=== PATIENT | male | born 1945 | race Caucasian/White ===

== ENCOUNTER → 2020-09-04 12:38 | Outpatient (BNVA) | payer MEDICARE, SELFPAY | PROVIDERS: PCP Internal Medicine; Visit Provider Internal Medicine Cardiovascular Disease | DX: R07.89 Other chest pain (principal); I42.8 Other cardiomyopathies; Z95.2 Presence of prosthetic heart valve | CPT/HCPCS: 99212 ==

== ENCOUNTER → 2020-10-11 10:31 | Outpatient (REF) | payer MEDICARE, SELFPAY ==
--- NOTE | 2020-10-11 10:35 | CA_ITS ---
Transthoracic Echocardiogram Patient (Last, First, Middle): Kenny Pepe A Gender: Male Date of : 1945 Age: 75 Procedure Date: 10/11/2020 Procedure Type: Transthoracic Echocardiogram Location: OP Height: 175.26 cm Weight: 92.99 kg BSA: 2.09 m2 Heart Rate: bpm BP: 120 / 80 mmHg Milk Truck Driver: NATASHA Stevens MD: Vinny Gatica MD Journeyman Powerhouse Operator: Keegan Dai MD Symptoms: Z95.2 - Presence of prosthetic heart valve Study Quality: Fair ECG Rhythm: Sinus Conclusions: - 1. Mildly reduced LV systolic function with LVEF of 45-50% with grade 1 diastolic dysfunction 2. Normally functioning bioprosthetic aortic valve with mean gradient of 10 mm of mercury 3. Normal RV systolic pressure 4. Mildly dilated ascending aorta at 4.3 cm 5. No pericardial effusion Findings Left Ventricle Normal left ventricular cavity size. There is normal left ventricular wall thickness. The left ventricular systolic function is mildly decreased. The visually estimated ejection fraction is between 45-50%. There is paradoxical septal motion consistent with post-operative status and paradoxical septal motion consistent with a left bundle branch block. Spectral Doppler is indicative of an impaired relaxation filling pattern. E/E prime ratio is <8, consistent with normal filling pressures. Evidence suggests grade I (mild) diastolic dysfunction. Right Ventricle Normal right ventricular cavity size and systolic function. Atria The left atrium is likely dilated. Interatrial shunt cannot be excluded. The right atrium is normal in size. Aortic Valve A bioprosthetic aortic valve is present. The prosthetic aortic valve appears to be functioning normally. The mean gradient is 10 mmHg. There is no aortic valve regurgitation. Mitral Valve There is mild anterior and posterior mitral leaflet thickening. There is mild mitral valve regurgitation. There is no mitral valve stenosis. Pulmonic Valve The pulmonic valve was not well visualized. Tricuspid Valve Likely normal tricuspid valve structure and function. There is mild tricuspid valve regurgitation. The right ventricular systolic pressure is normal. The right ventricular systolic pressure is 27 mmHg. Normal right atrial pressure. There is no evidence of pulmonary hypertension. Great Vessels The pulmonary artery was not well visualized. There is mild dilatation of the ascending aorta measuring 4.30 cm. Venous The inferior vena cava is normal in size and collapses greater than 50% with inspiration. Pericardium/Pleural Prominent epicardial adipose tissue noted. Prior Study Comparison No significant change compared to prior study dated: 08/11/2018. Measurements 2D Linear Measurements IVSd: 1.05 0.6-0.9/0.6-1.0 cm LVIDd: 5.13 3.9-5.3/4.2-5.9 cm LVIDd Index: 2.45 2.4-3.2/2.2-3.1 cm/m2 LVIDs: 4.09 2.0-3.6 cm LVPWd: 1.06 0.7-1.1 cm LA Diam: 4.10 2.7-3.8/3.0-4.0 cm LAIDs Index: 1.96 1.5-2.3 cm/m2 LV Mass: 254.28 67-162/88-224 g LV Mass Index: 121.66 43-95/49-115 g/m2 LVOT Diam: 2.40 3.0+(-)1.3 cm 2D Systolic Function EF 4C: 45.00 >55% EF 2C: 45.90 >55% EF BiP: 46.30 >55% Mitral Valve MV Pk E: 0.44 MV PK A: 0.94 MV Decel Time: 168.00 E/A: 0.50 E'Lateral: 5.44 E'Medial: 4.03 E/E' Med: 10.80 E/E' Lat: 8.00 PHT: 49.00 MVA PHT: 4.49 Decel Cassia: 2.59 Aortic Valve AoV Pk Gio: 2.11 AoV Mn Gio: 1.53 AoV VTI: 0.43 AoV Pk Grad: 18.00 Aov Mn Grad: 10.00 TAMMIE Cont.VTI: 2.06 LVOT LVOT Pk Gio: 0.96 LVOT Mn Gio: 0.71 LVOT VTI: 0.20 LVOT Pk Grad: 4.00 LVOT Mn Grad: 2.00 LVOT Diam: 2.40 LVOT Area: 4.52 Diastolic Function MV Pk E: 0.44 MV Pk A: 0.94 E/A: 0.50 E'Medial: 4.03 E/E' Med: 10.80 E' Laterial: 5.44 E/E' Lat: 8.00 Tricuspid Valve TR Pk Gio: 2.47 TR Pk Grad: 24.00 RA Press: 3.00 RVSP: 27.00 Great Vessels Aorta Ao Asc: 4.30 2.1-3.4 cm Ao Arch: 3.00 Updated in Other Vendor System with Status of Final Keegan Dai MD electronically signed on 10/11/2020 2:31:11 PM with status of Final
== END ==
LOC: HO.CARD 10:31
PROVIDERS: Visit Provider Internal Medicine Cardiovascular Disease
DX: Z95.2 Presence of prosthetic heart valve (principal)
CPT/HCPCS: 93306

== ENCOUNTER 2020-12-06 11:41 | Outpatient (REF) | payer MEDICARE, SELFPAY ==
[2020-12-07 11:47] LABS: Free Prostate Spec Ag 1.2 ng/mL; Percent Free Prostate Spec Ag 38 % (calc) (>25); Prostate Specific Ag Total 3.2 ng/mL (< OR = 4.0)
== END 2020-12-06 11:42 | disposition home or self-care (01) ==
LOC: HO.LAB 11:41
PROVIDERS: PCP Internal Medicine; Visit Provider Urology
DX: R97.20 Elevated prostate specific antigen [PSA] (principal); Z12.5 Encounter for screening for malignant neoplasm of prostate
CPT/HCPCS: 36415; 84153; 84154

== ENCOUNTER → 2021-01-10 14:23 | Outpatient (BNVA) | payer MEDICARE, SELFPAY | PROVIDERS: Visit Provider Urology | DX: R97.20 Elevated prostate specific antigen [PSA] (principal); R33.9 Retention of urine, unspecified; N31.9 Neuromuscular dysfunction of bladder, unspecified | CPT/HCPCS: 99212 ==

== ENCOUNTER 2021-01-16 10:35 | Outpatient (REF) | payer MEDICARE, SELFPAY ==
[2021-01-16 11:55] LABS: Alanine Aminotransferase 19 U/L (0-40); Albumin Level 4.2 g/dL (3.5-5.0); Alkaline Phosphatase 91 U/L (39-117); Aspartate Amino Transferase 24 U/L (5-37); Bilirubin Direct 0.3 mg/dL (0.0-0.5); Bilirubin Total 0.8 mg/dL (0.0-1.0); Cholesterol 141 mg/dL; HDL Cholesterol 49 mg/dL; LDL Cholesterol Calculated 79 mg/dl; Total Protein 6.6 g/dL (6.5-8.0); Triglycerides 68 mg/dL
[2021-01-16 12:08] LABS: Reflex LDLD? No
== END 2021-01-16 10:36 | disposition home or self-care (01) ==
LOC: HO.LNP 10:35
PROVIDERS: Visit Provider Internal Medicine
DX: I25.10 Atherosclerotic heart disease of native coronary artery without angina pectoris (principal)
CPT/HCPCS: 80061; 80076

== ENCOUNTER 2023-11-21 12:29 | Inpatient (IN) | payer OTHER, MEDICARE, SELFPAY ==
[2023-11-21] VITALS (20 sets, daily range): BP systolic 139–170; BP diastolic 74–104; PULSE 64–81; RESP 15–21; TEMP 36.4–36.7; O2SAT 93–100; BMI 30.2; BMI 29.1
--- NOTE | ~2023-11-21 | CT_ITS ---
CT ANGIOGRAM NECK WITH CONTRAST CT ANGIOGRAM BRAIN WITH CONTRAST CLINICAL INFORMATION: Dysarthria. COMPARISON: Head CT 11/21/2023. TECHNIQUE: Test bolus sequences followed by intravenous administration 70 mL of Omnipaque 350. Helical imaging was performed in the axial plane from the thoracic inlet to the skull vertex. Delayed postcontrast imaging of the head was also performed. The data was processed at the nuclear cardiology technologist workstation for generation of MIP sequences. Angled MIPs and volume rendered reformatted images were also generated at an offline 3D workstation under concurrent supervision. Stenoses are assessed in accordance with NASCET criteria unless otherwise indicated. This CT examination was performed using dose optimization techniques as appropriate, variously including the following: *Automated exposure control *Adjustment of mA and/or kV according to patient size (this includes techniques or standardized protocols for targeted exams where dose is matched to indication/reason for exam; i.e. extremities or head) *Use of iterative reconstruction technique FINDINGS: BRAIN: [There is no intracranial hemorrhage, hydrocephalus, extra-axial surface collection, midline shift, or other herniation pattern. Possible acute infarct involving the left superior temporal gyrus and the posterior left insula that would be better assessed with MRI. No mass effect and no hemorrhagic transformation. The basilar cisterns are preserved. No significant soft tissue abnormality. No acute osseous abnormality. There is a retention cyst within the left maxillary sinus which is atelectatic. 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 CERVICAL SOFT TISSUES AND LUNG APICES: There are median sternotomy wires. Imaged upper lungs are clear. Multiple surgical clips within the left neck, following left carotid endarterectomy. NECK CTA: [There is a classic 3 vessel configuration of the aortic arch. Proximal arch vessels are non-stenotic. The vertebral arteries are codominant. No significant ostial stenosis is visualized on either side. Both vertebral arteries are widely patent throughout their extracranial cervical course. Fibrofatty atherosclerotic plaque results in a 60% stenosis of the proximal right internal carotid artery. No significant stenosis involving the left carotid bifurcation. BRAIN CTA: Acute arterial occlusion of one of the posterior left sylvian M2 middle cerebral artery branches. 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 Atherosclerotic calcification throughout the carotid siphons bilaterally without significant stenosis. No aneurysm. Timing of the contrast bolus allows assessment of the major dural venous sinuses, which all opacify normally] CT/CT angio head neck stroke IMPRESSION: - Acute arterial occlusion of one of the posterior left sylvian M2 middle cerebral artery branches. Possible acute infarct involving the left superior temporal gyrus and the posterior left insula that would be better assessed with MRI. No mass effect and no hemorrhagic transformation. - Fibrofatty atherosclerotic plaque results in a 60% stenosis of the proximal right internal carotid artery. Findings discussed with Fer Barrera at 1:12 PM on 11/21/2023
--- NOTE | ~2023-11-21 | CT_ITS ---
EXAMINATION: CT HEAD WITHOUT CONTRAST (STROKE PROTOCOL) CLINICAL INFORMATION: Stroke protocol. Weakness COMPARISON: None available. TECHNIQUE: Contiguous axial imaging was performed from the skull base to vertex without intravenous administration of contrast. This CT examination was performed using dose optimization techniques as appropriate, variously including the following: *Automated exposure control *Adjustment of mA and/or kV according to patient size (this includes techniques or standardized protocols for targeted exams where dose is matched to indication/reason for exam; i.e. extremities or head) *Use of iterative reconstruction technique DLP: 725 mGy-cm FINDINGS: There is no acute intra-axial, extra-axial bleed, masses, collection or midline shift. There is no acute infarction evolution. There is no edema. The lateral ventricles are symmetrical in size and configuration with mild prominence. There is mild periventricular hypodensity in both cerebral hemispheres slightly more prominent in the left frontal region which could represent a small old lacunar infarct. Bone windows reveal a small polyp or subluxation cyst left maxillary sinus. This is calcified sinolith in right frontal sinus. Rest of the paranasal sinuses are clear. No gross bony or calvarial abnormality seen. No scalp soft tissue abnormality. CT/CT head for stroke IMPRESSION: No acute intracranial process seen. This critical result was discussed with Fer Barrera at12:47pm on 11/21/2023. It was ascertained that the content and urgency of the report was understood at the time of direct communication.
--- NOTE | ~2023-11-21 | MR_ITS ---
EXAMINATION: MR BRAIN WITHOUT CONTRAST CLINICAL INFORMATION: Cerebrovascular accident. COMPARISON: CT angiogram head and neck 11/21/2023. TECHNIQUE: MRI of the brain was obtained using routine sequences without contrast. FINDINGS: There is a small acute cortical infarct within the left parietal lobe. There are scattered nonspecific foci of T2 FLAIR signal hyperintensity primarily involving the periventricular white matter. A few small chronic within infarcts within the basal ganglia and thalami are noted. No pathological magnetic susceptibility artifact. Intracranial vascular flow voids are grossly maintained. There is no intracranial mass effect or midline shift. No abnormal extra-axial collection. Lateral and third ventricles are normal. No hydrocephalus. Midline structures including the cervicomedullary junction are normal. No acute bone marrow signal changes. There is no mastoid or middle ear effusion. There is a retention cyst within the alveolar recess of the left maxillary sinus which is asymmetrically hypoplastic or atelectatic. Globes and orbits are grossly symmetric. MR/MR head/brain wo con IMPRESSION: There is a small acute cortical infarct within the left parietal lobe and numerous chronic small vessel ischemic changes primarily involving the periventricular white matter. A few small chronic lacunar infarcts are also visualized within the basal ganglia and thalami.
--- NOTE | 2023-11-21 12:31 | ECG_ITS ---
Test Reason : STROKE Blood Pressure : / mmHG Vent. Rate : 074 BPM Atrial Rate : 074 BPM P-R Int : 232 ms QRS Dur : 150 ms QT Int : 434 ms P-R-T Axes : 020 -26 148 degrees QTc Int : 481 ms Sinus rhythm with 1st degree A-V block Left bundle branch block Abnormal ECG No previous ECGs available Referred By: Fer Barrera Electronically Signed By:Vinny Gatica
--- NOTE | 2023-11-21 12:35 | ED.GENADULT ---
HPI - General Adult General Chief complaint: Stroke Stated complaint: SPEECH CHANGES Time Seen by Provider: 11/21/23 12:31 Source: patient and EMS Mode of arrival: EMS Limitations: no limitations History of Present Illness HPI narrative: This is an 78-year-old male history of aortic valve replacement and aortoplasty as well as presence of prosthetic heart valve, elevated PSA, urinary retention with incomplete bladder emptying, and hypotonic neurogenic bladder presenting to the emergency department with difficulty with word-finding, slurred speech all of which started at 09:00 and gradually worsened. Patient reports initially he was not too worried as this has happened to him in the past and typically has gone away however this time it did not seem to be going away. Patient denies associated headache, visual disturbances, dizziness, weakness, nausea, vomiting, abdominal pain, chest pain, shortness of breath. Related Data Home Medications Medication Instructions Recorded Confirmed aspirin 81 mg tablet,delayed 81 mg PO DAILY 09/04/20 09/04/20 release (Adult Low Dose Aspirin) hydroxyurea 500 mg capsule PO 09/04/20 09/04/20 simvastatin 20 mg tablet 20 mg PO DAILY 09/04/20 09/04/20 rosuvastatin 10 mg tablet 10 mg PO DAILY 01/10/21 Previous Rx's Medication Instructions Recorded tamsulosin 0.4 mg capsule 0.8 mg (2 x 0.4 mg) PO DAILY 90 02/13/21 days #180 caps terazosin 5 mg capsule 5 mg PO BEDTIME 30 days #30 caps 02/26/21 nitrofurantoin macrocrystal 100 mg 100 mg PO DAILY 90 days #90 caps 05/02/21 capsule Allergies Allergy/AdvReac Type Severity Reaction Status Date / Time No Known Allergies Allergy Verified 01/10/21 14:30 Review of Systems Review of Systems: Yes all other systems are reviewed and are negative [facility] Past Medical History Attestation statement: The following information was validated with the patient. Source: old records reviewed and nursing notes reviewed Surgical History History of heart surgery History of tonsillectomy History of removal of cyst Family History Family History Father No problems noted. Mother No problems noted. Social History Social History Smoked in Last 30 Days: No Use of substances other than those prescribed or required for medical reasons: No Advance Directives: No Advance Directives Information Provided: Yes Physical Exam ED Vital Signs: Vital Signs - 24 hr 11/21/23 13:16 11/21/23 13:34 11/21/23 13:53 Temperature 97.5 F Pulse Rate 67 76 78 Respiratory Rate 16 17 18 Blood Pressure 154/97 H 157/90 H 156/87 H Pulse Oximetry 100 97 94 Oxygen Delivery Method Room Air Room Air Room Air 11/21/23 14:08 11/21/23 14:21 11/21/23 14:23 Temperature 97.9 F Pulse Rate 75 74 75 Respiratory Rate 18 15 18 Blood Pressure 160/80 H 160/80 H 149/83 H Pulse Oximetry 93 96 94 Oxygen Delivery Method Room Air Room Air Room Air 11/21/23 14:38 11/21/23 15:00 Temperature 97.8 F Pulse Rate 81 78 Respiratory Rate 18 21 H Blood Pressure 155/104 H 142/103 H Pulse Oximetry 94 96 Oxygen Delivery Method Room Air Room Air BMI result Body Mass Index 30.2 vss Appearance: Alert.? Oriented X3.? No acute distress.? Head: Normocephalic, atraumatic, no step-offs or deformities. Smile symmetric. + Patient does however have slurred speech and difficulty with word finding during my exam Eyes: Pupils equal, round and reactive to light.? Neck: Normal inspection.? Neck supple.? CVS: Normal heart rate and rhythm.? Pulses normal.? Respiratory: No respiratory distress.? Breath sounds normal.? Abdomen: Soft and nontender.? Skin: Skin warm and dry.? Normal skin color.? Normal skin turgor.? Extremities: No lower extremity edema.? No calf ttp. 5/5 strength to bilateral upper and lower extremities Back: No midline tenderness, no C-spine tenderness, full range of motion, no CVA tenderness bilaterally Neuro: Oriented X 3.? No motor deficit.? No sensory deficit. CN 2-12 intact . Normal [id number]. Normal straight leg raise. Negative Romberg and pronator drift. Normal sensation bilaterally. Course Reevaluation(s) Reevaluation #1: Normal dry head scan. Recieved call from [facility]. Call out to neurology. review scheduling coordinator at the bedside. Time: 12:51 Reevaluation #2: Hold TNK for nowper Dr. Resendiz At this time patient now with clear speach not not having difficulty w/ word finding. Time: 12:57 Reevaluation #3: I did receive a critical call from [facility] stating likely M2 occlusion unlikely early infarct of the left temporal Wernicke's area, unable to get a hold of Dr. Gonzales community health education coordinator reach out to Dr. Salguero neurology who recommends giving TNK at this time 1316. At the same time nurse at bedside again reporting difficulty w/ word finding and slightly slurred speech Time: 13:16 Additional Reevaluation(s): [address] Doss neuro morena,would like patient transfered to [facility] post TNK care and monitoring as an ED to ED transfer due to the distal M2. States if sx persist or patient worsens thrombectomy may be an option. patient and family agree with this plan. 1427 Spoke to in the ED who accepts transfer 1500 [facility] Selam recommends 1L NS and to lie flat. 1513 I now received a call from [facility] Dr. Doss neuro morena who also discuss this case with neurologist/stroke physician on-call Dr. Bacon who states that they further discuss this case in looked at images which were uploaded onto [employer] due to an NIH stroke scale of 2 in the distal location of occlusion they feel as though TNK is sufficient for this patient. They would not like patient transferred to [facility] due to limited number of available ICU beds therefore they would prefer this patient is kept here closely observed in the ICU for post TNK care. Medications Administered Generic Name Dose Route Start Last Admin Trade Name Freq PRN Reason Stop Dose Admin Sodium Chloride 500 mls @ 500 mls/hr 11/21/23 15:00 11/21/23 15:18 Ns IV 11/21/23 15:59 500 mls/hr .Q1H ISABELLA Administration Discontinued Medications Generic Name Dose Route Start Last Admin Trade Name Freq PRN Reason Stop Dose Admin Acetaminophen 650 mg 11/21/23 14:14 11/21/23 14:38 Acetaminophen 325 Mg Tablet PO 11/21/23 14:15 Not Given ONCE ONE Tenecteplase 23 mg 11/21/23 13:16 11/21/23 13:20 Tenecteplase 50 Mg/10 Ml Kit IVPUSH 11/21/23 13:17 23 mg ONCE ONE Administration Medical Decision Making Medical Decision Making [facility] Narrative: 1234 Stroke alert paged overhead 78 yo m presents w/ difficulty speaking and issues w/ word finding Exam- neuro nonfocal however patient is having difficulty with word finding and is having evident slurred speech. NIH stroke scale of 2 GCS 15 and no associated trauma History and physical exam concerning for possible stroke versus TIA. Lower suspicion for intracranial hemorrhage or traumatic intracranial bleed. Will rule out metabolic derangements in urinary infection which could be mimicking this. Plan labs, imaging, CT head and CTA. Differential Diagnosis Differential Diagnoses: The differential diagnosis associated with the presentation includes History and physical exam concerning for possible stroke versus TIA. Lower suspicion for intracranial hemorrhage or traumatic intracranial bleed. Will rule out metabolic derangements in urinary infection which could be mimicking this. Admission/Observation Consideration of admission/observation: Escalation of care including admission/observation considered Consult Healthcare Provider Management of the patient was discussed with: Search Marketing Coordinator Lab Data [facility] Lab Attestation statement: I reviewed the patient's lab results. 11/21/23 14:03 11/21/23 14:03 Labs: Lab Results 11/21/23 11/21/23 11/21/23 Range/Units 12:49 12:50 14:03 WBC 4.6 L (4.8-10.8) X10*3/uL RBC 3.67 L (4.60-5.80) X10*6/uL Hgb 13.3 L (14.0-18.0) g/dl Hct 38.9 L (42.0-52.0) % MCV 106.0 H (80.0-98.0) fL MCH 36.2 H (27.0-33.0) pg MCHC 34.2 (31.0-36.0) g/dl RDW 12.7 (11.0-16.0) % Plt Count 261 (160-400) X10*3/uL MPV 9.7 (9.4-12.4) fL Immature Gran % (Auto) 0.2 (0.0-0.4) % Neut % (Auto) 62.1 (45-73) % Lymph % (Auto) 23.1 (20-40) % Cuming % (Auto) 11.0 (2-11) % Eos % (Auto) 3.0 (0-4) % Baso % (Auto) 0.6 (0-2) % Lymph # (Auto) 1.1 L (1.2-4.9) X10*3/uL Cuming # (Auto) 0.5 (0.1-1.2) X10*3/uL Eos # (Auto) 0.1 (0.0-0.4) X10*3/uL Baso # (Auto) 0.0 (0.0-0.2) X10*3/uL Abs Immat Gran (auto) 0.01 (0.00-0.03) X10*3/uL Absolute Neuts (auto) 2.9 (2.0-8.3) x10*3/uL Absolute Nucleated RBC 0.000 (0.0-0.012) X10*3/uL Nucleated RBC % (auto) 0.0 (0.0-0.2) /100WBC PT 11.3 (11.1-13.3) SEC Whole Blood PT 12.2 (11.1-13.5) sec INR 0.9 (0.9-1.1) Whole Blood INR 1.0 (0.9-1.1) APTT 31.8 (26.0-36.8) SEC Sodium 138 (135-145) mmol/L Potassium 4.1 (3.3-5.1) mmol/L Chloride 106 (96-108) mmol/L Carbon Dioxide 27 (22-29) mmol/L Anion Gap 9 L (12-20) BUN 20 H (9-16) mg/dL Creatinine 1.11 (0.5-1.4) mg/dL Estim Creat Clear Calc 59.7 Estimated GFR > 60 POC Glucose 91 (60-115) mg/dL Random Glucose 103 (60-115) mg/dL Calcium 9.2 (8.4-10.2) mg/dL Total Creatine Kinase 120 (38-174) U/L Troponin I High Sens 5.6 (<3.5-35.0) ng/L Triglycerides 135 (<150) mg/dL Cholesterol 133 (<200) mg/dL LDL Cholesterol, Calc 62 (<100) mg/dL HDL Cholesterol 44 (>40) mg/dL Independent Interpretation I performed an independent interpretation of an: EKG and CT Scan Radiology Impression Discussion of test interpretation with radiology: I have reviewed the radiologist's reading. External Record Review External record reviewed: Inpatient record, Office record, Outpatient record, Prior outpatient labs, Prior outpatient radiology, Primary care record and Outside ED record Chronic Conditions Patient?s care impacted by: Other (aortic valve replacement and aortoplasty ) Critical Care Time Critical Care Time Critical Care Time: Yes Total Critical Care Time: 120 Attestation: I attest to this time spent taking care of the patient, obtaining history, physical, reviewing labs, imaging, speaking to my attending, speaking to specialist. Discharge Plan Discharge Clinical Impression: Stroke, Aphasia Patient Disposition: Admitted As Inpatient
[2023-11-21 12:53] LABS: Glucose, Whole Blood 91 mg/dL (60-115)
[2023-11-21 12:53] LABS: Prothrombin Time Whole Bld POC 12.2 sec (11.1-13.5)
[2023-11-21] MEDS: Tenecteplase 50 MG/10 ML KIT 23 MG IVPUSH (13:20)
--- NOTE | 2023-11-21 13:38 | PC.NURSE ---
PT IS A/O X 4 NO SOB/JOSEPH NOTED NEUROS WNL. DAUGHTER AND AT BEDSIDE. DR. STEWART AT BEDSIDE AT LENGTH WITH PLAN OF CARE TO FAMILY/PT. PT HAS #18 L AC. NO EDEMA NOTED. PT HAS BEEN HAVING SPORADIC EPISODES AND RESOLUTION OF WORD FINDING. (TANA/YOHAN COTTER) AWARE. PT/FAMILY IS AWARE OF PLAN OF CARE FOR ADMISSION TO ICU. WILL CONTINUE TO MONITOR.
--- NOTE | 2023-11-21 13:57 | MHC.STROKE ---
Notified of Stroke Alert on patient. When TW arrived to ED, patient was in CT scan. Pt had already been evaluated by provider and a dry CT was done. Pt was in CT scan for a CTA H/N. Provider Moira had spoken with Dr. Harrell. Pt had initial NIH score of 2. When CTA completed, patient moved into bed 21. Pt was awake, alert and oriented x 3. skin warm and dry. Resp unlabored. Denies n/v. Denies headache. PERRLA, Tongue midline, smile symmetrical. Hand grasp equal. No palmar drift. Heel to nava testing normal. Equal arm/leg strength. Pt had difficulty with some word finding but speech was clear. Received call from radiology. Pt with left M2 occlusion. Attempted to reach Dr. Harrell without success. Dr. Salguero notified and plan was to administer TNK as the window of administration time was closing. TNK ordered and administered via #18 in left arm. Swallow screen - Pt is NPO due to TNK administration Stroke Education completed with the patient and family ( Lisa and daughter). Pt and family aware of plan. Will contact [facility] to see if he is a candidate for clot retrieval. Awaiting callback.
[2023-11-21 14:09] LABS: MANUAL DIFF FLAG NO
[2023-11-21 14:11] LABS: Basophils Percent Auto 0.6 % (0-2); Eosinophils Absolute Auto 0.1 X10*3/uL (0.0-0.4); Hematocrit 38.9 % (42.0-52.0); Hemoglobin 13.3 g/dl (14.0-18.0); Imm Gran Abs Auto 0.01 X10*3/uL (0.00-0.03); Imm Gran Pct Auto 0.2 % (0.0-0.4); Lymphocytes Absolute Auto 1.1 X10*3/uL (1.2-4.9); Lymphocytes Percent Auto 23.1 % (20-40); Mean Corpuscular HGB Conc 34.2 g/dl (31.0-36.0); Mean Corpuscular Hemoglobin 36.2 pg (27.0-33.0); Mean Platelet Volume 9.7 fL (9.4-12.4); Monocytes Absolute Auto 0.5 X10*3/uL (0.1-1.2); Neutrophils Absolute Auto 2.9 x10*3/uL (2.0-8.3); Neutrophils Percent Auto 62.1 % (45-73); Platelet Count 261 X10*3/uL (160-400); Red Blood Count 3.67 X10*6/uL (4.60-5.80); Red Cell Distribution Width 12.7 % (11.0-16.0); White Blood Count 4.6 X10*3/uL (4.8-10.8)
[2023-11-21 14:16] LABS: INTERNATIONAL NORM RATIO 0.9 (0.9-1.1); Prothrombin Time 11.3 SEC (11.1-13.3)
[2023-11-21 14:18] LABS: Partial Thromboplastin Time 31.8 SEC (26.0-36.8)
[2023-11-21 14:20] LABS: Stroke Lab Use COMPLETE
[2023-11-21 14:26] LABS: Anion Gap 9 (12-20); Blood Urea Nitrogen 20 mg/dL (9-16); Calcium 9.2 mg/dL (8.4-10.2); Carbon Dioxide 27 mmol/L (22-29); Chloride 106 mmol/L (96-108); Creatinine Clr Calc Pharmacy 59.7; Estimated Glomerular Filt Rate > 60; Glucose Random 103 mg/dL (60-115); Potassium 4.1 mmol/L (3.3-5.1); Sodium 138 mmol/L (135-145)
--- NOTE | 2023-11-21 14:28 | MHC.STROKE ---
Provider spoke with [facility]. Patient is going to be transferred for possible thrombectomy. Explained to patient in detail that the procedure may or may not be done based on the assessment of the specialist there. Pt states that he agrees to plan. No neuro changes at this time. Pt denies headache.
--- NOTE | 2023-11-21 14:29 | MHC.SLORD ---
Speech Language Pathology Order Status: Received order for MAID CLEANING COOKING consult. Per safety coordinator, to be cx'ed as pt is going to be transferred to [facility] for a possible thrombectomy.
[2023-11-21 14:34] LABS: Troponin-I High Sensitivity 5.6 ng/L (<3.5-35.0)
[2023-11-21 14:47] LABS: Cholesterol 133 mg/dL (<200); HDL Cholesterol 44 mg/dL (>40); LDL Cholesterol Calculated 62 mg/dL (<100); Triglycerides 135 mg/dL (<150)
--- NOTE | 2023-11-21 14:56 | PC.NURSE ---
RN TO RN REPORT GIVEN TO JESSIE AT [facility]. PT/FAMILY AWARE OF PLAN OF CARE FOR TRANSFER VIA AMBULANCE TO [facility].
--- NOTE | 2023-11-21 14:59 | MHC.STROKE ---
Late Entry 1345: Pt reports that he woke this am at 0530. Reports that he was feeling well at that time and was reading. States that he ate breakfast with his around 0800 and had no symptoms. Around 0900 he received a spam call on his phone. He reports I couldn't speak and I felt weak all over . He reports that this has happened in the past with his speech but it resolved. Due to continuing symptoms, his called the ambulance around lunch time.
--- NOTE | 2023-11-21 15:00 | MHC.EDTECH ---
T 97.5 P 78 R 21 BP 142/103 UL O 96 2 LITERS
--- NOTE | 2023-11-21 15:10 | PC.NURSE ---
PT PLACED ON O2 AT 1L/M VIA N/C. O2 SAT - 98%. PT HAS 2 HEPLOCKS #18 (L LOWER FOREARM AND R AC). PT IS A/O X 4. NO SOB/JOSEPH NOTED. WILL CONTINUE TO MONITOR.
[2023-11-21] MEDS: 0.9 % Sodium Chloride 500 ML IV (15:18)
--- NOTE | 2023-11-21 15:20 | PC.NURSE ---
PT SEEN BY DRS. VEGA AND MOIZ. PT AWARE OF PLAN OF CARE.
--- NOTE | 2023-11-21 15:36 | CA_ITS ---
Transthoracic Echocardiogram Patient (Last, First, Middle): Kenny Pepe A Gender: Male Date of : 1945 Age: 78 Procedure Date: 11/21/2023 Procedure Type: Transthoracic Echocardiogram Location: ICU Height: 175.26 cm Weight: 92.53 kg BSA: 2.08 m2 Heart Rate: bpm BP: 159 / 93 mmHg It Support Specialist: Referring MD: George Sheikh MD Symptoms: CVA s/p TNK Study Quality: Adequate ECG Rhythm: Ventriculary paced rhythm Conclusions: - Normal left ventricular cavity size. There is severely increased left ventricular wall thickness. The left ventricular systolic function is severely decreased. The visually estimated ejection fraction is between 20-25%. - There is paradoxical septal motion consistent with a left bundle branch block. - Normal right ventricular cavity size. There is low normal right ventricular systolic function. - There is moderate dilatation of the ascending aorta measuring 4.50 cm. Findings Left Ventricle Normal left ventricular cavity size. There is severely increased left ventricular wall thickness. The left ventricular systolic function is severely decreased. The visually estimated ejection fraction is between 20 25%. There is paradoxical septal motion consistent with a left bundle branch block. Diastolic function is indeterminate on the basis of available data. Right Ventricle Normal right ventricular cavity size. There is low normal right ventricular systolic function. Atria The left atrium is likely dilated. Aortic Valve A bioprosthetic aortic valve is present. The prosthetic aortic valve appears to be functioning normally. There is no aortic valve regurgitation. Mitral Valve The mitral valve appears normal. There is trace mitral valve regurgitation. There is no mitral valve stenosis. Pulmonic Valve Normal pulmonic valve structure and function. There is trace pulmonic valve regurgitation. Tricuspid Valve Normal tricuspid valve structure. There is trace tricuspid valve regurgitation. Normal right atrial pressure. There is no evidence of pulmonary hypertension. Great Vessels There is moderate dilatation of the ascending aorta measuring 4.50 cm. The visualized portions of the pulmonary artery and branches are normal. Venous The inferior vena cava is normal in size and collapses greater than 50% with inspiration. Pericardium/Pleural There is no evidence of pericardial effusion. Prior Study Comparison Changes noted compared to prior study dated: 10/11/2020. Severe LV dysfunction. Measurements 2D Linear Measurements IVSd: 1.62 0.6-0.9/0.6-1.0 cm LVIDd: 5.48 3.9-5.3/4.2-5.9 cm LVIDd Index: 2.63 2.4-3.2/2.2-3.1 cm/m2 LVIDs: 4.64 2.0-3.6 cm LVPWd: 1.65 0.7-1.1 cm Ao Root: 3.80 2.1-3.5 cm LA Diam: 3.60 2.7-3.8/3.0-4.0 cm LAIDs Index: 1.73 1.5-2.3 cm/m2 LV Mass: 525.57 67-162/88-224 g LV Mass Index: 252.68 43-95/49-115 g/m2 LVOT Diam: 2.30 3.0+(-)1.3 cm 2D Systolic Function EF 4C: 22.70 >55% EF 2C: 29.40 >55% EF BiP: 24.90 >55% Mitral Valve MV Pk E: 1.03 MV Decel Time: 122.00 E'Lateral: 8.27 E'Medial: 3.70 E/E' Med: 27.80 E/E' Lat: 12.50 PHT: 36.00 MVA PHT: 6.11 Decel [place]: 8.47 Aortic Valve AoV Pk Gio: 1.86 AoV Mn Gio: 1.12 AoV VTI: 0.33 AoV Pk Grad: 14.00 Aov Mn Grad: 6.00 TAMMIE Cont.VTI: 1.92 LVOT LVOT Pk Gio: 0.76 LVOT Mn Gio: 0.51 LVOT VTI: 0.15 LVOT Pk Grad: 2.00 LVOT Mn Grad: 1.00 LVOT Diam: 2.30 LVOT Area: 4.15 Diastolic Function MV Pk E: 1.03 E'Medial: 3.70 E/E' Med: 27.80 E' Laterial: 8.27 E/E' Lat: 12.50 Right Ventricle TAPSE (mm): 15.00 Tricuspid Valve TR Pk Gio: 2.53 TR Pk Grad: 26.00 RA Press: 3.00 RVSP: 29.00 Great Vessels Aorta Ao Root-2D: 3.80 2.0-3.7 cm Ao Asc: 4.50 2.1-3.4 cm Pulmonary Valve PV Pk Gio: 0.98 Peak PV Grad: 4.00 Updated in Other Vendor System with Status of Final Vinny Gatica MD electronically signed on 11/21/2023 10:03:01 PM with status of Final
--- NOTE | 2023-11-21 15:39 | PM.CCHP ---
History of Present Illness Date of Service: 11/21/23 Chief Complaint: CVA s/p TNK 78-year-old gentleman with underlying bioprosthetic AVR and aortoplasty, urinary retention with incomplete bladder emptying secondary to neurogenic bladder being admitted for acute CVA with aphasia status post TNK in the emergency room. Patient evaluated by neurology service no evidence of large vessel occlusion. Review of Systems Constitutional: Constitutional: Denies daytime sleepiness, Denies excessive sweating, Denies fatigue, Denies fever(s), Denies lethargy, Denies malaise, Denies night sweats, Denies snoring and Denies weight loss Eyes: Eyes: Denies blurry vision and Denies itchy eyes ENT: Denies nasal congestion, Denies post nasal drip, Denies sinus pain, Denies sinus pressure and Denies other ( Thrush) Cardiovascular: Cardiovascular: Denies chest pain, Denies pedal edema, Denies dyspnea, Denies orthopnea and Denies paroxysmal nocturnal dyspnea Respiratory: Respiratory: Denies cough, Denies hemoptysis, Denies excessive phlegm production, Denies dyspnea, Denies snoring and Denies wheezing Gastrointestinal: Gastrointestinal: Denies abdominal pain and Denies heartburn Musculoskeletal: Musculoskeletal: Denies myalgias, Denies arthralgias and Denies joint swelling Integumentary/Breasts: Skin/Breast: Denies rash Neurologic: Denies memory loss, Denies seizure-like activity and Reports other (Expressive aphasia) Psychiatric: Psychiatric: Denies abnormal sleep pattern, Denies anxiety and Denies memory loss Endocrine: Endocrine: Denies excessive sweating, Denies fatigue and Denies heat intolerance Hematologic/Lymphatic: Hematologic/Lymphatic: Denies easy bruising Allergic/Immunologic: Allergic/Immunologic: Denies itchy eyes, Denies seasonal rhinorrhea and Denies wheezing PMFSH Family History Family History Father No problems noted. Mother No problems noted. Surgical History Surgical History History of heart surgery History of tonsillectomy History of removal of cyst Social History Social History Smoked in Last 30 Days: No Use of substances other than those prescribed or required for medical reasons: No Advance Directives: No Advance Directives Information Provided: Yes Meds Allergies Allergy/AdvReac Type Severity Reaction Status Date / Time No Known Allergies Allergy Verified 01/10/21 14:30 Active Medications: Current Medications Sodium Chloride (Ns) 500 mls @ 500 mls/hr IV .Q1H [facility] Stop: 11/21/23 15:59 Last Admin: 11/21/23 15:18 Dose: 500 mls/hr Sodium Chloride (0.9 % Sodium Chloride Flush 3 Ml Syringe) 3 ml IVFLUSH QSHIFT [facility] Home Medications Medication Instructions Recorded Confirmed Last Taken Type aspirin 81 mg tablet,delayed 81 mg PO DAILY 09/04/20 09/04/20 Unknown History release (Adult Low Dose Aspirin) hydroxyurea 500 mg capsule PO 09/04/20 09/04/20 Unknown History simvastatin 20 mg tablet 20 mg PO DAILY 09/04/20 09/04/20 Unknown History rosuvastatin 10 mg tablet 10 mg PO DAILY 01/10/21 Unknown History Physical Exam Vital Signs: Vital Signs: Last Vital Signs Temp 97.8 F 11/21/23 15:00 Pulse 78 11/21/23 15:00 Resp 21 H 11/21/23 15:00 BP 142/103 H 11/21/23 15:00 Pulse Ox 96 11/21/23 15:00 O2 Del Method Room Air 11/21/23 15:00 BMI result Body Mass Index 30.2 Const: General: no acute distress and alert Nutritional Appearance: not obese Orientation/consciousness: Other orientation findings ( oriented) HEENT: Head: Yes atraumatic Eyes: General: appearance normal, both eyes and all related structures Sclerae: sclerae normal EOM: EOMs intact bilaterally Neck: Neck: Yes supple Lymphatic: no lymphadenopathy noted Resp: Effort & Inspection: normal respiratory effort and no use of accessory muscles Auscultation: clear to auscultation bilaterally Cardio: Rate: regular rate Rhythm: regular rhythm Heart sounds: no gallops, no murmurs and no rubs Skin: General skin exam: other ( warm) Neuro: Other: Sings 5/5 bilateral, very mild aphasia, otherwise intact cranial nerves exam Extrem: General: No clubbing, No cyanosis and No edema Results Labs 11/21/23 14:03 11/21/23 14:03 Labs: Laboratory Results - last 24 hr 11/21/23 11/21/23 11/21/23 12:49 12:50 14:03 MCV 106.0 H MCH 36.2 H MCHC 34.2 RDW 12.7 Plt Count 261 MPV 9.7 Immature Gran % (Auto) 0.2 Neut % (Auto) 62.1 Lymph % (Auto) 23.1 [place] % (Auto) 11.0 Eos % (Auto) 3.0 Baso % (Auto) 0.6 Lymph # (Auto) 1.1 L [place] # (Auto) 0.5 Eos # (Auto) 0.1 Baso # (Auto) 0.0 Abs Immat Gran (auto) 0.01 Absolute Neuts (auto) 2.9 Absolute Nucleated RBC 0.000 Nucleated RBC % (auto) 0.0 PT 11.3 Whole Blood PT 12.2 INR 0.9 Whole Blood INR 1.0 APTT 31.8 Anion Gap 9 L Estim Creat Clear Calc 59.7 Estimated GFR > 60 POC Glucose 91 Random Glucose 103 Calcium 9.2 Total Creatine Kinase 120 Troponin I High Sens 5.6 Triglycerides 135 Cholesterol 133 LDL Cholesterol, Calc 62 HDL Cholesterol 44 Imaging Radiologist's Impressions: Impressions Head CT 11/21/23 12:40 IMPRESSION: No acute intracranial process seen. This critical result was discussed with Fer Barrera at12:47pm on 11/21/2023. It was ascertained that the content and urgency of the report was understood at the time of direct communication. Head/Neck CTA 11/21/23 12:54 IMPRESSION: - Acute arterial occlusion of one of the posterior left sylvian M2 middle cerebral artery branches. Possible acute infarct involving the left superior temporal gyrus and the posterior left insula that would be better assessed with MRI. No mass effect and no hemorrhagic transformation. - Fibrofatty atherosclerotic plaque results in a 60% stenosis of the proximal right internal carotid artery. Findings discussed with Fer Barrera at 1:12 PM on 11/21/2023 Assessment and Plan (1) Aphasia: Status: Acute (2) Stroke: Status: Acute (3) S/P aortic valve replacement and aortoplasty: Status: Acute Plan Assessment: 78-year-old gentleman admitted with acute CVA now status post TNK with improvement in his aphasia Plan: Neuro: Acute CVA status post TNK. Continue with protocol care. Neurology service care appreciated. MRI pending. Cardiac: No acute issues. Pulmonary: No acute issues. Renal: No acute issues. Endo: No acute issues. GI: No acute issues. ID: No acute issues Heme/Onc: No acute issues. Psych: No acute issues. Miscellaneous: No acute issues. Prophylaxis: Pneumatic compression Diet: Pending swallow evaluation
--- NOTE | 2023-11-21 15:42 | PM.NEUROCN ---
History of Present Illness Data of Consult Service Date: 11/21/23 Primary Care Provider: Moncho Garcia NP [facility] Reason for consult: Expressive dysphasia, stroke This is an 78-year-old male history of aortic valve replacement and aortoplasty with bovine valve and a. genna awaiting delivery of Eliquis to start, presented to the emergency department with difficulty with word-finding, slurred speech all of which started at 09:00 and gradually worsened and fluctuating. Patient reports initially he was not too worried as this has happened to him in the past and typically has gone away however this time it did not seem to be going away. Something similar happened for an hour in 2011 when he had his aortic valve ssurgery.. Patient denies associated headache, visual disturbances, dizziness, weakness, nausea, vomiting, abdominal pain, chest pain, shortness of breath.His CTA showed them to occlusion in the left MCA. [facility] vascular service initially accepted them and then declined. TNK was administered and the patient is improving. Review of Systems Review of Systems: Yes all other systems are reviewed and are negative [facility] Family History Family History Father No problems noted. Mother No problems noted. Surgical History Surgical History History of heart surgery History of tonsillectomy History of removal of cyst Social History Social History Smoked in Last 30 Days: No Use of substances other than those prescribed or required for medical reasons: No Advance Directives: No Advance Directives Information Provided: Yes Meds Allergies Allergy/AdvReac Type Severity Reaction Status Date / Time No Known Allergies Allergy Verified 01/10/21 14:30 Active Medications: Current Medications Sodium Chloride (Ns) 500 mls @ 500 mls/hr IV .Q1H [facility] Stop: 11/21/23 15:59 Last Admin: 11/21/23 15:18 Dose: 500 mls/hr Sodium Chloride (0.9 % Sodium Chloride Flush 3 Ml Syringe) 3 ml IVFLUSH QSHIFT [facility] Home Medications Medication Instructions Recorded Confirmed Last Taken Type aspirin 81 mg tablet,delayed 81 mg PO DAILY 09/04/20 09/04/20 Unknown History release (Adult Low Dose Aspirin) hydroxyurea 500 mg capsule PO 09/04/20 09/04/20 Unknown History simvastatin 20 mg tablet 20 mg PO DAILY 09/04/20 09/04/20 Unknown History rosuvastatin 10 mg tablet 10 mg PO DAILY 01/10/21 Unknown History Physical Exam Vital Signs: Vital Signs: Last Vital Signs Temp 97.8 F 11/21/23 15:00 Pulse 78 11/21/23 15:00 Resp 21 H 11/21/23 15:00 BP 142/103 H 11/21/23 15:00 Pulse Ox 96 11/21/23 15:00 O2 Del Method Room Air 11/21/23 15:00 BMI result Body Mass Index 30.2 Neuro: Other: Is alert and oriented x3 with normal intellectual functions. 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 There is no dysarthria. Cranial nerves II through XII are normal. Muscle tone and strength are normal in all 4 extremities. Deep tendon reflexes symmetrical. Plantar spots are flexor. Results Labs 11/21/23 14:03 11/21/23 14:03 Labs: Short CBC 11/21/23 Range/Units 14:03 WBC 4.6 L (4.8-10.8) X10*3/uL Hgb 13.3 L (14.0-18.0) g/dl Hct 38.9 L (42.0-52.0) % Plt Count 261 (160-400) X10*3/uL BMP 11/21/23 14:03 Sodium 138 Potassium 4.1 Chloride 106 Carbon Dioxide 27 BUN 20 H Creatinine 1.11 Calcium 9.2 Cardiac Enzymes 11/21/23 Range/Units 14:03 Total Creatine Kinase 120 (38-174) U/L Assessment and Plan (1) Stroke: Status: Acute He appears to have an embolic stroke in the left MCA territory and 2 occlusion. [facility] claims specialist declined acceptance. Patient has been given [place] KM will be observed in the ICU for 24 hours. Following this he should be started on Eliquis in view of the history of intermittent atrial fibrillation. Speech therapy. Echocardiogram (2) Aphasia: Status: Acute Procedures Date of Service Date of Service: 11/21/23
--- NOTE | 2023-11-21 15:45 | MHC.STROKE ---
Change in plan of care. Provider Bruce received a phone call from [facility]. They reported that their stroke team reviewed the images sent over and that the patient would unlikely be a surgical candidate. They reported that due to the position of the clot, surgical intervention would not likely be done and that they also had no ICU beds for the patient. Patient and family updated on plan of care by providers and hospice bereavement coordinator. Dr. Harrell and Dr. Sheikh evaluated patient. Plan is now for an ICU admission at [facility]. Pt aware and agreeable to plan. No neuro changes at this time. Primary RN Marce aware of plan.
--- NOTE | 2023-11-21 16:39 | PC.NURSE ---
RN to rN with Dami in ICU.
[2023-11-21 17:06] LABS: Glucose, Whole Blood 83 mg/dL (60-115)
--- NOTE | 2023-11-21 18:10 | ECG_ITS ---
Test Reason : chest pain Blood Pressure : / mmHG Vent. Rate : 066 BPM Atrial Rate : 066 BPM P-R Int : 226 ms QRS Dur : 148 ms QT Int : 456 ms P-R-T Axes : 012 -33 139 degrees QTc Int : 478 ms Sinus rhythm with 1st degree A-V block with occasional Premature ventricular complexes Left axis deviation Left bundle branch block Abnormal ECG No previous ECGs available Referred By: George Sheikh Electronically Signed By:Vinny Gatica
--- NOTE | 2023-11-21 18:24 | PHA.MEDREC ---
Pharmacy Consult ? Medication Reconciliation Pharmacy has completed the medication reconciliation. Patient reported medications. Patient takes hydroxyurea 1 cap for 2 days, then 2 cap for 1 day in a cycle. [facility]. On list is Entresto 24/26 mg 1 tab BID, but patient did not mention it. Per patient's patient was recently started on it however patient has not taken any doses because it has not come in the mail therefore I did not put on home list. Avelina Linn, PharmD
[2023-11-21 21:39] LABS: Glucose, Whole Blood 109 mg/dL (60-115)
[2023-11-21] MEDS: Lidocaine HCl 2 % Urojet 10 ML JEL.PF.APP TOPICAL ×2 (22:00)
[2023-11-21 23:53] LABS: Glucose, Whole Blood 103 mg/dL (60-115)
[2023-11-22] VITALS (13 sets, daily range): BP systolic 130–158; BP diastolic 72–93; PULSE 60–87; RESP 16–24; TEMP 36.4–36.8; O2SAT 95–97; BMI 27.8
[2023-11-22 06:05] LABS: Basophils Percent Auto 0.5 % (0-2); Eosinophils Absolute Auto 0.1 X10*3/uL (0.0-0.4); Eosinophils Percent Auto 1.9 % (0-4); Hematocrit 39.4 % (42.0-52.0); Hemoglobin 13.5 g/dl (14.0-18.0); Imm Gran Abs Auto 0.02 X10*3/uL (0.00-0.03); Imm Gran Pct Auto 0.3 % (0.0-0.4); Lymphocytes Absolute Auto 1.2 X10*3/uL (1.2-4.9); Lymphocytes Percent Auto 19.1 % (20-40); MANUAL DIFF FLAG NO; Mean Corpuscular HGB Conc 34.3 g/dl (31.0-36.0); Mean Corpuscular Hemoglobin 36.1 pg (27.0-33.0); Mean Corpuscular Volume 105.3 fL (80.0-98.0); Mean Platelet Volume 9.8 fL (9.4-12.4); Monocytes Absolute Auto 0.6 X10*3/uL (0.1-1.2); Monocytes Percent Auto 9.5 % (2-11); Neutrophils Absolute Auto 4.3 x10*3/uL (2.0-8.3); Neutrophils Percent Auto 68.7 % (45-73); Platelet Count 268 X10*3/uL (160-400); Red Blood Count 3.74 X10*6/uL (4.60-5.80); Red Cell Distribution Width 12.8 % (11.0-16.0); White Blood Count 6.3 X10*3/uL (4.8-10.8)
[2023-11-22 06:19] LABS: Albumin Level 3.8 g/dL (3.5-5.0); Anion Gap 11 (12-20); Blood Urea Nitrogen 21 mg/dL (9-16); Carbon Dioxide 26 mmol/L (22-29); Chloride 106 mmol/L (96-108); Cholesterol 141 mg/dL (<200); Estimated Glomerular Filt Rate > 60; Glucose Random 107 mg/dL (60-115); HDL Cholesterol 47 mg/dL (>40); LDL Cholesterol Calculated 77 mg/dL (<100); Magnesium 1.9 mg/dL (1.6-2.6); Phosphorus 2.8 mg/dL (2.7-4.5); Potassium 4.1 mmol/L (3.3-5.1); Sodium 139 mmol/L (135-145); Triglycerides 85 mg/dL (<150)
[2023-11-22 08:02] LABS: Glucose, Whole Blood 108 mg/dL (60-115)
--- NOTE | 2023-11-22 10:06 | P.PNIM_ITS ---
Subjective Subjective Date of Service: 11/22/23 Interval History: Patient transferred from ICU overnight No significant nursing events. Patient states he has noted improvement in his speech Review of Systems All other review of systems are negative except as noted above Constitutional Constitutional: Reports no additional constitutional complaints Cardiovascular Cardiovascular: Reports no additional cardiovascular complaints Respiratory Respiratory: Reports no additional respiratory complaints Gastrointestinal Gastrointestinal: Reports no additional gastrointestinal complaints Genitourinary Genitourinary: Reports no additional male genitourinary complaints Neurologic Neurologic: Reports Abnormal speech present Physical Exam 2 Vital Signs: Vital Signs: Last Vital Signs Temp 97.8 F 11/22/23 06:00 Pulse 76 11/22/23 06:00 Resp 17 11/22/23 06:00 BP 155/87 H 11/22/23 06:00 Pulse Ox 97 11/22/23 06:00 O2 Del Method Nasal Cannula 11/22/23 06:00 O2 Flow Rate 2 11/22/23 06:00 BMI result Body Mass Index 27.8 Elderly male lying in bed in no distress Neck supple, no JVD Regular rate and rhythm, S1-S2 heard Regular breath sounds bilaterally, no wheezing or crackles appreciated Abdomen soft nontender, no guarding, no rigidity Patient is awake, alert and oriented to self, place, time and person ; mild aphasia, strength 5/5 in bilateral upper and lower extremities Psych: Normal mood No pedal edema Neuro: Speech: Abnormal speech present Objective Data Active Medications Sodium Chloride (0.9 % Sodium Chloride Flush 3 Ml Syringe) 3 ml IVFLUSH QSHIFT [facility] Last Admin: 11/22/23 00:00 Dose: Not Given Documented By: MAGDA Non-Admin Reason: Previously Administered Labs 11/22/23 05:28 11/22/23 05:28 Labs: Laboratory Results - last 24 hr 11/21/23 11/21/23 11/21/23 12:49 12:50 14:03 MCV 106.0 H MCH 36.2 H MCHC 34.2 RDW 12.7 Plt Count 261 MPV 9.7 Immature Gran % (Auto) 0.2 Neut % (Auto) 62.1 Lymph % (Auto) 23.1 [place] % (Auto) 11.0 Eos % (Auto) 3.0 Baso % (Auto) 0.6 Lymph # (Auto) 1.1 L [place] # (Auto) 0.5 Eos # (Auto) 0.1 Baso # (Auto) 0.0 Abs Immat Gran (auto) 0.01 Absolute Neuts (auto) 2.9 Absolute Nucleated RBC 0.000 Nucleated RBC % (auto) 0.0 PT 11.3 Whole Blood PT 12.2 INR 0.9 Whole Blood INR 1.0 APTT 31.8 Anion Gap 9 L Estim Creat Clear Calc 59.7 Estimated GFR > 60 POC Glucose 91 Random Glucose 103 Calcium 9.2 Phosphorus Magnesium Total Creatine Kinase 120 Troponin I High Sens 5.6 Albumin Triglycerides 135 Cholesterol 133 LDL Cholesterol, Calc 62 HDL Cholesterol 44 11/21/23 11/21/23 11/21/23 17:02 21:35 23:48 MCV MCH MCHC RDW Plt Count MPV Immature Gran % (Auto) Neut % (Auto) Lymph % (Auto) [place] % (Auto) Eos % (Auto) Baso % (Auto) Lymph # (Auto) [place] # (Auto) Eos # (Auto) Baso # (Auto) Abs Immat Gran (auto) Absolute Neuts (auto) Absolute Nucleated RBC Nucleated RBC % (auto) PT Whole Blood PT INR Whole Blood INR APTT Anion Gap Estim Creat Clear Calc Estimated GFR POC Glucose 83 109 103 Random Glucose Calcium Phosphorus Magnesium Total Creatine Kinase Troponin I High Sens Albumin Triglycerides Cholesterol LDL Cholesterol, Calc HDL Cholesterol 11/22/23 11/22/23 05:28 07:24 MCV 105.3 H MCH 36.1 H MCHC 34.3 RDW 12.8 Plt Count 268 MPV 9.8 Immature Gran % (Auto) 0.3 Neut % (Auto) 68.7 Lymph % (Auto) 19.1 L [place] % (Auto) 9.5 Eos % (Auto) 1.9 Baso % (Auto) 0.5 Lymph # (Auto) 1.2 [place] # (Auto) 0.6 Eos # (Auto) 0.1 Baso # (Auto) 0.0 Abs Immat Gran (auto) 0.02 Absolute Neuts (auto) 4.3 Absolute Nucleated RBC 0.000 Nucleated RBC % (auto) 0.0 PT Whole Blood PT INR Whole Blood INR APTT Anion Gap 11 L Estim Creat Clear Calc 62.0 Estimated GFR > 60 POC Glucose 108 Random Glucose 107 Calcium 9.0 Phosphorus 2.8 Magnesium 1.9 Total Creatine Kinase Troponin I High Sens Albumin 3.8 Triglycerides 85 Cholesterol 141 LDL Cholesterol, Calc 77 HDL Cholesterol 47 Assessment and Plan (1) Aphasia: Status: Acute (2) Stroke: Status: Acute Plan This is a 78-year-old male with 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 Patient is status post TNK and transferred to [facility] on 11/21 #. Acute CVA status post TNK: Will initiate anticoagulation as per Neurology recommendations. Patient is pending evaluation by speech, Physical therapy and Occupational therapy. Increase statin to high-intensity dosage when able to take po. A1c pending #. s/p AVR and aortoplasty: On aspirin. Echo 11/21/23 with low EF. No clinical evidence of HF currently. Outpatient cardiology follow up #. Urinary retention: Urology consulted from ICU, appreciate assistance DVT prophylaxis: Therapeutic Lovenox Full code Reason for continued hospitalization: Management of acute CVA with anticoagulation and close monitoring with neuro checks. Therapy evaluation pending for safe disposition. Quality Stroke Does the patient have a stroke diagnosis?: Yes Reason for No Anti-thrombotic by Day Two: N/A - Med Ordered VTE Prior VTE?: No VTE Risk Level:: Medical - moderate - high VTE Device Contraindication: Treatment Not Indicated VTE Drug Contraindication: N/A - Med Ordered
[2023-11-22] MEDS: 0.9 % Sodium Chloride Flush 3 ML SYRINGE IVFLUSH ×2 (10:41→17:47)
[2023-11-22 11:49] LABS: Estimated Average Glucose 103 mg/dL; Hemoglobin A1c % 5.2 % (<6.0)
--- NOTE | 2023-11-22 12:20 | MHC.SL.SWA ---
Speech Pathologist Impression: Risk of aspiration d/t recent stroke Risk of Aspiration Due to: Neurological Condition Dysphasia Diet Status: Start on REGULAR/THIN Liquid Consistency and Strategies for Safe Swallow: Liquid Intake Recommendation: Thin Liquid Intake Strategies: Small Sips Solid Food Consistency: Dietary Recommendations: Regular Additional Modifications to Solid Foods: All aspects of swallow deemed to be WFL. Recommend UPGRADE from NPO to REGULAR texture diet with THIN liquids, pills WHOLE with LIQUID. Patient presents with mild non-fluent expressive aphasia and would benefit from continued speech therapy services after discharge. Oral Medication Intake: Whole with Liquid Please contact the pharmacy regarding appropriate crushable or liquid drug formulations that are available whenever modified delivery is recommended. Compensatory Strategies and Precautions to be Taken for Safe Swallow: Sitting Upright (90 deg) Small Bites and Sips Rate of Ingestion Change Supervision While Eating and Drinking for Safe Swallow: Total Supervision (1:1) Swallowing Recommended Treatments: Compens. Strategy Educat. Recommendation for Speech: Outpatient Speech Therapy Inpatient Speech Therapy [employer] Clinican/Clinical Fellow: No Supervisory Statement: I have reviewed and agree with the student/clinical fellow's documentation: N/A Speech Language Pathologist: Varsha Guillory M.A., CCC-[facility]
--- NOTE | 2023-11-22 14:47 | MHC.CM.PN ---
PATIENT LIVES WITH SPOUSE. HE DOES NOT USE A CANE OR WALKER. CURRENTLY HAS A ALTAMIRANO IN PLACE BUT NO VNA SERVICES PRIOR TO, PATIENT STRAIGHT-CATHS FOR THE PAST 3 YEARS. HE [facility]. HE IS CONCERNED ABOUT HIS STRESS-TEST THAT WAS SCHEDULED ON CAMPUS FOR THIS COMING FRIDAY, HE IS CURRENTLY ADMITTED. FAMILY IS IN ROOM AND ASKING TO SEE . NOTIFIED. CM FOLLOWING FOR DC NEEDS. IMM 11/21 IN CHART
[2023-11-22 19:01] LABS: Glucose, Whole Blood 132 mg/dL (60-115)
[2023-11-22] MEDS: Apixaban 5 MG TABLET PO (21:01)
[2023-11-22] MEDS: Atorvastatin Calcium 40 MG TABLET PO (21:01)
[2023-11-23 03:30] VITALS: BP 128/81; PULSE 54; RESP 16; TEMP 36.8; O2SAT 95
[2023-11-23 07:32] VITALS: BP 127/92; PULSE 76; RESP 20; TEMP 36.7; O2SAT 99
--- NOTE | 2023-11-23 10:00 | P.PNIM_ITS ---
Subjective Subjective Date of Service: 11/23/23 Interval History: Patient states he had about 6 episodes of blood in stools. This has been ongoing for a while. No abdominal discomfort. Review of Systems All other review of systems are negative except as noted above Constitutional Constitutional: Reports no additional constitutional complaints Cardiovascular Cardiovascular: Reports no additional cardiovascular complaints Respiratory Respiratory: Reports no additional respiratory complaints Gastrointestinal Gastrointestinal: Reports hematochezia Genitourinary Genitourinary: Reports no additional male genitourinary complaints Neurologic Neurologic: Reports Abnormal speech present Physical Exam 2 Vital Signs: Vital Signs: Last Vital Signs Temp 98.0 F 11/23/23 07:32 Pulse 76 11/23/23 07:32 Resp 20 11/23/23 07:32 BP 127/92 H 11/23/23 07:32 Pulse Ox 99 11/23/23 07:32 O2 Del Method Room Air 11/23/23 07:32 O2 Flow Rate 2 11/22/23 06:00 BMI result Body Mass Index 27.8 Elderly male lying in bed in no distress Neck supple, no JVD Regular rate and rhythm, S1-S2 heard Regular breath sounds bilaterally, no wheezing or crackles appreciated Abdomen soft nontender, no guarding, no rigidity Patient is awake, alert and oriented to self, place, time and person ; mild aphasia, strength 5/5 in bilateral upper and lower extremities Psych: Normal mood No pedal edema Neuro: Speech: Abnormal speech present Objective Data Active Medications Apixaban (Apixaban 5 Mg Tablet) 5 mg PO BID [facility] Last Admin: 11/22/23 21:01 Dose: 5 mg Documented By: LASHANDA Aspirin (Aspirin Enteric Coated 81 Mg Tablet.) 81 mg PO DAILY [facility] Atorvastatin Calcium (Atorvastatin Calcium 40 Mg Tablet) 40 mg PO BEDTIME [facility] Last Admin: 11/22/23 21:01 Dose: 40 mg Documented By: LASHANDA Pantoprazole Sodium (Pantoprazole Sodium 40 Mg/10 Ml Vial) 40 mg IVPUSH BID@0630,1630 [facility] Sodium Chloride (0.9 % Sodium Chloride Flush 3 Ml Syringe) 3 ml IVFLUSH QSHIFT [facility] Last Admin: 11/23/23 05:05 Dose: Not Given Documented By: LASHANDA Non-Admin Reason: Patient Asleep Labs 11/22/23 05:28 03/09/24 05:28 Labs: Laboratory Results - last 24 hr 11/22/23 11/22/23 10:53 18:57 POC Glucose 132 H Estimat Average Glucose 103 Hemoglobin A1c % 5.2 Assessment and Plan (1) Stroke: Status: Acute Plan This is a 78-year-old male with 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 Patient is status post TNK and transferred to [facility] on 11/21. Was initiated on Eliquis 11/21 but hospital course complicated by possible GI bleed #. Acute GI bleed: Patient states he has had blood in stool for a while. He was initiated on Eliquis 11/21 as per Neurology recommendations and had multiple bloody bowel movements overnight. Will discontinue Eliquis and aspirin. Consulting GI, appreciate assistance. Initiating IV Protonix. Close monitoring H&H #. Acute CVA status post TNK: Hold anticoagulation as above. Patient evaluated by speech> okay for regular solids and thin liquids. Evaluated by Physical therapy> okay to be discharged home with VNA services. Increase statin to high-intensity dosage when able to take po. #. s/p AVR and aortoplasty: On aspirin. Echo 11/21/23 with low EF. No clinical evidence of HF currently. Outpatient cardiology follow up #. Urinary retention: Urology consult pending DVT prophylaxis: SCDs Full code Reason for continued hospitalization: Evaluation of GI bleed in a patient who will require anticoagulation and antiplatelet therapy. Specialist consult pending Quality Stroke Does the patient have a stroke diagnosis?: Yes Reason for No Anti-thrombotic by Day Two: N/A - Med Ordered VTE Prior VTE?: No VTE Risk Level:: Medical - moderate - high VTE Device Contraindication: Treatment Not Indicated VTE Drug Contraindication: N/A - Med Ordered
[2023-11-23] MEDS: 0.9 % Sodium Chloride Flush 3 ML SYRINGE IVFLUSH ×2 (10:07→18:33)
[2023-11-23 10:33] LABS: MANUAL DIFF FLAG NO
[2023-11-23 10:46] LABS: Basophils Percent Auto 0.3 % (0-2); Eosinophils Absolute Auto 0.1 X10*3/uL (0.0-0.4); Eosinophils Percent Auto 1.9 % (0-4); Hematocrit 38.6 % (42.0-52.0); Hemoglobin 13.2 g/dl (14.0-18.0); Imm Gran Abs Auto 0.02 X10*3/uL (0.00-0.03); Imm Gran Pct Auto 0.3 % (0.0-0.4); Lymphocytes Absolute Auto 1.8 X10*3/uL (1.2-4.9); Lymphocytes Percent Auto 26.3 % (20-40); Mean Corpuscular HGB Conc 34.2 g/dl (31.0-36.0); Mean Corpuscular Hemoglobin 36.4 pg (27.0-33.0); Mean Corpuscular Volume 106.3 fL (80.0-98.0); Mean Platelet Volume 9.8 fL (9.4-12.4); Monocytes Absolute Auto 0.8 X10*3/uL (0.1-1.2); Monocytes Percent Auto 12.4 % (2-11); Neutrophils Absolute Auto 3.9 x10*3/uL (2.0-8.3); Neutrophils Percent Auto 58.8 % (45-73); Platelet Count 272 X10*3/uL (160-400); Red Blood Count 3.63 X10*6/uL (4.60-5.80); Red Cell Distribution Width 13.1 % (11.0-16.0); White Blood Count 6.7 X10*3/uL (4.8-10.8)
[2023-11-23 10:51] LABS: INTERNATIONAL NORM RATIO 1.1 (0.9-1.1); Prothrombin Time 13.4 SEC (11.1-13.3)
[2023-11-23 10:54] LABS: PTT Heparin Drip 32.2 SEC (53-77.9)
[2023-11-23 11:00] VITALS: BP 129/72; PULSE 74; RESP 20; TEMP 36.7; O2SAT 97
[2023-11-23 11:44] LABS: OBS Int Ctl Valid YES; OBS1 POSITIVE (NEGATIVE)
[2023-11-23] MEDS: Heparin Sodium,Porcine/1/2NS 25,000 UNIT/250 ML IV.SOLN 12.39 UNIT IVCONT (11:48)
--- NOTE | 2023-11-23 12:36 | P.CNGI_ITS ---
History of Present Illness Data of Consult Service Date: 11/23/23 Requesting physician: Pawan Abreu Primary Care Provider: Moncho Garcia NP HPI Reason for consult: LGIB This is an 78-year-old gentleman with past medical history of aortic valve replacement, paroxysmal atrial fibrillation, previously not on anticoagulation, who presented to the emergency room on 11/20 with concern for acute stroke. 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 CNK was administered on 13:16. Subsequently Eliquis was started on 11/21. This morning, patient developed bloody stools for which Gastroenterology has been consulted. Pt reports having intermittent bloody stools in the past as well however usually with constipation. This time, each BM since starting eliquis has had blood around it. Pt unable to comment on the color of stool itself. Does not report any abd pain, nausea, vomiting, lightheadedness or shortness of breath. He has never had a screening colo and will never get one due to multiple bad experiences surrounding the procedure amongst his friends. Review of Systems 2 Review of Systems: Yes all other systems are reviewed and are negative [facility] Family History Family History Father No problems noted. Mother No problems noted. Surgical History Surgical History History of heart surgery History of tonsillectomy History of removal of cyst Social History Social History Household Members: Spouse Housing: House Do you presently have visiting nurse or other home services: No Comment: Pt. refusing bed exit alarm. Patient Tobacco Use Status: Former Tobacco user Tobacco use type: Cigarette Smoked in Last 30 Days: No e-Cigarette/Vaping Use: Former Use Patient Interested in Nicotine Replacement: No Patient Given Instructions on How to Stop Smoking: No Second Hand Smoke Exposure: No Use of substances other than those prescribed or required for medical reasons: No Currently Displaying Signs/Symptoms of Drug Intoxication Withdrawal: No Any prior treatment program specific to substance use: No Have you been hit, kicked, punched, or otherwise hurt by someone within the past year? If so, by whom?: No Do you feel safe in your current relationship?: Yes Is there a partner from a previous relationship who is making you feel unsafe now?: No Are you made to feel afraid or neglected: No Advance Directives: No Advance Directives Information Provided: Yes Advance Directives on File: No Do you have thoughts of harming others: None Do you have a plan to hurt others: No Plan Recently lost weight without trying: No How much weight loss: Not applicable Eating poorly because of decreased appetite: No Nutrition screen score: 0 Nutrition Risks: No Nutritional Risk Poor oral hygiene: No service: Yes Meds Allergies Allergy/AdvReac Type Severity Reaction Status Date / Time No Known Allergies Allergy Verified 01/10/21 14:30 Active Medications: Current Medications Atorvastatin Calcium (Atorvastatin Calcium 40 Mg Tablet) 40 mg PO BEDTIME [facility] Last Admin: 11/22/23 21:01 Dose: 40 mg Heparin Sodium (Porcine) (Heparin Sodium,Porcine 5,000 Unit/Ml Vial) 3,500 unit 40 unit/kg (3500 unit) IVPUSH PROTOCOL BOLUS PRN; Protocol PRN Reason: 40 unit/kg - Heparin Protocol Heparin Sodium (Porcine) (Heparin Sodium,Porcine 5,000 Unit/Ml Vial) 7,100 unit 80 unit/kg (7100 unit) IVPUSH PROTOCOL BOLUS PRN; Protocol PRN Reason: 80 unit/kg - Heparin Protocol Heparin Sodium/Sodium Chloride (Heparin Sodium,Porcine/1/2ns) 25,000 unit in 250 mls @ 0 mls/hr IVCONT .Q0M [facility]; Protocol Last Admin: 11/23/23 11:48 Dose: 14 units/kg/hr, 12.39 mls/hr Pantoprazole Sodium (Pantoprazole Sodium 40 Mg/10 Ml Vial) 40 mg IVPUSH BID@0630,1630 [facility] Sodium Chloride (0.9 % Sodium Chloride Flush 3 Ml Syringe) 3 ml IVFLUSH QSHIFT [facility] Last Admin: 11/23/23 10:07 Dose: 3 ml Home Medications Medication Instructions Recorded Confirmed Last Taken Type aspirin 81 mg tablet,delayed 81 mg PO DAILY 09/04/20 11/21/23 11/21/23 History release (Adult Low Dose Aspirin) hydroxyurea 500 mg capsule 1,000 mg PO Q72H 09/04/20 11/21/23 11/20/23 History rosuvastatin 10 mg tablet 10 mg PO DAILY 01/10/21 11/21/23 11/21/23 08:00 History hydroxyurea 500 mg capsule 500 mg PO Q72H 11/21/23 11/21/23 11/19/23 History hydroxyurea 500 mg capsule 500 mg PO Q72H 11/21/23 11/21/23 11/21/23 History Physical Exam 2 Vital Signs: Vital Signs: Last Vital Signs Temp 98.1 F 11/23/23 11:00 Pulse 74 11/23/23 11:00 Resp 20 11/23/23 11:00 BP 129/72 11/23/23 11:00 Pulse Ox 97 11/23/23 11:00 O2 Del Method Room Air 11/23/23 11:00 O2 Flow Rate 2 11/22/23 06:00 BMI result Body Mass Index 27.8 Elderly male, appears younger than stated age Mild word finding difficulty abd soft, mildly distended, nontender Results Labs 11/24/23 07:05 11/24/23 07:05 Labs: Short CBC 11/23/23 Range/Units 10:25 WBC 6.7 (4.8-10.8) X10*3/uL Hgb 13.2 L (14.0-18.0) g/dl Hct 38.6 L (42.0-52.0) % Plt Count 272 (160-400) X10*3/uL Assessment and Plan (1) Bright red rectal bleeding: Status: Acute (2) Stroke: Status: Acute Plan 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 Recommendations: - Can switch to heparin - no need for IV bolus, can start drip 12h after last dose of heparin - Monitor CBC BID - If no significant drop in H/H, can switch to lovenox (pls check with neuro if okay instead of lovenox) - Can be switched to eliquis if outpatient CBC (to be checked in 3 days) remains stable as well - Endoscopic intervention remains a high risk procedure within 30 days of CVA event - pt not willing to undergo this anyway (see above) Thank you for allowing me to participate in his care. Please do not hesitate to reach out for questions or concerns. Procedures Date of Service Date of Service: 11/23/23
--- NOTE | 2023-11-23 14:18 | P.CNUR_ITS ---
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 Patient is status post TNK and transferred to [facility] on 11/21 Nursing staff have tried to place White multiple times White catheter placed by urologic staff member. Good efflux of urine. See nursing note for description of total output. Would allow White catheter remain in place until able to mobilize. He performed CIC at home. Difficult white placemend CPT 85968 Review of Systems 2 Constitutional: Constitutional: Denies chills and Denies fever(s) Cardiovascular: Cardiovascular: Reports no additional cardiovascular complaints and Denies syncope Respiratory: Respiratory: Denies cough Gastrointestinal: Gastrointestinal: Denies abdominal pain and Denies heartburn Genitourinary: Genitourinary: Reports as per HPI and Denies change in libido Neurologic: Denies syncope Psychiatric: Psychiatric: Denies change in libido Endocrine: Endocrine: Denies change in libido [facility] Family History Family History Father No problems noted. Mother No problems noted. Surgical History Surgical History History of heart surgery History of tonsillectomy History of removal of cyst Social History Social History Household Members: Spouse Housing: House Do you presently have visiting nurse or other home services: No Comment: Pt. refusing bed exit alarm. Patient Tobacco Use Status: Former Tobacco user Tobacco use type: Cigarette Smoked in Last 30 Days: No e-Cigarette/Vaping Use: Former Use Patient Interested in Nicotine Replacement: No Patient Given Instructions on How to Stop Smoking: No Second Hand Smoke Exposure: No Use of substances other than those prescribed or required for medical reasons: No Currently Displaying Signs/Symptoms of Drug Intoxication Withdrawal: No Any prior treatment program specific to substance use: No Have you been hit, kicked, punched, or otherwise hurt by someone within the past year? If so, by whom?: No Do you feel safe in your current relationship?: Yes Is there a partner from a previous relationship who is making you feel unsafe now?: No Are you made to feel afraid or neglected: No Advance Directives: No Advance Directives Information Provided: Yes Advance Directives on File: No Do you have thoughts of harming others: None Do you have a plan to hurt others: No Plan Recently lost weight without trying: No How much weight loss: Not applicable Eating poorly because of decreased appetite: No Nutrition screen score: 0 Nutrition Risks: No Nutritional Risk Poor oral hygiene: No service: Yes Meds Allergies Allergy/AdvReac Type Severity Reaction Status Date / Time No Known Allergies Allergy Verified 01/10/21 14:30 Active Medications: Current Medications Atorvastatin Calcium (Atorvastatin Calcium 40 Mg Tablet) 40 mg PO BEDTIME [facility] Last Admin: 11/22/23 21:01 Dose: 40 mg Heparin Sodium (Porcine) (Heparin Sodium,Porcine 5,000 Unit/Ml Vial) 3,500 unit 40 unit/kg (3500 unit) IVPUSH PROTOCOL BOLUS PRN; Protocol PRN Reason: 40 unit/kg - Heparin Protocol Heparin Sodium (Porcine) (Heparin Sodium,Porcine 5,000 Unit/Ml Vial) 7,100 unit 80 unit/kg (7100 unit) IVPUSH PROTOCOL BOLUS PRN; Protocol PRN Reason: 80 unit/kg - Heparin Protocol Heparin Sodium/Sodium Chloride (Heparin Sodium,Porcine/1/2ns) 25,000 unit in 250 mls @ 0 mls/hr IVCONT .Q0M [facility]; Protocol Last Admin: 11/23/23 11:48 Dose: 14 units/kg/hr, 12.39 mls/hr Pantoprazole Sodium (Pantoprazole Sodium 40 Mg/10 Ml Vial) 40 mg IVPUSH BID@0630,1630 [facility] Sodium Chloride (0.9 % Sodium Chloride Flush 3 Ml Syringe) 3 ml IVFLUSH QSHIFT [facility] Last Admin: 11/23/23 10:07 Dose: 3 ml Home Medications Medication Instructions Recorded Confirmed Last Taken Type aspirin 81 mg tablet,delayed 81 mg PO DAILY 09/04/20 11/21/23 11/21/23 History release (Adult Low Dose Aspirin) hydroxyurea 500 mg capsule 1,000 mg PO Q72H 09/04/20 11/21/23 11/20/23 History rosuvastatin 10 mg tablet 10 mg PO DAILY 01/10/21 11/21/23 11/21/23 08:00 History hydroxyurea 500 mg capsule 500 mg PO Q72H 11/21/23 11/21/23 11/19/23 History hydroxyurea 500 mg capsule 500 mg PO Q72H 11/21/23 11/21/23 11/21/23 History Physical Exam 2 Vital Signs: Vital Signs: Last Vital Signs Temp 98.1 F 11/23/23 11:00 Pulse 74 11/23/23 11:00 Resp 20 11/23/23 11:00 BP 129/72 11/23/23 11:00 Pulse Ox 97 11/23/23 11:00 O2 Del Method Room Air 11/23/23 11:00 O2 Flow Rate 2 11/22/23 06:00 BMI result Body Mass Index 27.8 Const: General: cooperative, healthy appearing, comfortable and no acute distress Orientation/consciousness: patient oriented x3 HEENT: Face and sinus: Yes normal facial exam Mouth: moist mucous membranes Neck: Neck: Yes normal visual inspection, Yes full ROM and Yes trachea midline Chest: Chest palpation & inspection: normal inspection of the chest Resp: Effort & Inspection: normal respiratory effort, able to speak in complete sentences and no respiratory distress GI: Inspection: Yes normal to inspection Back/Spine/Pelvis: Cervical Spine: normal cervical lordosis Thoracic/Lumbar Spine: thoracic and lumbar spine normal to inspection Skin: General skin exam: no rashes or lesions noted Neuro: General: patient oriented x3, gait normal, tone normal and moves all extremities Extrem: General: Yes normal to inspection and Yes capillary refill normal Results Labs 11/23/23 10:25 11/22/23 05:28 Labs: Abnormal lab results 11/22/23 11/23/23 Range/Units 18:57 10:25 RBC 3.63 L (4.60-5.80) X10*6/uL Hgb 13.2 L (14.0-18.0) g/dl Hct 38.6 L (42.0-52.0) % MCV 106.3 H (80.0-98.0) fL MCH 36.4 H (27.0-33.0) pg [place] % (Auto) 12.4 H (2-11) % PT 13.4 H (11.1-13.3) SEC aPTT Heparin Protocol 32.2 L (53-77.9) SEC POC Glucose 132 H (60-115) mg/dL Short CBC 11/23/23 Range/Units 10:25 WBC 6.7 (4.8-10.8) X10*3/uL Hgb 13.2 L (14.0-18.0) g/dl Hct 38.6 L (42.0-52.0) % Plt Count 272 (160-400) X10*3/uL All other labs normal. Assessment and Plan (1) Stroke: Status: Acute (2) Hypotonic neurogenic bladder: Status: Acute Plan White catheter to remain till mobile Procedures Date of Service Date of Service: 11/23/23 Catheter Insertion (Urinary) Date of insertion: 11/21/23 Time of insertion: 10:00 Replacement of catheter present on admission: No Reason for placing: Acute urinary retention Catheter type/location: 3-way Urethral Size (N[place]ien): 22 Catheter balloon size (mL): 15 Results: consulted Procedure performed: with complications Complications: Urology placed difficult catheter
[2023-11-23 15:23] VITALS: BP 119/70; PULSE 64; RESP 20; TEMP 36.4; O2SAT 96
[2023-11-23] MEDS: Pantoprazole Sodium 40 MG/10 ML VIAL IVPUSH (18:35)
[2023-11-23 20:00] VITALS: BP 133/80; PULSE 73; RESP 16; TEMP 36.5; O2SAT 96
[2023-11-23 20:01] LABS: MANUAL DIFF FLAG NO
[2023-11-23 20:02] LABS: Basophils Percent Auto 0.3 % (0-2); Eosinophils Absolute Auto 0.2 X10*3/uL (0.0-0.4); Eosinophils Percent Auto 3.3 % (0-4); Hematocrit 36.5 % (42.0-52.0); Hemoglobin 12.5 g/dl (14.0-18.0); Imm Gran Abs Auto 0.02 X10*3/uL (0.00-0.03); Imm Gran Pct Auto 0.3 % (0.0-0.4); Lymphocytes Absolute Auto 1.9 X10*3/uL (1.2-4.9); Lymphocytes Percent Auto 29.8 % (20-40); Mean Corpuscular HGB Conc 34.2 g/dl (31.0-36.0); Mean Corpuscular Hemoglobin 36.7 pg (27.0-33.0); Mean Platelet Volume 9.6 fL (9.4-12.4); Monocytes Percent Auto 14.8 % (2-11); Neutrophils Absolute Auto 3.3 x10*3/uL (2.0-8.3); Neutrophils Percent Auto 51.5 % (45-73); Platelet Count 248 X10*3/uL (160-400); Red Blood Count 3.41 X10*6/uL (4.60-5.80); Red Cell Distribution Width 13.1 % (11.0-16.0); White Blood Count 6.4 X10*3/uL (4.8-10.8)
[2023-11-23 23:41] VITALS: BP 127/76; PULSE 56; RESP 18; TEMP 36.8; O2SAT 98
[2023-11-24 00:07] LABS: PTT Heparin Drip 69.3 SEC (53-77.9)
[2023-11-24 03:40] VITALS: BP 128/77; PULSE 73; RESP 18; TEMP 36.3; O2SAT 96
[2023-11-24] MEDS: Heparin Sodium,Porcine/1/2NS 25,000 UNIT/250 ML IV.SOLN 12.39 UNIT IVCONT (05:57)
[2023-11-24] MEDS: Pantoprazole Sodium 40 MG/10 ML VIAL IVPUSH (06:03)
[2023-11-24 07:09] LABS: MANUAL DIFF FLAG NO
[2023-11-24 07:14] LABS: Hemoglobin 12.5 g/dl (14.0-18.0); White Blood Count 6.3 X10*3/uL (4.8-10.8)
[2023-11-24 07:15] LABS: Basophils Percent Auto 0.5 % (0-2); Eosinophils Absolute Auto 0.2 X10*3/uL (0.0-0.4); Eosinophils Percent Auto 3.3 % (0-4); Hematocrit 36.4 % (42.0-52.0); Imm Gran Abs Auto 0.02 X10*3/uL (0.00-0.03); Imm Gran Pct Auto 0.3 % (0.0-0.4); Lymphocytes Absolute Auto 1.6 X10*3/uL (1.2-4.9); Lymphocytes Percent Auto 25.9 % (20-40); Mean Corpuscular HGB Conc 34.3 g/dl (31.0-36.0); Mean Corpuscular Hemoglobin 36.8 pg (27.0-33.0); Mean Corpuscular Volume 107.1 fL (80.0-98.0); Mean Platelet Volume 9.5 fL (9.4-12.4); Monocytes Absolute Auto 0.8 X10*3/uL (0.1-1.2); Monocytes Percent Auto 12.7 % (2-11); Neutrophils Absolute Auto 3.6 x10*3/uL (2.0-8.3); Neutrophils Percent Auto 57.3 % (45-73); Platelet Count 225 X10*3/uL (160-400)
[2023-11-24 07:19] VITALS: BP 137/75; PULSE 64; RESP 20; TEMP 36.6; O2SAT 97
[2023-11-24 07:25] LABS: Prothrombin Time 12.6 SEC (11.1-13.3)
[2023-11-24 07:27] LABS: PTT Heparin Drip 73.2 SEC (53-77.9)
[2023-11-24 07:39] LABS: Anion Gap 12 (12-20); Blood Urea Nitrogen 30 mg/dL (9-16); Calcium 8.6 mg/dL (8.4-10.2); Carbon Dioxide 28 mmol/L (22-29); Chloride 107 mmol/L (96-108); Creatinine Clr Calc Pharmacy 51.4; Estimated Glomerular Filt Rate 55; Glucose Random 104 mg/dL (60-115); Potassium 4.3 mmol/L (3.3-5.1); Sodium 143 mmol/L (135-145)
[2023-11-24 10:58] VITALS: BP 133/78; PULSE 68; RESP 20; TEMP 37.3; O2SAT 96
--- NOTE | 2023-11-24 11:01 | P.PNIM_ITS ---
Subjective Subjective Date of Service: 11/24/23 Interval History: Follow up CVA, bloody stool No further episodes of blood in stool stable HH No abdominal discomfort. Review of Systems All other review of systems are negative except as noted above Constitutional Constitutional: Reports no additional constitutional complaints Cardiovascular Cardiovascular: Reports no additional cardiovascular complaints Respiratory Respiratory: Reports no additional respiratory complaints Gastrointestinal Gastrointestinal: Reports hematochezia Genitourinary Genitourinary: Reports no additional male genitourinary complaints Neurologic Neurologic: Reports Abnormal speech present Physical Exam 2 Vital Signs: Vital Signs: Last Vital Signs Temp 99.1 F 11/24/23 10:58 Pulse 68 11/24/23 10:58 Resp 20 11/24/23 10:58 BP 133/78 11/24/23 10:58 Pulse Ox 96 11/24/23 10:58 O2 Del Method Room Air 11/24/23 10:58 O2 Flow Rate 2 11/22/23 06:00 BMI result Body Mass Index 27.8 Neuro: Speech: Abnormal speech present Objective Data Active Medications Atorvastatin Calcium (Atorvastatin Calcium 40 Mg Tablet) 40 mg PO BEDTIME [facility] Last Admin: 11/23/23 23:20 Dose: Not Given Documented By: NARENDRA Non-Admin Reason: NPO Heparin Sodium (Porcine) (Heparin Sodium,Porcine 5,000 Unit/Ml Vial) 3,500 unit 40 unit/kg (3500 unit) IVPUSH PROTOCOL BOLUS PRN; Protocol PRN Reason: 40 unit/kg - Heparin Protocol Heparin Sodium (Porcine) (Heparin Sodium,Porcine 5,000 Unit/Ml Vial) 7,100 unit 80 unit/kg (7100 unit) IVPUSH PROTOCOL BOLUS PRN; Protocol PRN Reason: 80 unit/kg - Heparin Protocol Heparin Sodium/Sodium Chloride (Heparin Sodium,Porcine/1/2ns) 25,000 unit in 250 mls @ 0 mls/hr IVCONT .Q0M [facility]; Protocol Last Admin: 11/24/23 05:57 Dose: 14 units/kg/hr, 12.39 mls/hr Documented By: NARENDRA Co-signed By: ANGELES Pantoprazole Sodium (Pantoprazole Sodium 40 Mg/10 Ml Vial) 40 mg IVPUSH BID@0630,1630 [facility] Last Admin: 11/24/23 06:03 Dose: 40 mg Documented By: NARENDRA Sodium Chloride (0.9 % Sodium Chloride Flush 3 Ml Syringe) 3 ml IVFLUSH QSHIFT [facility] Last Admin: 11/24/23 09:43 Dose: Not Given Documented By: IWONA Non-Admin Reason: IV Running Labs 11/24/23 07:05 11/24/23 07:05 Labs: Laboratory Results - last 24 hr 11/23/23 11/23/23 11/23/23 11:30 17:43 19:50 MCV 107.0 H MCH 36.7 H MCHC 34.2 RDW 13.1 Plt Count 248 MPV 9.6 Immature Gran % (Auto) 0.3 Neut % (Auto) 51.5 Lymph % (Auto) 29.8 [place] % (Auto) 14.8 H Eos % (Auto) 3.3 Baso % (Auto) 0.3 Lymph # (Auto) 1.9 [place] # (Auto) 1.0 Eos # (Auto) 0.2 Baso # (Auto) 0.0 Abs Immat Gran (auto) 0.02 Absolute Neuts (auto) 3.3 Absolute Nucleated RBC 0.000 Nucleated RBC % (auto) 0.0 PT INR aPTT Heparin Protocol 58.0 D Anion Gap Estim Creat Clear Calc Estimated GFR Random Glucose Calcium Stool Occult Blood POSITIVE 11/23/23 11/24/23 11/24/23 23:50 07:05 07:05 MCV 107.1 H MCH 36.8 H MCHC 34.3 RDW 13.0 Plt Count 225 MPV 9.5 Immature Gran % (Auto) 0.3 Neut % (Auto) 57.3 Lymph % (Auto) 25.9 [place] % (Auto) 12.7 H Eos % (Auto) 3.3 Baso % (Auto) 0.5 Lymph # (Auto) 1.6 [place] # (Auto) 0.8 Eos # (Auto) 0.2 Baso # (Auto) 0.0 Abs Immat Gran (auto) 0.02 Absolute Neuts (auto) 3.6 Absolute Nucleated RBC 0.000 Nucleated RBC % (auto) 0.0 PT Cancelled 12.6 INR Cancelled aPTT Heparin Protocol 69.3 Anion Gap Estim Creat Clear Calc Estimated GFR Random Glucose Calcium Stool Occult Blood 11/24/23 07:05 MCV MCH MCHC RDW Plt Count MPV Immature Gran % (Auto) Neut % (Auto) Lymph % (Auto) [place] % (Auto) Eos % (Auto) Baso % (Auto) Lymph # (Auto) [place] # (Auto) Eos # (Auto) Baso # (Auto) Abs Immat Gran (auto) Absolute Neuts (auto) Absolute Nucleated RBC Nucleated RBC % (auto) PT INR 1.0 aPTT Heparin Protocol 73.2 Anion Gap 12 Estim Creat Clear Calc 51.4 Estimated GFR 55 Random Glucose 104 Calcium 8.6 Stool Occult Blood Assessment and Plan (1) Stroke: Status: Acute Plan This is a 78-year-old male with 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 Patient is status post TNK and transferred to [facility] on 11/21. Was initiated on Eliquis 11/21 but hospital course complicated by possible GI bleed Acute GI bleed Patient states he has had blood in stool for a while. He was initiated on Eliquis 11/21 as per Neurology recommendations and had multiple bloody bowel movements overnight. Eliquis and aspirin stopped and started on Heparin drip. s/p IV Protonix, change to oral stable HH, plan to put back on eliquis on dc Acute CVA status post TNK Hold anticoagulation as above. Patient evaluated by speech> okay for regular solids and thin liquids. Evaluated by Physical therapy> okay to be discharged home with VNA services. istatin to high-intensity dosage s/p AVR and aortoplasty, CMP On aspirin at home, has been on hold due to GI bleed Echo 11/21/23 with low EF. new from previous echo in 2020 No clinical evidence of HF currently. cardiology consult pending Urinary retention Schrader catheter in place DVT prophylaxis: SCDs Attending Dr. Lindo Full code Reason for continued hospitalization: Evaluation of GI bleed in a patient who will require anticoagulation and antiplatelet therapy. Specialist consult pending Quality Stroke Does the patient have a stroke diagnosis?: Yes Reason for No Anti-thrombotic by Day Two: N/A - Med Ordered VTE Prior VTE?: No VTE Risk Level:: Medical - moderate - high VTE Device Contraindication: Treatment Not Indicated VTE Drug Contraindication: N/A - Med Ordered
--- NOTE | 2023-11-24 12:17 | MHC.SL.SOA ---
Referring Provider: Pawan Abreu Reason for Referral: Stroke Protocol Date of Plan of Treatment:11/22/23 Onset of Symptoms/Illness:11/22/23 Date Treatment Started:11/22/23 Medical Diagnosis:Acute CVA Primary Speech Language Diagnosis:R13.10 Dysphagia Reason for Visit:[id number] Individual Treatment Subjective:Patient is hospitalized for acute CVA, hospital course further complicated by possible GI bleed. He is currently NPO for GI evaluation, thus no PO trials given this date. [employer] was called in to evaluate patient over the weekend. Patient passed nursing swallow screen and was cleared by [employer] as well to start on regular texture diet. Main concern pertains to patient's expressive language. Patient reported his difficulties had started about three years ago and that his difficulties have worsened. Patient stated, I had trouble getting my words before, but after the stroke it's happening a lot more now. Patient was reading a book when [employer] arrived, states he has no trouble reading. Objective: Patient completed selected portions of the [place] Diagnostic Aphasia Examination- Third Edition (BDAE-3): -Patient followed single-step commands in 5/5 trials and multi-step commands in 5/5 trials. -Patient correctly answered yes/no questions about a verbally presented paragraph (4 sentences) in 8/8 trials. -Patient correctly repeated single words in 5/5 trials. He repeated sentences correctly in 0/2 trials. -Patient correctly answered responsive naming questions (i.e. What do you do with a razor? ) in 5/5 trials. Assessment:Patient followed verbal commands without difficulty. He correctly answered yes/no questions related to a paragraph and appropriately answered open-ended questions in conversation as well. Patient was able to repeat single words, but exhibited difficulty repeating sentences. Patient was able to count from 1-10, but struggled to list the days of the week. Patient stated, It's in my head, but I just can't. When prompted to start with Friday, he listed 4 of the 6 other days. Noted frequent word retrieval difficulty in conversation as well. Notes: Patient presents with mild non-fluent expressive aphasia, characterized by difficulties with repetition, certain automatic speech tasks, and word retrieval. Patient would benefit from participation in speech therapy services during his hospitalization given the acute nature of his difficulties due to his recent CVA, with continued services after discharge. Plan: Goal # : Patient will name abstract words and phrases from description at 80% accuracy given moderate verbal cues. Status of Goal: New Goal Goal # : Patient will complete sentences with an appropriate word at 80% accuracy given moderate assistance (phonemic and/or gestural cues). Status of Goal: New Goal Goal # : Patient will verbally list days of the week and months of the year when prompted to start with a phonemic cue (minimal assistance). Status of Goal: New Goal Goal # : Patient will produce a minimum of 4 different features, when presented with a word using semantic feature analysis (SFA) with 80% accuracy and minimal assistance. Status of Goal: New Goal Seen by: Graduate/Clinical Fellow: No Supervisory Statement: f_Reg Query Last Value , MHC.AU.[facility]ZO [facility] Speech Language Pathologist: Varsha Guillory M.A., [facility]-[employer]
--- NOTE | 2023-11-24 13:41 | MHC.CM.PN ---
Addendum entered by Mikki Amador RN 11/24/23 13:55: PT REMAINS HEPARIN DRIP. Original Note: EMR REVIEWED, PT W/EMBOLIC STROKE, P.T. REC'S HOME PT, PT WILL ALSO NEED SN/SPEECH, REFERRAL PLACED TO [facility] HOWEVER UNSURE IF THEY ARE ABLE TO PROVIDE SPEECH AT THIS TIME, [facility] REF MAY NEED TO BE EXPANDED, CM WILL CONT TO FOLLOW.
[2023-11-24 14:39] LABS: PTT Heparin Drip 84.1 SEC (53-77.9)
[2023-11-24 15:43] VITALS: BP 130/80; PULSE 63; RESP 16; TEMP 36.6; O2SAT 93
[2023-11-24] MEDS: 0.9 % Sodium Chloride Flush 3 ML SYRINGE IVFLUSH (16:27)
[2023-11-24] MEDS: Omeprazole 20 MG CAPSULE.DR PO (16:49)
[2023-11-24 19:40] VITALS: BP 124/69; PULSE 70; RESP 20; TEMP 37.1; O2SAT 94
[2023-11-24] MEDS: Atorvastatin Calcium 40 MG TABLET PO (20:02)
[2023-11-24 21:26] LABS: PTT Heparin Drip 60.5 SEC (53-77.9)
[2023-11-24 23:29] VITALS: BP 136/72; PULSE 68; RESP 18; TEMP 36.7; O2SAT 97
[2023-11-25] MEDS: 0.9 % Sodium Chloride Flush 3 ML SYRINGE IVFLUSH ×2 (00:20→10:20)
[2023-11-25 03:13] VITALS: BP 138/72; PULSE 55; RESP 18; TEMP 36.6; O2SAT 96
[2023-11-25 03:38] LABS: PTT Heparin Drip 58.6 SEC (53-77.9)
[2023-11-25] MEDS: Heparin Sodium,Porcine/1/2NS 25,000 UNIT/250 ML IV.SOLN 10.62 UNIT IVCONT (04:13)
[2023-11-25] MEDS: Omeprazole 20 MG CAPSULE.DR PO (06:14)
[2023-11-25 07:16] VITALS: BP 125/79; PULSE 63; RESP 20; TEMP 36.3; O2SAT 95
[2023-11-25 08:50] LABS: Hematocrit 38.1 % (42.0-52.0); Hemoglobin 12.9 g/dl (14.0-18.0); Mean Corpuscular HGB Conc 33.9 g/dl (31.0-36.0); Mean Corpuscular Hemoglobin 36.1 pg (27.0-33.0); Mean Corpuscular Volume 106.7 fL (80.0-98.0); Mean Platelet Volume 9.5 fL (9.4-12.4); Platelet Count 245 X10*3/uL (160-400); Red Blood Count 3.57 X10*6/uL (4.60-5.80); Red Cell Distribution Width 13.1 % (11.0-16.0); White Blood Count 5.5 X10*3/uL (4.8-10.8)
[2023-11-25 09:07] LABS: Anion Gap 10 (12-20); Blood Urea Nitrogen 29 mg/dL (9-16); Calcium 8.9 mg/dL (8.4-10.2); Carbon Dioxide 24 mmol/L (22-29); Chloride 108 mmol/L (96-108); Creatinine Clr Calc Pharmacy 61.7; Estimated Glomerular Filt Rate > 60; Glucose Random 100 mg/dL (60-115); Potassium 4.1 mmol/L (3.3-5.1); Sodium 138 mmol/L (135-145)
--- NOTE | 2023-11-25 11:00 | P.CONCA_ITS ---
History of Present Illness History of Present Illness Date of Service: 11/25/23 Requesting physician: Lorie Whittington Consult reason: other (Cardiomyopathy) Chief complaint: SPEECH CHANGES Narrative: I was consulted to see Kenny in cardiology consultation today for noted severe LV systolic dysfunction by recent echocardiogram. Patient was admitted with altered speech and noted to have new stroke. Patient was given TNK. Since then patient has speech disturbance still persists but has improved. No focal other motor weaknesses. Patient was started on oral anticoagulation with Eliquis by Neurology suspected to have embolic phenomenon. Also continued on aspirin therapy but developed bright red blood per rectum. He was then switched to IV heparin and aspirin was discontinued. Echocardiogram was done for a stroke workup and showed severely reduced LV ejection fraction 20-25%. His EKG shows left bundle-branch block. After talking with the patient said he has left bundle-branch block for many years used to see a vial gauger in [place] and then subsequently now has recently switched to vial gauger Dr. Armstrong in [place]. He said recently echocardiogram done few weeks ago he was told that his LV systolic function was significantly reduced to 30% and he was started on Entresto therapy. However he gets his treatment from [place] and he has not started taking it as he had not received his medications as yet. He denies any shortness of breath, orthopnea, PND. Denies any chest pain. He is also scheduled to undergo stress test in near future to evaluate for myocardial ischemia. He denies any palpitations, lightheadedness, syncope. Review of Systems 2 Constitutional: Constitutional: Reports no additional constitutional complaints Eyes: Eyes: Reports no additional eye complaints Cardiovascular: Cardiovascular: Reports no additional cardiovascular complaints Respiratory: Respiratory: Reports no additional respiratory complaints Gastrointestinal: Gastrointestinal: Reports no additional gastrointestinal complaints Genitourinary: Genitourinary: Reports no additional male genitourinary complaints Musculoskeletal: Musculoskeletal: Reports no additional musculoskeletal complaints Integumentary/Breasts: Skin/Breast: Reports system reviewed and no additional complaints, except as docu Neurologic: Reports Abnormal speech present Psychiatric: Psychiatric: Reports no additional psychiatric complaints Endocrine: Endocrine: Reports no additional endocrine complaints Hematologic/Lymphatic: Hematologic/Lymphatic: Reports no additional hematologic/lymphatic complaints Allergic/Immunologic: Allergic/Immunologic: Reports no additional allergic/immunologic complaints [facility] Past Medical History Medical History (Updated 11/25/23 @ 11:04 by Keegan Dai MD) Cardiomyopathy Family History Family History Father No problems noted. Mother No problems noted. Surgical History Surgical History History of heart surgery History of tonsillectomy History of removal of cyst Social History Social History Household Members: Spouse Housing: House Do you presently have visiting nurse or other home services: No Comment: Pt. refusing bed exit alarm. Patient Tobacco Use Status: Former Tobacco user Tobacco use type: Cigarette Smoked in Last 30 Days: No e-Cigarette/Vaping Use: Former Use Patient Interested in Nicotine Replacement: No Patient Given Instructions on How to Stop Smoking: No Second Hand Smoke Exposure: No Use of substances other than those prescribed or required for medical reasons: No Currently Displaying Signs/Symptoms of Drug Intoxication Withdrawal: No Any prior treatment program specific to substance use: No Have you been hit, kicked, punched, or otherwise hurt by someone within the past year? If so, by whom?: No Do you feel safe in your current relationship?: Yes Is there a partner from a previous relationship who is making you feel unsafe now?: No Are you made to feel afraid or neglected: No Advance Directives: No Advance Directives Information Provided: Yes Advance Directives on File: No Do you have thoughts of harming others: None Do you have a plan to hurt others: No Plan Recently lost weight without trying: No How much weight loss: Not applicable Eating poorly because of decreased appetite: No Nutrition screen score: 0 Nutrition Risks: No Nutritional Risk Poor oral hygiene: No service: Yes Meds Allergies Allergy/AdvReac Type Severity Reaction Status Date / Time No Known Allergies Allergy Verified 01/10/21 14:30 Active Medications: Current Medications Atorvastatin Calcium (Atorvastatin Calcium 40 Mg Tablet) 40 mg PO BEDTIME [facility] Last Admin: 11/24/23 20:02 Dose: 40 mg Heparin Sodium (Porcine) (Heparin Sodium,Porcine 5,000 Unit/Ml Vial) 3,500 unit 40 unit/kg (3500 unit) IVPUSH PROTOCOL BOLUS PRN; Protocol PRN Reason: 40 unit/kg - Heparin Protocol Heparin Sodium (Porcine) (Heparin Sodium,Porcine 5,000 Unit/Ml Vial) 7,100 unit 80 unit/kg (7100 unit) IVPUSH PROTOCOL BOLUS PRN; Protocol PRN Reason: 80 unit/kg - Heparin Protocol Heparin Sodium/Sodium Chloride (Heparin Sodium,Porcine/1/2ns) 25,000 unit in 250 mls @ 0 mls/hr IVCONT .Q0M [facility]; Protocol Last Admin: 11/25/23 04:13 Dose: 12 units/kg/hr, 10.62 mls/hr Omeprazole (Omeprazole 20 Mg Capsule.) 20 mg PO BID@0630,1630 [facility] Last Admin: 11/25/23 06:14 Dose: 20 mg Sodium Chloride (0.9 % Sodium Chloride Flush 3 Ml Syringe) 3 ml IVFLUSH QSHIFT [facility] Last Admin: 11/25/23 10:20 Dose: 3 ml Home Medications Medication Instructions Recorded Confirmed Last Taken Type aspirin 81 mg tablet,delayed 81 mg PO DAILY 09/04/20 11/21/23 11/21/23 History release (Adult Low Dose Aspirin) hydroxyurea 500 mg capsule 1,000 mg PO Q72H 09/04/20 11/21/23 11/20/23 History rosuvastatin 10 mg tablet 10 mg PO DAILY 01/10/21 11/21/23 11/21/23 08:00 History hydroxyurea 500 mg capsule 500 mg PO Q72H 11/21/23 11/21/23 11/19/23 History hydroxyurea 500 mg capsule 500 mg PO Q72H 11/21/23 11/21/23 11/21/23 History Physical Exam 2 Vital Signs: Vital Signs: Last Vital Signs Temp 97.4 F 11/25/23 07:16 Pulse 63 11/25/23 07:16 Resp 20 11/25/23 07:16 BP 125/79 11/25/23 07:16 Pulse Ox 95 11/25/23 07:16 O2 Del Method Nasal Cannula 11/25/23 07:16 O2 Flow Rate 1.5 11/25/23 07:16 BMI result Body Mass Index 27.8 Const: General: cooperative, comfortable, no acute distress, alert, awake and Physically active Nutritional Appearance: average body habitus O rientation/consciousness: patient oriented x3 Limitations: no limitations HEENT: Head: Yes normocephalic and Yes atraumatic Neck: Neck: Yes trachea midline, Yes supple and Yes no JVD Resp: Effort & Inspection: normal respiratory effort Auscultation: clear to auscultation bilaterally Cardio: Jugular venous distension: no JVD Palpation: abnormal PMI displaced PMI Rate: regular rate Rhythm: regular rhythm Heart sounds: S1 normal heart sound present, S2 normal heart sound present, no click, no gallops, no murmurs and no rubs GI: Auscultation: normal bowel sounds Skin: General skin exam: no rashes or lesions noted Neuro: General: patient oriented x3 and no focal motor deficits Speech: A bnormal speech present Extrem: General: Yes no clubbing, cyanosis or edema Objective Labs and Meds 11/25/23 08:30 11/25/23 08:30 Lab results: Laboratory Results - last 24 hr 11/24/23 11/24/23 11/25/23 14:21 21:08 03:12 WBC RBC Hgb Hct MCV MCH MCHC RDW Plt Count MPV Absolute Nucleated RBC Nucleated RBC % (auto) Hold Purple Top SEE NOTE aPTT Heparin Protocol 84.1 H 60.5 D 58.6 Sodium Potassium Chloride Carbon Dioxide Anion Gap BUN Creatinine Estim Creat Clear Calc Estimated GFR Random Glucose Calcium 11/25/23 08:30 WBC 5.5 RBC 3.57 L Hgb 12.9 L Hct 38.1 L MCV 106.7 H MCH 36.1 H MCHC 33.9 RDW 13.1 Plt Count 245 MPV 9.5 Absolute Nucleated RBC 0.000 Nucleated RBC % (auto) 0.0 Hold Purple Top aPTT Heparin Protocol Sodium 138 Potassium 4.1 Chloride 108 Carbon Dioxide 24 Anion Gap 10 L BUN 29 H Creatinine 1.05 Estim Creat Clear Calc 61.7 Estimated GFR > 60 Random Glucose 100 Calcium 8.9 Assessment and Plan (1) Cardiomyopathy: Status: Acute Severe LV systolic dysfunction consistent with cardiomyopathy in this elderly gentleman of unclear etiology. Probably related to left bundle-branch block. He was undergoing workup prior to this hospitalization with stroke. He should have any ischemic workup as an outpatient, which is being scheduled. Will have a vasodilating myocardial perfusion imaging. Was started on Entresto by his primary vial gauger, which is appropriate, I would advise him to continue with the same. Also add Coreg 3.125 mg b.i.d. for neurohormonal modulation. Need for neurohormonal modulation was discussed with him. If he remains with persistent severe LV systolic dysfunction after 3 months despite neurohormonal modulation, consider cardiac resynchronization therapy if there are no other etiology is identified for his cardiomyopathy process. This was discussed with him. He understands agrees. He will follow-up with his primary vial gauger in [place]. (2) Stroke: Status: Acute Stroke suspected to be embolic. There is no clear evidence of LV thrombus although he is at risk for the same given his severe LV systolic dysfunction. Also possibility of atrial fibrillation exists. He has been recommended to be started on oral anticoagulation with Eliquis. At this point time I would advised to stop aspirin therapy at already developed bleeding from his GI tract. Consider placement of implantable loop recorder for workup for atrial fibrillation which can be done as outpatient through his vial gauger's office. Patient can be discharged home if medically cleared from cardiac perspective. Procedures Date of Service Date of Service: 11/25/23
[2023-11-25 11:45] VITALS: BP 102/59; PULSE 77; RESP 20; TEMP 36.6; O2SAT 100
--- NOTE | 2023-11-25 12:29 | P.DS_ITS ---
DS: Providers Provider Date of Service: 11/25/23 Date of admission: 11/21/23 15:36 Primary care physician: Moncho Garcia NP Consults: 11/21/23 15:25 Consult to Neurology Routine Consulting Provider: [facility] Reason for consultation: STROKE 11/21/23 15:36 Consult to Neurology Routine Consulting Provider: Meng Harrell Reason for consultation: CVA s/p TNK Has provider been notified: Yes 11/21/23 20:45 Consult to Urology Routine Consulting Provider: Devin Roldan Reason for consultation: Urinary rentention/ Neurogenic bladder 11/23/23 09:59 Consult to Gastroenterology Routine Consulting Provider: Mariann Merida Reason for consultation: GI bleed 11/24/23 10:56 Consult to Cardiology Routine Consulting Provider: [facility] Reason for consultation: CMP, new from previous echo DS: Diagnosis Discharge Diagnosis (1) Cardiomyopathy: Status: Acute (2) Stroke: Status: Acute DS: Summary Hospital Course Hospital Course: History and physical as per admitting provider. 78-year-old gentleman with underlying bioprosthetic AVR and aortoplasty, urinary retention with incomplete bladder emptying secondary to neurogenic bladder being admitted for acute CVA with aphasia status post TNK in the emergency room. Patient evaluated by neurology service no evidence of large vessel occlusion. 78-year-old man treated for acute CVA with aphasia status post TNK in the emergency room, transferred initially to the ICU for close monitoring. Seen and evaluated by Neurology. MRI showed left MCA occlusion, No evidence of large vessel occlusion. Patient's symptoms of aphasia improved and now resolved. Ambulating. No recommendation for home physical therapy as per physical therapist. Echocardiogram showing worse EF of 20-25%, recently started on Entresto by his outpatient elevator erector. He was seen by Cardiology who recommended starting Coreg 3.125 mg twice daily and loop recorder for atrial fibrillation. He was started on Eliquis for embolic stroke but had some GI bleeding. Seen evaluated by Gastroenterology who recommended continuing the Eliquis as bleeding not appearing clinically significant with stable H&H. Patient was treated with IV heparin and will be discharged with Eliquis 5 mg twice daily, asa stopped. He will recheck CBC in 3 days. As per GI endoscopic intervention remains high risk therefore no need to undergo during this hospitalization and furthermore patient was not willing to undergo the procedure anyway. He also had urinary retention which he has a history of neurogenic bladder, he straight caths at home. Discussed with patient's spouse, she stated understanding, plan is to discharge home. Time Attestation Discharge Coordination Time (in mins): 45 Quality: Safe Use of Opioids Does Pt have an Active Cancer Diagnosis on the Problem List?: No Quality: Stroke Does the patient have a stroke diagnosis?: No Physical Exam Vital Signs: Vital Signs: Last Vital Signs Temp 97.9 F 11/25/23 11:45 Pulse 77 11/25/23 11:45 Resp 20 11/25/23 11:45 BP 102/59 L 11/25/23 11:45 Pulse Ox 100 11/25/23 11:45 O2 Del Method Room Air 11/25/23 11:45 O2 Flow Rate 1.5 11/25/23 07:16 BMI result Body Mass Index 27.8 Appearing in no acute distress head is normocephalic atraumatic eyes pupils are PERRLA sclera is anicteric mouth throat mucous membranes are intact and moist neck is supple no lymphadenopathy, no JVD noted lung sounds are clear to auscultation heart regular rate rhythm, clear S1, S2 positive bowel sounds, abdomen is soft, nontender neuro patient is alert x3, no focal deficits DS: Data Data Completed and Pending Labs on day of discharge: Laboratory Results - last 24 hr 11/24/23 11/24/23 11/25/23 14:21 21:08 03:12 WBC RBC Hgb Hct MCV MCH MCHC RDW Plt Count MPV Absolute Nucleated RBC Nucleated RBC % (auto) Hold Purple Top SEE NOTE aPTT Heparin Protocol 84.1 H 60.5 D 58.6 Sodium Potassium Chloride Carbon Dioxide Anion Gap BUN Creatinine Estim Creat Clear Calc Estimated GFR Random Glucose Calcium 11/25/23 08:30 WBC 5.5 RBC 3.57 L Hgb 12.9 L Hct 38.1 L MCV 106.7 H MCH 36.1 H MCHC 33.9 RDW 13.1 Plt Count 245 MPV 9.5 Absolute Nucleated RBC 0.000 Nucleated RBC % (auto) 0.0 Hold Purple Top aPTT Heparin Protocol Sodium 138 Potassium 4.1 Chloride 108 Carbon Dioxide 24 Anion Gap 10 L BUN 29 H Creatinine 1.05 Estim Creat Clear Calc 61.7 Estimated GFR > 60 Random Glucose 100 Calcium 8.9 Discharge Plan Discharge Anticipated Discharge Date/Time: 11/25/23 12:20 Patient Disposition: Home, Self-Care Discharge Diagnosis: Acute GI bleed Acute CVA Urinary retention Referrals: Moncho Garcia STATEMENT REQUEST CLERK [Primary Care Provider] - 1 Week Discharge Medications: New omeprazole 20 mg Capsule,Delayed Release(Dr/Ec) 20 mg PO DAILY Qty: 90 0RF carvedilol [Coreg] 3.125 mg tablet 3.125 mg PO BID Qty: 60 0RF Rx Instructions: must administer with a meal/food Eliquis 5 mg tablet 5 mg PO BID Qty: 60 0RF Continued hydroxyurea 500 mg capsule 500 mg PO Q72H Rx Instructions: 1 CAPS FOR 2 DAYS, THEN 2 CAPS FOR 1 DAY AND REPEAT CYCLE hydroxyurea 500 mg capsule 500 mg PO Q72H Rx Instructions: 1 CAPS FOR 2 DAYS, THEN 2 CAPS FOR 1 DAY AND REPEAT CYCLE hydroxyurea 500 mg capsule 1,000 mg PO Q72H Rx Instructions: 1 CAPS FOR 2 DAYS, THEN 2 CAPS FOR 1 DAY AND REPEAT CYCLE aspirin [Adult Low Dose Aspirin] 81 mg tablet,delayed release (DR/EC) 81 mg PO DAILY rosuvastatin 10 mg tablet 10 mg PO DAILY Discharge Orders: Discharge Order (Routine); Ordered 11/25/23 Ordered By: Lorie Whittington Diet: Advance to usual diet Activity on Discharge: As tolerated Stand Alone Forms: Patient Portal Discharge page Other Ambulatory Orders: Complete Blood Count no Diff (Routine) Timeframe: 3 Days Facility: [facility] - Location: Laboratory Ordered By: Lorie Whittington Care Plan Goals: Follow up with elevator erector, Dr. Armstrong for consideration of placement of implantable loop recorder for workup for atrial fibrillation which can be done as outpatient through his elevator erector's office. Health Concerns: Acute GI bleed Acute CVA Urinary retention Plan of Treatment: Started on new medication: Coreg 3.125 mg twice daily for cardiomyopathy Eliquis 5mg BID for atrial fibrillation Check Complete blood count in 3 days and report to primary care provider Assessment: See discharge summary
--- NOTE | 2023-11-25 12:49 | MHC.CM.PN ---
Pt medically cleared for dc home self-care and resumption of self straight caths, family for transport
== END 2023-11-25 14:05 | disposition home or self-care (01) | DRG 62 ==
LOC: HO.ED 15:23 → HO.EDOVER 16:13 → HO.ICU 16:25 → HO.IMC 11-22 07:12
PROVIDERS: Physician Assistant; Student in an Organized Health Care Education/Training Program; Admitting Provider Internal Medicine Pulmonary Disease; Emergency Provider Emergency Medicine Emergency Medical Services; PCP Nurse Practitioner Family; Visit Provider Nurse Practitioner Acute Care
DX: I63.412 Cerebral infarction due to embolism of left middle cerebral artery (principal); I42.9 Cardiomyopathy, unspecified; K92.1 Melena; I44.7 Left bundle-branch block, unspecified; R47.01 Aphasia; R29.702 NIHSS score 2; N31.8 Other neuromuscular dysfunction of bladder; I48.0 Paroxysmal atrial fibrillation; R33.9 Retention of urine, unspecified; Z87.891 Personal history of nicotine dependence; Z95.3 Presence of xenogenic heart valve; Z79.82 Long term (current) use of aspirin; Z79.899 Other long term (current) drug therapy
CPT/HCPCS: 36415; 70450; 70496; 70498; 70551; 80048; 80061; 82040; 82272; 82550; 82947; 83036; 83735; 84100; 84484; 85025; 85027; 85610; 85730; 92507; 92610; 93005; 93306; 97116; 97162; 97166; 97530; 99285; C1758; C9113; J1644; J3101; Q9957

== ENCOUNTER → 2023-11-21 13:52 | Outpatient (BNV) | payer OTHER, MEDICARE, SELFPAY | PROVIDERS: Emergency Provider Emergency Medicine Emergency Medical Services; PCP Nurse Practitioner Family; Visit Provider Internal Medicine Pulmonary Disease | DX: R47.01 Aphasia (principal); I63.9 Cerebral infarction, unspecified; Z95.2 Presence of prosthetic heart valve | CPT/HCPCS: 99222 ==

== ENCOUNTER → 2023-11-21 13:52 | Outpatient (BNV) | payer OTHER, SELFPAY | PROVIDERS: Emergency Provider Emergency Medicine Emergency Medical Services; PCP Nurse Practitioner Family; Visit Provider Psychiatry & Neurology Neurology | DX: I63.412 Cerebral infarction due to embolism of left middle cerebral artery (principal); I69.320 Aphasia following cerebral infarction | CPT/HCPCS: 99222 ==

== ENCOUNTER → 2023-11-21 15:36 | Outpatient (BNV) | payer OTHER, SELFPAY | PROVIDERS: Admitting Provider Internal Medicine Pulmonary Disease; Emergency Provider Emergency Medicine Emergency Medical Services; PCP Nurse Practitioner Family; Visit Provider Urology | DX: I63.9 Cerebral infarction, unspecified (principal); N31.9 Neuromuscular dysfunction of bladder, unspecified | CPT/HCPCS: 51703; 99223 ==

== ENCOUNTER → 2023-11-21 15:36 | Outpatient (BNV) | payer OTHER, SELFPAY | PROVIDERS: Admitting Provider Internal Medicine Pulmonary Disease; Emergency Provider Emergency Medicine Emergency Medical Services; PCP Nurse Practitioner Family; Visit Provider Internal Medicine Cardiovascular Disease | DX: I42.9 Cardiomyopathy, unspecified (principal); I63.9 Cerebral infarction, unspecified | CPT/HCPCS: 99222 ==

== ENCOUNTER → 2023-11-21 15:36 | Outpatient (BNV) | payer OTHER, SELFPAY | PROVIDERS: Admitting Provider Internal Medicine Pulmonary Disease; Emergency Provider Emergency Medicine Emergency Medical Services; PCP Nurse Practitioner Family; Visit Provider Student in an Organized Health Care Education/Training Program | DX: I42.9 Cardiomyopathy, unspecified (principal); I63.9 Cerebral infarction, unspecified | CPT/HCPCS: 99232; 99233; 99239 ==

== ENCOUNTER → 2023-11-21 15:36 | Outpatient (BNV) | payer OTHER, SELFPAY | PROVIDERS: Admitting Provider Internal Medicine Pulmonary Disease; Emergency Provider Emergency Medicine Emergency Medical Services; PCP Nurse Practitioner Family; Visit Provider Internal Medicine | DX: K62.5 Hemorrhage of anus and rectum (principal); I63.9 Cerebral infarction, unspecified | CPT/HCPCS: 99222 ==

== ENCOUNTER → 2023-11-21 15:36 | Outpatient (BNV) | payer OTHER, SELFPAY | PROVIDERS: Admitting Provider Internal Medicine Pulmonary Disease; Emergency Provider Emergency Medicine Emergency Medical Services; PCP Nurse Practitioner Family; Visit Provider Internal Medicine Cardiovascular Disease | DX: I42.9 Cardiomyopathy, unspecified (principal) | CPT/HCPCS: 93010; 93306 ==

== ENCOUNTER 2024-01-28 08:00 | Outpatient (REF) | payer OTHER, SELFPAY ==
[2024-01-29 12:14] LABS: Adenovirus F 40/41 Not Detected (Not Detect.); Astrovirus Not Detected (Not Detect.); Campylobacter Not Detected (Not Detect.); Cryptosporidium Not Detected (Not Detect.); Cyclospora cayetanensis Not Detected (Not Detect.); E. coli EAEC Not Detected (Not Detect.); E. coli EPEC Not Detected (Not Detect.); E. coli ETEC Not Detected (Not Detect.); E. coli STEC Not Detected (Not Detect.); Entamoeba histolytica Not Detected (Not Detect.); Giardia lamblia Not Detected (Not Detect.); Norovirus GI/GII Not Detected (Not Detect.); Plesiomonas shigelloides Not Detected (Not Detect.); Rotavirus A Not Detected (Not Detect.); Salmonella Not Detected (Not Detect.); Sapovirus Not Detected (Not Detect.); Shigella sp./EIEC Not Detected (Not Detect.); Vibrio Not Detected (Not Detect.); Vibrio Cholerae Not Detected (Not Detect.); Yersinia enterocolitica Not Detected (Not Detect.)
[2024-01-29 12:44] LABS: Leukocytes Stool Qualitative NEGATIVE (NEGATIVE)
== END 2024-01-28 08:01 | disposition home or self-care (01) ==
LOC: HO.LNP 08:00
PROVIDERS: Visit Provider Internal Medicine Gastroenterology
DX: R19.7 Diarrhea, unspecified (principal)
CPT/HCPCS: 87177; 87209; 87507; 89055

== ENCOUNTER 2025-01-10 09:00 | Outpatient (AMB) | payer OTHER, SELFPAY ==
--- NOTE | 2025-01-10 09:01 | A.OFFVIS_ITS ---
Intake Visit Reasons: BPH [facility] urinary tract symptoms Intake Note: New Patient presents for initial visit for urinary retention Urology Medications: none Blood Thinner: Apixaban PVR: 147ml's Airport Screener Required: No Accompanied by: Unknown Allergies No Known Allergies Allergy (Verified 01/10/25 09:47) Medication List - Last Reconciled 01/10/25 by GAB Valentino apixaban (Eliquis) 5 mg PO BID baclofen 10 mg PO TID cholecalciferol (vitamin D3) 25 mcg PO DAILY clonazepam 0.5 mg PO TID cyanocobalamin (vitamin B-12) 1,000 mcg PO DAILY hydroxyurea 500 mg PO Q72H omeprazole 20 mg PO DAILY rosuvastatin 10 mg PO DAILY HPI Comments Details: Kenny Ji is a very pleasant 79-year-old male patient of Dr. Garcia who was accompanied by his daughter at today's office visit. He has a past medical history of tardive dyskinesia, stroke, cardiomyopathy, and a neurogenic bladder. He presents to the office today as a new patient for neurogenic bladder/incomplete bladder emptying. In discussion with the patient today he reports previously following up with Dr. Siu and Dr. Roldan in the past however had a change in his insurance and started establishing urological care through [facility]. He reports he has a longstanding history of a neurogenic/incomplete bladder emptying and has been performing clean intermittent catheterization for many years. He reports typically he CIC these 4 times per day. He reports utilizing 14 [place] straight is enquiring refill on supplies. He denies any history of recurrent urinary tract infections. He discusses following up with [facility] oncology for chemotherapy related to potential rectal cancer however is vague when discussing medical history regarding this issue. He currently denies any bothersome urinary issues. He denies denies urinary urgency, urinary frequency, incontinence, nocturia, hematuria, dysuria, foul smelling urine, changes to urinary stream, flank pain, fever, and or chills. PVR 147. We discussed at length potential causes of incomplete bladder emptying/urinary retention as well as further treatment options and risks and benefits of these treatment options. He does discuss having previously had a cystoscopy many years ago and being on Flomax however continued with increased postvoid residual therefore recommendations were made for clean intermittent catheterization. He discusses that although he suffers from tardive dyskinesia he has no issues with self catheterization. He otherwise offers no other issues or concerns at this time. In review of patient's chart it appears PSAs are as follows: 07/02 4.6, 08/02 3.3, 01/31 3.4, 05/03 3.1, 11/04 2.8, 05/04 2.3 Plan The patient's neurogenic bladder will continue to be managed with regular catheterization, opting for self-lubricating catheters provided by [address] [place] [address]. Adjustments to the care plan, including potential increase in catheterization f requency, will be evaluated for optimal management considering his urinary retention and lack of voluntary urination. Coordination with oncology for rectal cancer management via immunotherapy will proceed, with interdisciplinary collaboration in assessing the neurological implications post-stroke and suspected mini-strokes as planned. Follow-up in three months is planned to ensure effective management and satisfaction with catheter supplies. Patient was informed and verbally consented to the use of an ambient scribe for clinic note documentation during this visit. Discussion Notes During the visit, we reviewed management options for neurogenic bladder related to urinary retention. I emphasized the advantages of consistent catheterization and the benefits of self-lubricating catheters, guiding the patient towards reliable supply sources. Discussions included potential risks associated with retention and the need for timely evacuation of the bladder to alleviate pressure on the kidneys. We also talked about maintaining close collaboration with oncology for ongoing rectal cancer treatment and monitoring post-stroke neurological concerns, including the involvement of neurology to address possible recurrent mini-strokes. I informed the patient about upcoming follow-up timelines tailored to his urological and overall health needs, ensuring comprehensive care continuity. [facility] Medical History Cardiomyopathy Stroke Hypotonic neurogenic bladder Surgical History S/P aortic valve replacement and aortoplasty History of heart surgery History of tonsillectomy History of removal of cyst Family History Father No problems noted. Mother No problems noted. Social History Household Members: Spouse Housing: House Do you presently have visiting nurse or other home services: No Comment: Pt. refusing bed exit alarm. Patient Tobacco Use Status: Former Tobacco user Tobacco use type: Cigarette e-Cigarette/Vaping Use: Former Use Second Hand Smoke Exposure: No service: Yes Review of Systems Const All systems reviewed & are unremarkable except as noted in HPI and below Physical Exam Const General: cooperative, comfortable, no acute distress, well developed, alert and awake Orientation/consciousness: patient oriented x3 Limitations: no limitations HEENT Head: Yes normal to inspection Ears: hearing grossly normal bilaterally General nose exam: Normal external nose present Eyes Other: Patient with involuntary eye movements throughout today's appointment Neck Neck: Yes normal visual inspection Chest Chest palpation & inspection: normal inspection of the chest Resp Effort & Inspection: normal respiratory effort Cardio Rate: regular rate GI Inspection: Yes normal to inspection General: Yes no CVA tenderness Back/Spine/Pelvis Back: no CVA tenderness Skin General skin exam: no rashes or lesions noted Neuro General: patient oriented x3 Psych Appearance: well kempt Speech and movement: Slowed speech present (Psych) and Pressured speech present Affect: normal affect Attitude: cooperative Thought process: Normal thought process present Thought content: Normal thought content present Insight: Fair insight present (Psych) Judgement: Fair judgement present (Psych) Office Procedures Post Void Residual Post Residual Void Post Void Residual (PVR): 147 [id number] Void Residual by ultrasound Assessment & Plan Assessment & Plan (1) Urinary retention with incomplete bladder emptying: Code(s): R33.9 - Retention of urine, unspecified Category: Medical (2) Elevated PSA: Code(s): R97.20 - Elevated prostate specific antigen [PSA] Category: Medical Plan Unable to obtain urine for urinalysis PVR 147ml's Patient currently denies any bothersome urinary issues or concerns. He denies any UTI like symptoms. Will continue with CIC as planned. Provided 14 [place] straight catheters at today's visit We discussed potential causes of urinary retention/incomplete bladder emptying; as well as further treatment options and risks and benefits of these treatment options. Will obtain PSA for further assessment evaluation Follow-up in 3 months with PSA and PVR; or sooner with any issues, concerns, and or questions. Orders: Orders AMB Post Void Residual by ultrasound Today R33.9 - Retention of urine, unspecified Prostate Specific Antigen Today R33.9 - Retention of urine, unspecified, R97.20 - Elevated prostate specific antigen [PSA] Patient Instructions: The patient had an opportunity to ask questions regarding the treatment plan. All questions were answered. Physical exam, labs, and imaging were discussed and reviewed in detail. As well as risks, benefits, and discussion of treatment choices. No major barriers to understanding were identified. The patient expressed understanding and agreement with the above treatment plan. The patient was made aware they should contact our office by phone for worsening of their current condition, the appearance of new symptoms, or with any questions or concerns. Compliance is encouraged with any medications and follow up testing that is ordered. It is a privilege to be allowed the opportunity to participate in? your urological care.? Again, if you have any questions or concerns If you have any questions or concerns please do not hesitate to contact me. The office is [phone]. This note is constructed using voice recognition software. While every effort has been made to ensure accuracy card hand errors may have been included. Yours sincerely, GAB Valentino Coding Level of Care Code New Pt Level 4 (78590) Diagnoses Urinary retention with incomplete bladder emptying R33.9 Elevated PSA R97.20 CPT Codes Post Residual Void - PVR CPT Code: 73917-Hnyw Void Residual by ultrasound ([id number]) Time Spent (min) 35
--- OUTSIDE RECORDS SUMMARY | 2025-01-10 09:46 | XMS_ITS | Encounter Summary ---
Author Name [facility] [place] [facility] Address [address] [place] [address] Care Team Providers Care Mash Grinder Name Role Phone MARGY CALL Primary Care Provider [facility] Insurance Providers: All historical and current Section Date Range: From patient's date of to the date document was created. This section includes the names of all active insurance providers for the patient. Insurance Provider Type of Coverage Plan Name Start of Policy Coverage End of Policy Coverage Group Number Member ID Insurance Provider's Telephone Number Policy Magallon's Name Patient's Relationship to Policy Magallon [facility] (WNR) MEDICARE ADVANTAGE MCR ([facility]) Sep 15, 2023 [id number] CARLOS ALBERTO CAMARA PATIENT [facility] (WNR) MEDICARE ADVANTAGE MCR (WNR) Sep 15, 2023 [id number] DUKE AndrewsEDEMILY PATIENT [facility] (WNR) MEDICARE ADVANTAGE MCR (WNR) Sep 15, 2020 [id number] DUKE Andrews,EDEMILY PATIENT [facility] (WNR) MEDICARE ADVANTAGE MCR ([facility]) Sep 15, 2020 [id number] DUKE Andrews,CARLOS ALBERTO PATIENT Selected Encounter This section includes the information on record at [place] for the Encounter. Date/Time Encounter Type Encounter Description Reason Pro vider Source IHE Encounter Template Text not used by [facility] Advance Directives: All historical and current Section Date Range: From patient's date of to the date document was created. This section includes ALL of a patient's completed or amended [place] Advance and Rescinded Directives. The entries below indicate that a directive exists for the patient, but an actual copy is not included with this document. The data comes from all [place] facilities. Date Advance Directives Provider Source Mar 29, 2024 ADVANCE DIRECTIVE TEJAL TODD [place] NANNETTE LAWFran [facility]
--- OUTSIDE RECORDS SUMMARY | 2025-01-10 09:46 | XMS_ITS ---
Author Name [facility] [place] [facility] [place] Address [address] [place] [id number] Care Team Providers Care Clinical Informatics Director Name Role Phone MARGY GARCIA Primary [facility] Provider [facility] Insurance Providers: All historical and current Section Date Range: From patient's date of to the date document was created. This section includes the names of all active insurance providers for the patient. Insurance Provider Type of Coverage Plan Name Start of Policy Coverage End of Policy Coverage Group Number Member ID Insurance Provider's Telephone Number Policy Magallon's Name Patient's Relationship to Policy Magallon [facility] (WNR) MEDICARE ADVANTAGE MCR ([facility]) Sep 15, 2023 [id number] DIXIEGABE AndrewsRUBAEMILY PATIENT [facility] (WNR) MEDICARE ADVANTAGE MCR (R) Sep 15, 2023 [id number] DIXIEHA M,EDWARD PATIENT [facility] (WNR) MEDICARE ADVANTAGE MCR (WNR) Sep 15, 2020 [id number] DIXIEHA M,EDWARD PATIENT [facility] (WNR) MEDICARE ADVANTAGE MCR ([facility]) Sep 15, 2020 [id number] DIXIEHA M,CARLOS ALBERTO PATIENT Selected Encounter This section includes the information on record at [place] for the Encounter. Date/Time Encounter Type Encounter Description Reason Provider Source May 10, 2024 11:00 AM OFFICE O/P EST LOW 20 MIN PRIMARY CARE/MEDICINE ICD-10-CM I63.9 Cerebral infarction, unspecified GARCIA,WILLI AM J IHE Encounter Template Text not used by [place] Assessments - Encounter Diagnoses This section includes the primary and secondary diagnoses documented for the Encounter. Date/Time Primary/Secondary Diagnosis Diagnosis Name Provider Source May 10, 2024 12:45 PM PRIMARY Cerebral infarction, unspecified GARCIA[facility] [place] [facility] May 10, 2024 12:45 PM SECONDARY Anemia, unspecified GARCIA,WILL [facility] [place] [facility] May 10, 2024 12:45 PM SECONDARY Benign prostatic hyperplasia without lower urinry tract symp GARCIA,WILL [facility] [place] [facility] May 10, 2024 12:45 PM SECONDARY Hyperlipidemia, unspecified GARCIA,WILL [facility] [place] [facility] May 10, 2024 12:45 PM SECONDARY Nonrheumatic aortic valve disorder, unspecified [facility] [place] [facility] May 10, 2024 12:45 PM SECONDARY Qualitative platelet defects [facility]ILL [facility] Plan of Treatment: Future Appointments (+ 6 months) and Future Tests (+/- 45 days) The Plan of Treatment section includes future care activities for the patient from all [place] treatmentmulticare healthities. This section includes future appointments and future orders which are active, pending or scheduled. Future Appointments This section includes appointments that were scheduled to occur 6 months from the date of the Encounter, up to a maximum of 20 appointments. The data comes from all [place] treatment facilities. Appointment Date/Time Appointment Type Appointme nt Facility Name Jun 08, 2024 12:40 PM [facility] Jun 23, 2024 10:00 AM [facility] [place] [place] [facility] Jun 23, 2024 10:30 AM AMBULATORY - NEUROLOGY [facility] Jul 01, 2024 08:00 AM [facility] Jul 07, 2024 11:00 AM [facility] [place] [place] [facility] Jul 13, 2024 11:00 AM [facility]ULATORY [facility]INE [facility] [place] [facility] Aug 05, 2024 10:00 AM AM[facility]ULATORY [facility] MEDICINE [facility] [place] [facility] Sep 06, 2024 03:30 PM AMBULATORY [facility] MEDICINE [facility] [place] [facility] Sep 16, 2024 08:00 AM AMBULATORY - MEDICINE [place] [facility] [place] [facility] Oct 20, 2024 10:00 AM AMBULATORY - MEDICINE [place] [facility] [place] [facility] Oct 20, 2024 10:45 AM AMBULATORY - MEDICINE [place] [facility] [place] [place] [facility] Vital Signs: All taken on the encounter date This section contains inpatient and outpatient Vital Signs collected on the date of the Encounter. Date/Time Temperature Pulse Blood Pressure Respiratory Rate SP02 Pain Height Weight Body Mass Index Source May 10, 2024 11:09 AM 97.8 73 105/62 20 97 5 68 178 27 [place] [facility] [place] [facility] Social History: Smoking Status (Most current) and Tobacco Use (All prior to encounter date) This section includes the most current, and the historical, smoking and tobacco- related health factors from the [place] facility where the Encounter took place. Current Smoking Status This section includes the most current smoking, or tobacco-related health factor, from the [place] facility where the Encounter took place. Date/Time Current Smoking Status Comment Aron ity Nov 10, 2023 01:00 PM VA-TOBACCO [facility] Tobacco Use History This section includes a history of the smoking, or tobacco-related health factors, that were collected on or before the date of the Encounter. The data comes from the [place] facility where the Encounter took place. Date/Time Smoking Status/Tobacco Use Comment F acility Nov 10, 2023 01:00 PM VA-TOBACCO QUIT 15 YRS OR MORE [place] [facility] [facility] February 07, 2022 09:30 AM VA-TOBACCO FORMER USER [facility] [place] [place] [facility] February 07, 2022 09:30 AM VA-TOBACCO QUIT 15 YRS OR MORE [place] [facility] [place] [facility] Oct 27, 2020 09:39 AM [facility]AC[facility] [place] [facility] Oct 27, 2020 09:39 AM [place]-TO[place]AC[place] QUIT 15 YRS OR MORE [facility] Oct 01, 2018 01:57 PM [facility]TOBACCO [facility] Advance Directives: All historical and current Section Date Range: From patient's date of to the date document was created. This section includes ALL of a patient's completed or amended [place] Advance and Rescinded Directives. The entries below indicate that a directive exists for the patient, but an actual copy is not included with this document. The data comes from all [place] facilities. Date Advance Directives Provider Source Mar 29, 2024 ADVANCE DIRECTIVE TEJAL TODD [facility] Encounter Notes: All associated encounter notes This section contains the clinical notes associated to the Encounter. Date/Time Encounter Note(s) Provider Source Jul 22, 2024 02:26 PM ACCOUNTING OF DISCLOSURES NOTE: LOCAL TITLE: STATE PRESCRIPTION DRUG MONITORING PROGRAM STANDARD TITLE: ACCOUNTING OF DISCLOSURES NOTE DATE OF NOTE: JUL 22, 2024@14:26:21 ENTRY DATE: JUL 22, 2024@14:26:21 AUTHOR: MARGY GARCIA EXP COSIGNER: URGENCY: STATUS: COMPLETED This PDMP query was submitted by Margy Garcia PATIENT CARE REPRESENTATIVE. The clinical justification for this PDMP query is to review controlled substances prescribed outside of the [facility], and any additional information that may become available, as an important component of standard clinical care, and in accordance with [facility] policy. Patient information was shared with the PDMP [employer] [place]. Prescription(s) filled outside the VA in the last 90 days are noted. However, they do not raise significant safety concerns and do not influence the treatment plan at this time. taking rx over /es/ Margy Garcia DNP, PATCHER HELPER-BC, CNL Primary Care Nurse Practitioner Signed: 07/22/2024 14:26 M[facility]Y GARCIA [facility] May 10, 2024 12:37 PM PRIMARY CARE NURSE PRACTITIONER OUTPATIENT NOTE: LOCAL TITLE: NURSE PRACTITIONER OUTPATIENT NOTE STANDARD TITLE: PRIMARY CARE NURSE PRACTITIONER OUTPATIENT NOTE DATE OF NOTE: MAY 10, 2024@12:37 ENTRY DATE: MAY 10, 2024@12:37:45 AUTHOR: MARGY GARCIA COSIGNER: URGENCY: STATUS: COMPLETED Chief complaint: Patient is a 79 year old . HPI: Pleasant male here with his daughter. 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 He ran out, new rx was sent, i will order a bridge as his sx worsen without this. I also completed FMLA paperwork for one his daughters. He has neurology follow up in June. Anemia - per [place] and his daughter, this is being followed up non va, has colonoscopy scheduled. Allergies: Patient has answered NKA The following VA and Non-VA meds were reconciled with patient. The patient was educated on the use of the medications including indication and side effects. Active and Recently Outpatient Medications (excluding Supplies): Active Outpatient Medications Status 1) APIXABAN 5MG TAB TAKE ONE TABLET BY MOUTH EVERY 12 ACTIVE HOURS 2) BACLOFEN 10MG TAB TAKE ONE TABLET BY MOUTH THREE ACTIVE TIMES A DAY FOR MUSCLE SPASMS FOR MUSCLE RIGIDITY 3) CARVEDILOL 3.125MG TAB TAKE ONE TABLET BY MOUTH TWICE ACTIVE DAILY FOR HIGH BLOOD PRESSURE 4) CLONAZEPAM 0.5MG TAB TAKE ONE TABLET BY MOUTH TWICE ACTIVE DAILY 5) LUBRICATING TOP JELLY PKT 3GM APPLY 1 PACKET ACTIVE TOPICALLY THREE TIMES A DAY FOR USE WITH CATHETER 6) OMEPRAZOLE 20MG EC CAP TAKE ONE CAPSULE BY MOUTH ONCE ACTIVE DAILY FOR GASTROESOPHAGEAL REFLUX DISEASE 7) ROSUVASTATIN CA 20MG TAB TAKE ONE-HALF TABLET BY ACTIVE MOUTH ONCE DAILY FOR CHOLESTEROL 8) SACUBITRIL 24MG/VALSARTAN 26MG TAB TAKE 1 TABLET BY ACTIVE MOUTH TWICE DAILY Active Non-VA Medications Status 1) Non-VA ASPIRIN 81MG EC TAB 81MG BY MOUTH ONCE DAILY ACTIVE 2) Non-VA HYDROXYUREA PA-F CAP,ORAL DIRECTED BY ACTIVE MOUTH ONCE DAILY 3) Non-VA NITROFURANTOIN MACROCRYSTALLINE 50MG CAP 50MG ACTIVE BY MOUTH AT BEDTIME 4) Non-VA POLYETHYLENE GLYCOL 3350 ORAL PWDR 17 ACTIVE GRAMS(FILL CAP TO 17GM LINE) BY MOUTH ONCE DAILY 5) Non-VA SENNOSIDES 8.6MG TAB 8.6MG BY MOUTH ONCE DAILY ACTIVE 13 Total Medications Review of Systems: Constitutional: (-)for Fevers, chills, weakness, nights sweats On examination: 97.8 F [36.6 C] (05/10/2024 11:09)105/62 (05/10/2024 11:09)73 (05/10/2024 11:09) 20 (05/10/2024 11:09)5 (05/10/2024 11:09)BMI: 27.1178 lb [80.74 kg] (05/10/2024 11:09) is alert and oriented X3 Neck: supple without masses, trachea midline, ln not palpable, no thyromegaly Cardiovasc: 2plus carotids without bruits, no JVD Heart Reguler rate and rhythm NL S1S2 no S3 or murmur Respiration: Normal respiratory effort, lungs clear ABD: Benign normal active bowel sounds no HSM no rebound or referred pain EXT: no clubbing, edema, or cyanosis All diagnostics from past month were reviewed with patient. Assessment/plan: Active problems - Computerized Problem List is the source for the followin. Long-term current use of anticoagulant - continues 2. Cerebrovascular accident - see above 3. Aortic valve disorder - follows non [place] cardiology, [facility] Review of medial record = 5mins Time spent with Patient including shared decision making = 25 mins Post visit documentation = 5mins Total time = 35 mins Follow up visit in 4 mos. Medication Reconciliation: Outpatient: Has the patient been taking medications as documented in the EMLR? YES: The patient has been taking medications as documented in the EMLR. Essential Medication List for Review used to complete this medication reconciliation. INCLUDED IN THIS LIST: Alphabetical list of active outpatient prescriptions dispensed from this VA (local) and dispensed from another VA or DoD facility (remote) as well as inpatient orders (local, pending and active), local clinic medications, locally documented non-VA medications, and local prescriptions that have or been discontinued in the past 90 days. - All changes in medications, including all non-VA/Herbal/OTC medications were entered into CPRS. - If there were any medications the patient should no longer take, they were discontinued. - The patient/caregiver was instructed to update this list, discard old lists, and take this list to the next appointment, whether with a VA or non-VA provider. /nevin/ GAB Blake DNP, KRISTEN Primary Care Nurse Practitioner Signed: 05/10/2024 12:44 MARGY GARCIA [facility] May 10, 2024 11:39 AM ACCOUNTING OF DISCLOSURES NOTE: LOCAL TITLE: STATE PRESCRIPTION DRUG MONITORING PROGRAM STANDARD TITLE: ACCOUNTING OF DISCLOSURES NOTE DATE OF NOTE: MAY 10, 2024@11:39:02 ENTRY DATE: MAY 10, 2024@11:39:02 AUTHOR: MARGY GARCIA EXP COSIGNER: URGENCY: STATUS: COMPLETED This PDMP query was submitted by Margy Garcia PATIENT CARE REPRESENTATIVE. The clinical justification for this PDMP query is to review controlled substances prescribed outside of the [facility], and any additional information that may become available, as an important component of standard clinical care, and in accordance with [facility] policy. Patient information was shared with the PDMP [employer] [place]. No prescription(s) for controlled substances outside the [facility] were found in the last 90 days. bridge script /nevin/ GAB Blake DNP, KRISTEN Primary Care Nurse Practitioner Signed: 05/10/2024 11:39 MARGY GARCIA [facility] May 10, 2024 11:14 AM PREVENTIVE MEDICINE NURSING NOTE: LOCAL TITLE: CLINICAL REMINDERS/NURSING STANDARD TITLE: PREVENTIVE MEDICINE NURSING NOTE DATE OF NOTE: MAY 10, 2024@11:14 ENTRY DATE: MAY 10, 2024@11:14:14 AUTHOR: KUMAR JOYCE EXP COSIGNER: URGENCY: STATUS: COMPLETED Suicide Screen: C-SSRS Screening Burt-Suicide Severity Rating Scale (C-SSRS Screener) 1. Over the past month, have you wished you were or wished you could go to sleep and not wake up? No 2. Over the past month, have you had any actual thoughts of killing yourself? No 3. Over the past month, have you been thinking about how you might do this? Response not required due to responses to other questions. 4. Over the past month, have you had these thoughts and had some intention of acting on them? Response not required due to responses to other questions. 5. Over the past month, have you started to work out or worked out the details of how to kill yourself? Response not required due to responses to other questions. 6. If yes, at any time in the past month did you intend to carry out this plan? Response not required due to responses to other questions. 7. In your lifetime, have you ever done anything, started to do anything, or prepared to do anything to end your life (for example, collected pills, obtained a gun, gave away valuables, went to the roof but didn't jump)? No 8. If YES, was this within the past 3 months? Response not required due to responses to other questions. Depression Screening: Perform PHQ-2 A PHQ-2 screen was performed. The score was 0 which is a negative screen for depression. Over the past two weeks, how often have you been bothered by the following problems? 1. Little interest or pleasure in doing things Not at all 2. Feeling down, depressed, or hopeless Not at all Alcohol Use Screen (AUDIT-C): Alcohol Screen: SCREEN FOR ALCOHOL (AUDIT-C) An alcohol screening test (AUDIT-C) was negative (score=0). 1. How often did you have a drink containing alcohol in the past year? Consider a drink to be a 12 ounce can or bottle of regular beer, 8 ounces of malt liquor, a 5 ounce glass of table wine, or a 1.5 ounce shot of liquor (like scotch, gin, or vodka). Never 2. How many drinks containing alcohol did you have on a typical day when you were drinking in the past year? Response not required due to responses to other questions. 3. How often did you have six or more drinks on one occasion in the past year? Response not required due to responses to other questions. RHS Screen: RHS Screen Session Format: Face to Face Environmental Check Screening was not completed at this time due to: Another adult present /es/ Kumar Joyce, Health Household Appliance Repairer FITTINGS FINISHER,PRIMARY CARE Signed: 05/10/2024 11:15 KUMAR JOYCE [facility]
--- OUTSIDE RECORDS SUMMARY | 2025-01-10 09:46 | XMS_ITS | Clinical Summary ---
Author Organization [facility] [employer] [facility] Address [address] [facility] [place] [address] Phone Care Team Providers Care Closing Specialist Name Role Phone Radha Montiel MD Primary Care Provide r Allergies No known active allergies Medications apixaban (ELIQUIS) 5 mg tablet Take 1 Tablet by mouth 2 times daily. Active cholecalciferol (VITAMIN D-3) 25 mcg (1,000 unit) tablet Take 1 Tablet by mouth daily. Active hydroxyurea (HYDREA) 500 mg capsule Take 1 capsule (500 mg total) by mouth every other day Active rosuvastatin (CRESTOR) 20 mg tablet Take 0.5 tablets (10 mg total) by mouth 1 (one) time each day. Active baclofen (LIORESAL) 10 mg tablet Take 1 tablet (10 mg total) by mouth 3 (three) times a day. Active omeprazole OTC (PriLOSEC OTC) 20 mg EC tablet Take 1 tablet (20 mg total) by mouth 1 (one) time each day. Do not crush, chew, or split. Active cyanocobalamin (VITAMIN B-12) 1,000 mcg tablet Take 1 tablet (1,000 mcg total) by mouth 1 (one) time each day. Active clonazePAM (KlonoPIN) 0.5 mg tablet Take 1 tablet (0.5 mg total) by mouth 3 (three) times a day. Active cholecalciferol , vitamin D3, 100 mcg (4,000 unit) tablet 04/10/20 25 Discontinue d(Discontin ued by another clinician) Active Problems Problem Noted Date Diagnosed Date Aortic aneurysm ([facility] V24) 06/08/2024 Overview (06/29/2024): Last Assessment & Plan: Patient's recent echocardiogram in 10/2023 revealed measurements of the ascending aorta had increased from 4.2 to 4.5 cm. He should continue to monitor this. Patient should get updated echocardiogram next year. CAD (coronary artery disease) 06/08/2024 Overview (06/29/2024): Last Assessment & Plan: Presumed coronary artery disease based on abnormal nuclear stress test in the past. Patient will have further evaluation with a coronary angiogram. He currently is on rosuvastatin. Assessment & Plan (12/23/2024 12:20 PM EDT): Patient with a stress test that shows evidence of a mild perfusion defect at the apex consistent with infarct mixed with ischemia with reduced EF. He is asymptomatic when holding off on catheterization due to continue treatment for his rectal cancer. CVA (cerebral vascular accident) ([facility] V24, [facility] V28) 06/03/2024 Overview (06/29/2024): Last Assessment & Plan: Patient has history of embolic CVA most recently 6 months prior to this appointment. He was placed on Eliquis 5 mg p.o. twice daily by neurology. Patient has stopped the baby aspirin due to rectal bleeding. Since then patient was found to have reduced H&H, and had colonoscopy that revealed rectal cancer. Patient denies any signs of bleeding at this time. PVD (peripheral vascular disease) ([facility] V24) 11/17/2023 Overview (06/29/2024): Last Assessment & Plan: Patient with a history of peripheral vascular disease status post endarterectomy following a stroke on the left. With severe residual disease in the right followed by vascular surgery at [facility] Systolic heart failure ([facility] V24, [facility] V28 ) 11/17/2023 Overview (06/29/2024): Last Assessment & Plan: Patient's previous echocardiogram on 12/25/2023 revealed an LVEF at 35%. Patient has recently had carvedilol and Entresto removed from his medication regiment due to episodes of hypotension. Patient is unsure of which provider removed him from these medications. Would like patient to have cardiac cath and then can revisit restarting these medications. Assessment & Plan (12/23/2024 12:20 PM EDT): I discussed with the patient and his the finding of reduced left ventricular ejection fraction. We have had difficulty trying to put him on guideline directed therapy due to low blood pressure. His blood pressure still remains low normal he had to have carvedilol and Entresto removed from his medical therapy due to hypotension in the past. So I feel comfortable being able to restart those medicines at this time. With the reduced left ventricular ejection fraction I also discussed with him the risk of sudden cardiac and the recommendation that he be evaluated for an ICD. The patient does not want to be evaluated for an ICD. We will address this again during his next office visit. No changes in medical management at this time. Patient remains on Eliquis for CVA Aortic valve disorder 09/11/2023 Overview (06/29/2024): Last Assessment & Plan: Patient is status post bioprosthetic aortic valve placement in 2010. The valve is intact without insufficiency or stenosis Assessment & Plan (12/23/2024 12:20 PM EDT): Patient status post bioprosthetic aortic valve replacement in 2010 the valve is stable on echocardiography. I again reiterated the need for him to have endocarditis prophylaxis. The patient is looking at the possible need of having posts put in to his jaw to have the dentures fixed. As long as it is done under conscious sedation with no epinephrine the patient is Tibella tolerate the procedure Aortic stenosis 09/10/2023 Overview (06/29/2024): Last Assessment & Plan: Stable valve function. Patient will need to continue endocarditis prophylaxis Resolved Problems Problem Noted Date Diagnosed Date Resolved Date Chest pain 09/17/2023 09/22/2024 Overview (06/29/2024): Last Assessment & Plan: Patient reports atypical chest pain over the past 6 months. He states that he can remember 3 episodes that lasted for about 15 to 20 minutes. This was reproducible on physical exam, however since the patient did have an abnormal nuclear stress test we will need to further investigate for ischemia. Patient is also in need of restratification for rectal surgery. Would recommend cardiac cath for full ischemic evaluation. Encounters Date Type Department Care Team Description 12/23/2024 7:50 AM EDT Office Visit [facility] [address] [place] [address] Antonio Armstrong MD Chronic systolic heart failure (CMS/HCC V24, CMS/HCC V28) (Primary Dx); Aortic valve disorder; Coronary artery disease involving [place] coronary artery of [place] heart without angina pectoris from Last 3 Months Surgical History Surgery Date Site/Laterality Comments CARDIAC CATHETERIZATION DONE ON 06/21/2024 AT [facility] INDICATIONS:Other (Chest discomfort abnormal stress test/needs surgery for removal of colon cancer.) Medical History Medical History Date Comments Hypertrophy of prostate with out urinary obstruction DX:Hypertrophy of prostate w ithout urinary obstruction Essential thrombocytosis ([facility] S/HCC V24, CMS/HCC V28) DX:Essential thrombocytosis (HCC) Chest pain 09/17/2023 Last Assessment & Plan: Patient reports atypical chest pain over the past 6 months. He states that he can remember 3 episodes that lasted for about 15 to 20 minutes. This was reproducible on physical exam, however since the patient did have an abnormal nuclear stress test we will need to further investigate for ischemia. ?? Patient is also in need of restratification for rectal surgery. Social History Tobacco Use Types Packs/Day Years Used Date Smoking Tobacco: Former Cigarettes Q uit: 09/15/1961 Smokeless Tobacco: Never Alcohol Use Standard Drinks/Week Comments Not Currently 0 (1 standard drink = 0.6 oz pur e alcohol) Sex and Gender Information Value Date Recorded Sex Assigned at Not on file Legal Sex Male 8:19 PM EST Gender Identity Not on file Sexual Orientation Not on file Obstetrics History Last Filed Vital Signs Vital Sign Reading Time Taken Comments Blood Pressure 118/70 12/23/2024 8:09 AM EDT Pulse 62 12/23/2024 8:09 AM EDT Temperature - - Respiratory Rate - - Oxygen Saturation 95% 12/23/2024 8:09 AM EDT Inhaled Oxygen Concentration - - Weight 75.3 kg (166 lb) 12/23/2024 8:09 AM EDT Height 175.3 cm (5' 9 ) 12/23/2024 8:09 AM EDT Body Mass Index 24.51 12/23/2024 8:09 AM EDT Plan of Treatment Upcoming Encounters Date Type Department Care Team (Late st Contact Info) Description 06/21/2025 8:40 AM EDT Office [facility] [address] [place] [address] [address] [place] [phone] Alyssa Rendon, SOMMER [address] [place] [address] [address] [place] [address] Health Maintenance Due Date Last Done Comments Pneumococcal Vaccine: 50+ Years (1 of 2 - PCV) 1964 Zoster Vaccines (1 of 2) 1964 RSV Immunization Adult Patients (1 - 1-dose 75+ series) 2018 DTaP,Tdap,and Td Vaccines (2 - Td or Tdap) 10/24/2019 10/24/2009 Cholesterol Screening (Lipid Panel) 10/09/2023 Depression Screening 10/09/2023 Falls Risk Assessment 10/09/2023 Social Influencers of Health Screening 10/09/2023 COVID-19 Vaccine (3 - 2023-2 5 season) 2024 08/17/2021, 11/28/2020 Influenza Vaccine (Season Ended) 2025 08/11/2023 Hypertension/CHF/CAD Annual BMP Blood Test 06/14/2025 06/14/2024 HIB Vaccines Aged Out No longer eligi ble based on patient's age to complete this topic HPV Vaccines Aged Out No longer eligi ble based on patient's age to complete this topic Hepatitis A Vaccines Aged Out No long er eligible based on patient's age to complete this topic Hepatitis B Vaccines Aged Out No long er eligible based on patient's age to complete this topic IPV Vaccines Aged Out No longer eligi ble based on patient's age to complete this topic MMR Vaccines Aged Out No longer eligi ble based on patient's age to complete this topic Meningococcal ACWY Vaccine Aged Out N o longer eligible based on patient's age to complete this topic Meningococcal B Vaccine Aged Out No l onger eligible based on patient's age to complete this topic RSV Immunization Patients Under 20 months Aged Out No longer eligible b ased on patient's age to complete this topic Varicella Vaccines Aged Out No longer eligible based on patient's age to complete this topic Procedures Procedure Name Priority Date/Time Associated Diagnosis Comments ANNUAL BMP BLOOD TEST Routine 06/14/2024 from Last 3 Months or Most Recently Relevant to Health Maintenance Results * Annual BMP Blood Test (06/14/2024) Annual BMP Blood Test abstracted Historical Provider MD HEALTH MAINTENANCE Final Result from Last 3 Months or Most Recently Relevant to Health Maintenance Insurance [facility] Care Teams Closing Specialist Relationship Specialty Start Date End Date Radha Montiel MD [address] [place] [phone] PCP - General Internal Medicine 12/27/24
--- OUTSIDE RECORDS SUMMARY | 2025-01-10 09:46 | XMS_ITS | Encounter Summary ---
Author Name [facility] Organization [facility] [place] Address [address] [place] [id number] Care Team Providers Care Photo Offset Printer Name Role Phone MONCHO GARCIA Primary Care Provider [facility] Insurance Providers: All historical and current [...] Magallon's Name Patient's Relationship to Policy Magallon [facility] (WNR) MEDICARE ADVANTAGE MCR (WNR) Sep 15, 2023 [id number] [address] Andrews,RUBAEMILY PATIENT [facility] (WNR) MEDICARE ADVANTAGE MCR (WNR) Sep 15, 2023 [id number] DIXIEHA M,EDWARD PATIENT [facility] (WNR) MEDICARE ADVANTAGE MCR (WNR) Sep 15, 2020 [id number] DIXIEHA M,EDWARD PATIENT [facility] (WNR) MEDICARE ADVANTAGE MCR (WNR) Sep 15, 2020 [id number] DIXIEHA M,EDWARD PATIENT Selected Encounter This section includes the information on record at [place] for the Encounter. Date/Time Encounter Type Encounter Description Reason Pro vider Source Sep 07, 2024 08:00 AM Outpatient Encounter PRIMARY CARE/MEDICINE IHE Encounter Template Text not used by [place] Plan of Treatment: Future Appointments (+ 6 months) and Future Tests (+/- 45 days) The Plan of Treatment section includes future care activities for the [facility] [place] [facility] This section includes future appointments and future orders which are active, pending or scheduled. Future Appointments This section includes appointments that were scheduled to occur 6 months from the date of the Encounter, up to a maximum of 20 appointments. The data comes from all [place] treatment facilities. Appointment Date/Time Appointment Type Appointme nt Facility Name Sep 16, 2024 08:00 AM [place] [facility] [place] [facility] Oct 20, 2024 10:00 AM [place] [facility] [place] [facility] Oct 20, 2024 10:45 AM [place] [facility] [place] [facility] Nov 29, 2024 10:00 AM [place] [facility] [place] [facility] Dec 23, 2024 07:50 AM [place] [facility] [place] [facility] Jan 10, 2025 09:00 AM [place] [facility] [place] [facility] Jan 12, 2025 10:00 AM [place] [facility] [place] [facility] February 03, 2025 09:00 AM [place] [facility] [place] [facility] Social History: Smoking Status (Most current) and Tobacco Use (All prior to encounter date) This section includes the most current, and the historical, smoking and tobacco- related health factors from the [place] facility where the Encounter took place. Current Smoking Status This section includes the most current smoking, or tobacco-related health factor, from the [place] facility where the Encounter took place. Date/Time Current Smoking Status Comment Facil ity Nov 10, 2023 01:00 PM [place]-TOBACCO FORMER USER [place] [facility] [place] [facility] Tobacco Use History This section includes a history of the smoking, or tobacco-related health factors, that were collected on or before the date of the Encounter. The data comes from the [place] facility where the Encounter took place. Date/Time Smoking Status/Tobacco Use Comment F acility Nov 10, 2023 01:00 PM [place]-TOBACCO QUIT 15 YRS OR MORE [place] [facility] [place] [facility] February 07, 2022 09:30 AM VA-TOBACCO FORMER USER [place] [facility] [place] [facility] February 07, 2022 09:30 AM VA-TOBACCO QUIT 15 YRS OR MORE [place] [facility] [place] [facility] Oct 27, 2020 09:39 AM VA-TOBACCO FORMER USER [place] [facility] [place] [facility] Oct 27, 2020 09:39 AM VA-TOBACCO QUIT 15 YRS OR MORE [place] [facility] [place] [facility] Oct 01, 2018 01:57 PM VA-TOBACCO NEVER USED [place] [facility] [place] [facility] Advance Directives: All historical and current Section Date Range: From patient's date of to the date document was created. This section includes ALL of a patient's completed or amended [place] Advance and Rescinded Directives. The entries below indicate that a directive exists for the patient, but an actual copy is not included with this document. The data comes from all [place] facilities. Date Advance Directives Provider Source Mar 29, 2024 ADVANCE DIRECTIVE [facility] [place] [facility] Encounter Notes: All associated encounter notes This section contains the clinical notes associated to the Encounter. Date/Time Encounter Note(s) Provider Source Jul 21, 2024 03:31 PM ACCOUNTING OF DISCLOSURES NOTE: LOCAL TITLE: STATE PRESCRIPTION DRUG MONITORING PROGRAM STANDARD TITLE: ACCOUNTING OF DISCLOSURES NOTE DATE OF NOTE: JUL 21, 2024@15:31:40 ENTRY DATE: JUL 21, 2024@15:31:40 AUTHOR: MONCHO GARCIA EXP COSIGNER: URGENCY: STATUS: COMPLETED This PDMP query was submitted by Moncho Garcia STAVE GRADER. The clinical justification for this PDMP query is to review controlled substances prescribed outside of the [facility], and any additional information that may become available, as an important component of standard clinical care, and in accordance with [facility] policy. Patient information was shared with the PDMP Appriss Draper. No prescription(s) for controlled substances outside the [facility] were found in the last 90 days. /nevin/ Moncho Garcia DNP, LITHOGRAPHIC RETOUCHER APPRENTICE-BC, CNL Primary Care Nurse Practitioner Signed: 07/21/2024 15:33 MONCHO GARCIA [facility]
--- OUTSIDE RECORDS SUMMARY | 2025-01-10 09:46 | XMS_ITS | Clinical Summary ---
Author Organization [facility] Address [address] [place] [address] Care Team Providers Care Bagging Salvager Name Role Phone Moncho Garcia MD Primary Care Provider [phone] Allergies No known active allergies Medications cyanocobalamin (VITAMIN B-12) 1000 MCG tablet Take 1 tablet (1,000 mcg total) by mouth daily. Active apixaban (ELIQUIS) 5 MG tablet Take 1 tablet (5 mg total) by mouth 2 times a day. 4 Active baclofen (LIORESAL) 10 MG tablet Take 1 tablet (10 mg total) by mouth 3 (three) times a day. 4 Active cholecalciferol (Vitamin D-[address]) 25 MCG (1000 UT) tablet Take 1 tablet (1,000 Units total) by mouth daily. 4 Active clonazePAM (KlonoPIN) 0.5 MG tablet Take 1 tablet (0.5 mg total) by mouth 3 times a day. 4 Active Hydrea 500 MG capsule Take 1 capsule (500 mg total) by mouth every other day. 5 01/07/20 26 Active OMEprazole 20 MG Tablet Delayed Response Take 20 mg by mouth daily. 4 Active rosuvastatin (CRESTOR) 10 MG tablet Take 1 tablet (10 mg total) by mouth daily. 5 Active amantadine (SYMMETREL) 100 MG capsuleIndication s:Dyskinesia,Vasc ular parkinsonism (HCC) Take 1 capsule (100 mg total) by mouth 2 (two) times a day. To take 100mg in AM for 1 week then increase to twice daily 60 capsule 3 5 Active Active Problems Problem Noted Date Diagnosed Date Abnormal findings on diagnos tic imaging of heart and coronary circulation 11/29/2024 Anemia 11/29/2024 Benign prostatic hyperplasia without urinary obs truction 11/29/2024 Carotid artery stenosis 11/29/2024 Cerebral infarction 11/29/2024 Chronic diarrhea 11/29/2024 Combined forms of age-related cataract, bilatera l 11/29/2024 Cerebrovascular accident 11/29/2024 Diplopia 11/29/2024 Dyskinesia 11/29/2024 Essential thrombocythemia 11/29/2024 Family history of sudden cardiac Overview (11/29/2024): Oct 15, 2018 Entered By: MONCHO GARCIA Comment: Biological son, age 44November, unwitnessed Movement disorder 11/29/2024 Hyperlipidemia 11/29/2024 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 He should continue to monitor this. Patient should get updated echocardiogram next year. CAD (coronary artery disease) 06/08/2024 Overview (11/29/2024): Last Assessment & Plan: Presumed coronary artery disease based on abnormal nuclear stress test in the past. Patient will have further evaluation with a coronary angiogram. He currently is on rosuvastatin. PVD (peripheral vascular disease) 11/17/2023 Overview (11/29/2024): Last Assessment & Plan: Patient with a history of peripheral vascular disease status post endarterectomy following a stroke on the left. With severe residual disease in the right followed by vascular surgery at [facility] Aortic valve disorder 09/11/2023 Overview (11/29/2024): Oct 15, 2018 Entered By: MONCHO GARCIA Comment: Bioprosthetic valve replacement jun 18, 2011 Aortic stenosis 09/10/2023 Overview (11/29/2024): Last Assessment & Plan: Stable valve function. Patient will need to continue endocarditis prophylaxis Echocardiogram abnormal 10/11/2020 Overview (11/29/2024): February 02, 2021 Entered By: MONCHO GARCIA Comment: EF 45-50%--GRADE 1 DIASTOLIC DYSFUNCTION Encounters Date Type Department Care Team Description 12/01/2024 Scanned Document [facility] [address] [phone] Neurology, Scan 11/29/2024 10:00 AM EDT Office Visit [facility] [address] [phone] Ernesto Mejia MD Cerebral infarction, unspecified mechanism (HCC) (Primary Dx); Dyskinesia; Vascular parkinsonism (HCC); Ataxia 11/29/2024 Travel from Last 3 Months Family History Medical History Relation Name Comments Cancer Daughter 1 jhonathan breast Heart disease Father Heart disease Mother Cancer Sister right breast Heart disease Son Relation Name Status Comments Daughter 1 jhonathan Alive Daughter 2 elianaevjj Alive Father Mother Sister Alive Son Social History Tobacco Use Types Packs/Day Years Used Date Smoking Tobacco: Never Tobacco Cessation:Counseling Given: Not Answered Alcohol Use Standard Drinks/Week Comments Yes 0 (1 standard drink = 0.6 oz pur e alcohol) 1 a month Sex and Gender Information Value Date Recorded Sex Assigned at Not on file Legal Sex Male 10:22 AM EDT Gender Identity Not on file Sexual Orientation Not on file Last Filed Vital Signs Vital Sign Reading Time Taken Comments Blood Pressure 121/67 11/29/2024 9:44 AM EDT Pulse 55 11/29/2024 9:44 AM EDT Temperature - - Respiratory Rate - - Oxygen Saturation - - Inhaled Oxygen Concentration - - Weight 72.1 kg (159 lb) 11/29/2024 9:44 AM EDT Height 175.3 cm (5' 9 ) 11/29/2024 9:44 AM EDT Body Mass Index 23.48 11/29/2024 9:44 AM EDT Plan of Treatment Upcoming Encounters Date Type Department Care Team (Late st Contact Info) Description 02/15/2025 8:00 AM EDT Appointment [facility] [address] [place] [address] Ernesto Mejia MD [address] [facility] [address] [place] [address] 09/22/2025 10:10 AM EST Office Visit [facility] [place] [address] [facility] [address] [place] [phone] David Larkin APRN [address] [facility] [address] [place] [address] Health Maintenance Due Date Last Done Comments DTaP/Tdap/Td Vaccines (1 - Tdap) 1964 Pneumococcal Vaccines 50+ (1 of 2 - PCV) 1962 Zoster (Shingles) Vaccine (1 of 2) 1962 RSV Vaccine 60 years and older and Patients (1 - 1-dose 75+ series) 2018 Influenza Vaccine 04/15/2024 08/11/2023 COVID-19 Vaccine (3 - 2023-2 5 season) 2024 08/17/2021, 11/28/2020 Hepatitis B Vaccines Aged Out No long er eligible based on patient's age to complete this topic Insurance [place] Care Teams Bagging Salvager Relationship Specialty Start Date End Date Moncho Garcia MD [address] [place] [address] PCP - General 11/29/24
--- OUTSIDE RECORDS SUMMARY | 2025-01-10 09:46 | XMS_ITS ---
Author Name [place] Address [address] [place] [id number] Care Team Providers Care Radiotelegraphist Name Role Phone MARGY GARCIA Primary Care Provider [facility] Insurance Providers: All historical and current [...] Magallon's Name Patient's Relationship to Policy Magallon [facility] (WNR) MEDICARE ADVANTAGE MCR (R) Sep 15, 2023 [id number] LOUISERHIANNAGABE Andrews,RUBAEMILY PATIENT [facility] (WNR) MEDICARE ADVANTAGE MCR (WNR) Sep 15, 2023 [id number] DIXIEHA M,EDWARD PATIENT [facility] (WNR) MEDICARE ADVANTAGE MCR (WNR) Sep 15, 2020 [id number] CUNRHIANNAHA M,EDWARD PATIENT [facility] (WNR) MEDICARE ADVANTAGE MCR (WNR) Sep 15, 2020 [id number] LOUISERHIANNAHA M,CARLOS ALBERTO PATIENT Selected Encounter This section includes the information on record at [place] for the Encounter. Date/Time Encounter Type Encounter Description Reason Pro vider Source Aug 20, 2024 05:45 PM Outpatient Encounter ADMIN PAT ACTIVTIES (MASNONCT) IHE Encounter Template Text not used by [place] Plan of Treatment: Future Appointments (+ 6 months) and Future Tests (+/- 45 days) The Plan of Treatment section includes future care activities for the patient from [facility] [place] [facility] This section includes future appointments and future orders which are active, pending or scheduled. Future Appointments This section includes appointments that were scheduled to occur 6 months from the date of the Encounter, up to a maximum of 20 appointments. The data comes from all [place] treatment facilities. Appointment Date/Time Appointment Type Appointme nt Facility Name Sep 06, 2024 03:30 PM AM[place]ULATORY [place]ICINE [place] [facility] [place] [facility] Sep 16, 2024 08:00 AM [place]UL[place]ORY [place]IC[place] [facility] [place] [facility] Oct 20, 2024 10:00 AM AM[place]ULATORY [place]ICINE [place] [facility] [place] [facility] Oct 20, 2024 10:45 AM [place]ORY [place]ICINE [place] [facility] [place] [facility] Nov 29, 2024 10:00 AM AM[place]ULATORY [place]ICINE [place] [facility] [place] [facility] Dec 23, 2024 07:50 AM AM[place]ULATORY [place]ICINE [place] [facility] [place] [facility] Jan 10, 2025 09:00 AM AM[place]ULATORY [place]INE [place] [facility] [place] [facility] Jan 12, 2025 10:00 AM AM[place]UL[place]ORY [place]INE [place] [facility] [place] [facility] February 03, 2025 09:00 AM AM[place]ULATORY [place]ICINE [place] [facility] [place] [facility] Social History: Smoking Status (Most current) and Tobacco Use (All prior to encounter date) This section includes the most current, and the historical, smoking and tobacco- related health factors from the [place] facility where the Encounter took place. Current Smoking Status This section includes the most current smoking, or tobacco-related health factor, from the [place] facility where the Encounter took place. Date/Time Current Smoking Status Comment Aron hylton Nov 10, 2023 01:00 PM VA-TOBACCO FORMER USER [place] [facility] [place] [facility] Tobacco Use History This section includes a history of the smoking, or tobacco-related health factors, that were collected on or before the date of the Encounter. The data comes from the [place] facility where the Encounter took place. Date/Time Smoking Status/Tobacco Use Comment F acility Nov 10, 2023 01:00 PM VA-TOBACCO QUIT 15 YRS OR MORE [place] [facility] [place] [facility] February 07, 2022 09:30 AM VA-TOBACCO FORMER USER [place] [facility] [place] [facility] February 07, 2022 09:30 AM VA-TOBACCO QUIT 15 YRS OR MORE [place] [facility] [place] [facility] Oct 27, 2020 09:39 AM VA-TOBACCO FORMER USER [place] [facility] [place] [facility] Oct 27, 2020 09:39 AM VA-TOBACCO QUIT 15 YRS OR MORE [place] [facility] [place] [facility] Oct 01, 2018 01:57 PM [facility] Advance Directives: All historical and current Section Date Range: From patient's date of to the date document was created. This section includes ALL of a patient's completed or amended [place] Advance and Rescinded Directives. The entries below indicate that a directive exists for the patient, but an actual copy is not included with this document. The data comes from all [place] facilities. Date Advance Directives Provider Source Mar 29, 2024 ADVANCE [facility]IVE [facility] Encounter Notes: All associated encounter notes This section contains the clinical notes associated to the Encounter. Date/Time Encounter Note(s) Provider Source Aug 20, 2024 05:45 PM PHARMACY NOTE: LOCAL TITLE: PHARMACY CUSTOMER CARE MEDICATION RENEWAL STANDARD TITLE: PHARMACY NOTE DATE OF NOTE: AUG 20, 2024@17:45 ENTRY DATE: AUG 20, 2024@17:45:23 AUTHOR: BIENVENIDO LIANG COSIGNER: URGENCY: STATUS: COMPLETED Date: Aug Division: [place] Pt referred by Pharmacy Call Center for medication renewal: Non-controlled/maintenan ce medication Medications requested: [id number]$ CHOLECALCIF 25MCG (D3-1,000UNIT) TAB [id number] ROSUVASTATIN CA 20MG TAB Defer to primary care provider To be mailed . Please review and renew if appropriate. *This note was generated by [facility] Pharmacy Customer Care. If you have any questions or need assistance, do not contact this author. Please refer all questions to your local, on-site pharmacy departments. /nevin/ BIENVENIDO LIANG CPhT Cabinet Installer, MS/Pharmacy Customer Care Signed: 08/20/2024 17:45 Receipt Acknowledged By: 08/23/2024 07:24 /es/ Margy Garcia DNP, FILING AND POLISHING SUPERVISOR-THOMAS, CNL Primary Care Nurse Practitioner 08/23/2024 07:59 /es/ Purvi HUDDLESTON RN CNL Primary Care RN BIENVENIDO LIANG [facility]
--- OUTSIDE RECORDS SUMMARY | 2025-01-10 09:46 | XMS_ITS | Encounter Summary ---
Author Name Department of [place] Organization [place] Address [address] [place] [address] Care Team Providers Care Emergency Crew Supervisor Name Role Phone MARGY GARCIA [facility] Insurance Providers: All historical and current [...] Magallon's Name Patient's Relationship to Policy Magallon [facility] (WNR) MEDICARE ADVANTAGE MCR (WNR) Sep 15, 2023 [id number] LOUISERHIANNAGABE Andrews,RUBAEMILY PATIENT [facility] (WNR) MEDICARE ADVANTAGE MCR (WNR) Sep 15, 2023 [id number] DIXIEHA M,EDWARD PATIENT [facility] (WNR) MEDICARE ADVANTAGE MCR (WNR) Sep 15, 2020 [id number] DIXIEHA M,EDWARD PATIENT [facility] (WNR) MEDICARE ADVANTAGE MCR (WNR) Sep 15, 2020 [id number] DIXIEHA M,EDWARD PATIENT Selected Encounter This section includes the information on record at [place] for the Encounter. Date/Time Encounter Type Encounter Description Reason Pro vider Source Dec 28, 2024 09:30 AM Outpatient Encounter PRIMARY CARE/MEDICINE IHE Encounter Template Text not used by [place] Plan of Treatment: Future Appointments (+ 6 months) and Future Tests (+/- 45 days) The Plan of Treatment section includes future care activities for the patient from all [place] [facility]. This section includes future appointments and future orders which are active, pending or scheduled. Future Appointments This section includes appointments that were scheduled to occur 6 months from the date of the Encounter, up to a maximum of 20 appointments. The data comes from all [place] treatment facilities. Appointment Date/Time Appointment Type Appointme nt Facility Name Jan 10, 2025 09:00 AM [facility]UL[facility] Jan 12, 2025 10:00 AM AMBULATORY MEDICINE [facility] February 03, 2025 09:00 AM [facility] Active, Pending, and Scheduled Orders This section includes a listing of several types of active, pending, and scheduled orders, including clinic medications orders, diagnostic test orders, procedure orders and consult orders; where the start date of the order is 45 days before the date of the Encounter or 45 days after the date of theEncounter. The data comes from all [facility] facilities. Test Date/Time Test Type Test Details Facility Name Dec 10, 2024 08:24 AM Consult Order COMMUNITY CARE-CARDIOLOGY Cons Shirt Presser's Choice [facility] Dec 14, 2024 01:30 PM Consult Order COMMUNITY CARE-ONCOLOGY Cons Shirt Presser's Choice [facility] Lab Results: +/- 30 days of the encounter This section includes the Chemistry and Hematology Lab Results on record with [place] for the patient. Radiology Reports and Pathology Reports are provided separately, in subsequent sections. Lab Results This section contains the Chemistry/Hematology Results that were resulted 30 days before or 30 daysafter the date of the Encounter. Date/Time Source Result Type Result - Unit Interpretation Reference Range Specimen Type Comment Dec 21, 2024 09:10 AM [facility] FERRITIN SERUM Specimen Type: SERUM No comment entered. Ordering Provider: MARGY GARCIA Report Released Date/Time: Nov 22, 2024 11:13 AM Reporting [facility] [address] [address] Performing Lab: [facility] [address] [address] FERRITIN 22.1 ng/mL 20-300 Dec 21, 2024 09:10 AM [facility] IRON & TIBC PANEL SERUM Specimen Type: SERUM No comment entered. Ordering Provider: MARGY GARCIA Report Released Date/Time: Nov 22, 2024 11:13 AM Reporting Lab: [facility] [address] [facility] [address] Performing Lab: [address] [address] TIBC 379 ug/dL 204-475 IRON 94 ug/dL 65-175 Transferrin Saturation 24.8 20.0-50.0 Transferrin (TRF) 287 mg/dL 200-360 Dec 21, 2024 09:10 AM [facility] CBC BLOOD Specimen Type: BLOOD No comment entered. Ordering Provider: MARGY GARCIA Report Released Date/Time: Nov 22, 2024 11:13 AM Reporting Lab: [address] [address] Performing Lab: [address] [address] WBC 6.01 10*3/uL 4.50-11.00 RBC 3.88 10*6/uL L 4.23-5.66 HGB 12.5 g/dL L 12.8-17 HCT 38.1 L 39.2-50.4 MCV 98.2 fL 82-99 MCHC 32.8 g/dL 30.8-35.1 PLT 289 10*3/uL 140-360 MPV 10.4 fL 9.2-12.4 RDW-CV 13.6 12.0-16.0 MCH 32.2 pg 26.2-32.6 Dec 21, 2024 09:10 AM [facility] BASIC METABOLIC PANEL (non-fasting) SERUM Spe cimen Type: SERUM No comment entered. Ordering Provider: MARGY GARCIA Report Released Date/Time: Nov 22, 2024 11:13 AM Reporting Lab: [facility] [address] [address] Performing Lab: [facility] [address] [facility] [address] UREA NITROGEN 22 mg/dL 7-25 GLUCOSE 91 mg/dL 65-100 SODIUM 142 mmol/L 135-145 POTASSIUM 5.0 mmol/L 3.5-5.1 CHLORIDE 106 mmol/L 98-107 CO2 29 meq/L 23-31 CALCIUM 9.1 mg/dL 8.8-10 CREATININE, Serum 1.40 mg/dL H 0.72-1.25 eGFR(CKD-EPI 2020) 50 mL/min L >60 Dec 21, 2024 09:10 AM [facility] LIPID PANEL, NON FASTING SERUM Specimen Type: SERUM No comment entered. Ordering Provider: MARGY GARCIA Report Released Date/Time: Nov 22, 2024 11:13 AM Reporting Lab: [facility] [address] [facility] [address] Performing Lab: [facility] [address] [facility] [address] CHOLESTEROL 145 mg/dL TRIGLYCERIDE 76 mg/dL 0-150 LDL calculated 73 mg/dL 0-129 CHOL/HDL 2.5 HDL CHOLESTEROL 57 mg/dL 40-60 Dec 21, 2024 09:10 AM [facility] LIVER FUNCTION SERUM Specimen Type: SERUM No comment entered. Ordering Provider: MARGY GARCIA Report Released Date/Time: Nov 22, 2024 11:13 AM Reporting Lab: [facility] [address] [address] Performing Lab: [address] [address] PROTEIN,TOTAL 6.8 g/dL 6.0-8.3 ALBUMIN 4.1 g/dL 3.2-4.6 ALKALINE PHOSPHATASE 84 U/L 40-150 AST 25 U/L 5-34 ALT 16 U/L BILIRUBIN, TOTAL 0.8 mg/dL 0.2-1.2 Dec 21, 2024 09:10 AM [facility] PT & INR (PROTIME) PLASMA Specimen Type: PLASM A No comment entered. Ordering Provider: MARGY GARCIA Report Released Date/Time: Nov 22, 2024 11:13 AM Reporting Lab: [facility] [address] [address] Performing Lab: [facility] [address] [facility] [address] INR 1.4 PROTIME 15.6 s H 10.0-13.1 Social History: Smoking Status (Most current) and Tobacco Use (All prior to encounter date) This section includes the most current, and the historical, smoking and tobacco- related health factors from the [place] facility where the Encounter took place. Current Smoking Status This section includes the most current smoking, or tobacco-related health factor, from the [place] facility where the Encounter took place. Date/Time Current Smoking Status Comment Aron hylton Nov 10, 2023 01:00 PM [place]-TOBACCO QUIT 15 YRS OR MORE [facility] Tobacco Use History This section includes a history of the smoking, or tobacco-related health factors, that were collected on or before the date of the Encounter. The data comes from the [place] facility where the Encounter took place. Date/Time Smoking Status/Tobacco Use Comment F acwilfred Nov 10, 2023 01:00 PM VA-TOBACCO QUIT 15 YRS OR MORE [place] [facility] [facility] February 07, 2022 09:30 AM VA-TOBACCO FORMER USER [place] [facility] [place] [facility] February 07, 2022 09:30 AM VA-TOBACCO QUIT 15 YRS OR MORE [place] [facility] [place] [facility] Oct 27, 2020 09:39 AM VA-TOBACCO FORMER USER [place] [facility] [place] [facility] Oct 27, 2020 09:39 AM VA-TOBACCO QUIT 15 YRS OR MORE [place] [facility] [place] [facility] Oct 01, 2018 01:57 PM VA-TOBACCO NEVER USED [facility] Advance Directives: All historical and current Section Date Range: From patient's date of to the date document was created. This section includes ALL of a patient's completed or amended [place] Advance and Rescinded Directives. The entries below indicate that a directive exists for the patient, but an actual copy is not included with this document. The data comes from all [place] facilities. Date Advance Directives Provider Source Mar 29, 2024 ADVANCE DIRECTIVE TEJAL TODD [facility] Encounter Notes: All associated encounter notes This section contains the clinical notes associated to the Encounter. Date/Time Encounter Note(s) Provider Source Dec 16, 2024 11:47 AM PRIMARY CARE TELEP CHUCK ENCOUNTER NOTE: LOCAL TITLE: TELEPHONE NOTE/PRIMARY CARE STANDARD TITLE: PRIMARY CARE TELEPHONE ENCOUNTER NOTE DATE OF NOTE: DEC 16, 2024@11:47 ENTRY DATE: DEC 16, 2024@11:47:59 AUTHOR: NADEEN ANTUNEZ EXP COSIGNER: URGENCY: STATUS: COMPLETED F: Medication Request D/A: Contacted by Clive's daughter Odayls regarding Rosuvastatin. Lashaet currently taking 10mg daily. She requests to have the medication in its final form of 10mg without the need to split. 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 R: Will alert PCP to request /nevin/ NADEEN ANTUNEZ MSN, RN, CNL Primary Care RN Signed: 12/16/2024 11:50 Receipt Acknowledged By: 12/16/2024 14:18 /nevin/ Margy Garcia DNP, LBD TEACHER-BC, CNL Primary Care Nurse Practitioner NADEEN ANTUNEZ [facility]
--- OUTSIDE RECORDS SUMMARY | 2025-01-10 09:46 | XMS_ITS | Continuity of Care Document ---
Author Name [facility] Organization [facility] Care Team Providers Care Italian Teacher Name Role Phone [facility] Unavailable Unavailable Problems Combined list of problems from Department of Defense and Veterans Affairs facilities. It does not include entries that were removed or entered in error. Problem Status Onset Date Problem Type Date of Resolution Comments Source Echocardiogram abnormal Active 10/11/19 21 Condition February 02, 2021 Entered By: ANNIE CALL Comment: EF 45-50%--GRADE 1 DIASTOLIC DYSFUNCTION [facility] Aortic valve disorder Active Condition Oct 15, 2018 Entered By: ANNIE CALL Comment: Bioprosthetic valve replacement jun 18, 2011 [facility] Benign Prostatic Hypertrophy Without Outflow Obstruction (SCT [id number]) Active Condition [facility] Carotid artery stenosis Active Condition [facility] Cerebrovascular accident Active Condition [facility] Chronic cough Active Condition [facility] Dyskinesia Active Condition [facility] Essential thrombocytosis Active Condition [facility] Family history of sudden cardiac Active Condition Oct 15, 2018 Entered By: ANNIE CALL Comment: Biological son, age 42November, unwitnessed [facility] Hyperlipidemia (SCT [id number]) Active Condition [facility] Long-term current use of anticoagulant Active Condition [facility] Neoplasm of rectum Active Condition [facility] Poor manual dexterity Active Condition [facility] Under care of multiple providers Active Condition Oct 15 Entered By: ANNIE CALL Comment: PCP: Dr. Greyson Oneill 2021 Entered By: ANNIE CALL Comment: Urology: Dr. Longo 2018 Entered By: ANNIE CALL Comment: Oncologist: Dr. 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 Active Diagnosis [facility] Diagnosis: ICD-10-CM Z46.0 Encounter for fit/adjst of spectacles and contact lenses Active Diagnosis [facility] Diagnosis: ICD-10-CM H53.2 Diplopia Active Diagnosis [facility] Diagnosis: ICD-10-CM R25.8 Other abnormal involuntary movements Active Diagnosis [place] Diagnosis: ICD-10-CM I63.9 Cerebral infarction, unspecified Active Diagnosis [facility] Diagnosis: ICD-10-CM R19.7 Diarrhea, unspecified Active Diagnosis [facility] Diagnosis: ICD-10-CM Z71.9 Counseling, unspecified Active Diagnosis [facility] Diagnosis: ICD-10-CM 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 [facility] Diagnosis: ICD-10-CM Z71.89 Other specified counseling Active Diagnosis [facility] Diagnosis: ICD-10-CM Z51.81 Encounter for therapeutic drug level monitoring Active Diagnosis [facility] Diagnosis: ICD-10-CM Z04.89 Encounter for examination and observation for oth reasons Active Diagnosis [facility] Diagnosis: ICD-10-CM R93.1 Abnormal findings on dx imaging of heart and cor circ Active Diagnosis [facility] Medications Combined list of outpatient medications from Department of Defense and Veterans Affairs facilities.Medications provided include 1) outpatient medications from the last 15 months, and 2) patient-reported medications. Medication Details Route Status Patient Instructions Prescription Expires Prescription Number Last Dispense Date Ordering Provider Order Date Order Qty Source AMANTADINE CAP,ORAL TAKE BY MOUTH ORAL ACTIVE [facility]ARGY CALL [facility] APIXABAN 5MG TAB TAKE ONE TABLET BY MOUTH EVERY 12 HOURS ORAL ACTIVE 09/15/2025 [id number] MARGY CALL 2024 180 [facility] APIXABAN 5MG TAB TAKE ONE TABLET BY MOUTH EVERY 12 HOURS ORAL DISCONT INUED 12/05/2024 [id number] 5 MARGY CALL 2024 180 [facility] APIXABAN 5MG TAB TAKE ONE TABLET BY MOUTH EVERY 12 HOURS ORAL DISCONT INUED 11/21/2024 [id number] 5 MARGY CALL 2024 180 [facility] APIXABAN 5MG TAB TAKE ONE TABLET BY MOUTH EVERY 12 HOURS ORAL DISCONT INUED 09/16/2024 [id number] 4 SORAYA REESE 2023 180 [facility] APIXABAN 5MG TAB TAKE ONE TABLET BY MOUTH EVERY 12 HOURS ORAL DISCONT INUED 07/06/2024 [id number] SORAYA REESE 2023 180 [facility] APIXABAN 5MG TAB TAKE ONE TABLET BY MOUTH EVERY 12 HOURS FOR PREVENTI ON OF BLOOD CLOTS ORAL 03/30/2024 [id number] SORAYA REESE 2023 180 [facility] ASPIRIN 81MG TAB,EC TAKE ONE TABLET BY MOUTH ONCE DAILY ORAL ACTIVE MARGY CALL 2023 [facility] BACLOFEN 10MG TAB TAKE ONE TABLET BY MOUTH THREE TIMES A DAY FOR MUSCLE RIGIDITY ORAL ACTIVE 09/15/2025 [id number] 5 MARGY CALL 2024 [facility] BACLOFEN 10MG TAB TAKE ONE TABLET BY MOUTH THREE TIMES A DAY FOR MUSCLE SPASMS FOR MUSCLE RIGIDITY ORAL DISCONT INUED 03/23/2025 [id number] 4 MARGY CALL 2023 270 [facility] BACLOFEN 10MG TAB TAKE ONE-HALF TABLET BY MOUTH THREE TIMES A DAY FOR 3 DAYS, THEN TAKE ONE TABLET THREE TIMES A DAY FOR 27 DAYS FOR MUSCLE SPASMS FOR MUSCLE RIGIDITY ORAL 03/13/2024 [id number] 4 MARGY CALL 2023 86 [facility] CARBOXYMETH YLCELLULOSE NA 0.5% SOLN,OPH INSTILL 1 DROP INTO EACH EYE FOUR TIMES DAILY NEEDED FOR DRY EYE OPHTHA LMIC ACTIVE 10/21/2025 [id number] 5 Juwan REICH E 2024 15 [facility] CARVEDILOL 3.125MG TAB TAKE ONE TABLET BY MOUTH TWICE DAILY FOR HIGH BLOOD PRESSURE ORAL DISCONT INUED 03/30/2024 [id number] SORAYA REESE 2023 180 [facility] CARVEDILOL 3.125MG TAB TAKE ONE TABLET BY MOUTH TWICE DAILY FOR HIGH BLOOD PRESSURE ORAL 07/06/2024 [id number] 4 SORAYA REESE 2023 180 [facility] CHOLECALCIF HAY 25MCG (1,000UNIT) TAB TAKE ONE TABLET BY MOUTH ONCE DAILY FOR VITAMIN SUPPLEME NTATION ORAL ACTIVE 09/15/2025 [id number] 5 MARGY CALL 2024 90 [facility] CHOLECALCIF HAY 25MCG (1,000UNIT) TAB TAKE ONE TABLET BY MOUTH ONCE DAILY FOR VITAMIN SUPPLEME NTATION ORAL DISCONT INUED 12/05/2024 [id number] 5 MARGY CALL 2024 90 [facility] CHOLECALCIF HAY 25MCG (1,000UNIT) TAB TAKE ONE TABLET BY MOUTH ONCE DAILY FOR VITAMIN SUPPLEME NTATION ORAL DISCONT INUED 11/21/2024 [id number] 4 MARGY CALL 2023 90 [facility] CHOLECALCIF HAY 25MCG (1,000UNIT) TAB TAKE ONE TABLET BY MOUTH ONCE DAILY FOR VITAMIN SUPPLEME NTATION ORAL DISCONT INUED 09/16/2024 [id number] 4 SORAYA REESE 2023 90 [facility] CHOLECALCIF HAY 25MCG (1,000UNIT) TAB TAKE ONE TABLET BY MOUTH ONCE DAILY FOR VITAMIN SUPPLEME NTATION ORAL DISCONT INUED 03/25/2024 [id number] 4 MARGY CALL 2022 90 [facility] CLONAZEPAM 0.5MG TAB TAKE ONE TABLET BY MOUTH EVERY 8 HOURS NEEDED SPASM DISORDER FOR SPASM DISORDER ORAL ACTIVE 03/17/2025 [id number] 5 MARGY CALL 2024 90 [facility] CLONAZEPAM 0.5MG TAB TAKE ONE TABLET BY MOUTH EVERY 8 HOURS NEEDED FOR SPASM DISORDER ORAL DISCONT INUED 02/16/2025 [id number] MARGY CALL 2023 90 [facility] CLONAZEPAM 0.5MG TAB TAKE ONE TABLET BY MOUTH TWICE DAILY NEEDED MAY TAKE AN EXTRA DOSE ON DAYS WHEN TREMORS ARE MORE PERSISTE NT ORAL DISCONT INUED 01/21/2025 [id number] 4 MARGY CALL 2023 [facility] CLONAZEPAM 0.5MG TAB TAKE ONE TABLET BY MOUTH TWICE DAILY ORAL 06/09/2024 [id number] 4 MARGY CALL 2023 14 [facility] CLONAZEPAM 0.5MG TAB TAKE ONE TABLET[0 .5MG] BY MOUTH TWICE A DAY FOR TREMORS . MAY TAKE ONE ADDITION AL TABLET PER DAY NEEDED FOR WORSENIN G SYMPTOMS (65 TABLETS FOR 30 DAY SUPPLY) STOP LORAZEPA M ORAL 10/03/2024 [id number] 4 VIVIAN ARANGO 2023 65 [place] HYDROXYUREA CAP,ORAL TAKE DIRECTED BY MOUTH ONCE DAILY ORAL ACTIVE MARGY CALL 2018 [facility] LORAZEPAM 1MG TAB TAKE ONE TABLET BY MOUTH EVERY 12 HOURS NEEDED ORAL DISCONT INUED BY PROVIDE R 08/18/2024 [id number] 4 MARGY CALL 2023 60 [facility] LUBRICATING JELLY,TOP,P KT,3GM APPLY 1 PACKET TOPICALL Y THREE TIMES A DAY FOR USE WITH CATHETER TOPICA L ACTIVE 02/24/2025 [id number] LR,WILL ALEK 2023 144 [facility] OMEPRAZOLE 20MG CAP,EC TAKE ONE CAPSULE BY MOUTH ONCE DAILY FOR GASTROES OPHAGEAL REFLUX DISEASE ORAL ACTIVE 09/15/2025 [id number] 5 MARGY CALL 2024 90 [facility] OMEPRAZOLE 20MG CAP,EC TAKE ONE CAPSULE BY MOUTH ONCE DAILY FOR GASTROES OPHAGEAL REFLUX DISEASE ORAL DISCONT INUED 03/23/2025 [id number] 4 MARGY CALL 2023 90 [facility] OMEPRAZOLE 20MG CAP,EC TAKE ONE CAPSULE BY MOUTH ONCE DAILY FOR GASTROES OPHAGEAL REFLUX DISEASE ORAL DISCONT INUED 01/30/2024 [id number] 4 SORAYA REESE 2023 30 [facility] POLYETHYLEN E GLYCOL 3350 PWDR,ORAL TAKE 17 GRAMS(FI LL CAP TO 17GM LINE) BY MOUTH ONCE DAILY ORAL ACTIVE MARGY CALL 2021 [facility] ROSUVASTATI N CA 10MG TAB TAKE ONE TABLET BY MOUTH ONCE DAILY FOR CHOLESTE ROL ORAL ACTIVE 12/17/2025 [id number] 5 MARGY CALL 2024 90 [facility] ROSUVASTATI N CA 20MG TAB TAKE ONE-HALF TABLET BY MOUTH ONCE DAILY FOR CHOLESTE ROL ORAL DISCONT INUED (EDIT) 09/15/2025 [id number] 5 MARGY CALL 2024 45 [facility] ROSUVASTATI N CA 20MG TAB TAKE ONE-HALF TABLET BY MOUTH ONCE DAILY FOR CHOLESTE ROL ORAL DISCONT INUED 12/05/2024 [id number] 5 MARGY CALL 2024 45 [facility] ROSUVASTATI N CA 20MG TAB TAKE ONE-HALF TABLET BY MOUTH ONCE DAILY FOR CHOLESTE ROL ORAL DISCONT INUED 11/21/2024 [id number] 4 MARGY CALL 2023 45 [facility] ROSUVASTATI N CA 20MG TAB TAKE ONE-HALF TABLET BY MOUTH ONCE DAILY FOR CHOLESTE ROL ORAL DISCONT INUED 09/16/2024 [id number] 4 SORAYA REEES 2023 45 [facility] ROSUVASTATI N CA 20MG TAB TAKE ONE-HALF TABLET BY MOUTH ONCE DAILY FOR CHOLESTE ROL ORAL DISCONT INUED 07/06/2024 [id number] 4 SORAYA REESE 2023 45 [facility] ROSUVASTATI N CA 20MG TAB TAKE ONE-HALF TABLET BY MOUTH ONCE DAILY FOR CHOLESTE ROL ORAL DISCONT INUED 03/25/2024 [id number] 4 MARGY CALL 2022 45 [facility] SACUBITRIL 24MG/VALSAR HENSELY 26MG TAB TAKE 1 TABLET BY MOUTH TWICE DAILY ORAL DISCONT INUED BY PROVIDE R 11/17/2024 [id number] DIA DOWNS MES T 2023 180 [facility] SENNOSIDES 8.6MG TAB TAKE ONE TABLET BY MOUTH ONCE DAILY ORAL ACTIVE MARGY CALL 2021 [facility] Immunizations Combined list of available immunizations from the Department of Defense and Veterans Affairs facilities. Immunization Series Date Given Administered By Site Reaction Lot Number CVX Code Drug Filament Coil Winder Status Comments Source INFLUENZA, UNSPECIFIED FORMULATION 2022 88 complet ed Booster for Series, HISTORICA L INFORMATI ON - FROM OTHER PROVIDER, rené [facility] COVID-19 (MODERNA), MRNA, LNP-S, PF, 100 MCG/0.5ML DOSE OR 50 MCG/0.25ML DOSE 3 2020 207 complet ed [facility] COVID-19 (GEMA), VECTOR-NR, [id number], PF, 0.5 ML 1 2020 212 complet ed JSN; [id number]; 1 [facility] Results Combined list of recent chemistry, hematology and other laboratory results from Department of Defense and Veterans Affairs, ranging from 15 months to all on record, depending upon the facility. Order Name Results Value Reference Range Date Interpretation Specimen Comments Source FERRITIN FERRITIN [MASS/VOLUM E] IN SERUM OR PLASMA BY IMMUNOASSAY 22.1 ng/mL 20 - 300 12/21 Specimen Type: SERUM No comment entered. Ordering Provider: SONAM CALL Report Released Date/Time: Nov 22, 2024 11:13 AM Reporting Lab: [address] [address] Performing Lab: [facility] [address] [facility] [facility] [address] [facility] IRON & TIBC PANEL IRON BINDING CAPACITY [MASS/VOLUM E] IN SERUM OR PLASMA 379 ug/dL 204 - 475 12/21 Specimen Type: SERUM No comment entered. Ordering Provider: SONAM CALL Report Released Date/Time: Nov 22, 2024 11:13 AM Reporting Lab: [facility] [address] [facility] [facility] [address] Performing Lab: [facility] [address] [facility] [facility] [address] [facility] IRON & TIBC PANEL IRON [MASS/VOLUM E] IN SERUM OR PLASMA 94 ug/dL 65 - 175 12/21 Specimen Type: SERUM No comment entered. Ordering Provider: SONAM CALL Report Released Date/Time: Nov 22, 2024 11:13 AM Reporting Lab: [facility] [address] [facility] [facility] [address] Performing Lab: [facility] [address] [facility] [facility] [address] [facility] IRON & TIBC PANEL IRON/IRON BINDING CAPACITY.TO ITZEL [MASS RATIO] IN SERUM OR PLASMA 24.8 20.0 - 50.0 12/21 Specimen Type: SERUM No comment entered. Ordering Provider: SONAM CALL Report Released Date/Time: Nov 22, 2024 11:13 AM Reporting Lab: [facility] [address] [facility] [facility] [address] Performing Lab: [facility] [address] [facility] [facility] [address] [facility] IRON & TIBC PANEL TRANSFERRIN [MASS/VOLUM E] IN SERUM OR PLASMA 287 mg/dL 200 - 360 12/21 Specimen Type: SERUM No comment entered. Ordering Provider: SONAM CALL Report Released Date/Time: Nov 22, 2024 11:13 AM Reporting Lab: [facility] [address] [facility] [facility] [address] Performing Lab: [facility] [address] [facility] [facility] [address] [facility] CBC LEUKOCYTES [#/VOLUME] IN BLOOD BY AUTOMATED COUNT 6.01 10*3/u L 4.50 - 11.00 12/21 Specimen Type: BLOOD No comment entered. Ordering Provider: SONAM CALL Report Released Date/Time: Nov 22, 2024 11:13 AM Reporting Lab: [facility] [address] [facility] [facility] [address] Performing Lab: [facility] [address] [facility] [facility] [address] [facility] CBC ERYTHROCYTE S [#/VOLUME] IN BLOOD BY AUTOMATED COUNT 3.88 10*6/u L 4.23 - 5.66 12/21 L Specimen Type: BLOOD No comment entered. Ordering Provider: SONAM CALL Report Released Date/Time: Nov 22, 2024 11:13 AM Reporting Lab: [facility] [address] [facility] [facility] [address] Performing Lab: [facility] [address] [facility] [facility] [address] [facility] CBC HEMOGLOBIN [MASS/VOLUM E] IN BLOOD 12.5 g/dL 12.8 - 17 12/21 L Specimen Type: BLOOD No comment entered. Ordering Provider: SONAM CALL Report Released Date/Time: Nov 22, 2024 11:13 AM Reporting Lab: [facility] [address] [facility] [facility] [address] Performing Lab: [facility] [address] [address] [facility] CBC HEMATOCRIT [VOLUME FRACTION] OF BLOOD BY AUTOMATED COUNT 38.1 39.2 - 50.4 12/21 L Specimen Type: BLOOD No comment entered. Ordering Provider: SONAM CALL Report Released Date/Time: Nov 22, 2024 11:13 AM Reporting Lab: [facility] [address] [facility] [facility] [address] Performing Lab: [facility] [address] [facility] [facility] [address] [facility] CBC MCV [ENTITIC VOLUME] BY AUTOMATED COUNT 98.2 fL 82 - 99 12/21 Specimen Type: BLOOD No comment entered. Ordering Provider: SONAM CALL Report Released Date/Time: Nov 22, 2024 11:13 AM Reporting Lab: [facility] [address] [facility] [facility] [address] Performing Lab: [facility] [address] [facility] [facility] [address] [facility] CBC MCHC [MASS/VOLUM E] BY AUTOMATED COUNT 32.8 g/dL 30.8 - 35.1 12/21 Specimen Type: BLOOD No comment entered. Ordering Provider: SONAM CALL Report Released Date/Time: Nov 22, 2024 11:13 AM Reporting Lab: [facility] [address] [facility] [facility] [address] Performing Lab: [facility] [address] [facility] [facility] [address] [facility] CBC PLATELETS [#/VOLUME] IN BLOOD BY AUTOMATED COUNT 289 10*3/u L 140 - 360 12/21 Specimen Type: BLOOD No comment entered. Ordering Provider: SONAM CALL Report Released Date/Time: Nov 22, 2024 11:13 AM Reporting Lab: [facility] [address] [facility] [facility] [address] Performing Lab: [facility] [address] [facility] [facility] [address] [facility] CBC PLATELET MEAN VOLUME [ENTITIC VOLUME] IN BLOOD BY AUTOMATED COUNT 10.4 fL 9.2 - 12.4 12/21 Specimen Type: BLOOD No comment entered. Ordering Provider: SONAM CALL Report Released Date/Time: Nov 22, 2024 11:13 AM Reporting Lab: [facility] [address] [facility] [facility] [address] Performing Lab: [facility] [facility] [address] [facility] [facility] [address] [facility] CBC ERYTHROCYTE DISTRIBUTIO N WIDTH [RATIO] BY AUTOMATED COUNT 13.6 12.0 - 16.0 12/21 Specimen Type: BLOOD No comment entered. Ordering Provider: SONAM CALL Report Released Date/Time: Nov 22, 2024 11:13 AM Reporting Lab: [facility] [facility] [address] [facility] [facility] [address] Performing Lab: [facility] [facility] [address] [facility] [facility] [address] [facility] CBC MCH [ENTITIC MASS] BY AUTOMATED COUNT 32.2 pg 26.2 - 32.6 12/21 Specimen Type: BLOOD No comment entered. Ordering Provider: SONAM CALL Report Released Date/Time: Nov 22, 2024 11:13 AM Reporting Lab: [facility] [place] [facility] [address] [facility] [facility] [address] Performing Lab: [facility] [place] [address] [address] [facility] LIPID PANEL, NON FASTING CHOLESTEROL [MASS/VOLUM E] IN SERUM OR PLASMA 145 mg/dL 12/21 Specimen Type: SERUM No comment entered. Ordering Provider: SONAM CALL Report Released Date/Time: Nov 22, 2024 11:13 AM Reporting Lab: [facility] [place] [facility] [address] [facility] [facility] [address] Performing Lab: [facility] [place] [address] [address] [facility] LIPID PANEL, NON FASTING TRIGLYCERID E [MASS/VOLUM E] IN SERUM OR PLASMA 76 mg/dL 0 - 150 12/21 Specimen Type: SERUM No comment entered. Ordering Provider: SONAM CALL Report Released Date/Time: Nov 22, 2024 11:13 AM Reporting Lab: [facility] [address] [facility] [address] Performing Lab: [facility] [address] [address] [facility] LIPID PANEL, NON FASTING CHOLESTEROL IN LDL [MASS/VOLUM E] IN SERUM OR PLASMA BY CALCULATION 73 mg/dL 0 - 129 12/21 Specimen Type: SERUM No comment entered. Ordering Provider: SONAM CALL Report Released Date/Time: Nov 22, 2024 11:13 AM Reporting Lab: [facility] [address] [address] Performing Lab: [facility] [address] [address] [facility] LIPID PANEL, NON FASTING CHOLESTEROL .TOTAL/CHOL ESTEROL IN HDL [MASS RATIO] IN SERUM OR PLASMA 2.5 12/21 Specimen Type: SERUM No comment entered. Ordering Provider: SONAM CALL Report Released Date/Time: Nov 22, 2024 11:13 AM Reporting Lab: [facility] [address] Performing Lab: [facility] [address] [facility] LIPID PANEL, NON FASTING CHOLESTEROL IN HDL [MASS/VOLUM E] IN SERUM OR PLASMA 57 mg/dL 40 - 60 12/21 Specimen Type: SERUM No comment entered. Ordering Provider: SONAM CALL Report Released Date/Time: Nov 22, 2024 11:13 AM Reporting Lab: [facility] [address] [address] Performing Lab: [facility] [place] [address] [facility] BASIC METABOLIC PANEL (non-fast ing) UREA NITROGEN [MASS/VOLUM E] IN SERUM OR PLASMA 22 mg/dL 7 - 25 12/21 Specimen Type: SERUM No comment entered. Ordering Provider: SONAM CALL Report Released Date/Time: Nov 22, 2024 11:13 AM Reporting Lab: [facility] [address] [address] Performing Lab: [facility]N [address] [address] [facility] BASIC METABOLIC PANEL (non-fast ing) GLUCOSE [MASS/VOLUM E] IN SERUM OR PLASMA 91 mg/dL 65 - 100 12/21 Specimen Type: SERUM No comment entered. Ordering Provider: SONAM CALL Report Released Date/Time: Nov 22, 2024 11:13 AM Reporting Lab: [address] [address] Performing Lab: [address] [address] [facility] BASIC METABOLIC PANEL (non-fast ing) SODIUM [MOLES/VOLU ME] IN SERUM OR PLASMA 142 mmol/L 135 - 145 12/21 Specimen Type: SERUM No comment entered. Ordering Provider: SONAM CALL Report Released Date/Time: Nov 22, 2024 11:13 AM Reporting Lab: [facility] [address] [address] Performing Lab: [address] [address] [facility] BASIC METABOLIC PANEL (non-fast ing) POTASSIUM [MOLES/VOLU ME] IN SERUM OR PLASMA 5.0 mmol/L 3.5 - 5.1 12/21 Specimen Type: SERUM No comment entered. Ordering Provider: SONAM CALL Report Released Date/Time: Nov 22, 2024 11:13 AM Reporting Lab: [facility] [address] [address] Performing Lab: [facility] [address] [address] [facility] WSTRN [facility] BASIC METABOLIC PANEL (non-fast ing) CHLORIDE [MOLES/VOLU ME] IN SERUM OR PLASMA 106 mmol/L 98 - 107 12/21 Specimen Type: SERUM No comment entered. Ordering Provider: SONAM CALL Report Released Date/Time: Nov 22, 2024 11:13 AM Reporting Lab: [facility]ITALRBRY[facility]PITALN [facility]US[facility] [address] [address] Performing Lab: [facility]PITALRNOR[facility] CENTERTRN [facility]USE[facility] [address] [address] [facility] BASIC METABOLIC PANEL (non-fast ing) CARBON DIOXIDE, TOTAL [MOLES/VOLU ME] IN SERUM OR PLASMA 29 meq/L 23 - 31 12/21 Specimen Type: SERUM No comment entered. Ordering Provider: SONAM CALL Report Released Date/Time: Nov 22, 2024 11:13 AM Reporting Lab: [facility]PITALRNOR[facility] AL[facility]AMA MED[facility] CENTERTRN [facility]USE[facility] [address] [address] Performing Lab: [facility]PITALRNORTH AL[facility] MED[facility] CENTERTRN [facility]USE[facility] [address] [address] [facility] [facility] BASIC METABOLIC PANEL (non-fast ing) CALCIUM [MASS/VOLUM E] IN SERUM OR PLASMA 9.1 mg/dL 8.8 - 10 12/21 Specimen Type: SERUM No comment entered. Ordering Provider: SONAM CALL Report Released Date/Time: Nov 22, 2024 11:13 AM Reporting Lab: [facility] [place] [facility] [address] [facility] [address] Performing Lab: [facility]OSPITALRNORTH AL[facility]AMA MEDICAL CENTERTRN [facility]USE[facility] [address] [address] [facility] HOSPITALRBRYAN WHITFIELD MEMORIAL HOSPITALN [facility] BASIC METABOLIC PANEL (non-fast ing) CREATININE [MASS/VOLUM E] IN SERUM OR PLASMA 1.40 mg/dL 0.72 - 1.25 12/21 H Specimen Type: SERUM No comment entered. Ordering Provider: SONAM CALL Report Released Date/Time: Nov 22, 2024 11:13 AM Reporting Lab: [facility] [place] [facility] [address] [facility] [address] Performing Lab: [facility]ITALRL TRN [facility] SYSTEMUSE[address] [address] [facility]RL TRN [facility]SUSE [facility] BASIC METABOLIC PANEL (non-fast ing) GLOMERULAR FILTRATION RATE/1.73 SQ M.PREDICTED [VOLUME RATE/AREA] IN SERUM, PLASMA OR BLOOD BY CREATININE- BASED FORMULA (CKD-EPI 2020) 50 mL/min 60 12/21 L Specimen Type: SERUM No comment entered. Ordering Provider: SONAM CALL Report Released Date/Time: Nov 22, 2024 11:13 AM Reporting Lab: [facility]PITALRNORTH ALABAMA MEDICAL CENTERTRN [facility] SYSTEMUSE[address] [address] Performing Lab: [facility]ITALRL TRN [facility] SYSTEMUSE[address] [address] [facility]USE [facility] PT & INR (PROTIME) INR IN PLATELET POOR PLASMA BY COAGULATION ASSAY 1.4 12/21 Specimen Type: PLASMA No comment entered. Ordering Provider: SONAM CALL Report Released Date/Time: Nov 22, 2024 11:13 AM Reporting Lab: [facility]RL [facility]N [facility] SYSTEMUSE[address] [address] Performing Lab: [facility]ITALRL TRN [facility] SYSTEMUSETS [address] [address] [facility]OSPITALRBRYAN WHITFIELD MEMORIAL HOSPITALN [facility] PT & INR (PROTIME) PROTHROMBIN TIME (PT) 15.6 s 10.0 - 13.1 12/21 H Specimen Type: PLASMA No comment entered. Ordering Provider: SONAM CALL Report Released Date/Time: Nov 22, 2024 11:13 AM Reporting Lab: [facility]RL [facility]N [facility] SYSTEMUSE[address] [address] Performing Lab: [facility] [place] [facility] [address] [facility] [address] [facility] [place] [facility] LIVER FUNCTION PROTEIN [MASS/VOLUM E] IN SERUM OR PLASMA 6.8 g/dL 6.0 - 8.3 12/21 Specimen Type: SERUM No comment entered. Ordering Provider: SONAM CALL Report Released Date/Time: Nov 22, 2024 11:13 AM Reporting Lab: [facility] [place] [facility] [address] [facility] [address] Performing Lab: [facility] [facility] [address] [facility] [address] [facility] LIVER FUNCTION ALBUMIN [MASS/VOLUM E] IN SERUM OR PLASMA BY BROMOCRESOL PURPLE (BCP) DYE BINDING METHOD 4.1 g/dL 3.2 - 4.6 12/21 Specimen Type: SERUM No comment entered. Ordering Provider: SONAM CALL Report Released Date/Time: Nov 22, 2024 11:13 AM Reporting Lab: [facility] [place] [facility] [address] [facility] [address] Performing Lab: [place] [facility] [place] [facility] [address] [facility] [address] [facility]ITALRL TRN [facility]USE [facility] LIVER FUNCTION ALKALINE PHOSPHATASE [ENZYMATIC ACTIVITY/VO LUME] IN SERUM OR PLASMA 84 U/L 40 - 150 12/21 Specimen Type: SERUM No comment entered. Ordering Provider: SONAM CALL Report Released Date/Time: Nov 22, 2024 11:13 AM Reporting Lab: [facility] [facility] [address] [facility] [address] Performing Lab: [facility] [place] [facility] [address] [facility] [address] [facility]ITALRL TRN [facility] LIVER FUNCTION ASPARTATE AMINOTRANSF ERASE [ENZYMATIC ACTIVITY/VO LUME] IN SERUM OR PLASMA BY WITH P-5'-P 25 U/L 5 - 34 12/21 Specimen Type: SERUM No comment entered. Ordering Provider: SONAM CALL Report Released Date/Time: Nov 22, 2024 11:13 AM Reporting Lab: [facility] [facility] [address] [facility] [address] Performing Lab: [facility] [facility] [address] [facility] [address] [facility] [place] [facility] LIVER FUNCTION ALANINE AMINOTRANSF ERASE [ENZYMATIC ACTIVITY/VO LUME] IN SERUM OR PLASMA BY WITH P-5'-P 16 U/L 12/21 Specimen Type: SERUM No comment entered. Ordering Provider: SONAM CALL Report Released Date/Time: Nov 22, 2024 11:13 AM Reporting Lab: [facility] [facility] [address] [facility] [address] Performing Lab: [facility] [place] [address] [address] [place] [facility] [place] [facility] LIVER FUNCTION BILIRUBIN.T OTAL [MASS/VOLUM E] IN SERUM OR PLASMA 0.8 mg/dL 0.2 - 1.2 12/21 Specimen Type: SERUM No comment entered. Ordering Provider: SONAM CALL Report Released Date/Time: Nov 22, 2024 11:13 AM Reporting Lab: [facility] [facility] [address] [facility] [address] Performing Lab: [facility] [place] [address] [address] [facility] [place] [facility] CBC LEUKOCYTES [#/VOLUME] IN BLOOD BY AUTOMATED COUNT 5.02 10*3/u L 4.50 - 11.00 12/28 Specimen Type: BLOOD No comment entered. Ordering Provider: SONAM CALL Report Released Date/Time: Dec 29, 2023 12:04 PM Reporting Lab: [facility] [place] [facility] [address] [facility] [address] Performing Lab: [facility] [place] [address] [address] [facility] [place] [facility] CBC ERYTHROCYTE S [#/VOLUME] IN BLOOD BY AUTOMATED COUNT 3.19 10*6/u L 4.23 - 5.66 12/28 L Specimen Type: BLOOD No comment entered. Ordering Provider: SONAM CALL Report Released Date/Time: Dec 29, 2023 12:04 PM Reporting Lab: [facility] [place] [address] [address] Performing Lab: [facility] [place] [facility] [address] [facility] [address] [facility] [place] [facility] CBC HEMOGLOBIN [MASS/VOLUM E] IN BLOOD 11.6 g/dL 12.8 - 17 12/28 L Specimen Type: BLOOD No comment entered. Ordering Provider: SONAM CALL Report Released Date/Time: Dec 29, 2023 12:04 PM Reporting Lab: [facility] [place] [address] [address] Performing Lab: [facility] [place] [address] [address] [facility] [place] [facility] CBC HEMATOCRIT [VOLUME FRACTION] OF BLOOD BY AUTOMATED COUNT 34.6 39.2 - 50.4 12/28 L Specimen Type: BLOOD No comment entered. Ordering Provider: SONAM CALL Report Released Date/Time: Dec 29, 2023 12:04 PM Reporting Lab: [facility] [place] [address] [address] Performing Lab: [facility] [place] [address] [address] [facility] [place] [facility] CBC MCV [ENTITIC VOLUME] BY AUTOMATED COUNT 108.5 fL 82 - 99 12/28 H Specimen Type: BLOOD No comment entered. Ordering Provider: SONAM CALL Report Released Date/Time: Dec 29, 2023 12:04 PM Reporting Lab: [facility] [place] [address] [address] Performing Lab: [facility] [place] [address] [address] [facility] [place] [facility] CBC MCHC [MASS/VOLUM E] BY AUTOMATED COUNT 33.5 g/dL 30.8 - 35.1 12/28 Specimen Type: BLOOD No comment entered. Ordering Provider: SONAM CALL Report Released Date/Time: Dec 29, 2023 12:04 PM Reporting Lab: [facility] [facility] [address] [facility] [address] Performing Lab: [facility] [facility] [address] [facility] [address] [place] [facility] [place] [facility] CBC PLATELETS [#/VOLUME] IN BLOOD BY AUTOMATED COUNT 304 10*3/u L 140 - 360 12/28 Specimen Type: BLOOD No comment entered. Ordering Provider: SONAM CALL Report Released Date/Time: Dec 29, 2023 12:04 PM Reporting Lab: [facility] [place] [address] [address] Performing Lab: [facility] [place] [address] [address] [place] [facility] [place] [facility] CBC ERYTHROCYTE DISTRIBUTIO N WIDTH [RATIO] BY AUTOMATED COUNT 13.0 12.0 - 16.0 12/28 Specimen Type: BLOOD No comment entered. Ordering Provider: SONAM CALL Report Released Date/Time: Dec 29, 2023 12:04 PM Reporting Lab: [facility] [address] [address] Performing Lab: [facility] [place] [address] [address] [facility] [place] [facility] CBC MCH [ENTITIC MASS] BY AUTOMATED COUNT 36.4 pg 26.2 - 32.6 12/28 H Specimen Type: BLOOD No comment entered. Ordering Provider: SONAM CALL Report Released Date/Time: Dec 29, 2023 12:04 PM Reporting Lab: [facility] [place] [address] [address] Performing Lab: [facility] CNTRNORTH [facility]AMA [facility] CENTERTRN [facility]USE[facility] [address] [facility] [address] [facility] BASIC METABOLIC PANEL (non-fast ing) UREA NITROGEN [MASS/VOLUM E] IN SERUM OR PLASMA 29 mg/dL 7 - 25 12/28 H Specimen Type: SERUM No comment entered. Ordering Provider: SONAM CALL Report Released Date/Time: Dec 29, 2023 12:04 PM Reporting Lab: [facility]OSPITALRBRYAN [facility] HOSPITALN [facility] [address] [address] Performing Lab: [facility]OSPITALRBRYAN [facility] HOSPITALN [facility] [address] [address] [facility] BASIC METABOLIC PANEL (non-fast ing) GLUCOSE [MASS/VOLUM E] IN SERUM OR PLASMA 84 mg/dL 65 - 100 12/28 Specimen Type: SERUM No comment entered. Ordering Provider: SONAM CALL Report Released Date/Time: Dec 29, 2023 12:04 PM Reporting Lab: [facility]PITALRBRYAN WHITFIELD [facility]ORIAL HOSPITALN [address] [address] Performing Lab: [facility] [address] [address] [facility] BASIC METABOLIC PANEL (non-fast ing) SODIUM [MOLES/VOLU ME] IN SERUM OR PLASMA 140 mmol/L 135 - 145 12/28 Specimen Type: SERUM No comment entered. Ordering Provider: SONAM CALL Report Released Date/Time: Dec 29, 2023 12:04 PM Reporting Lab: [facility]PITALRBRYAN WH[facility] HOSPITALN [address] [address] Performing Lab: [facility]ITALRBRYAN [facility] HOSPITALN [address] [address] [facility] BASIC METABOLIC PANEL (non-fast ing) POTASSIUM [MOLES/VOLU ME] IN SERUM OR PLASMA 4.8 mmol/L 3.5 - 5.0 12/28 Specimen Type: SERUM No comment entered. Ordering Provider: SONAM CALL Report Released Date/Time: Dec 29, 2023 12:04 PM Reporting Lab: [place] [facility] [place] [facility] [address] [facility] [address] Performing Lab: [place] [facility] [place] [facility] [address] [facility] [address] [place] [facility] [facility] [facility] BASIC METABOLIC PANEL (non-fast ing) CHLORIDE [MOLES/VOLU ME] IN SERUM OR PLASMA 107 mmol/L 100 - 110 12/28 Specimen Type: SERUM No comment entered. Ordering Provider: SONAM CALL Report Released Date/Time: Dec 29, 2023 12:04 PM Reporting Lab: [place] [facility] [place] [facility] [address] [facility] [address] Performing Lab: [place] [facility] [place] [address] [address] [facility]RL [facility] [place] [facility] BASIC METABOLIC PANEL (non-fast ing) CARBON DIOXIDE, TOTAL [MOLES/VOLU ME] IN SERUM OR PLASMA 24 meq/L 20 - 30 12/28 Specimen Type: SERUM No comment entered. Ordering Provider: SONAM CALL Report Released Date/Time: Dec 29, 2023 12:04 PM Reporting Lab: [facility] [place] [facility] [address] [facility] [address] Performing Lab: [place] [facility] [place] [address] [address] [place] [facility] [place] [facility] BASIC METABOLIC PANEL (non-fast ing) CREATININE [MASS/VOLUM E] IN SERUM OR PLASMA 1.28 mg/dL 0.50 - 1.40 12/28 Specimen Type: SERUM No comment entered. Ordering Provider: SONAM CALL Report Released Date/Time: Dec 29, 2023 12:04 PM Reporting Lab: [place] [facility] [place] [facility] [address] [facility] [address] Performing Lab: [place] [facility] [place] [address] [address] [place] [facility] [place] [facility] BASIC METABOLIC PANEL (non-fast ing) GLOMERULAR FILTRATION RATE/1.73 SQ M.PREDICTED [VOLUME RATE/AREA] IN SERUM, PLASMA OR BLOOD BY CREATININE- BASED FORMULA (CKD-EPI 2020) 56 mL/min 60 12/28 L Specimen Type: SERUM No comment entered. Ordering Provider: SONAM CALL Report Released Date/Time: Dec 29, 2023 12:04 PM Reporting Lab: [facility] [place] [address] [address] Performing Lab: [facility]ITALRL TRN [address] [address] [facility] LIPID PANEL, NON FASTING CHOLESTEROL [MASS/VOLUM E] IN SERUM OR PLASMA 140 mg/dL 12/28 Specimen Type: SERUM No comment entered. Ordering Provider: SONAM CALL Report Released Date/Time: Dec 29, 2023 12:04 PM Reporting Lab: [facility]PITALRNORTH AL[facility]AMA MEDICAL CENTERTRN [address]SUSE[address] [address] Performing Lab: [facility]ITALRL TRN [facility] SYSTEMUSETS [address] [address] [facility] LIPID PANEL, NON FASTING TRIGLYCERID E [MASS/VOLUM E] IN SERUM OR PLASMA 116 mg/dL 0 - 150 12/28 Specimen Type: SERUM No comment entered. Ordering Provider: SONAM CALL Report Released Date/Time: Dec 29, 2023 12:04 PM Reporting Lab: [facility] [place] [address] [address] Performing Lab: [facility]ITALRL [facility]N [facility] [address] [address] [facility] LIPID PANEL, NON FASTING CHOLESTEROL IN LDL [MASS/VOLUM E] IN SERUM OR PLASMA BY CALCULATION 67 mg/dL 0 - 129 12/28 Specimen Type: SERUM No comment entered. Ordering Provider: SONAM CALL Report Released Date/Time: Dec 29, 2023 12:04 PM Reporting Lab: [facility]ITALRL TRN [place] [place] [address] Performing Lab: [facility] [place] [facility] [address] [facility] [facility] [address] [facility] [place] [facility] LIPID PANEL, NON FASTING CHOLESTEROL .TOTAL/CHOL ESTEROL IN HDL [MASS RATIO] IN SERUM OR PLASMA 2.8 12/28 Specimen Type: SERUM No comment entered. Ordering Provider: SONAM CALL Report Released Date/Time: Dec 29, 2023 12:04 PM Reporting Lab: [facility] [place] [facility] [address] [facility] [facility] [address] Performing Lab: [facility] [facility] [address] [facility] [facility] [address] [place] [facility] [place] [facility] LIPID PANEL, NON FASTING CHOLESTEROL IN HDL [MASS/VOLUM E] IN SERUM OR PLASMA 50 mg/dL 40 - 60 12/28 Specimen Type: SERUM No comment entered. Ordering Provider: SONAM CALL Report Released Date/Time: Dec 29, 2023 12:04 PM Reporting Lab: [facility] [facility] [address] [facility] [facility] [address] Performing Lab: [facility] [facility] [address] [facility] [facility] [address] [place] [facility] [place] [facility] Vital Signs Combined list of inpatient and outpatient Vital Signs from Department of Defense and Veterans Affairs, ranging from 12 months to all on record, depending upon the facility. Vital Sign Value Date Comments Source SYSTOLIC BLOOD PRESSURE 130 09/06/20 24 15:31:19 [facility] [place] [facility] DIASTOLIC BLOOD PRESSURE 80 024 15:31:19 [facility] [place] [facility] PULSE OXIMETRY 97 09/06/2024 15:31:19 [facility] [place] [facility] WEIGHT 168 09/06/2024 15:31:19 [facility] [place] [facility] BMI 26 kg/m2 09/06/2024 15:31:19 [facility] [place] [facility] PAIN 6 09/06/2024 15:31:19 [facility] HEIGHT 68 09/06/2024 15:31:19 [facility] TEMPERATURE 98.3 09/06/2024 15:31:19 [facility] [place] PULSE 64 09/06/2024 15:31:19 [facility] [place] RESPIRATION 20 09/06/2024 15:31:19 [facility] [place] [facility] SYSTOLIC BLOOD PRESSURE 105 05/10/20 24 11:09:07 [facility] [place] [facility] DIASTOLIC BLOOD PRESSURE 62 024 11:09:07 [facility] [place] PULSE OXIMETRY 97 05/10/2024 11:09:07 [facility] WEIGHT 178 05/10/2024 11:09:07 [facility] BMI 27 kg/m2 05/10/2024 11:09:07 [facility] PAIN 5 05/10/2024 11:09:07 [facility] HEIGHT 68 05/10/2024 11:09:07 [facility] TEMPERATURE 97.8 05/10/2024 11:09:07 [facility] PULSE 73 05/10/2024 11:09:07 [facility] RESPIRATION 20 05/10/2024 11:09:07 [facility] [place] SYSTOLIC BLOOD PRESSURE 136 02/12/20 11:26:03 [facility] [place] DIASTOLIC BLOOD PRESSURE 67 024 11:26:03 [facility] [place] PULSE OXIMETRY 99 02/12/2024 11:26:03 [facility] WEIGHT 191 02/12/2024 11:26:03 [facility] BMI 29 kg/m2 02/12/2024 11:26:03 [facility] PAIN 3 02/12/2024 11:26:03 [facility] HEIGHT 68 02/12/2024 11:26:03 [facility] [place] TEMPERATURE 98 02/12/2024 11:26:03 [facility] [place] PULSE 67 02/12/2024 11:26:03 [facility] RESPIRATION 20 02/12/2024 11:26:03 [facility] SYSTOLIC BLOOD PRESSURE 120 02/02/20 24 13:52:14 [facility] [place] DIASTOLIC BLOOD PRESSURE 70 024 13:52:14 [facility] [place] PULSE OXIMETRY 99 02/02/2024 13:52:14 [facility] PAIN 9 02/02/2024 13:52:14 [facility] TEMPERATURE 98 02/02/2024 13:52:14 [facility] PULSE 57 02/02/2024 13:52:14 [facility] RESPIRATION 18 02/02/2024 13:52:14 [facility] Encounters Combined list of: 1) Encounters from Department of Veterans Affairs facilities going backup to the last 18 months, not all VA inpatient encounters are included; 2) Encounters from the Department of Defense facilities going backup to 280 months. Location Location Details Encounter Type Encounter Number Reason For Visit Attending Provider ADM Date DC Date Status Disposition Source [facility] En[facility] [id number] 07[facility]14 [facility] [id number] 08/06 [facility] [id number] 08/11 [facility] [id number] 09/17 [facility] En[facility] [id number] 11/06 [facility] OFFICE O/P EST LOW 20 MIN [id number] Diagnos is: ICD-10- CM R93.1 Abnorma l finding s on dx imaging of heart and cor circ Imer CALL 11/10 [facility] En[facility] [id number] 11/11 [facility] [id number] [facility] [id number] 11/20 [facility] [id number] 11/23 [facility] En[facility] [id number] 11/23 [facility] En[facility] [id number] 11/24 [facility] OFF[facility] O/P EST LOW 20 MIN [id number] Diagnos is: ICD-10- CM I63.9 Cerebra l infarct ion, unspeci fied JAKUBImer J 12/02 [facility] [id number] 12/09 [facility] Encounter [id number] 12/24 [facility] Out[facility] Encounter [id number] 12/28 [facility] COMPRE OPH EXAM NEW PT 1/ [id number] Diagnos is: ICD-10- CM H25.813 Combine d forms of age-rel ated catarac t, bilater al AILYN REICH 12/30 [facility] FIT SPECTACLES MONOFOCAL [id number] Diagnos is: ICD-10- CM Z46.0 Encount er for fit/adj st of spectac les and contact lenses AILYN REICH 12/30 [facility] QNHP OL DIG ASSMT&MGMT 5-10 [id number] Diagnos is: ICD-10- CM Z04.89 Encount er for examina tion and observa tion for oth reasons RADHA MAYFIELD 12/31 [facility] MT[facility] BY PHARM EST 15 MIN [id number] Diagnos is: ICD-10- CM Z51.81 Encount er for therape utic drug level monitor GABRIELLA Romo 04/22 /2024 [facility] Out[facility] Encounter [id number] 01/05 [facility] Encounter [id number] 01/25 [facility] MTMS BY PHARM EST 15 MIN [id number] Diagnos is: ICD-10- CM Z51.81 Encount er for therape utic drug level monitor GABRIELLA Romo 01/25 [facility] Out[facility] Encounter [id number] TEDDY SHRUTHI MIREILLE 01/28 [facility] Out[facility] Encounter [id number] 01/28 [facility] Out[facility] Encounter [id number] 02/01 [facility] OFF/OP EST MAY X REQ PHY/QHP [id number] Diagnos is: ICD-10- CM Z71.89 Other specifi ed psychologist counseling NADEEN Cardenas 02/01 [facility] Out[facility] Encounter [id number] 02/01 [facility] OFFICE O/P EST LOW 20 MIN [id number] Diagnos is: ICD-10- CM 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 NNAMDI Cardenas 02/01 [facility] Out[facility] Encounter [id number] 02/02 [facility] Out[facility] Encounter [id number] 02/02 [facility]counter [id number] [facility]counter [id number] [facility]counter [id number] 02/02 [facility]counter [id number] 02/03 [facility] Out[facility] Encounter [id number] 02/09 [facility] HC PRO PHONE CALL 11-20 MIN [id number] Diagnos is: ICD-10- CM Z71.9 Dormitory Keeper ing, unspeci Darryl Hill 02/09 [facility] [facility] En[facility] [id number] 02/09 [facility] Encounter [id number] 02/09 [facility] HC PRO PHONE CALL 5-10 MIN [id number] Diagnos is: ICD-10- CM R19.7 Diarrhe a, unspeci fied MED ALMONTE 02/11 [facility] OFFICE O/P EST LOW 20 MIN [id number] Diagnos is: ICD-10- CM I63.9 Cerebra l infarct ion, unspeci fied Imer CALL 02/11 [facility] En[facility] [id number] 02/12 [facility] Encounter [id number] 02/12 [facility] En[facility] [id number] 02/12 [facility] Encounter [id number] 02/15 [facility] En[facility] [id number] 02/15 [facility] En[facility] [id number] 02/15 [facility] Encounter [id number] 02/15 [facility] Encounter [id number] 02/18 [facility] Encounter [id number] 02/22 [facility] Encounter [id number] 02/22 [facility] Encounter [id number] 02/22 [facility] Encounter [id number] 02/23 [facility] Encounter [id number] 02/24 [facility] Encounter [id number] 03/22 [facility] Encounter [id number] 03/22 [facility] Encounter [id number] 03/26 [facility] Encounter [id number] 03/29 [facility] PRESTON OFF/OP CONSLTJ NEW/EST HI 55 [id number] Diagnos is: ICD-10- CM R25.8 Other abnorma l involun tary movemen ts JACQUELINE ARANGO N CANDICE 04/02 [place] [facility] En[facility] [id number] 04/07 [facility] En[facility] [id number] 04/07 [facility] Encounter [id number] [facility] Encounter [id number] [facility] [id number] 1.04/12 [facility] [id number] [facility] Encounter [id number] [facility] Encounter [id number] [facility] Encounter [id number] 04/16 [facility] Encounter [id number] 04/22 [facility] Encounter [id number] 04/23 [facility] Encounter [id number] [facility] Encounter [id number] 04/28 [facility] En[facility] [id number] 05/04 [facility] Encounter [id number] 05/07 [facility] Encounter [id number] 05/10 [facility] OFFICE O/P EST LOW 20 MIN [id number] Diagnos is: ICD-10- CM I63.9 Cerebra l infarct ion, unspeci Imer Cuellar 05/10 [facility] [id number] 05/11 [facility] Encounter [id number] [facility] Encounter [id number] 06/01 [facility] En[facility] [id number] 06/08 [facility] En[facility] [id number] 06/17 [facility] OFFICE O/P EST HI 40 MIN [id number] Diagnos is: ICD-10- CM R25.8 Other abnorma l involun tary movemen ts GIORGI FALLON U 06/23 [place] [facility] Encounter [id number] 06/25 [facility] En[facility] [id number] 07/01 [facility] Encounter [id number] 07/06 [facility] [place] 1 [id number] Diagnos is: ICD-10- CM H53.2 Diplopi AILYN Silva 07/07 [facility] FIT SPECTACLES MONOFOCAL [id number] Diagnos is: ICD-10- CM Z46.0 Encount er for fit/adj st of spectac les and contact lenses AILYN REICH 07/07 [facility] Out[facility] Encounter [id number] 07/13 [facility] Encounter [id number] 07/14 [facility] Encounter [id number] 07/19 [facility] Encounter [id number] 07/21 [facility] Encounter [id number] 07/22 [facility] Encounter [id number] 08/13 [facility] Encounter [id number] 08/20 [facility] Out[facility] Encounter [id number] 08/29 [facility] OFFICE O/[place] HI 40 MIN [id number] Diagnos is: ICD-10- CM D49.0 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 Imer CALL 09/06 [facility] Encounter [id number] 09/07 [facility] Out[facility] Encounter [id number] 09/14 [facility]counter [id number] 09/17 [facility] Out[facility] Encounter [id number] 09/27 [facility] Out[facility] Encounter [id number] 09/29 [facility] Out[facility] Encounter [id number] 10/01 [facility] Out[facility]counter [id number] 10/01 [facility] Out[facility]counter [id number] 10/01 [facility] Out[facility] Encounter [id number] 10/06 [facility] Out[facility] Encounter [id number] 10[facility]15 [facility] Outpatient Encounter [id number] 10/19 [facility] INTRM OPH EXAM EST PATIENT [id number] Diagnos is: ICD-10- CM H25.813 Combine d forms of age-rel ated catarac t, bilater al AILYN REICH 10/20 [facility] FUNDUS PHOTOGRAPH Y W/I&R [id number] Diagnos is: ICD-10- CM 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, right eye AILYN REICH 10/20 [facility] Out[facility] Encounter [id number] 11/19 [facility] Out[facility] Encounter [id number] 11/29 [facility] Out[facility]counter [id number] 11[facility]29 [facility] Out[facility] Encounter [id number] 12/08 [facility] Out[facility] Encounter [id number] 12/28 [facility] Out[facility] Encounter [id number] 12/28 [facility] Out[facility] Encounter [id number] 01/04 [facility] Social History Combined list of available smoking, tobacco, and other social history from Department of Defense and Veterans Affairs facilities. Social History Type Response Date Comment Sour e Tobacco smoking status NHIS AK-TOBACCO QUIT 15 YRS OR MORE 11/10/2023 [facility] [place] [facility] History of tobacco use AK-TOBACCO FORMER USER 11/10/2023 [facility] [place] History of tobacco use AK-TOBACCO QUIT 15 YRS OR MORE 02/07/2022 [facility] [place] History of tobacco use AK-TOBACCO QUIT 15 YRS OR MORE 10/27/2020 [facility] [place] [facility] History of tobacco use AK-TOBACCO NEVER USED 10/01/2018 [facility] [place] [facility] Plan of Care List of future care activities from Department of Veterans Affairs facilities. Additional future care activities may be listed in the Assessment and Plan section. Date/Time Care Activity Care Activity Detail Facili ty 01/10/2025 AMBULATORY - MEDICINE AMBULATORY - MEDICI NE [facility] [place] [facility] Advance Directives List of completed, amended, or rescinded Advance Directives on record at Department of Veterans Affairs facilities. An actual copy of the Directive is not included. Date Advance Directive Provider Source 03/29/2024 ADVANCE DIRECTIVE [facility]
--- OUTSIDE RECORDS SUMMARY | 2025-01-10 09:46 | XMS_ITS | Encounter Summary ---
Author Name [facility] [place] [facility] [place] [facility] Address [address] [place] [id number] Care Team Providers Care Male Impersonator Name Role Phone MARGY GARCIA Primary Care Provider Unavaila [facility] Insurance Providers: All historical and current Section Date Range: From patient's date of to the date document was created. This section includes the names of all active insurance providers for the patient. Insurance Provider Type of Coverage Plan Name Start of Policy Coverage End of Policy Coverage Group Number Member ID Insurance Provider's Telephone Number Policy Magallon's Name Patient's Relationship to Policy Magallon [facility] (R) MEDICARE ADVANTAGE MCR ([facility]) Sep 15, 2023 [id number] CARLOS ALBERTO CAMARA PATIENT [facility] (R[facility] MEDICARE ADVANTAGE MCR (R) Sep 15, 2023 [id number] CARLOS ALBERTO CAMARA PATIENT [facility] (WNR) MEDICARE ADVANTAGE MCR (WNR) Sep 15, 2020 [id number] DUKE Andrews EDEMILY PATIENT [facility] (WNR) MEDICARE ADVANTAGE MCR ([facility]) Sep 15, 2020 [id number] CARLOS ALBERTO CAMARA PATIENT Selected Encounter This section includes the information on record at [place] for the Encounter. Date/Time Encounter Type Encounter Description Reason Provider Source February 02, 2024 01:30 PM OFF/OP EST MAY X REQ PHY/QHP PRIMARY CARE/MEDICINE ICD-10-CM Z71.89 Other specified counseling SANTIAGO ANTUNEZ E Encounter Template Text not used by [place] Assessments - Encounter Diagnoses This section includes the primary and secondary diagnoses documented for the Encounter. Date/Time Primary/Secondary Diagnosis Diagnosis Name Provider Source February 02, 2024 02:32 PM PRIMARY Other specified counseling SANTIAGO ANTUNEZ [facility] [place] [facility] Plan of Treatment: Future Appointments (+ 6 months) and Future Tests (+/- 45 days) The Plan of Treatment section includes future care activities for the patient [facility] [place] [facility] This section includes future appointments and future orders which are active, pending or scheduled. Future Appointments This section includes appointments that were scheduled to occur 6 months from the date of the Encounter, up to a maximum of 20 appointments. The data comes from all [place] treatment facilities. Appointment Date/Time Appointment Type Appointme nt Facility Name February 12, 2024 11:30 AM AMBULATORY - MEDICINE [facility] [place] [facility] Apr 02, 2024 10:00 AM [facility] Apr 08, 2024 08:00 AM [facility]UL[facility] MEDICINE [facility] [place] [facility] Apr 14, 2024 02:00 PM AMBULATORY - MEDICINE [facility] [place] [facility] May 04, 2024 09:30 AM AMBULATORY - MEDICINE [place] [facility] [place] [facility] May 10, 2024 11:00 AM AMBULATORY - MEDICINE [facility] [place] [facility] Jun 08, 2024 12:40 PM AMBULATORY - MEDICINE [facility] [place] [facility] Jun 23, 2024 10:00 AM AMBULATORY - MEDICINE [facility] [place] [facility] Jun 23, 2024 10:30 AM AMBULATORY - NEUROLOGY [facility] Jul 01, 2024 08:00 AM AMBULATORY - MEDICINE [facility] [place] [facility] Jul 07, 2024 11:00 AM AMBULATORY - MEDICINE [facility] [place] [facility] Jul 13, 2024 11:00 AM AMBULATORY - MEDICINE [place] [facility] [place] [facility] Vital Signs: All taken on the encounter date This section contains inpatient and outpatient Vital Signs collected on the date of the Encounter. Date/Time Temperature Pulse Blood Pressure Respiratory Rate SP02 Pain Height Weight Body Mass Index Source February 02, 2024 01:52 PM 98 57 120/70 18 99 9 [facility] Social History: Smoking Status (Most current) and Tobacco Use (All prior to encounter date) This section includes the most current, and the historical, smoking and tobacco- related health factors from the [place] facility where the Encounter took place. Current Smoking Status This section includes the most current smoking, or tobacco-related health factor, from the [place] facility where the Encounter took place. Date/Time Current Smoking Status Comment Facil ity Nov 10, 2023 01:00 PM VA-TOBACCO [facility] Tobacco Use History This section includes a history of the smoking, or tobacco-related health factors, that were collected on or before the date of the Encounter. The data comes from the [place] facility where the Encounter took place. Date/Time Smoking Status/Tobacco Use Comment F acility Nov 10, 2023 01:00 PM VA-TOBACCO QUIT 15 YRS OR MORE [place] [facility] [place] [facility] February 07, 2022 09:30 AM VA-TOBACCO FORMER USER [place] [facility] [place] [facility] February 07, 2022 09:30 AM VA-TOBACCO QUIT 15 YRS OR MORE [place] [facility] [place] [facility] Oct 27, 2020 09:39 AM VA-TOBACCO FORMER USER [place] [facility] [place] [facility] Oct 27, 2020 09:39 AM VA-TOBACCO QUIT 15 YRS OR MORE [place] [facility] [place] [facility] Oct 01, 2018 01:57 PM VA-TOBACCO [facility]ED [facility] Advance Directives: All historical and current Section Date Range: From patient's date of to the date document was created. This section includes ALL of a patient's completed or amended [place] Advance and Rescinded Directives. The entries below indicate that a directive exists for the patient, but an actual copy is not included with this document. The data comes from all [place] facilities. Date Advance Directives Provider Source Mar 29, 2024 ADVANCE DIRECTIVE TEJAL TODD [place] [facility] Encounter Notes: All associated encounter notes This section contains the clinical notes associated to the Encounter. Date/Time Encounter Note(s) Provider Source February 02, 2024 01:53 PM [facility] LOCAL TITLE: AMBULATORY/OUTPATIENT CARE NOTE STANDARD TITLE: PRIMARY CARE OUTPATIENT NOTE DATE OF NOTE: FEBRUARY 02, 2024@13:53 ENTRY DATE: FEBRUARY 02, 2024@13:53:23 AUTHOR: NADEEN ANTUNEZ COSIGNER: URGENCY: STATUS: COMPLETED F: Walk In D/A: Clive presents to primary care with complaint of spacity and neck pain starting 01/27. Clive states he began having involuntary arm and leg movements out of the blue on Fri, believe it was related to medications. He stopped taking medications on 01/28 but resumed 01/31 as symptoms continued. Clive also reports increased neck muscle tightness and pain 05/25 but this had been happening for longer than a week. Clive also reports intermittent headache. Of note [place] hospitalized at 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 [place] provider in to see [place] Clin pharm graciously agreed to review Lashaet's medications for any possible contributing factors for traditive dyskinesia- none found Decision for EMS transport to [facility] Vet able to communicate this to spouse with RN assistance R: Lashaet left clinic with EMS /nevin/ Nadeen Antunez MSN RN CNL Primary Care RN Signed: 02/02/2024 14:32 Receipt Acknowledged By: 02/02/2024 14:38 /es/ TOM ADKINS, MS,PA-C PHYSICIAN MACHINE PRINTER HOSE 02/03/2024 06:43 /es/ Margy Garcia DNP, SECURITY ASSOCIATE-BC, CNL Primary Care Nurse Practitioner NADEEN ANTUNEZ [place] [facility]
--- OUTSIDE RECORDS SUMMARY | 2025-01-10 09:46 | XMS_ITS | Encounter Summary ---
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 Name Role Phone MONCHO GARCIA Primary Care Provider Unavaila [facility] Insurance Providers: All historical and [...] Magallon's Name Patient's Relationship to Policy Magallon [facility] (WNR) MEDICARE ADVANTAGE MCR (R) Sep 15, 2023 [id number] LOUISERHIANNAGABE M,RUBAEMILY PATIENT [facility] (WNR) MEDICARE ADVANTAGE MCR (WNR) Sep 15, 2023 [id number] DIXIEHA M,EDWARD PATIENT [facility] (WNR) MEDICARE ADVANTAGE MCR (WNR) Sep 15, 2020 [id number] CUNRHIANNAHA M,EDWARD PATIENT [facility] (WNR) MEDICARE ADVANTAGE MCR (WNR) Sep 15, 2020 [id number] LOUISERHIANNAHA M,EDEMILY PATIENT Selected Encounter This section includes the information on record at ID for the Encounter. Date/Time Encounter Type Encounter Description Reason Pro vider Source Jul 21, 2024 02:59 PM Outpatient Encounter ADMIN PAT ACTIVTIES (MASNONCT) IHE Encounter Template Text not used by ID Plan of Treatment: Future Appointments (+ 6 months) and Future Tests (+/- 45 days) The Plan of Treatment section includes future care activities for the patient from all [facility]. This section includes future appointments and future orders which are active, pending or scheduled. Future Appointments This section includes appointments that were scheduled to occur 6 months from the date of the Encounter, up to a maximum of 20 appointments. The data comes from all ID treatment facilities. Appointment Date/Time Appointment Type Appointme nt Facility Name Aug 05, 2024 10:00 AM AMBULATORY - MEDICINE ID [facility] [place] [facility] Sep 06, 2024 03:30 PM AMBULATORY - MEDICINE ID C [facility] [place] [facility] Sep 16, 2024 08:00 AM AMBULATORY - MEDICINE ID C [facility] [place] [facility] Oct 20, 2024 10:00 AM AMBULATORY - MEDICINE ID C [facility] [place] [facility] Oct 20, 2024 10:45 AM AMBULATORY - MEDICINE ID C [facility] [place] [facility] Nov 29, 2024 10:00 AM AMBULATORY - MEDICINE ID C [facility] [place] [facility] Dec 23, 2024 07:50 AM AMBULATORY - MEDICINE ID C [facility] [place] [facility] Jan 10, 2025 09:00 AM AMBULATORY - MEDICINE ID C [facility] [place] [facility] Jan 12, 2025 10:00 AM AMBULATORY - MEDICINE ID C [facility] [place] [facility] Social History: Smoking Status (Most current) and Tobacco Use (All prior to encounter date) This section includes the most current, and the historical, smoking and tobacco- related health factors from the ID facility where the Encounter took place. Current Smoking Status This section includes the most current smoking, or tobacco-related health factor, from the ID facility where the Encounter took place. Date/Time Current Smoking Status Sotero hylton Nov 10, 2023 01:00 PM VA-TOBACCO FORMER USER ID CNTR [facility] [place] [facility] Tobacco Use History This section includes a history of the smoking, or tobacco-related health factors, that were collected on or before the date of the Encounter. The data comes from the ID facility where the Encounter took place. Date/Time Smoking Status/Tobacco Use Comment F acility Nov 10, 2023 01:00 PM VA-TOBACCO QUIT 15 YRS OR MORE ID [facility] [facility] February 07, 2022 09:30 AM VA-TOBACCO FORMER USER ID [facility] [place] [facility] February 07, 2022 09:30 AM VA-TOBACCO QUIT 15 YRS OR MORE ID [facility] [place] [facility] Oct 27, 2020 09:39 AM VA-TOBACCO FORMER USER ID [facility] [place] [facility] Oct 27, 2020 09:39 AM VA-TOBACCO QUIT 15 YRS OR MORE ID [facility] [place] [facility] Oct 01, 2018 01:57 PM VA-TOBACCO [facility] Advance Directives: All historical and current Section Date Range: From patient's date of to the date document was created. This section includes ALL of a patient's completed or amended ID Advance and Rescinded Directives. The entries below indicate that a directive exists for the patient, but an actual copy is not included with this document. The data comes from all ID facilities. Date Advance Directives Provider Source Mar 29, 2024 ADVANCE DIRECTIVE TEJAL TODD [facility] [place] [facility] Encounter Notes: All associated encounter notes This section contains the clinical notes associated to the Encounter. Date/Time Encounter Note(s) Provider Source Jul 21, 2024 02:59 PM PHARMACY NOTE: LOCAL TITLE: PHARMACY CUSTOMER CARE MEDICATION RENEWAL STANDARD TITLE: PHARMACY NOTE DATE OF NOTE: JUL 21, 2024@14:59 ENTRY DATE: JUL 21, 2024@14:59:50 AUTHOR: BENITA KIRK COSIGNER: URGENCY: STATUS: COMPLETED Date: Jul Division: [facility] referred by Pharmacy Call Center for medication renewal: Controlled substance Medications requested: [id number]$ CLONAZEPAM 0.5MG TAB *pleasse contact provider if not gagan to renew* Defer to primary care provider To be mailed . Please review and renew if appropriate. *This note was generated by [facility] Pharmacy Customer Care. If you have any questions or need assistance, do not contact this author. Please refer all questions to your local, on-site pharmacy departments. /nevin/ BENITA KIRK CPhT [employer], [place]/Pharmacy Customer Care Signed: 07/21/2024 15:00 Receipt Acknowledged By: 07/21/2024 15:26 /nevin/ Moncho Garcia DNP, GRAIN RECEIVER-BC, CNL Primary Care Nurse Practitioner BENITA KIRK [facility]
--- OUTSIDE RECORDS SUMMARY | 2025-01-10 09:46 | XMS_ITS ---
Author Name [facility] [place] Organization [place] Address [address] [place] [address] Care Team Providers Care Flight Operations Dispatch Clerk Name Role Phone MARGY CALL Primary [facility] Provider [facility] Insurance Providers: All historical and current Section Date Range: From patient's date of to the date document was created. This section includes the names of all active insurance providers for the patient. Insurance Provider Type of Coverage Plan Name Start of Policy Coverage End of Policy Coverage Group Number Member ID Insurance Provider's Telephone Number Policy Magallon's Name Patient's Relationship to Policy Magallon [facility] (WNR) MEDICARE ADVANTAGE MCR ([facility]) Sep 15, 2023 [id number] DUKE DarrylRUBAEMILY PATIENT [facility] (WNR) MEDICARE ADVANTAGE MCR (WNR) Sep 15, 2023 [id number] CUNRHIANNAHA M,EDWARD PATIENT [facility] (WNR) MEDICARE ADVANTAGE MCR (WNR) Sep 15, 2020 [id number] CUNNINGHA M,EDWARD PATIENT [facility] (WNR) MEDICARE ADVANTAGE MCR ([facility]) Sep 15, 2020 [id number] LOUISERHIANNAHA M,EDEMILY PATIENT Selected Encounter This section includes the information on record at [place] for the Encounter. Date/Time Encounter Type Encounter Description Reason Provider Source Oct 20, 2024 10:00 AM INTRM OPH EXAM EST PATIENT OPTOMETRY ICD-10-CM H25.813 Combined forms of age-related cataract, bilateral CHRISTI REICH Anthony Encounter Template Text not used by [place] Assessments - Encounter Diagnoses This section includes the primary and secondary diagnoses documented for the Encounter. Date/Time Primary/Secondary Diagnosis Diagnosis Name Provider Source Oct 20, 2024 10:57 AM PRIMARY Combined forms of age-related cataract, bilateral CHARLOTTE REICH [facility] [place] [facility] Oct 20, 2024 10:57 AM SECONDARY Dry eye syndrome of bilateral lacrimal glands CHARLOTTE REICH [facility] [place] [facility] Oct 20, 2024 10:57 AM SECONDARY Other subjective visual disturbances [facility]TE REICH [facility] [place] [facility] Plan of Treatment: Future Appointments (+ 6 months) and Future Tests (+/- 45 days) The Plan of Treatment section includes future care activities for the patient from all [place] [facility]. This section includes future appointments and future orders which are active, pending or scheduled. Future Appointments This section includes appointments that were scheduled to occur 6 months from the date of the Encounter, up to a maximum of 20 appointments. The data comes from all [place] treatment facilities. Appointment Date/Time Appointment Type Appointme nt Facility Name Nov 29, 2024 10:00 AM AMBULATORY - MEDICINE [facility] [place] [facility] Dec 23, 2024 07:50 AM AMBULATORY - MEDICINE [facility] [place] [facility] Jan 10, 2025 09:00 AM AMBULATORY - MEDICINE [place] C [facility] [place] [facility] Jan 12, 2025 10:00 AM AMBULATORY MEDICINE [facility] [place] [facility] February 03, 2025 09:00 AM AMBULATORY MEDICINE [facility] [place] [facility] Active, Pending, and Scheduled Orders This section includes a listing of several types of active, pending, and scheduled orders, including clinic medications orders, diagnostic test orders, procedure orders and consult orders; where the start date of the order is 45 days before the date of the Encounter or 45 days after the date of theEncounter. The data comes from all [place] treatment [facility]. Test Date/Time Test Type Test Details Facility Name Oct 27, 2024 02:18 PM Consult Order COMMUNITY CARE-UROLOGY Cons Nurse Emergency's Choice [facility] Social History: Smoking Status (Most current) and Tobacco Use (All prior to encounter date) This section includes the most current, and the historical, smoking and tobacco- related health factors from the [place] facility where the Encounter took place. Current Smoking Status This section includes the most current smoking, or tobacco-related health factor, from the [place] facility where the Encounter took place. Date/Time Current Smoking Status Comment Facil ity Nov 10, 2023 01:00 PM [place]-TOBACCO QUIT 15 YRS OR MORE [facility] Tobacco Use History This section includes a history of the smoking, or tobacco-related health factors, that were collected on or before the date of the Encounter. The data comes from the [place] facility where the Encounter took place. Date/Time Smoking Status/Tobacco Use Comment F acility Nov 10, 2023 01:00 PM [place]-TOBACCO QUIT 15 YRS OR MORE [facility] February 07, 2022 09:30 AM VA-TOBACCO FORMER USER [facility] February 07, 2022 09:30 AM VA-TOBACCO QUIT 15 YRS OR MORE [place] [facility] [place] [facility] Oct 27, 2020 09:39 AM VA-TOBACCO FORMER USER [place] CNTR [facility] [place] [facility] Oct 27, 2020 09:39 AM VA-TOBACCO QUIT 15 YRS OR MORE [facility] Oct 01, 2018 01:57 PM VA-TOBACCO NEVER USED [facility] Advance Directives: All historical and current Section Date Range: From patient's date of to the date document was created. This section includes ALL of a patient's completed or amended [place] Advance and Rescinded Directives. The entries below indicate that a directive exists for the patient, but an actual copy is not included with this document. The data comes from all [place] facilities. Date Advance Directives Provider Source Mar 29, 2024 ADVANCE DIRECTIVE TEJAL TODD [facility] Encounter Notes: All associated encounter notes This section contains the clinical notes associated to the Encounter. 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 09/14/2024 MARGY CALL Dyskinesia G24.9 09/14/2024 MARGY CALL Long-term current use of anticoagul 01/05/2024 GAVIN PHELAN Cerebrovascular accident I63.9 12/03/2023 MARGY CALL Chronic cough R05.3 02/07/2022 MARGY CALL Echocardiogram abnormal R93.1, Onse 02/02/2021 MARGY CALL Benign Prostatic Hypertrophy Withou 10/15/2018 MARGY CALL Essential thrombocytosis D69.1 10/15/2018 MARGY CALL Aortic valve disorder I35.9 10/15/2018 MARGY CALL Hyperlipidemia (SCT [id number]) E78.5 10/15/2018 MARGY CALL Carotid artery stenosis I65.29 02/01/2021 MARGY CALL Under care of multiple providers R6 10/09/2021 MARGY CALL Family history of sudden cardiac de 10/15/2018 MARGY CALL Medications ([facility]): Active Outpatient Medications (including Supplies): Active Outpatient Medications Status 1) APIXABAN 5MG TAB TAKE ONE TABLET BY MOUTH EVERY 12 HOURS ACTIVE (S) Indication: FOR PREVENTION OF BLOOD CLOTS 2) BACLOFEN 10MG TAB TAKE ONE TABLET BY MOUTH THREE TIMES A DAY ACTIVE (S) FOR MUSCLE RIGIDITY Indication: FOR MUSCLE SPASMS 3) CATHETER,SELF-CATH 14FR C#65136/[id number] USE 1 CATHETER URETHRAL ACTIVE THREE TIMES A DAY 4) CHOLECALCIF 25MCG (D3-1,000UNIT) TAB TAKE ONE TABLET BY ACTIVE (S) MOUTH ONCE DAILY FOR VITAMIN SUPPLEMENTATION 5) CLONAZEPAM 0.5MG TAB TAKE ONE TABLET BY MOUTH EVERY 8 HOURS ACTIVE NEEDED FOR Indication: SPASM DISORDER 6) LUBRICATING TOP JELLY PKT 3GM APPLY 1 PACKET TOPICALLY THREE ACTIVE TIMES A DAY FOR USE WITH CATHETER Indication: FOR LUBRICATION 7) OMEPRAZOLE 20MG EC CAP TAKE ONE CAPSULE BY MOUTH ONCE DAILY ACTIVE (S) Indication: FOR GASTROESOPHAGEAL REFLUX DISEASE 8) ROSUVASTATIN CA 20MG TAB TAKE ONE-HALF TABLET BY MOUTH ONCE ACTIVE (S) DAILY FOR CHOLESTEROL Active Non-VA Medications Status 1) Non-VA ASPIRIN 81MG EC TAB 81MG BY MOUTH ONCE DAILY ACTIVE Indication: FOR BLOOD CLOT PREVENTION FOLLOWING PCI 2) Non-VA HYDROXYUREA PA-F CAP,ORAL DIRECTED BY MOUTH ACTIVE ONCE DAILY 3) Non-VA POLYETHYLENE GLYCOL 3350 ORAL PWDR 17 GRAMS(FILL CAP ACTIVE TO 17GM LINE) BY MOUTH ONCE DAILY 4) Non-VA SENNOSIDES 8.6MG TAB 8.6MG BY MOUTH ONCE DAILY ACTIVE 12 Total Medications Allergies: Patient has answered NKA S: 79-year-old male is in with a history of intermittent vertical diplopia that started in 2011 after having left carotid endarterectomy and also a history of left lateral rectus palsy for many years with horizontal diplopia and words running together when he reads since suffering CVA in January of 2024. He is now complaining of recent onset increased spots and floaters and some intermittent blurred vision and not being able to read for any length of time before words blur or running together. He also complains of recent eyes watering OD greater than OS. He also has complaint of intermittent loss of vision for several minutes that returns afterward. He was told in the past that this was an ocular migraine. DORIAN: 07/07/2024 (-) Pain: (+) BERNAL: since the stroke(5 weeks ago) (+) Diplopia: Vertical diplopia with both eyes open at both distance and near with his glasses on. Happens with his glasses on. (-) Flashes: (-) Floaters: (+) Amaurosis Fugax/Tia's: describes visual disturbance to be curtain like, three or four times a week. Has been going on since he was a teenager. States that other doctors have told him it is migraine related. (+) Eye Injury: Had a peice of steel in right eye that was removed without complications. (-) Eye Surgery: (+) TBI: concussion in the past O: Visual acuity with current correction was 20/20 slow both eyes. Pupils were equal and round and reactive to light with no afferent defect. Extraocular muscles were intact with mild esophoria and right hyperphoria (not seen today) and facial confrontation and finger counting isabel were full. Dermatochalasis OU and lashes were clear both eyes. Corneas and conjunctiva were clear both eyes. Anterior chambers were deep clear and quiet with open angles. Iris was flat both eyes. Grade 2+ nuclear sclerotic cataract and 1+ cortical cataracts OU. Current Rx with last BCVA: lenso DVO OD: -1.00-0.52z541 2.5BD 20/20 OS: -0.75-1.93b418 2.5BU 20/20 Intraocular pressures at 10:10 AM were 15 mmHg OU. Dilating Drops: 1GTT 1 % Tropicamide OU & 1GTT 2.5% Phenylephrine OU (Pt. ed. on side effects, dilation warning given and verbal consent obtained) Patient advised not to drive if they feel they have any symptoms which could affect their ability to drive safely. Patient advised not to engage in any activities which could put themselves or others at risk if they feel they have any symptoms which could affect their ability to perform those activities safely. Vitreous PVD was seen OU. Approximately 30% horizontal and vertical cupping was seen OU with healthy rims and margins. Normal pigmentary architecture of the macula was seen with a two third artery to vein ratio. Retinal peripheries were intact in all quadrants OU with mild chorioretinal scarring circular pattern superior temporal OD. A: Longstanding left lateral rectus palsy appears stable from prior exams but with now reported horizontal diplopia when he looks more to the left. Longstanding right hyperphoria. Recent onset asthenopia while reading. Epiphora OD greater than OS. Ocular migraine complaints with transient loss of vision Combined cataracts not visually significant OU. Refraction disorder P: I recommended artificial tears Patient has appointment scheduled for January 03, 2025 and I instructed him to keep that follow-up. I ordered artificial tears to be used up to 4 times a day and I recommended he have all his glasses adjusted because they are sliding down his face. He will also pursue other neurological visual symptoms with primary care physician and possibly neurology. Education: After discussion and answering all 's questions, Fontana demonstrated and verbalized understanding of diagnosis and treatment. Yes [x] No [ ] Medication Reconciliation: Outpatient: Has the patient been [...] with a VA or non-VA provider. 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
--- OUTSIDE RECORDS SUMMARY | 2025-01-10 09:46 | XMS_ITS ---
Author Name [facility] Organization Unknown History of Medication Use Medication Directions Dispensed Refills Start Date End Date Stat us amantadine (SYMMETREL) 100 MG capsule Take 1 capsule (100 mg total) by mouth 2 (two) times a day. To take 100mg in AM for 1 week then increase to twice daily 11/29/2024 active Hydrea 500 MG capsule Take 1 capsule (500 mg total) by mouth every other day. 10/13/2024 active rosuvastatin (CRESTOR) 10 MG tablet Take 1 tablet (10 mg total) by mouth daily. 10/01/2024 active cholecalciferol (Vitamin D-[address]) 25 MCG (1000 UT) tablet Take 1 tablet (1,000 Units total) by mouth daily. 09/14/2024 active baclofen (LIORESAL) 10 MG tablet Take 1 tablet (10 mg total) by mouth 3 (three) times a day. 04/10/2024 active clonazePAM (KlonoPIN) 0.5 MG tablet Take 1 tablet (0.5 mg total) by mouth 3 times a day. 04/10/2024 active OMEprazole 20 MG Tablet Delayed Response Take 20 mg by mouth daily. 04/10/2024 active apixaban (ELIQUIS) 5 MG tablet Take 1 tablet (5 mg total) by mouth 2 times a day. 02/03/2024 active cyanocobalamin (VITAMIN B-12) 1000 MCG tablet Take 1 tablet (1,000 mcg total) by mouth daily. active Problems Problem Status Onset Date Problem Type Date of Resolution Source Aortic stenosis active 2023-09-10 ProblemAct [facility] Neoplasm of unspecified behavior of digestive system active 2024-11-29 ProblemAct [facility] Abnormal findings on diagnostic imaging of heart and coronary circulation active 2024-11-29 ProblemAct [facility] Diplopia active 2024-11-29 ProblemAct [facility] Aortic valve disorder active 2023-09-11 ProblemAct [facility] CAD (coronary artery disease) active 2024-06-08 ProblemAct [facility] Hyperlipidemia active 2024-11-[address] Cerebral infarction active 2024-11-29 ProblemAct [facility] Dyskinesia active 2024-11-29 ProblemAct [facility] Essential thrombocythemia active 2024-11-29 ProblemAct [facility] Carotid artery stenosis active 2024-11-29 ProblemAct [facility] Chronic diarrhea active 2024-11-29 ProblemAct H [facility] Anemia active 2024-11-29 ProblemAct [facility] Ataxia active EncounterDiagnosisAct [facility] Benign prostatic hyperplasia without urinary obstruction active 2024-11-29 ProblemAct [facility] S/P TAVR (transcatheter aortic valve replacement) active 2024-11-29 ProblemAct [facility] Combined forms of age-related cataract, bilateral active 2024-11-29 ProblemAct [facility] Movement disorder active 2024-11-29 ProblemAct [facility] Vitamin B deficiency active 2024-11-29 ProblemAct [facility] Aortic aneurysm active 2024-06-08 ProblemAct [facility] CCT PVD (peripheral vascular disease) active 2023-11-17 ProblemAct [facility] 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 ProblemAct [facility] CHF NYHA class I active 2024-11-29 ProblemAct H [facility] Neck pain on left side active 2024-11-29 ProblemAct [facility] Thyroid nodule active 2024-11-[address] Family history of sudden cardiac active 2024-11-29 ProblemAct [facility] 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
--- OUTSIDE RECORDS SUMMARY | 2025-01-10 09:46 | XMS_ITS | Encounter Summary ---
Author Name [facility] [place] Organization [place] Address [address] [place] [address] Care Team Providers Care Mortgage Collector Name Role Phone KWABENA CALL Primary Care Provider Unavaila ble Insurance Providers: All historical and current Section Date Range: From patient's date of to the date document was created. This section includes the names of all active insurance providers for the patient. Insurance Provider Type of Coverage Plan Name Start of Policy Coverage End of Policy Coverage Group Number Member ID Insurance Provider's Telephone Number Policy Magallon's Name Patient's Relationship to Policy Magallon [facility] (WNR) MEDICARE ADVANTAGE MCR ([facility]) Sep 15, 2023 [id number] DUKE M,CARLOS ALBERTO PATIENT [facility] (WNR) MEDICARE ADVANTAGE MCR (WNR) Sep 15, 2023 [id number] DIXIEHA M,EDWARD PATIENT [facility] (WNR) MEDICARE ADVANTAGE MCR (WNR) Sep 15, 2020 [id number] DIXIEHA M,EDWARD PATIENT [facility] (WNR) MEDICARE ADVANTAGE MCR (R) Sep 15, 2020 [id number] DIXIEHA M,EDEMILY PATIENT Selected Encounter This section includes the information on record at [place] for the Encounter. Date/Time Encounter Type Encounter Description Reason Provider Source Jun 23, 2024 10:30 AM OFFICE O/P EST HI 40 MIN NEUROLOGY ICD-10-CM R25.8 Other abnormal involuntary movements CALLIE FALLON Anthony Encounter Template Text not used by [facility] Assessments - Encounter Diagnoses This section includes the primary and secondary diagnoses documented for the Encounter. Date/Time Primary/Secondary Diagnosis Diagnosis Name Provider Source Jun 24, 2024 03:36 PM PRIMARY Other abnormal involuntary movements CALLIE FALLON ALISSON Plan of Treatment: Future Appointments (+ 6 months) and Future Tests (+/- 45 days) The Plan of Treatment section includes future care activities for the patient [facility] This section includes future appointments and future orders which are active, pending or scheduled. Future Appointments This section includes appointments that were scheduled to occur 6 months from the date of the Encounter, up to a maximum of 20 appointments. The data comes from all [place] treatment facilities. Appointment Date/Time Appointment Type Appointme nt Facility Name Jul 01, 2024 08:00 AM AMBULATORY - MEDICINE [facility] [place] [facility] Jul 07, 2024 11:00 AM AMBULATORY MEDICINE [facility] [place] [facility] Jul 13, 2024 11:00 AM AMBULATORY - MEDICINE [facility] [place] [facility] Aug 05, 2024 10:00 AM AMBULATORY - MEDICINE [facility] [place] [facility] Sep 06, 2024 03:30 PM AMBULATORY - MEDICINE [facility] [place] [facility] Sep 16, 2024 08:00 AM AMBULATORY - MEDICINE [facility] [place] [facility] Oct 20, 2024 10:00 AM AMBULATORY - MEDICINE [facility] [place] [facility] Oct 20, 2024 10:45 AM AMBULATORY - MEDICINE [facility] [place] [facility] Nov 29, 2024 10:00 AM AMBULATORY - MEDICINE [facility] [place] [facility] Advance Directives: All historical and current Section Date Range: From patient's date of to the date document was created. This section includes ALL of a patient's completed or amended [place] Advance and Rescinded Directives. The entries below indicate that a directive exists for the patient, but an actual copy is not included with this document. The data comes from all [place] facilities. Date Advance Directives Provider Source Mar 29, 2024 ADVANCE DIRECTIVE TEJAL TODD [facility] [facility] Encounter Notes: All associated encounter notes This section contains the clinical notes associated to the Encounter. Date/Time Encounter Note(s) Provider Source Jul 02, 2024 12:01 PM ADMINISTRATIVE NOT E: LOCAL TITLE: SPECIALTY ALIGNED CONTACT TEAM NOTE STANDARD TITLE: ADMINISTRATIVE NOTE DATE OF NOTE: JUL 02, 2024@12:01 ENTRY DATE: JUL 02, 2024@12:01:25 AUTHOR: NELLY VANEGASIGNER: URGENCY: STATUS: COMPLETED Specialty Aligned Contact Team/Call Center Note Service:Neurology Patient/caregiver/other called the clinic: Name of the caller: edith Relationship to patient: daughter Appointment: pt daughter will like a cb to discuss medication option before 07/14 appt. /nevin/ [facility] ADVANCE SUPPORT FIREPROOF DOOR ASSEMBLER Signed: 07/02/2024 12:02 Receipt Acknowledged By: 07/15/2024 15:17 /nevin/ CALLIE FALLON MD, MD, Attending Neurologist NELLY VANEGAS Jun 23, 2024 10:46 AM NEUROLOGY OUTPATIE NT NOTE: LOCAL TITLE: NEUROLOGY OUTPATIENT PROGRESS NOTE STANDARD TITLE: NEUROLOGY OUTPATIENT NOTE DATE OF NOTE: JUN 23, 2024@10:46 ENTRY DATE: JUN 23, 2024@10:46:58 AUTHOR: CALLIE FALLONIGNER: URGENCY: STATUS: COMPLETED CC: 78-year-old male seen by this provider in the past and sent to emergency department for violent dyskinetic movements left greater than right with negative MRI with contrast at ED. [place] with history of CVA. No medications consistent with tremor/dyskinesia/chorea or parkinsonian movements on Veterans medication list. This has been verified with CPP as well as outside pharmacology. Discussion with psychiatry recommends video EEG but does not recommend Zyprexa that was prescribed at the ED without neurological work-up. Unable to see community care neurology prior to April 2024. is treated with Ativan 1 mg twice daily with minimal to no effect. Requesting evaluation sooner than April with neurology. Labs and diagnostics all within [facility] imaging/[facility] Subjective: Patient accompanied by his and daughter. 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 Schofield April 02, 2024 for diffuse dyskinetic movements started January 2024. She started him on Klonopin 0.5 mg twice daily with extra dose if needed during the day. Klonopin has improved ballistic kicking movements, has observed that he goes in deep sleep after taking Klonopin. Otherwise no side effects noted including changes in speech swallowing or changes in blood pressure. Patient initially presented to [facility] 11/21/2023 for acute onset aphasia obtained TNK. CTA head and neck showed occlusion of posterior left M2 branches and fibro fatty intraplaque seconds 60% stenosis of proximal right ICA. Symptoms improved return to baseline. Echo with EF 20 to 25% patient started on Eliquis. 02/12 worsening involuntary movements for 3 weeks involving face and bilateral lower extremities. Repeat MRI brain January 2024 did not reveal any acute pathology. Patient in the interim has been diagnosed with rectal cancer, Neuro: No changes with memory, concentration, headache, vision changes (diplopia, changes with color vision, pain with eye movement, loss of vision one or both eyes,curtain falling in front of eye), sensory changes face, arm or leg, weakness face, arm or leg, falls, speech disturbance (slurred or trouble finding the word or expressing the language,writing), no twitching, Allergies: Patient has answered NKA ACTIVE PROBLEMS: GABRIELA - Active Problems No data available Active Outpatient Medications (excluding Supplies): Active Outpatient Medications Status 1) CLONAZEPAM 0.5MG TAB TAKE ONE TABLET[0.5MG] BY MOUTH ACTIVE TWICE A DAY FOR TREMORS . MAY TAKE ONE ADDITIONAL TABLET PER DAY NEEDED FOR WORSENING SYMPTOMS (65 TABLETS FOR 30 DAY SUPPLY) STOP LORAZEPAM Patient apixaban 5 mg every 12 Baclofen 10 mg 3 times daily Omeprazole 20 mg/day Rosuvastatin 20 mg 1/2/day Hydroxyurea 500 mg/day MEDICATION RECONCILIATION Review/Reconciliation completed. NO Discrepancies noted. BODY MASS INDEX - NO HEIGHTS FOUND CVS: Heart: R/R/R, Carotid pulsation: Good volume with no carotid bruits General physical examination: Well nourished, well hydrated and not in acute distress. Mental status Alert, oriented to time, place and person Language: Fluency and Comprehension intact CRANIAL NERVES: II- XII intact Coordination: Finger to nose test and heel to nava test intact bilaterally Individual muscles Strength 5/5 UE and LE all muscle groups, Bulk- N, Tone- normal Deep tendon Reflexes Rside 1+Biceps, 1+triceps, 1+ brachioradialis 1+ knee jerk and 0+ ankle jerk, plantar responses mute bilaterally Lside 1+Biceps, 1+triceps, 1+ brachioradialis, 1+ knee jerk and 0+ ankle jerk, Sensory examination: No gradient sensory loss to, Pain/temperature Joint position sense and Vibration intact both LE Gait- Able to walk independently Rhomberg: negative. [facility] IMAGING: MRI brain w/o contrast 11/22/2023:Small acute cortical infarct within left parietal lobe. Small scattered nonspecific foci of T2 FLAIR signal hyperintensity involving periventricular white matter. A few small chronic lacunar infarcts are also visualized within the basal ganglia and thalami. CTA head/neck 11/21/2023: Acute arterial occlusion of one of the posterior left sylvian M2 MCA branches. Possible acute infarct involving left superior temporal gyrus and the posterior left insula. Fibrofatty atherosclerotic plaque results in 60% stenosis of the proximal right ICA. 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 No evidence of LV thrombus but he is at risk for same given severe LV systolic dysfunction. Also possibility of A Fib exists. He has been recommended to be started on oral anticoagulation with Eliquis and stop ASA. Consider placement loop recorder as per Cardiology. [facility] Bioprosthetic AVR and aortoplasty Urinary retention 2/2 neurogenic bladder Admitted 11/21/2023 for acute CVA s/p TNK CTA showed left MCA occlusion Records will be scanned into [facility] for further review. Impression/Plan: S/p left CEA, left M2 branch occlusion-parietal infarct s/p TNK 11/2023, with recent dx of rectal cancer, started dyskinetic movements involving face oral upper and lower extremities and blepharospasms alternating between right and left impacting his ability to read and drive since January 2024 repeat MRI brain 01/2024 showed no acute changes per [facility]y note 04/2024. On Klonopin 0.5 mg twice daily and 0.5 mg extra dose as needed. It seemed to improve the ballistic movements but patient continues to be uncomfortable during the day. Patient may benefit from VMAT2 inhibitor such as valbenazine or tetrabenazine. No prior history of neuroleptic agent exposure. Source of these dyskinetic movements could be from prior basal ganglia/thalamic though unusual, given the chronicity of stroke from MRI brain. Other differential diagnoses to evaluate for primary tardive dyskinesias include autoimmune encephalitis that is NMDA receptor antibodies paraneoplastic, antiphospholipid antibodies syndrome metabolic disorders including hypo or hyperparathyroidism and rheumatoid arthritis. -Obtain psychiatric/mental health consult for safety of using VMAT2 inhibitor As they can worsen occult mood disorder or predispose to suicidal ideation, may need baseline depression screening prior to starting VMAT2 inhibitor. -Check paraneoplastic panel, lupus anticoagulant, parathyroid hormone levels, rheumatoid factor -Follow-up with cardiology regarding apixaban use and need for loop monitor (pertaining to left M2 ischemic infarct) -Repeat ultrasound carotid in one year. Team messaged PCP at [facility] to place order for blood work at [facility], spoke to daughter Edith and she is aware of the blood work, will be reaching out to you for blood work. Patient was seen and examined, chart and available records are reviewed. All available recent laboratory results, imaging studies, and diagnostic tests are reviewed. If appropriate, medication doses, and side effects and adverse reactions are reviewed. Time spent= 65minutes, Greater than 50% of the visit is spent counseling the . This note was generated in part by utilizing voice senior quality assurance analyst software. There may be phonetic errors/substitutions which were missed despite proofreading. /es/ CALLIE FALLON MD, MD, Attending Neurologist Signed: 06/24/2024 15:37 CALLIE FALLON
--- OUTSIDE RECORDS SUMMARY | 2025-01-10 09:46 | XMS_ITS | Encounter Summary ---
Author Name [facility] [place] Organization [place] Address [address] [place] [id number] Care Team Providers Care Billet Inspector Name Role Phone MONCHO GARCIA [facility] Insurance Providers: All historical and current [...] Magallon's Name Patient's Relationship to Policy Magallon [facility] (WNR) MEDICARE ADVANTAGE MCR ([facility]) Sep 15, 2023 [id number] LOUISERHIANNAGABE M,RUBAEMILY PATIENT [facility] (WNR) MEDICARE ADVANTAGE MCR (R) Sep 15, 2023 [id number] DIXIEHA M,EDWARD PATIENT [facility] (WNR) MEDICARE ADVANTAGE MCR (WNR) Sep 15, 2020 [id number] CUNRHIANNAHA M,EDWARD PATIENT [facility] (WNR) MEDICARE ADVANTAGE MCR ([facility]) Sep 15, 2020 [id number] LOUISERHIANNAHA M,CARLOS ALBERTO PATIENT Selected Encounter This section includes the information on record at [place] for the Encounter. Date/Time Encounter Type Encounter Description Reason Provider Source February 12, 2024 11:30 AM OFFICE O/P EST LOW 20 MIN PRIMARY CARE/MEDICINE ICD-10-CM I63.9 Cerebral infarction, unspecified FATMATA GARCIA AM [facility] Encounter Template Text not used by [place] Assessments - Encounter Diagnoses This section includes the primary and secondary diagnoses documented for the Encounter. Date/Time Primary/Secondary Diagnosis Diagnosis Name Provider Source February 12, 2024 01:06 PM PRIMARY Cerebral infarction, unspecified FATMATA GARCIA AM [place] [facility] [place] [facility] Plan of Treatment: Future Appointments (+ 6 months) and Future Tests (+/- 45 days) The Plan of Treatment section includes future care activities for the patient from all [place] [facility]. This section includes future appointments and future orders which are active, pending or scheduled. Future Appointments This section includes appointments that were scheduled to occur 6 months from the date of the Encounter, up to a maximum of 20 appointments. The data comes from all [place] treatment facilities. Appointment Date/Time Appointment Type Appointme nt Facility Name Apr 02, 2024 10:00 AM AMBULATORY - NEUROLOGY [facility] Apr 08, 2024 08:00 AM AMBULATORY - MEDICINE [place] [facility] [place] [facility] Apr 14, 2024 02:00 PM AMBULATORY - MEDICINE [place] [facility] [place] [facility] May 04, 2024 09:30 AM AMBULATORY - MEDICINE [place] [facility] [place] [facility] May 10, 2024 11:00 AM AMBULATORY - MEDICINE [place] [facility] [place] [facility] Jun 08, 2024 12:40 PM AMBULATORY - MEDICINE [place] [facility] [place] [facility] Jun 23, 2024 10:00 AM AMBULATORY - MEDICINE [place] [facility] [place] [facility] Jun 23, 2024 10:30 AM AMBULATORY - NEUROLOGY [facility] Jul 01, 2024 08:00 AM AMBULATORY - MEDICINE [facility] [place] [facility] Jul 07, 2024 11:00 AM AMBULATORY - MEDICINE [facility] [place] [facility] Jul 13, 2024 11:00 AM AMBULATORY - MEDICINE [place] [facility] [place] [facility] Aug 05, 2024 10:00 AM AMBULATORY - MEDICINE [place] [facility] [place] [facility] Vital Signs: All taken on the encounter date This section contains inpatient and outpatient Vital Signs collected on the date of the Encounter. Date/Time Temperature Pulse Blood Pressure Respiratory Rate SP02 Pain Height Weight Body Mass Index Source February 12, 2024 11:26 AM 98 67 136/67 20 99 3 68 191 29 [place] [facility] Social History: Smoking Status (Most current) and Tobacco Use (All prior to encounter date) This section includes the most current, and the historical, smoking and tobacco- related health factors from the [place] facility where the Encounter took place. Current Smoking Status This section includes the most current smoking, or tobacco-related health factor, from the [place] facility where the Encounter took place. Date/Time Current Smoking Status Comment Facil ity Nov 10, 2023 01:00 PM [place]-[facility] Tobacco Use History This section includes a history of the smoking, or tobacco-related health factors, that were collected on or before the date of the Encounter. The data comes from the [place] facility where the Encounter took place. Date/Time Smoking Status/Tobacco Use Comment F acility Nov 10, 2023 01:00 PM VA-TOBACCO QUIT 15 YRS OR MORE [facility] [place] [facility] February 07, 2022 09:30 AM VA-TOBACCO FORMER USER [facility] [place] [facility] February 07, 2022 09:30 AM VA-TOBACCO QUIT 15 YRS OR MORE [facility] [place] [facility] Oct 27, 2020 09:39 AM VA-TOBACCO FORMER USER [facility] [place] [facility] Oct 27, 2020 09:39 AM VA-TOBACCO QUIT 15 YRS OR MORE [facility] [place] [facility] Oct 01, 2018 01:57 PM [facility]BACCO [facility] Advance Directives: All historical and current Section Date Range: From patient's date of to the date document was created. This section includes ALL of a patient's completed or amended [place] Advance and Rescinded Directives. The entries below indicate that a directive exists for the patient, but an actual copy is not included with this document. The data comes from all [place] facilities. Date Advance Directives Provider Source Mar 29, 2024 [facility] Encounter Notes: All associated encounter notes This section contains the clinical notes associated to the Encounter. Date/Time Encounter Note(s) Provider Source Feb 16, 2024 11:06 AM ACCOUNTING OF DISCLOSURES NOTE: LOCAL TITLE: STATE PRESCRIPTION DRUG MONITORING PROGRAM STANDARD TITLE: ACCOUNTING OF DISCLOSURES NOTE DATE OF NOTE: FEB 16, 2024@11:06:10 ENTRY DATE: FEB 16, 2024@11:06:10 AUTHOR: MONCHO GARCIA EXP COSIGNER: URGENCY: STATUS: COMPLETED This PDMP query was submitted by Moncho Garcia TECHNICIAN SU[employer]QUIPMENT. The clinical justification for this PDMP query is to review controlled substances prescribed outside of the [facility], and any additional information that may become available, as an important component of standard clinical care, and in accordance with [facility] policy. Patient information was shared with the PDMP [place]. No prescription(s) for controlled substances outside the [facility] were found in the last 90 days. /nevin/ Moncho Garcia DNP, GAMING WORKER-BC, CNL Primary Care Nurse Practitioner Signed: 02/16/2024 11:06 MONCHO GARCIA [facility] February 12, 2024 12:55 PM PRIMARY CARE NURSE PRACTITIONER OUTPATIENT NOTE: LOCAL TITLE: NURSE PRACTITIONER OUTPATIENT NOTE STANDARD TITLE: PRIMARY CARE NURSE PRACTITIONER OUTPATIENT NOTE DATE OF NOTE: FEBRUARY 12, 2024@12:55 ENTRY DATE: FEBRUARY 12, 2024@12:55:58 AUTHOR: MONCHO GARCIAIGNER: URGENCY: STATUS: COMPLETED Chief complaint: Patient is a 78 year old . HPI: Pleasant male Sabula here to follow up post hospitalization at [facility] for spasticity. He had an MRI that was unrevealing. He was treated empirically for UTI though no overt sx, finished abt today. Spasms continue, all extremities, neck. He feels they have worsened, now having difficulty managing solids po. I strongly advised that he seek care at [facility]. I also advised that he should be driving. He declines to go to hosp. I explained risk for aspiration. He was referred to neurology and so i will seek the status of this consult. He tells me at one point he stopped all medications and the sx continued so he has since resumed them. I will trial baclofen in an effort to get him some relief. Allergies: Patient has answered NKA The following VA and Non-VA meds were reconciled with patient. The patient was educated on the use of the medications including indication and side effects. Active and Recently Outpatient Medications (excluding Supplies): Active Outpatient Medications Status 1) APIXABAN 5MG TAB TAKE ONE TABLET BY MOUTH EVERY 12 ACTIVE HOURS FOR PREVENTION OF BLOOD CLOTS 2) BACLOFEN 10MG TAB TAKE ONE-HALF TABLET BY MOUTH THREE ACTIVE TIMES A DAY FOR 3 DAYS, THEN TAKE ONE TABLET THREE TIMES A DAY FOR 27 DAYS FOR MUSCLE SPASMS FOR MUSCLE RIGIDITY 3) CARVEDILOL 3.125MG TAB TAKE ONE TABLET BY MOUTH TWICE ACTIVE DAILY FOR HIGH BLOOD PRESSURE 4) CHOLECALCIF 25MCG (D3-1,000UNIT) TAB TAKE ONE TABLET ACTIVE BY MOUTH ONCE DAILY FOR VITAMIN SUPPLEMENTATION 5) ROSUVASTATIN CA 20MG TAB TAKE ONE-HALF TABLET BY ACTIVE MOUTH ONCE DAILY FOR CHOLESTEROL 6) SACUBITRIL 24MG/VALSARTAN 26MG TAB TAKE 1 TABLET BY ACTIVE MOUTH TWICE DAILY Inactive Outpatient Medications Status 1) OMEPRAZOLE 20MG EC CAP TAKE ONE CAPSULE BY MOUTH ONCE DAILY FOR GASTROESOPHAGEAL REFLUX DISEASE Active Non-VA Medications Status 1) Non-VA ASPIRIN [...] MOUTH ONCE DAILY ACTIVE 12 Total Medications Review of Systems: Constitutional: (-)for Fevers, chills, weakness, nights sweats On examination: 98 F [36.7 C] (02/12/2024 11:26)136/67 (02/12/2024 11:26)67 (02/12/2024 11:26)20 (02/12/2024 11:26)3 (02/12/2024 11:26)BMI: 29.1191 lb [86.64 kg] (02/12/2024 11:26) Sabula is alert and oriented X3 Cardiovasc: 2plus carotids without bruits, no JVD Heart Reguler rate and rhythm NL S1S2 no S3 or murmur Respiration: Normal respiratory effort, lungs clear ABD: Benign normal active bowel sounds no HSM no rebound or referred pain All diagnostics from past month were reviewed with patient. Assessment/plan: Active problems - Computerized Problem List is the source for the following: spasticity - see above Review of medial record = 5mins Time spent with Patient including shared decision making = 20 mins Post visit documentation = 5mins Total time = 30 mins Follow up visit as scheduled Alert to PACT RN - Labs as necessary to address clinical status. Medication Reconciliation: Outpatient: Has the patient been [...] with a VA or non-VA provider. /nevin/ Moncho Garcia DNP, GAMING WORKER-BC, CNL Primary Care Nurse Practitioner Signed: 02/12/2024 13:04 MONCHO GARCIA [place] [facility]
--- OUTSIDE RECORDS SUMMARY | 2025-01-10 09:46 | XMS_ITS | Encounter Summary ---
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 Operator Name Role Phone MARGY GARCIA [facility] Insurance Providers: All historical and current [...] Magallon's Name Patient's Relationship to Policy Magallon [facility] (WNR) MEDICARE ADVANTAGE MCR ([facility]) Sep 15, 2023 [id number] DIXIEGABE AndrewsRUBAEMILY PATIENT [facility] (WNR) MEDICARE ADVANTAGE MCR (R) Sep 15, 2023 [id number] DIXIEHA M,EDWARD PATIENT [facility] (WNR) MEDICARE ADVANTAGE MCR (WNR) Sep 15, 2020 [id number] CUNRHIANNAHA M,EDWARD PATIENT [facility] (WNR) MEDICARE ADVANTAGE MCR ([facility]) Sep 15, 2020 [id number] LOUISERHIANNAHA M,CARLOS ALBERTO PATIENT Selected Encounter This section includes the information on record at [place] for the Encounter. 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 Date/Time Primary/Secondary Diagnosis Diagnosis Name Provider Source Sep 14, 2024 07:18 AM PRIMARY Neoplasm of unspecified behavior of digestive system [facility]ARCIA[facility]ILL [facility] Sep 14, 2024 07:18 AM SECONDARY Benign prostatic hyperplasia without lower urinry tract symp [facility] Sep 14, 2024 07:18 AM SECONDARY Dystonia, unspecified [facility] Sep 14, 2024 07:18 AM 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 This section includes future appointments and future orders which are active, pending or scheduled. Future Appointments This section includes appointments that were scheduled to occur 6 months from the date of the Encounter, up to a maximum of 20 appointments. The data comes from all [facility]. Appointment Date/Time Appointment Type Appointme nt Facility Name Sep 16, 2024 08:00 AM AMBULATORY - MEDICINE [facility] Oct 20, 2024 10:00 AM AMBULATORY - MEDICINE [facility] Oct 20, 2024 10:45 AM AMBULATORY - MEDICINE [facility] NTRL TRN [facility] Nov 29, 2024 10:00 AM AM[facility] [place] [facility] Dec 23, 2024 07:50 AM AMBULATORY - MEDICINE [facility] [place] [facility] Jan 10, 2025 09:00 AM AMBULATORY - MEDICINE [facility] [place] [facility] Jan 12, 2025 10:00 AM AMBULATORY - MEDICINE [facility] [place] [facility] February 03, 2025 09:00 AM AMBULATORY - MEDICINE [facility] [place] [facility] Vital Signs: All taken on the encounter date This section contains inpatient and outpatient Vital Signs collected on the date of the Encounter. Date/Time Temperature Pulse Blood Pressure Respiratory Rate SP02 Pain Height Weight Body Mass Index Source Sep 06, 2024 03:31 PM 98.3 64 130/80 20 97 6 68 168 26 [facility] [place] [facility] Social History: Smoking Status (Most current) and Tobacco Use (All prior to encounter date) This section includes the most current, and the historical, smoking and tobacco- related health factors from the [place] facility where the Encounter took place. Current Smoking Status This section includes the most current smoking, or tobacco-related health factor, from the [place] facility where the Encounter took place. Date/Time Current Smoking Status Comment Aron ity Nov 10, 2023 01:00 PM VA-TOBACCO FORMER USER [facility] [place] [facility] Tobacco Use History This section includes a history of the smoking, or tobacco-related health factors, that were collected on or before the date of the Encounter. The data comes from the [place] facility where the Encounter took place. Date/Time Smoking Status/Tobacco Use Comment F acility Nov 10, 2023 01:00 PM VA-TOBACCO QUIT 15 YRS OR MORE [facility] [place] [facility] February 07, 2022 09:30 AM VA-TOBACCO FORMER USER [facility] [place] [facility] February 07, 2022 09:30 AM VA-TOBACCO QUIT 15 YRS OR MORE [facility] [place] [facility] Oct 27, 2020 09:39 AM VA-TOBACCO FORMER USER [facility] [place] [facility] Oct 27, 2020 09:39 AM VA-TOBACCO QUIT 15 YRS OR MORE [facility] [place] [facility] Oct 01, 2018 01:57 PM VA-TOBACCO NEVER USED [facility] Advance Directives: All historical and current Section Date Range: From patient's date of to the date document was created. This section includes ALL of a patient's completed or amended [place] Advance and Rescinded Directives. The entries below indicate that a directive exists for the patient, but an actual copy is not included with this document. The data comes from all [place] facilities. Date Advance Directives Provider Source Mar 29, 2024 ADVANCE DIRECTIVE [facility] Encounter Notes: All associated encounter notes This section contains the clinical notes associated to the Encounter. Date/Time Encounter Note(s) Provider Source Sep 14, 2024 01:50 PM ACCOUNTING OF DISCLOSURES NOTE: LOCAL TITLE: STATE PRESCRIPTION DRUG MONITORING PROGRAM STANDARD TITLE: ACCOUNTING OF DISCLOSURES NOTE DATE OF NOTE: SEP 14, 2024@13:50:58 ENTRY DATE: SEP 14, 2024@13:50:58 AUTHOR: MARGY GARCIA EXP COSIGNER: URGENCY: STATUS: COMPLETED This PDMP query was submitted by Margy Garcia MAGAZINE JOURNALIST. The clinical justification for this PDMP query is to review controlled substances prescribed outside of the [place], and any additional information that may become available, as an important component of standard clinical care, and in accordance with [facility] policy. Patient information was shared with the PDMP [employer] [place]. No prescription(s) for controlled substances outside the [facility] were found in the last 90 days. /nevin/ Margy Garcia DNP, CLOTH GRADER-BC, CNL Primary Care Nurse Practitioner Signed: 09/14/2024 13:51 MARGY GARCIA [facility] Sep 06, 2024 03:33 PM PREVENTIVE MEDICINE NURSING NOTE: LOCAL TITLE: CLINICAL REMINDERS/NURSING STANDARD TITLE: PREVENTIVE MEDICINE NURSING NOTE DATE OF NOTE: SEP 06, 2024@15:33 ENTRY DATE: SEP 06, 2024@15:33:55 AUTHOR: KUMAR JOYCE EXP COSIGNER: URGENCY: STATUS: COMPLETED RHS Screen: RHS Screen Session Format: Face to Face Environmental Check Screening was not completed at this time due to: Another adult present /nevin/ Kumar Joyce, Health Audiovisual Librarian ELECTRONICS TECHNICIAN,PRIMARY CARE Signed: 09/06/2024 15:34 KUMAR JOYCE [facility] [place] [facility] Sep 06, 2024 03:30 PM PRIMARY CARE NURSE PRACTITIONER OUTPATIENT NOTE: LOCAL TITLE: NURSE PRACTITIONER OUTPATIENT NOTE STANDARD TITLE: PRIMARY CARE NURSE PRACTITIONER OUTPATIENT NOTE DATE OF NOTE: SEP 06, 2024@15:30 ENTRY DATE: SEP 14, 2024@06:45:45 AUTHOR: MARGY GARCIA COSIGNER: URGENCY: STATUS: COMPLETED Chief complaint: Patient is a 79 year old [place]. HPI: Pleasant male [place] here to follow up, comes with his daughter. Allergies: Patient has answered NKA The following [...] BY MOUTH THREE TIMES A DAY ACTIVE FOR MUSCLE RIGIDITY Indication: FOR MUSCLE SPASMS 3) CHOLECALCIF 25MCG (D3-1,000UNIT) TAB TAKE ONE TABLET BY ACTIVE (S) MOUTH ONCE DAILY FOR VITAMIN SUPPLEMENTATION 4) CLONAZEPAM 0.5MG TAB TAKE ONE TABLET BY MOUTH EVERY 8 HOURS ACTIVE NEEDED FOR Indication: SPASM DISORDER 5) LUBRICATING TOP JELLY PKT 3GM APPLY 1 PACKET TOPICALLY THREE ACTIVE TIMES A DAY FOR USE WITH CATHETER Indication: FOR LUBRICATION 6) OMEPRAZOLE 20MG EC CAP TAKE ONE CAPSULE BY MOUTH ONCE DAILY ACTIVE Indication: FOR GASTROESOPHAGEAL REFLUX DISEASE 7) ROSUVASTATIN CA 20MG TAB TAKE ONE-HALF TABLET BY MOUTH ONCE ACTIVE (S) DAILY FOR CHOLESTEROL 8) SACUBITRIL 24MG/VALSARTAN 26MG TAB TAKE 1 TABLET BY MOUTH ACTIVE TWICE DAILY Active Non-VA Medications Status 1) Non-VA ASPIRIN 81MG EC TAB 81MG BY MOUTH ONCE DAILY ACTIVE Indication: FOR BLOOD CLOT PREVENTION FOLLOWING PCI 2) Non-VA HYDROXYUREA PA-F CAP,ORAL DIRECTED BY MOUTH ACTIVE ONCE DAILY 3) Non-VA NITROFURANTOIN MACROCRYSTALLINE 50MG CAP 50MG BY ACTIVE MOUTH AT BEDTIME 4) Non-VA POLYETHYLENE GLYCOL 3350 ORAL PWDR 17 GRAMS(FILL CAP ACTIVE TO 17GM LINE) BY MOUTH ONCE DAILY 5) Non-VA SENNOSIDES 8.6MG TAB 8.6MG BY MOUTH ONCE DAILY ACTIVE 13 Total Medications Review of Systems: Constitutional: (-)for Fevers, chills, weakness, nights sweats On examination: 98.3 F [36.8 C] (09/06/2024 15:31)130/80 (09/06/2024 15:31)64 (09/06/2024 15:31)20 (09/06/2024 15:31)6 (09/06/2024 15:31)BMI: 25.6168 lb [76.20 kg] (09/06/2024 15:31) [place] is alert and oriented X3 Cardiovasc: 2plus carotids without bruits, no JVD Heart Reguler rate and rhythm NL S1S2 no S3, +murmur Respiration: Normal respiratory effort, lungs clear ABD: Benign normal active bowel sounds no HSM no rebound or referred pain EXT: no clubbing, edema, or cyanosis All diagnostics from past month were reviewed with patient. Assessment/plan: Active problems - Computerized Problem List is the source for the followin. Long-term current use of anticoagulant - doing fine, continue. 2. rectal ca, adenocarcinoma - following with [facility] onc, immunotherapy. Some wt loss noted, referring to nutrition for possible supplement. 3. carotid artery stenosis - following [facility] vascular, discussion about possible left TCAR, for now defer pending rectal ca treatment, he will follow back with them in 6 mos. 4. Benign Prostatic Hypertrophy Without Outflow Obstruction - stable. 5. Aortic valve disorder - follows [facility] cardiology. 6. dyskinesia - follows [facility], concerns for falls, balance - referring for home PT/OT. 7. Heart failure - follows [facility]iology, Dr. Ann, he had episodes of hypotension so BB is being held. ASA stopped due to recal bleeding. 8. Ascending aortic aneurysm - was 4.2cm now 4.5cm, being monitored. Today I spent 45 minutes on some or all of the following: chart review, history, physical examination, treatment planning, education and counseling of the patient/family/managed care provider, placing orders, communicating with other health care providers, completing health and wellness screenings (see below) and documentation in the electronic health record. Follow up visit in 4 mos. Medication Reconciliation: Outpatient: Has the patient been taking medications as documented in the EMLR? YES: The patient has been taking medications as documented in the EMLR. Essential Medication List for Review used to complete this medication reconciliation. INCLUDED IN THIS LIST: Alphabetical list of active outpatient prescriptions dispensed from this [place] (local) and dispensed from another [place] or [facility] facility (remote) as well as inpatient orders [...] with a VA or non-VA provider. /nevin/ Margy Garcia DNP, CLOTH GRADER-BC, CNL Primary Care Nurse Practitioner Signed: 09/14/2024 07:17 MARGY GARCIA [facility]
--- OUTSIDE RECORDS SUMMARY | 2025-01-10 09:46 | XMS_ITS | Encounter Summary ---
Author Organization [facility] Address [address] [place] [address] Care Team Providers Care Technical Systems Architect Name Role Phone Moncho Garcia MD Primary Care Provider [phone] Encounter Details Date Type Department Care Team (Late st Contact Info) Description 12/01/2024 Scanned Document [facility] Neurology [address] [phone] Neurology, Scan Social History Tobacco Use Types Packs/Day Years Used Date Smoking Tobacco: Never Alcohol Use Standard Drinks/Week Comments Yes 0 (1 standard drink = 0.6 oz pur e alcohol) 1 a month Sex and Gender Information Value Date Recorded Sex Assigned at Not on file Legal Sex Male 10:22 AM EDT Gender Identity Not on file Sexual Orientation Not on file documented as of this encounter Plan of Treatment Upcoming Encounters Date Type Department Care Team (Late st Contact Info) Description 02/15/2025 8:00 AM EDT Appointment [facility] Radiology [facility] [address] [place] [phone] Ernesto Mejia MD [address] [address] 09/22/2025 10:10 AM EST Office Visit [facility] Neurology [address] [phone] David Larkin APRN [address] [place] [id number] documented as of this encounter Visit Diagnoses Not on filedocumented in this encounter Care Teams Technical Systems Architect Relationship Specialty Start Date End Date Moncho Garcia MD [address] [place] [address] PCP - General 11/29/24 documented as of this encounter
--- OUTSIDE RECORDS SUMMARY | 2025-01-10 09:46 | XMS_ITS | Encounter Summary ---
Author Name [place] Organization [place] Address [address] [place] [address] Care Team Providers Care Shoe Trimmer Name Role Phone MARGY CALL Primary Care Provider Unavaila [facility] Insurance Providers: All historical and [...] Name Patient's Relationship to Policy Magallon [facility] (WNR) MEDICARE ADVANTAGE MCR (WNR) Sep 15, 2023 [id number] DIXIEHA M,CARLOS ALBERTO PATIENT [facility] (WNR) MEDICARE ADVANTAGE MCR (WNR) Sep 15, 2023 [id number] DIXIEHA M,EDWARD PATIENT [facility] (WNR) MEDICARE [facility] (WNR) Sep 15, 2020 [id number] CUNNINGHA M,EDWARD PATIENT [facility] (WNR) MEDICARE ADVANTAGE MCR (WNR) Sep 15, 2020 [id number] DIXIEHA M,EDWARD PATIENT Selected Encounter This section includes the information on record at [place] for the Encounter. Date/Time Encounter Type Encounter Description Reason Provider Source Apr 02, 2024 10:00 AM OFF/OP CONSLTJ NEW/EST HI 55 EPILEPSY ECOE ICD-10-CM R25.8 Other abnormal involuntary movements CONCHITARENARD CANDICE CASEY Encounter Template Text not used by [place] Assessments - Encounter Diagnoses This section includes the primary and secondary diagnoses documented for the Encounter. Date/Time Primary/Secondary Diagnosis Diagnosis Name Provider Source Apr 02, 2024 12:54 PM PRIMARY Other abnormal involuntary movements RENARD SCHOFIELD Apr 02, 2024 12:54 PM SECONDARY Cerebrovascular disease, unspecified RENARD SCHOFIELD Plan of Treatment: Future Appointments (+ 6 months) and Future Tests (+/- 45 days) The Plan of Treatment section includes future care activities for the patient from all [place] [facility]. This section includes future appointments and future orders which are active, pending or scheduled. Future Appointments This section includes appointments that were scheduled to occur 6 months from the date of the Encounter, up to a maximum of 20 appointments. The data comes from all [place] treatment facilities. Appointment Date/Time Appointment Type Appointme nt Facility Name Apr 08, 2024 08:00 AM AMBULATORY [facility] MEDICINE [facility] [place] [facility] Apr 14, 2024 02:00 PM AMBULATORY - MEDICINE [facility] [place] [facility] May 04, 2024 09:30 AM AMBULATORY - MEDICINE [facility] [place] [facility] May 10, 2024 11:00 AM AMBULATORY - MEDICINE [facility] [place] [facility] Jun 08, 2024 12:40 PM AMBULATORY - MEDICINE [facility] [place] [facility] Jun 23, 2024 10:00 AM AMBULATORY - MEDICINE [facility] [place] [facility] Jun 23, 2024 10:30 AM AMBULATORY - NEUROLOGY [facility] Jul 01, 2024 08:00 AM AMBULATORY - MEDICINE [facility] [place] [facility] Jul 07, 2024 11:00 AM AMBULATORY - MEDICINE [facility] [place] [facility] Jul 13, 2024 11:00 AM AMBULATORY - MEDICINE [facility] [place] [facility] Aug 05, 2024 10:00 AM AMBULATORY - MEDICINE [facility] [place] [facility] Sep 06, 2024 03:30 PM AMBULATORY - MEDICINE [facility] [place] [facility] Sep 16, 2024 08:00 AM AMBULATORY - MEDICINE [place] [facility] Advance Directives: All historical and current Section Date Range: From patient's date of to the date document was created. This section includes ALL of a patient's completed or amended [place] Advance and Rescinded Directives. The entries below indicate that a directive exists for the patient, but an actual copy is not included with this document. The data comes from all [place] facilities. Date Advance Directives Provider Source Mar 29, 2024 ADVANCE DIRECTIVE TEJAL TODD [place] [facility] Encounter Notes: All associated encounter notes This section contains the clinical notes associated to the Encounter. Date/Time Encounter Note(s) Provider Source Apr 02, 2024 11:14 AM ACCOUNTING OF DISC LOSURES NOTE: LOCAL TITLE: STATE PRESCRIPTION DRUG MONITORING PROGRAM STANDARD TITLE: ACCOUNTING OF DISCLOSURES NOTE DATE OF NOTE: APR 02, 2024@11:14:32 ENTRY DATE: APR 02, 2024@11:14:32 AUTHOR: RENARD SCHOFIELD EXP COSIGNER: URGENCY: STATUS: COMPLETED This PDMP query was submitted by Renard Schofield DO. The clinical justification for this PDMP query is to review controlled substances prescribed outside of the [facility], and any additional information that may become available, as an important component of standard clinical care, and in accordance with [facility] policy. Patient information was shared with the PDMP [place]. No prescription(s) for controlled substances outside the [facility] were found in the last 90 days. /nevin/ RENARD SCHOFIELD DO NEUROLOGIST, EPILEPTOLOGIST Signed: 04/02/2024 13:00 RENARD SCHOFIELD Apr 02, 2024 10:09 AM NEUROLOGY OUTPATIE NT CONSULT: LOCAL TITLE: NEUROLOGY OUTPATIENT CONSULT NOTE STANDARD TITLE: NEUROLOGY OUTPATIENT CONSULT DATE OF NOTE: APR 02, 2024@10:09 ENTRY DATE: APR 02, 2024@10:09:59 AUTHOR: RENARD SCHOFIELD EXP COSIGNER: URGENCY: STATUS: COMPLETED NEUROLOGY OUTPATIENT CONSULT NOTE Has ADDENDA CHIEF COMPLAINT: movements HPI: EDWARD (Ed) Juwan HOLT is a 79 year old MALE PMH CVA, P. AFib on apixaban, recent ischemic stroke unclear location, Anxiety, BPH, GERD, carotid artery stenosis, thrombocytopenia, HLD, HTN here for evaluation of abnormal movements. Accompanied by Sierra and daughter Ruth. Mid-December 2023 got up in the morning and did not feel right . Numbness, weakness, difficulty walking. They found a stroke, reported stenosis bilaterally, gave him TPA this was in [place]. No records from this hospitalization are available. He was hospitalized for 5 days. When discharged he had no clear neurologic deficits. A couple weeks later in January started with left > right sided uncontrolled movements. It involves his eyes, mouth, hands, and legs. He can no longer drive because of the eye closures that occur. It is painful. Does not obviously occur in sleep as per . Triggered/worsens by stress and anxiety. It is daily. Also having increased salvation. No choking yet. Negative MRI with contrast at ED. He was given 1mg lorazepam it does help he takes twice a day. Some confusion since the stroke. Speech is not fluent. HISTORY: Past Medical History: CVA, P. 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 NEUROLOGICAL EXAMINATION: Mental Status: Alert and oriented to self, location, date. Appropriate. Immediate recall intact. Delayed recall 3/3. KCURT. Can follow complicated 3 step commands. Halted speech. Naming intact. Knows the president is Biden. Facial grimacing, right eye closures, mouth movments right>left Cranial nerve: II: Visual field full b/l. Pupils are equal and equally reacting to light and accommodation III, IV, : The extraocular muscles intact, no nystagmus V: V1-V3 intact to LT/PP VII: face symmetric bilaterally, orbicularis oculi strong b/l VIII: hearing grossly intact IX, X: palate elevates symmetrically, no dysarthria XI: trap 5/5 bilaterally XII: tongue midline Motor: Muscle tone and bulk intact. Hyperkinetic movements with hand wringing, bilateral hand movments and right > left LE movements, Power 5/5 throughout moves all extremities against gravity equally Sensory exam: Intact light touch, pinprick, vibration, and JPS throughout. No extinction with DSS Reflexes: 2+ throughout Coordination: No dysmetria, right UE dysdiadochokinesis, no tremor noted. Gait: slow, jerking movements not smooth gait PRIOR TESTING: Imaging/ EEGs/ labwork: 03/26/2024 14:49 CONFIDENTIAL MRI IF REPORT SUMMARY pg. 1 CARLOS ALBERTO HOLT [id number] : 1945 II - Imaging Impression (max 1 occurrence or 6 months) No data available SCL1 - Lab Cum Selected 1 No data available for: VALPROIC ACID 03/26/2024 14:49 CONFIDENTIAL Lab Summary DM SMA last 3 SUMMARY pg. 1 CARLOS ALBERTO HOLT SLT - Lab Tests Selected (max 3 occurrences) No data available for: TOT. BILIRUBIN DIR. BILIRUBIN ALKALINE PHOSPHATASE ALT AST Urine ALB/CRE,SPOT-RATIO Urine ALBUMIN,SPOT-QNT CREATININE, URINE RANDOM COMPUTED CREATININE CLEARANCE VOLUME ELAPSED TIME CREATININE,24 HR URINE CREATININE,SERUM eGFR(IDMS)(DC'D 10-15-21) DATA REVIEW: I have personally reviewed and discussed with patient. Medical records from another physician/health care provider, Labwork, and imaging available in the chart ASSESSMENT AND PLAN: I, Renard Schofield DO performed the physical examination, discussion, and treatment of CARLOS ALBERTO HOLT The treatment plan was discussed and the patient/family demonstrated understanding. I spent a total of 60 minutes with this new patient During this visit, the time spent included the following: Examining the patient, Documenting in the patient record, Reviewing labs and radiology, Medication reconciliation, ordering medications, tests, or procedures, counseling and educating the patient, family, and/or caregiver, care coordination, Speaking with a senior compensation consultant, and including 50 minutes spent face to face with patient during clinic visit Neurologic Syndrome: Dyskinesias suspected 2/2 stroke Condition is: worsening, stable Comments: 79 year old MALE PMH CVA, P. AFib on apixaban, recent ischemic stroke unclear location, Anxiety, BPH, GERD, carotid artery stenosis, thrombocytopenia, HLD, HTN here for evaluation of abnormal movements. Patient developed abnormal movements a couple week after he had a stroke. Suspect he had (? right) stroke involving basal ganglia resulting in these dyskinetic movements. Attempt to obtain records from [place]. Secondary line treatment for dyskinesias include benzodiazepines and he is currently on Lorazepam which states has helped to some degree. I will transition him to Klonopin and see how he does. He has been experiencing some cognitive difficulty since his stroke and he was warned this could worsen it. He also has been having dysphagia, dysarthria, would benefit from PT/OT/Speech/Swallow. Daughter said she would reach out to PCP to obtain these locally. Blood safety monitoring: reviewed Follow-up blood tests: NA Neurologic Medications: Changed lorazepam to clonazepam take 0.5mg BID and additional 0.5 mg for excessive movements monitor for sedation, confusion, and excessive salvation Additional diagnostic evaluation suggested: None needed Additional consultation requested: Yes, asked daughter to speak to PCP about ordering local PT, OT, Speech, and swallow for him. Instructed patient to call if condition changes. Other follow-up plans: N/A Return to clinic in: follow up with Dr. Calderon for her stroke/movement disorder expertise /nevin/ RENARD SCHOFIELD DO NEUROLOGIST, EPILEPTOLOGIST Signed: 04/02/2024 12:54 Receipt Acknowledged By: 04/02/2024 14:33 /nevin/ HANDY JACOBS, RN REGISTERED NURSE 04/12/2024 ADDENDUM STATUS: COMPLETED [facility] IMAGING: MRI brain w/o contrast 11/22/2023:Small [...] Consider placement loop recorder as per Cardiology. PMH Bioprosthetic AVR and aortoplasty Urinary retention 2/2 neurogenic bladder Admitted 11/21/2023 for acute CVA s/p TNK CTA showed left MCA occlusion Records will be scanned into t-Art for further review. /nevin/ RENARD SCHOFIELD DO NEUROLOGIST, EPILEPTOLOGIST Signed: 04/12/2024 11:36 RENARD SCHOFIELD
--- OUTSIDE RECORDS SUMMARY | 2025-01-10 09:46 | XMS_ITS ---
Author Name [facility] [place] Organization [place] Address [address] [place] [id number] Care Team Providers Care Business And Marketing Teacher Name Role Phone MARGY CALL Primary Care Provider Unavaila [facility] Insurance Providers: All historical and current [...] Magallon's Name Patient's Relationship to Policy Magallon [facility] (WNR) MEDICARE ADVANTAGE MCR ([place]) Sep 15, 2023 [id number] LOUISERHIANNAGABE M,RUBAEMILY PATIENT [facility] (WNR) MEDICARE ADVANTAGE MCR (WNR) Sep 15, 2023 [id number] CUNRHIANNAHA M,EDWARD PATIENT [facility] (WNR) MEDICARE ADVANTAGE MCR (WNR) Sep 15, 2020 [id number] CUNRHIANNAHA M,EDWARD PATIENT [facility] (WNR) MEDICARE ADVANTAGE MCR ([place]) Sep 15, 2020 [id number] LOUISERHIANNAHA M,CARLOS ALBERTO PATIENT Selected Encounter This section includes the information on record at [place] for the Encounter. Date/Time Encounter Type Encounter Description Reason Provider Source Jul 07, 2024 11:00 AM COMPRE OPH EXAM EST PT 1/> OPTOMETRY ICD-10-CM H53.2 Diplopia CHRISTI REICH Anthony Encounter Template Text not used by [place] Assessments - Encounter Diagnoses This section includes the primary and secondary diagnoses documented for the Encounter. Date/Time Primary/Secondary Diagnosis Diagnosis Name Provider Source Jul 07, 2024 01:53 PM PRIMARY Diplopia CHRISTI REICH [place] [facility] [place] [facility] Jul 07, 2024 01:53 PM SECONDARY Combined forms of age-related cataract, bilateral CHRISTI REICH [place] [facility] [place] [facility] Jul 07, 2024 01:53 PM SECONDARY Sixth [abducent] nerve palsy, left eye CHRISTI REICH [place] [facility] [place] [facility] Jul 07, 2024 01:53 PM SECONDARY Vertical strabismus, right eye CHRISTI REICH [facility] [place] [facility] Plan of Treatment: Future Appointments (+ 6 months) and Future Tests (+/- 45 days) The Plan of Treatment section includes future care activities for the patient from all [place] [facility]. This section includes future appointments and future orders which are active, pending or scheduled. Future Appointments This section includes appointments that were scheduled to occur 6 months from the date of the Encounter, up to a maximum of 20 appointments. The data comes from all [place] treatment facilities. Appointment Date/Time Appointment Type Appointme nt Facility Name Jul 13, 2024 11:00 AM AMBULATORY - MEDICINE [place] [facility] [place] [facility] Aug 05, 2024 10:00 AM AMBULATORY - MEDICINE [place] [facility] [place] [facility] Sep 06, 2024 03:30 PM AMBULATORY - MEDICINE [place] [facility] [place] [facility] Sep 16, 2024 08:00 AM AMBULATORY - MEDICINE [place] [facility] [place] [facility] Oct 20, 2024 10:00 AM AMBULATORY - MEDICINE [place] [facility] [place] [facility] Oct 20, 2024 10:45 AM AMBULATORY - MEDICINE [place] [facility] [place] [facility] Nov 29, 2024 10:00 AM AMBULATORY - MEDICINE [place] [facility] [place] [facility] Dec 23, 2024 07:50 AM AMBULATORY - MEDICINE [facility] Social History: Smoking Status (Most [...] 10, 2023 01:00 PM VA-TOBACCO [facility] Tobacco Use History This section includes a history of the smoking, or tobacco-related health factors, that were collected on or before the date of the Encounter. The data comes from the [place] facility where the Encounter took place. Date/Time Smoking Status/Tobacco Use Comment F acwilfred Nov 10, 2023 01:00 PM VA-TOBACCO QUIT 15 YRS OR MORE [facility] February 07, 2022 09:30 AM VA-TOBACCO FORMER USER [place] [facility] [place] [facility] February 07, 2022 09:30 AM VA-TOBACCO QUIT 15 YRS OR MORE [place] [facility] [place] [facility] Oct 27, 2020 09:39 AM VA-TOBACCO FORMER USER [place] [facility] [place] [facility] Oct 27, 2020 09:39 AM VA-TOBACCO QUIT 15 YRS OR MORE [place] [facility] Oct 01, 2018 01:57 PM [facility]BACCO [facility] Advance Directives: All historical and [...] Mar 29, 2024 ADVANCE DIRECTIVE TEJAL [facility] Encounter Notes: All associated encounter notes This section contains the clinical notes associated to the Encounter. Date/Time Encounter Note(s) Provider Source Jul 07, 2024 09:12 AM OPTOMETRY NOTE: LOCAL TITLE: OPTOMETRY NOTE(T) STANDARD TITLE: OPTOMETRY NOTE DATE OF NOTE: JUL 07, 2024@09:12 ENTRY DATE: JUL 07, 2024@09:12:47 AUTHOR: CHRISTI REICH EXP COSIGNER: URGENCY: STATUS: COMPLETED Active Problems: Active Problem Long-term current use of anticoagul 01/05/2024 GAVIN PHELAN Cerebrovascular accident I63.9 12/03/2023 MARGY CALL Chronic cough R05.3 02/07/2022 MARGY CALL Echocardiogram abnormal R93.1, Onse 02/02/2021 MARGY CALL Benign Prostatic Hypertrophy Withou 10/15/2018 MARGY CALL Essential thrombocytosis D69.1 10/15/2018 MARGY CALL Aortic valve disorder I35.9 10/15/2018 MARGY CALL Hyperlipidemia (SCT [id number]) E78.5 10/15/2018 MARGY CALL Carotid artery stenosis [...] TAKE ONE TABLET BY MOUTH THREE ACTIVE (S) TIMES A DAY FOR MUSCLE SPASMS FOR MUSCLE RIGIDITY 3) CATHETER,SELF-CATH 14FR C#43788/414 USE 1 CATHETER ACTIVE URETHRAL THREE TIMES A DAY 4) CHOLECALCIF 25MCG (D3-1,000UNIT) TAB TAKE ONE TABLET ACTIVE BY MOUTH ONCE DAILY FOR VITAMIN SUPPLEMENTATION 5) LUBRICATING TOP JELLY PKT 3GM APPLY [...] 1 TABLET BY ACTIVE MOUTH TWICE DAILY 9) TABLET CUTTER (PILL SPLITTER) USE CUTTER DIRECTED ACTIVE BY PROVIDER TO SPLIT TABLETS Active Non-VA Medications Status 1) Non-VA ASPIRIN [...] TAB 8.6MG BY MOUTH ONCE DAILY ACTIVE 14 Total Medications Allergies: Patient has answered NKA S: 79-year-old male is in with a history of intermittent vertical diplopia that started in 2011 after having left carotid endarterectomy and also a history of left lateral rectus palsy for many years but he is now experiencing some horizontal diplopia and words running together when he reads since suffering CVA in January of this year. He reads without glasses. Otherwise he denies any eye injury or disease since his last exam. DORIAN: 12/31/2023 (-) Pain: (+) BERNAL: since the stroke(5 [...] Visual acuity with current correction was 20/20 both eyes. Pupils were equal and round and reactive to light with no afferent defect. Extraocular muscles were intact with mild esophoria and right hyperphoria and facial confrontation isabel were full. Dermatochalasis OU and lashes were clear both eyes. Corneas and conjunctiva were clear both eyes. Anterior chambers were deep clear and quiet with open angles. Iris was flat both eyes. Grade 2+ nuclear sclerotic cataract and 1+ cortical cataracts OU. Current Rx with last BCVA: lenso DVO OD: -1.00-0.23c228 2.5BD 20/20 OS: -0.75-1.30c312 2.5BU 20/20 Intraocular pressures at 11:50 AM were 15 mmHg OU. Dilating Drops: [...] two third artery to vein ratio. Retinal periphery's were intact in all quadrants OU with mild chorioretinal scarring circular pattern superior temporal OD. A: Longstanding left lateral rectus palsy appears stable from prior exams but with now reported horizontal diplopia when he looks more to the left. Longstanding right hyperphoria. Combined cataracts not visually significant OU. Refraction disorder P: Ordered new separate distance and reading glasses with prism in each. The patient will return in 12 months or sooner if any problems arise. [place] Education: After discussion and answering all 's questions, [place] demonstrated and verbalized understanding of diagnosis and treatment. Yes [x] No [ ] EYE: Visual Function Reminder: Normal Vision: 20/25 or better: Unspecified disorder of refraction or accommodation (367.9). Medication Reconciliation: Outpatient: Has the patient been taking medications as documented in the EMLR? YES: The patient has been taking medications as documented in the EMLR. Essential Medication List for Review used to complete this medication reconciliation. INCLUDED IN THIS LIST: Alphabetical list of active outpatient prescriptions dispensed from this [facility] (local) and dispensed from another [facility] or [facility] facility (remote) as well as inpatient orders [...] VA or non-VA provider. /nevin/ CHRISTI REICH STAFF STROKE BELT SANDER OPERATOR Signed: 07/07/2024 13:53 CHRISTI REICH [place] [facility]
--- OUTSIDE RECORDS SUMMARY | 2025-01-10 09:46 | XMS_ITS ---
Author Name [facility] [place] Organization [place] Address [address] [place] [id number] Care Team Providers Care Monorail Operator Name Role Phone MARGY CALL Primary Care Provider Unavaila [facility] Insurance Providers: All historical and current [...] Magallon's Name Patient's Relationship to Policy Magallon [facility] (WNR) MEDICARE ADVANTAGE MCR (R) Sep 15, 2023 [id number] LOUISERHIANNAGABE M,RUBAEMILY PATIENT [facility] (WNR) MEDICARE ADVANTAGE MCR (WNR) Sep 15, 2023 [id number] DIXIEHA M,EDWARD PATIENT [facility] (WNR) MEDICARE ADVANTAGE MCR (WNR) Sep 15, 2020 [id number] CUNRHIANNAHA M,EDWARD PATIENT [facility] (WNR) MEDICARE ADVANTAGE MCR (WNR) Sep 15, 2020 [id number] LOUISERHIANNAHA M,CARLOS ALBERTO PATIENT Selected Encounter This section includes the information on record at [place] for the Encounter. Date/Time Encounter Type Encounter Description Reason Pro vider Source Jun 17, 2024 07:15 PM Outpatient Encounter ADMIN PAT ACTIVTIES (MASNONCT) IHE Encounter Template Text not used by [place] Plan of Treatment: Future Appointments (+ 6 months) and Future Tests (+/- 45 days) The Plan of Treatment section includes future care activities for the patient from all [place] [facility]. This section includes future appointments and future orders which are active, pending or scheduled. Future Appointments This section includes appointments that were scheduled to occur 6 months from the date of the Encounter, up to a maximum of 20 appointments. The data comes from all [place] treatment facilities. Appointment Date/Time Appointment Type Appointme nt Facility Name Jun 23, 2024 10:00 AM AMBULATORY - MEDICINE [place] [facility] Jun 23, 2024 10:30 AM AMBULATORY - NEUROLOGY [facility] Jul 01, 2024 08:00 AM AMBULATORY - MEDICINE [place] [facility] [facility] Jul 07, 2024 11:00 AM AMBULATORY - MEDICINE [place] [facility] [place] [facility] Jul 13, 2024 11:00 AM AMBULATORY - MEDICINE [place] [facility] [place] [facility] Aug 05, 2024 10:00 AM AMBULATORY - MEDICINE [place] [facility] [place] [facility] Sep 06, 2024 03:30 PM AMBULATORY - MEDICINE [place] [facility] [place] [facility] Sep 16, 2024 08:00 AM AMBULATORY - MEDICINE [place] [facility] [place] [facility] Oct 20, 2024 10:00 AM AMBULATORY - MEDICINE [place] [facility] [place] [facility] Oct 20, 2024 10:45 AM AMBULATORY - MEDICINE [place] [facility] [place] [facility] Nov 29, 2024 10:00 AM AMBULATORY - MEDICINE [place] [facility] [place] [facility] Social History: Smoking Status (Most current) and Tobacco Use (All prior to encounter date) This section includes the most current, and the historical, smoking and tobacco- related health factors from the VA facility where the Encounter took place. Current Smoking Status This section includes the most current smoking, or tobacco-related health factor, from the [place] facility where the Encounter took place. Date/Time Current Smoking Status Sotero hylton Nov 10, 2023 01:00 PM VA-TOBACCO FORMER USER [facility] [place] [facility] Tobacco Use History This section includes a history of the smoking, or tobacco-related health factors, that were collected on or before the date of the Encounter. The data comes from the [place] facility where the Encounter took place. Date/Time Smoking Status/Tobacco Use Comment F acility Nov 10, 2023 01:00 PM VA-TOBACCO QUIT 15 YRS OR [facility] February 07, 2022 09:30 AM VA-TOBACCO FORMER USER [place] [facility] [place] [facility] February 07, 2022 09:30 AM VA-TOBACCO QUIT 15 YRS OR MORE [place] [facility] [place] [facility] Oct 27, 2020 09:39 AM VA-TOBACCO FORMER USER [place] [facility] [place] [facility] Oct 27, 2020 09:39 AM [place]-TOBACCO QUIT 15 YRS OR MORE [facility] Oct 01, 2018 01:57 PM VA-TOBACCO NEVER USED [facility] Advance Directives: All historical and current [...] Mar 29, 20[address] [facility] Encounter Notes: All associated encounter notes This section contains the clinical notes associated to the Encounter. Date/Time Encounter Note(s) Provider Source Jun 18, 2024 08:12 AM ADDENDUM: LOCAL TITLE: Addendum STANDARD TITLE: ADDENDUM DATE OF NOTE: JUN 18, 2024@08:12:03 ENTRY DATE: JUN 18, 2024@08:12:04 AUTHOR: NADEEN ANTUNEZ EXP COSIGNER: URGENCY: STATUS: COMPLETED Alert to covering provider for assistance with renewal /es/ Nadeen Antunez MSN RN CNL Primary Care RN Signed: 06/18/2024 08:12 Receipt Acknowledged By: 06/18/2024 08:58 /es/ TOMSANDY ADKINS MS,PAHaleyC PHYSICIAN FLEXO FOLDER GLUER OPERATOR ====== --- Original Document --- 06/17/24 V1 PHARMACY CUSTOMER CARE MEDICATION RENEWAL: Date: Jun Division: [place] Pt referred by Pharmacy Call Center for medication renewal: Non-controlled/maintenan ce medication Medications requested: [id number]$ APIXABAN 5MG TAB [id number]$ CHOLECALCIF 25MCG (D3-1,000UNIT) TAB [id number]$ ROSUVASTATIN CA 20MG TAB Defer to primary care provider To be mailed . Please review and renew if appropriate. *This note was generated by [facility] Pharmacy Customer Care. If you have any questions or need assistance, do not contact this author. Please refer all questions to your local, on-site pharmacy departments. /nevin/ MIREILLE CRABTREE CPhT Stage Set Designer, [place]/Pharmacy Customer Care Signed: 06/17/2024 19:17 Receipt Acknowledged By: 06/18/2024 08:58 /es/ TOM ADKINS MS,PAHaleyC PHYSICIAN FLEXO FOLDER GLUER OPERATOR for MARGY Moore JAKUB 06/18/2024 08:12 /es/ Nadeen Antunez MSN RN CNL Primary Care [facility]EN [facility] Jun 17, 2024 07:15 PM PHARMACY NOTE: LOCAL TITLE: V1 PHARMACY CUSTOMER CARE MEDICATION RENEWAL STANDARD TITLE: PHARMACY NOTE DATE OF NOTE: JUN 17, 2024@19:15 ENTRY DATE: JUN 17, 2024@19:15:08 AUTHOR: MIREILLE CRABTREE COSIGNER: URGENCY: STATUS: COMPLETED V1 PHARMACY CUSTOMER CARE MEDICATION RENEWAL Has ADDENDA Date: Jun Division: [place] Pt referred by Pharmacy Call Center for medication renewal: Non-controlled/maintenan ce medication Medications requested: [id number]$ APIXABAN 5MG TAB [id number]$ CHOLECALCIF 25MCG (D3-1,000UNIT) TAB [id number]$ ROSUVASTATIN CA 20MG TAB Defer to primary care provider To be mailed . Please review and renew if appropriate. *This note was generated by [facility] Pharm[facility] Customer Care. If you have any questions or need assistance, do not contact this author. Please refer all questions to your local, on-site pharmacy departments. /nevin/ MIREILLE CRABTREE CPhT Stage Set Designer, [place]/Pharmacy Customer Care Signed: 06/17/2024 19:17 Receipt Acknowledged By: 06/18/2024 08:58 /nevin/ TOM ADKINS MS,PA-C PHYSICIAN FLEXO FOLDER GLUER OPERATOR for MARGY Teresa CALL 06/18/2024 08:12 /nevin/ Nadeen Antunez MSN RN CNL Primary Care RN 06/18/2024 ADDENDUM STATUS: COMPLETED Alert to covering provider for assistance with renewal /dede Antunez MSN RN CNL Primary Care RN Signed: 06/18/2024 08:12 Receipt Acknowledged By: * AWAITING SIGNATURE * TOM REESE LILL[facility]
--- OUTSIDE RECORDS SUMMARY | 2025-01-10 09:46 | XMS_ITS | Encounter Summary ---
Author Name [place] Organization [place] Address [address] [place] [address] Care Team Providers Care Physical Therapy Resident Name Role Phone MARGY CALL Primary Care Provider Unavaila [facility] Insurance Providers: All historical and [...] Magallon's Name Patient's Relationship to Policy Magallon [facility] (WNR) MEDICARE ADVANTAGE MCR (R) Sep 15, 2023 [id number] DIXIEGABE Andrews,RUBAEMILY PATIENT [facility] (WNR) MEDICARE ADVANTAGE MCR (WNR) Sep 15, 2023 [id number] DIXIEHA M,EDWARD PATIENT [facility] (WNR) MEDICARE ADVANTAGE MCR (WNR) Sep 15, 2020 [id number] CUNRHIANNAHA M,EDWARD PATIENT [facility] (WNR) MEDICARE ADVANTAGE MCR (WNR) Sep 15, 2020 [id number] LOUISERHIANNAHA M,CARLOS ALBERTO PATIENT Selected Encounter This section includes the information on record at [place] for the Encounter. Date/Time Encounter Type Encounter Description Reason Pro vider Source Apr 07, 2024 12:50 PM Outpatient Encounter ADMIN PAT ACTIVTIES (MASNONCT) IHE Encounter Template Text not used by [place] Plan of Treatment: Future Appointments (+ 6 months) and Future Tests (+/- 45 days) The Plan of Treatment section includes future care activities for the patient from all [place] [facility]. This section includes future appointments and future orders which are active, pending or scheduled. Future Appointments This section includes appointments that were scheduled to occur 6 months from the date of the Encounter, up to a maximum of 20 appointments. The data comes from all [place] treatment facilities. Appointment Date/Time Appointment Type Appointme nt Facility Name Apr 08, 2024 08:00 AM AMBULATORY - MEDICINE [place] [facility] Apr 14, 2024 02:00 PM AMBULATORY - MEDICINE [place] [facility] [facility] May 04, 2024 09:30 AM AMBULATORY - MEDICINE [place] [facility] May 10, 2024 11:00 AM AMBULATORY - MEDICINE [place] [facility] Jun 08, 2024 12:40 PM AMBULATORY - MEDICINE [place] [facility] [facility] Jun 23, 2024 10:00 AM AMBULATORY - MEDICINE [place] [facility] [facility] Jun 23, 2024 10:30 AM [facility] Jul 01, 2024 08:00 AM AMBULATORY - MEDICINE [place] [facility] Jul 07, 2024 11:00 AM AMBULATORY - MEDICINE [place] [facility] Jul 13, 2024 11:00 AM AMBULATORY - MEDICINE [place] [facility] Aug 05, 2024 10:00 AM AMBULATORY - MEDICINE [place] [facility] Sep 06, 2024 03:30 PM AMBULATORY - MEDICINE [place] [facility] Sep 16, 2024 08:00 AM AMBULATORY - MEDICINE [place] [facility] Social History: Smoking Status (Most current) and Tobacco Use (All prior to encounter date) This section includes the most current, and the historical, smoking and tobacco- related health factors from the [place] facility where the Encounter took place. Current Smoking Status This section includes the most current smoking, or tobacco-related health factor, from the [place] facility where the Encounter took place. Date/Time Current Smoking Status Comment Aron hylton Nov 10, 2023 01:00 PM [facility] Tobacco Use History This section includes a history of the smoking, or tobacco-related health factors, that were collected on or before the date of the Encounter. The data comes from the [place] facility where the Encounter took place. Date/Time Smoking Status/Tobacco Use Comment F acility Nov 10, 2023 01:00 PM VA-TOBACCO QUIT 15 YRS OR MORE [place] [facility] [place] [facility] February 07, 2022 09:30 AM VA-TOBACCO FORMER USER [place] [facility] [place] [facility] February 07, 2022 09:30 AM VA-TOBACCO QUIT 15 YRS OR MORE [place] [facility] [place] [facility] Oct 27, 2020 09:39 AM VA-TOBACCO FORMER USER [place] [facility] [place] [facility] Oct 27, 2020 09:39 AM VA-TOBACCO QUIT 15 YRS OR MORE [place] [facility] [place] [facility] Oct 01, 2018 01:57 PM VA-TOBACCO [facility] Advance Directives: All historical and current Section Date Range: From patient's date of to the date document was created. This section includes ALL of a patient's completed or amended [place] Advance and Rescinded Directives. The entries below indicate that a directive exists for the patient, but an actual copy is not included with this document. The data comes from all [place] facilities. Date Advance Directives Provider Source Mar 29, 2024 ADVANCE DIRECTIVE PEYTONKAROLJANAE [facility] Encounter Notes: All associated encounter notes This section contains the clinical notes associated to the Encounter. Date/Time Encounter Note(s) Provider Source Apr 07, 2024 12:50 PM PHARMACY NOTE: LOCAL TITLE: V1 PHARMACY CUSTOMER CARE MEDICATION RENEWAL STANDARD TITLE: PHARMACY NOTE DATE OF NOTE: APR 07, 2024@12:50 ENTRY DATE: APR 07, 2024@12:50:20 AUTHOR: CLEMENT HART COSIGNER: URGENCY: STATUS: COMPLETED Date: Mar Division: [place] Pt referred by Pharmacy Call Center for medication renewal: Non-controlled/maintenan ce medication Medications requested: [id number]$ ROSUVASTATIN CA 20MG TAB [id number]$ APIXABAN 5MG TAB [id number]$ CARVEDILOL 3.125MG TAB Defer to primary care provider To be mailed . Please review and renew if appropriate. *This note was generated by [facility] Pharmacy Customer Care. If you have any questions or need assistance, do not contact this author. Please refer all questions to your local, on-site pharmacy departments. /es/ CLEMENT HART [facility] Speech Language Pathologist, [place]/Pharmacy Customer Care Signed: 04/07/2024 12:50 Receipt Acknowledged By: 04/07/2024 13:21 /es/ TOM ADKINS MS,PA-C PHYSICIAN HISTOLOGY SPECIALIST for MARGY CALL 04/07/2024 14:55 /es/ Purvi HUDDLESTON RN CNL Primary Care CLEMENT AMADOR [place] [facility]
--- OUTSIDE RECORDS SUMMARY | 2025-01-10 09:46 | XMS_ITS ---
Author Name Department of [place] Organization [place] Address [address] [place] [address] Care Team Providers Care Crutch Maker Name Role Phone MARGY CALL [facility] Insurance Providers: All historical and [...] Magallon's Name Patient's Relationship to Policy Magallon [facility] (WNR) MEDICARE ADVANTAGE MCR ([facility]) Sep 15, 2023 [id number] LOUISERHIANNAGABE M,RUBAEMILY PATIENT [facility] (WNR) MEDICARE ADVANTAGE MCR (R) Sep 15, 2023 [id number] DIXIEHA M,EDWARD PATIENT [facility] (WNR) MEDICARE ADVANTAGE MCR (WNR) Sep 15, 2020 [id number] CUNRHIANNAHA M,EDWARD PATIENT [facility] (WNR) MEDICARE ADVANTAGE MCR ([facility]) Sep 15, 2020 [id number] LOUISERHIANNAHA M,CARLOS ALBERTO PATIENT Selected Encounter This section includes the information on record at [place] for the Encounter. 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 Date/Time Primary/Secondary Diagnosis Diagnosis Name Provider Source February 02, 2024 02:23 PM PRIMARY Multifocal motor neuropathy TOM REESE [place] [facility] [place] [facility] Plan of Treatment: Future Appointments (+ 6 months) and Future Tests (+/- 45 days) The Plan of Treatment section includes future care activities for the patient from all [place] [facility]. This section includes future appointments and future orders which are active, pending or scheduled. Future Appointments This section includes appointments that were scheduled to occur 6 months from the date of the Encounter, up to a maximum of 20 appointments. The data comes from all [place] treatment facilities. Appointment Date/Time Appointment Type Appointme nt Facility Name February 12, 2024 11:30 AM AMBULATORY - MEDICINE [place] [facility] Apr 02, 2024 10:00 AM AMBULATORY - [place]UROLOGY [place] [facility] Apr 08, 2024 08:00 AM AMBULATORY - MEDICINE [place] [facility] Apr 14, 2024 02:00 PM AMBULATORY - MEDICINE [place] [facility] May 04, 2024 09:30 AM AMBULATORY - MEDICINE [place] [facility] May 10, 2024 11:00 AM AMBULATORY - MEDICINE [place] [facility] Jun 08, 2024 12:40 PM AMBULATORY - MEDICINE [place] [facility] Jun 23, 2024 10:00 AM AMBULATORY - MEDICINE [place] [facility] Jun 23, 2024 10:30 AM AMBULATORY - NEUROLOGY [facility] Jul 01, 2024 08:00 AM AMBULATORY - MEDICINE [place] [facility] Jul 07, 2024 11:00 AM AMBULATORY - MEDICINE [place] [facility] Jul 13, 2024 11:00 AM AMBULATORY - MEDICINE [place] [facility] Vital Signs: All taken on the encounter date This section contains inpatient and outpatient Vital Signs collected on the date of the Encounter. Date/Time Temperature Pulse Blood Pressure Respiratory Rate SP02 Pain Height Weight Body Mass Index Source February 02, 2024 01:52 PM 98 57 120/70 18 99 9 [place] [facility] [place] [facility] Social History: Smoking Status (Most current) and Tobacco Use (All prior to encounter date) This section includes the most current, and the historical, smoking and tobacco- related health factors from the [place] facility where the Encounter took place. Current Smoking Status This section includes the most current smoking, or tobacco-related health factor, from the [place] facility where the Encounter took place. Date/Time Current Smoking Status Comment Facil ity Nov 10, 2023 01:00 PM [facility] Tobacco Use History This section includes a history of the smoking, or tobacco-related health factors, that were collected on or before the date of the Encounter. The data comes from the [place] facility where the Encounter took place. Date/Time Smoking Status/Tobacco Use Comment F acility Nov 10, 2023 01:00 PM VA-TOBACCO QUIT 15 YRS OR MORE [facility] February 07, 2022 09:30 AM VA-TOBACCO FORMER USER [place] [facility] February 07, 2022 09:30 AM VA-TOBACCO QUIT 15 YRS OR MORE [place] [facility] Oct 27, 2020 09:39 AM VA-TOBACCO FORMER USER [place] [place] [facility] Oct 27, 2020 09:39 AM VA-TOBACCO QUIT 15 YRS OR MORE [place] [facility] [place] [facility] Oct 01, 2018 01:57 PM [facility]-TOBACCO [facility] Advance Directives: All historical and current Section Date Range: From patient's date of to the date document was created. This section includes ALL of a patient's completed or amended [place] Advance and Rescinded Directives. The entries below indicate that a directive exists for the patient, but an actual copy is not included with this document. The data comes from all [place] facilities. Date Advance Directives Provider Source Mar 29, 2024 ADVANCE DIRECTIVE [facility]AL [facility]D [facility] Encounter Notes: All associated encounter notes This section contains the clinical notes associated to the Encounter. Date/Time Encounter Note(s) Provider Source February 02, 2024 02:11 PM URGENT CARE NOTE: LOCAL TITLE: INTERFACILITY TRANSFER FORM [id number] [facility] TITLE: URGENT CARE NOTE DATE OF NOTE: FEBRUARY 02, 2024@14:11 ENTRY DATE: FEBRUARY 02, 2024@14:11:38 AUTHOR: TOM REESE EXP COSIGNER: URGENCY: STATUS: COMPLETED 78-year-old male with significant past medical history for CVA 2 months ago seen at [facility] presents today with 1 week of extremity and oral spasticity/movements (reminiscent of Parkinson's/tardive dyskinesia) without provocative medications. Endorses left side double vision with eversion to the left. Also complains of left-sided neck pain. Muscle fatiguing and increasing fatigability secondary to constant movement with respirations. [place]'s vital signs are stable. Med review shows no causative medication for spasticity. Concerns for atypical neurological etiology (atypical CVA/infectious disease etc.). drove to this facility. I deemed it unsafe for him to drive to any facility due to his vision and spasmodic movements. EMS has been contacted and he is being sent via ambulance to the local [facility] emergency room ([facility]). Dx: Neuropathy To Higher Level Of Care /nevin/ TOM ADKINS MS,PA-C PHYSICIAN ARCH SUPPORT TECHNICIAN Signed: 02/02/2024 14:24 Receipt Acknowledged By: 02/02/2024 15:33 /nevin/ Yusra Pfeiffer MD INTERNAL MEDICINE and RHEUMATOLOGY TOM REESE [facility]
== END 2025-01-10 09:47 | disposition home or self-care (01) ==
LOC: HO.HUSH 09:00
PROVIDERS: PCP Nurse Practitioner Family; Visit Provider Nurse Practitioner Family
DX: R33.9 Retention of urine, unspecified (principal); R97.20 Elevated prostate specific antigen [PSA]
CPT/HCPCS: 99204

== ENCOUNTER → 2025-01-10 09:00 | Outpatient (BNVA) | payer OTHER, SELFPAY | PROVIDERS: PCP Nurse Practitioner Family; Visit Provider Nurse Practitioner Family | DX: N31.9 Neuromuscular dysfunction of bladder, unspecified (principal); R33.9 Retention of urine, unspecified; R97.20 Elevated prostate specific antigen [PSA] | CPT/HCPCS: 51798; 99202 ==

== ENCOUNTER 2025-04-08 08:08 | Outpatient (REF) | payer OTHER, SELFPAY ==
--- OUTSIDE RECORDS SUMMARY | 2024-03-02 04:30 | XMS_ITS ---
Author Organization [facility] Address [address] [place] [id number] Care Team Providers Care Property Insurance Claims Examiner Name Role Phone Jose NOVOA, Moncho Primary Care Provider Swapna Thorpe Jr, Michael Dallas REASON FOR VISIT diarrhea Encounters Encounter Location Date Provider Diagnosis [facility] Outpatient [address] [place] [id number] 03/02/2024 Michael Thorpe Jr Plan Of Treatment No Information Progress Notes * HOLTCARLOS ALBERTODOB:1944 (80 yo M)Acc No.[id number]:03/02/2024 COLON WITH MAC Patient: CARLOS ALBERTO SINGH Provider: Lex Thorpe MD :1945 A ge:78 Y S ex:Male Date:03/02/2024 Address:[address] [place], [place] [id number] Pcp:Moncho Garcia NP Subjective: * Chief Complaints: * 1 . Diarrhea. * Medical History: Objective: * Vitals: Assessment: Plan: * Treatment: * * The named appointment provid er may or may not be the originator of this progress note, and it is not deemed complete until electronically signed by the appointment provider. Sign off status: Pending * Provider: Lex Thorpe MD Date: 03/02/2024 Generated for Vaishnavii ng/Faleobardog/eTransmitting on: 04/08/2025 08:12 AM EDT
--- OUTSIDE RECORDS SUMMARY | 2025-01-12 06:00 | XMS_ITS ---
Author Name [facility] [place] Organization [facility] [place] [place] Address [address] [place] [id number] Care Team Providers Care Attendance Secretary Name Role Phone MARGY GARCIA Primary [facility] Provider [facility] Insurance Providers: All historical and current Section Date Range: From patient's date of to the date document was created. This section includes the names of all active insurance providers for the patient. Insurance Provider Type of Coverage Plan Name Start of Policy Coverage End of Policy Coverage Group Number Member ID Insurance Provider's Telephone Number Policy Magallon's Name Patient's Relationship to Policy Magallon [facility] (WNR) MEDICARE ADVANTAGE MCR ([facility]) Sep 15, 2023 [id number] LOUISERHIANNAGABE AndrewsRUBAEMILY PATIENT [facility] (WNR) MEDICARE ADVANTAGE MCR (R) Sep 15, 2023 [id number] DIXIEHA M,EDWARD PATIENT [facility] (WNR) MEDICARE ADVANTAGE MCR (WNR) Sep 15, 2020 [id number] CUNRHIANNAHA M,EDWARD PATIENT [facility] (WNR) MEDICARE ADVANTAGE MCR ([facility]) Sep 15, 2020 [id number] LOUISERHIANNAHA M,CARLOS ALBERTO PATIENT Selected Encounter This section includes the information on record at [place] for the Encounter. 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 Date/Time Primary/Secondary Diagnosis Diagnosis Name Provider Source Jan 12, 2025 10:31 AM PRIMARY Neoplasm of unspecified behavior of digestive system [facility] [place] [facility] Jan 12, 2025 10:31 AM SECONDARY Dystonia, unspecified GARCIA[facility] [place] [place] [facility] Jan 12, 2025 10:31 AM SECONDARY Hyperlipidemia, unspecified GARCIA,WILL [facility] [place] [place] [facility] Jan 12, 2025 10:31 AM SECONDARY Impacted cerumen, bilateral GARCIA,WILL [facility] [place] [facility] Jan 12, 2025 10:31 AM SECONDARY Nonrheumatic aortic valve disorder, unspecified GARCIA[facility] [place] [facility] Jan 12, 2025 10:31 AM SECONDARY Occlusion and stenosis of unspecified carotid artery GARCIA,WILL [facility] [place] [place] [facility] Plan of Treatment: Future Appointments (+ 6 months) and Future Tests (+/- 45 days) The Plan of Treatment section includes future care activities for the patient from all [place] [facility]. This section includes future appointments and future orders which are active, pending or scheduled. Future Appointments This section includes appointments that were scheduled to occur 6 months from the date of the Encounter, up to a maximum of 20 appointments. The data comes from all [place] treatment facilities. Appointment Date/Time Appointment Type Appointme nt Facility Name January 18, 2025 09:45 AM AMBULATORY - MEDICINE [place] [place] [facility] January 25, 2025 08:00 AM AMBULATORY - MEDICINE [place] [place] [facility] February 03, 2025 09:00 AM AMBULATORY - MEDICINE [facility] [place] [facility] Jul 05, 2025 11:00 AM AMBULATORY - MEDICINE [facility] [place] [facility] Jul 14, 2025 08:30 AM AMBULATORY - MEDICINE [facility] [place] [facility] Active, Pending, and Scheduled Orders This section includes a listing of several types of active, pending, and scheduled orders, including clinic medications orders, diagnostic test orders, procedure orders and consult orders; where the start date of the order is 45 days before the date of the Encounter or 45 days after the date of theEncounter. The data comes from all [place] treatment facilities. Test Date/Time Test Type Test Details Facility Name Dec 10, 2024 08:24 AM Consult Order [facility]ITY [facility]-CARDIOLOGY Cons Budget Analyst's Choice [place] [facility] [place] [facility] Dec 14, 2024 01:30 PM Consult Order [facility] Budget Analyst's Choice [place] [facility] [place] [facility] Jan 12, 2025 10:13 AM Consult Order REPLACED BY [facility]-VASCULAR SURGERY [facility] Budget [facility] Lab Results: +/- 30 days of the encounter This section includes the Chemistry and Hematology Lab Results on record with [place] for the patient. Radiology Reports and Pathology Reports are provided separately, in subsequent sections. Lab Results This section contains the Chemistry/Hematology Results that were resulted 30 days before or 30 daysafter the date of the Encounter. Date/Time Source Result Type Result - Unit Interpretation Reference Range Specimen Type Comment Dec 21, 2024 09:10 AM [facility] FERRITIN SERUM Specimen Type: SERUM No comment entered. Ordering Provider: MARGY GARCIA Report Released Date/Time: Nov 22, 2024 11:13 AM Reporting Lab: [facility] [place] [facility] [address] [facility] [address] Performing Lab: [facility] [address] [address] FERRITIN 22.1 ng/mL 20-300 Dec 21, 2024 09:10 AM [facility] IRON & TIBC PANEL SERUM Specimen Type: SERUM No comment entered. Ordering Provider: MARGY GARCIA Report Released Date/Time: Nov 22, 2024 11:13 AM Reporting Lab: [facility] [address] [address] Performing Lab: [facility] [address] [facility] [address] TIBC 379 ug/dL 204-475 IRON 94 ug/dL 65-175 Transferrin Saturation 24.8 20.0-50.0 Transferrin (TRF) 287 mg/dL 200-360 Dec 21, 2024 09:10 AM [facility] CBC BLOOD Specimen Type: BLOOD No comment entered. Ordering Provider: MARGY GARCIA Report Released Date/Time: Nov 22, 2024 11:13 AM Reporting Lab: [facility] [address] [facility] [address] Performing Lab: [facility] [address] [facility] [address] WBC 6.01 10*3/uL 4.50-11.00 RBC 3.88 10*6/uL L 4.23-5.66 HGB 12.5 g/dL L 12.8-17 HCT 38.1 L 39.2-50.4 MCV 98.2 fL 82-99 MCHC 32.8 g/dL 30.8-35.1 PLT 289 10*3/uL 140-360 MPV 10.4 fL 9.2-12.4 RDW-CV 13.6 12.0-16.0 MCH 32.2 pg 26.2-32.6 Dec 21, 2024 09:10 AM [facility] LIPID PANEL, NON FASTING SERUM Specimen Type: SERUM No comment entered. Ordering Provider: MARGY GARCIA Report Released Date/Time: Nov 22, 2024 11:13 AM Reporting Lab: [facility] [address] [facility] [address] Performing Lab: [address] [address] CHOLESTEROL 145 mg/dL TRIGLYCERIDE 76 mg/dL 0-150 LDL calculated 73 mg/dL 0-129 CHOL/HDL 2.5 HDL CHOLESTEROL 57 mg/dL 40-60 Dec 21, 2024 09:10 AM [facility] BASIC METABOLIC PANEL (non-fasting) SERUM Spe cimen Type: SERUM No comment entered. Ordering Provider: MARGY GARCIA Report Released Date/Time: Nov 22, 2024 11:13 AM Reporting Lab: [facility] [address] [facility] [address] Performing Lab: [facility] [address] [facility] [address] UREA NITROGEN 22 mg/dL 7-25 GLUCOSE 91 mg/dL 65-100 SODIUM 142 mmol/L 135-145 POTASSIUM 5.0 mmol/L 3.5-5.1 CHLORIDE 106 mmol/L 98-107 CO2 29 meq/L 23-31 CALCIUM 9.1 mg/dL 8.8-10 CREATININE, Serum 1.40 mg/dL H 0.72-1.25 eGFR(CKD-EPI 2020) 50 mL/min L >60 Dec 21, 2024 09:10 AM [facility] PT & INR (PROTIME) PLASMA Specimen Type: PLASM A No comment entered. Ordering Provider: MARGY GARCIA Report Released Date/Time: Nov 22, 2024 11:13 AM Reporting Lab: [facility] [address] [facility] [address] Performing Lab: [facility] [address] [facility] [address] INR 1.4 PROTIME 15.6 s H 10.0-13.1 Dec 21, 2024 09:10 AM [facility] LIVER FUNCTION SERUM Specimen Type: SERUM No comment entered. Ordering Provider: MARGY GARCIA Report Released Date/Time: Nov 22, 2024 11:13 AM Reporting Lab: [facility] [address] [facility] [address] Performing Lab: [address] [address] PROTEIN,TOTAL 6.8 g/dL 6.0-8.3 ALBUMIN 4.1 g/dL 3.2-4.6 ALKALINE PHOSPHATASE 84 U/L 40-150 AST 25 U/L 5-34 ALT 16 U/L BILIRUBIN, TOTAL 0.8 mg/dL 0.2-1.2 Vital Signs: All taken on the encounter date This section contains inpatient and outpatient Vital Signs collected on the date of the Encounter. Date/Time Temperature Pulse Blood Pressure Respiratory Rate SP02 Pain Height Weight Body Mass Index Source Jan 12, 2025 10:09 AM 98.1 71 130/73 20 98 3 68 168 26 [place] [facility] [place] [facility] Social History: Smoking Status (Most current) and [...] Date/Time Current Smoking Status Comment Facil ity Jan 12, 2025 10:00 AM VA-TOBACCO USE FOR RIAZ CIGARETTES [place] [facility] Tobacco Use History This section includes a history of the smoking, or tobacco-related health factors, that were collected on or before the date of the Encounter. The data comes from the [place] facility where the Encounter took place. Date/Time Smoking Status/Tobacco Use Comment F acility Jan 12, 2025 10:00 AM VA-TOBACCO USE FOR RIAZ CIGARETTES [place] [facility] [place] [facility] Nov 10, 2023 01:00 PM VA-TOBACCO FORMER USER [place] [facility] [place] [facility] Nov 10, 2023 01:00 PM VA-TOBACCO QUIT 15 YRS OR MORE [place] [facility] [place] [facility] February 07, 2022 09:30 AM VA-TOBACCO FORMER USER [place] [facility] [place] [facility] February 07, 2022 09:30 AM VA-TOBACCO QUIT 15 YRS OR MORE [place] [facility] [place] [facility] Oct 27, 2020 09:39 AM VA-TOBACCO FORMER USER [place] [facility] [place] [facility] Oct 27, 2020 09:39 AM VA-TOBACCO QUIT 15 YRS OR MORE [place] [facility] [place] [facility] Oct 01, 2018 01:57 PM VA-TOBACCO NEVER USED [place] [facility] Advance Directives: All historical and [...] Mar 29, 2024 ADVANCE DIRECTIVE TEJAL TODD [place] NANNETTE TRAddison WSTRFran KIRA [facility] Encounter Notes: All associated encounter notes This section contains the clinical notes associated to the Encounter. Date/Time Encounter Note(s) Provider Source Jan 12, 2025 10:26 AM PRIMARY CARE NURSE PRACTITIONER OUTPATIENT NOTE: LOCAL TITLE: NURSE PRACTITIONER OUTPATIENT NOTE STANDARD TITLE: PRIMARY CARE NURSE PRACTITIONER OUTPATIENT NOTE DATE OF NOTE: JAN 12, 2025@10:26 ENTRY DATE: JAN 12, 2025@10:26:36 AUTHOR: MARGY GARCIA COSIGNER: URGENCY: STATUS: COMPLETED Chief complaint: Patient is a 79 year old [place]. HPI: Pleasant male here with his daughter. He reports left sided neck/ear discomfort. On exam, noted bilat cerumen, debrox ordered, refer to nursing for lavage. Allergies: Patient has answered NKA The following VA and Non-VA meds were reconciled with patient. The patient was educated on the use of the medications including indication and side effects. Active and Recently Outpatient Medications (excluding Supplies): Active Outpatient Medications Status 1) APIXABAN 5MG TAB TAKE ONE TABLET BY MOUTH EVERY 12 HOURS ACTIVE Indication: FOR PREVENTION OF BLOOD CLOTS 2) BACLOFEN 10MG TAB TAKE ONE TABLET BY MOUTH THREE TIMES A DAY ACTIVE FOR MUSCLE RIGIDITY Indication: FOR MUSCLE SPASMS 3) CARBOXYMETHYLCELLULOSE NA 0.5% OPH SOLN INSTILL 1 DROP INTO ACTIVE EACH EYE FOUR TIMES DAILY NEEDED Indication: FOR DRY EYE 4) CHOLECALCIF 25MCG (D3-1,000UNIT) TAB TAKE ONE TABLET BY ACTIVE MOUTH ONCE DAILY FOR VITAMIN SUPPLEMENTATION 5) [...] DAILY ACTIVE Indication: FOR GASTROESOPHAGEAL REFLUX DISEASE 8) ROSUVASTATIN CA 10MG TAB TAKE ONE TABLET BY MOUTH ONCE DAILY ACTIVE FOR CHOLESTEROL Indication: FOR HIGH CHOLESTEROL Pending Outpatient Medications Status 1) CARBAMIDE PEROXIDE 6.5% OTIC SOLN INSTILL 5 DROPS INTO EACH PENDING EAR ONCE DAILY Indication: FOR EAR WAX BLOCKAGE Active Non-VA Medications Status 1) Non-VA ASPIRIN [...] Fevers, chills, weakness, nights sweats On examination: 98.1 F [36.7 C] (01/12/2025 10:09)130/73 (01/12/2025 10:09)71 (01/12/2025 10:09)20 (01/12/2025 10:09)3 (01/12/2025 10:09)BMI: 25.6168 lb [76.20 kg] (01/12/2025 10:09) is alert and oriented X3 Cardiovasc: 2plus [...] 2. rectal ca, adenocarcinoma - following with [facility] onc, immunotherapy. Wt loss stable since August, he did not like the supplement. 3. carotid artery stenosis - following [facility] vascular, discussion about possible left TCAR, for now defer pending rectal ca treatment, he will follow back with them in 6 mos. 4. Benign Prostatic Hypertrophy Without Outflow Obstruction - stable. 5. Aortic valve disorder - follows [facility] cardiology. 6. dyskinesia - follows [facility], concerns for falls, balance - offered PT/OT, he declines. 7. Heart failure - follows [facility] Cardiology, Dr. Ann, he had episodes of hypotension so BB is being held. ASA stopped due to recal bleeding. 8. Ascending aortic aneurysm - was 4.2cm now 4.5cm, being monitored. Today I spent 40 minutes on some or all of the following: chart review, history, physical examination, treatment planning, education and counseling of the patient/family/rn intensive care unit, placing orders, communicating with other health care providers, completing health and wellness screenings (see below) and documentation in the electronic health record. Follow up visit in 6 mos. Medication Reconciliation: Outpatient: Has the patient been taking medications as documented in the EMLR? YES: The patient has been taking medications as documented in the EMLR. Essential Medication List for Review used to complete this medication reconciliation. INCLUDED IN THIS LIST: Alphabetical list of active outpatient prescriptions dispensed from this [place] (local) and dispensed from another [place] or [place]D facility (remote) as well as [...] or non-VA provider. /nevin/ Margy Garcia DNP, CUT OUT MACHINE OPERATOR-BC, CNL Primary Care Nurse Practitioner Signed: 01/12/2025 10:30 MARGY GARCIA [facility] Jan 12, 2025 10:11 AM PREVENTIVE MEDICINE NURSING NOTE: LOCAL TITLE: CLINICAL REMINDERS/NURSING STANDARD TITLE: PREVENTIVE MEDICINE NURSING NOTE DATE OF NOTE: JAN 12, 2025@10:11 ENTRY DATE: JAN 12, 2025@10:12:08 AUTHOR: KUMAR JOYCE EXP COSIGNER: URGENCY: STATUS: COMPLETED Homelessness/Food Insecurity Screen: In the past 2 months, have you been living in stable housing that you own, rent, or stay in as part of a household? Yes - Living in stable housing. Are you worried or concerned that in the next 2 months you may NOT have stable housing that you own, rent, or stay in as part of a household? No - Not worried about housing near future The reports the following: Within the past 12 months, you worried whether your food would run out before you got money to buy more. Never true Within the past 12 months, the food you bought just didn't last and you didn't have money to get more. Never true Falls & Incontinence Screen: Falls Screen: During the past 12 months, did the patient report any falls? 4. No falls within the past year. Incontinence Screen: During the past 12 months, has the patient has any characteristics of incontinence (ability, voiding, leakage, etc.)? No incontinence. Tobacco Use Screening: The patient is a former cigarette smoker. The patient has never used other types of tobacco. /nevin/ Kumar Joyce, Health Poultry Vaccinator SLASHER RUNNER,PRIMARY CARE Signed: 01/12/2025 10:13 KUMAR JOYCE [facility]
--- OUTSIDE RECORDS SUMMARY | 2025-04-08 08:13 | XMS_ITS | Clinical Summary ---
Author Organization [facility] Address [address] [place] [address] Phone Care Team Providers Care Office Lead Name Role Phone Moncho Garcia NP Primary Care Provide r Allergies No known active allergies Medications rosuvastatin (CRESTOR) 10 MG tablet Take 20 mg by mouth daily. (ROCAEL) 5 Active Medication-Free Text Hydroxyurea 500 MG Tablet, Si tablet daily for 2 days; then 2 tabs for one day then repeats cycle(1-1-2-1-1- 2.....) Taking differently: Take 1 tablet every other day. 5 Active senna (SENOKOT) 8.6 mg tablet [The details of the medication are not available because there are pending changes by a home health clinician.] 30 tablet 2 Active Additional Information Patient not taking.Reason: Therapy complete, Reported on 04/11/2024 cholecalciferol , vitamin D3, (VITAMIN D3 ORAL) Take 1 capsule by mouth daily. 4 Active sacubitriL-vals jett (ENTRESTO) 24-26 mg per tablet Take 1 tablet by mouth 2 (two) times a day. 4 Active clonazePAM (KLONOPIN) 0.5 MG tablet Take 0.5 mg by mouth 2 (two) times a day. Taking differently: Takes 1 full Tablet (0.5 mg) 2x per day (am and pm) and 1/2 tablet (0.25 mg) mid-day 4 Active baclofen (LIORESAL) 10 MG tablet Take 10 mg by mouth 3 (three) times a day. 4 Active apixaban (ELIQUIS) 5 mg tablet Take 5 mg by mouth 2 (two) times a day. 4 Active omeprazole (PRILOSEC) 20 mg TbEC Take 20 mg by mouth daily. 4 Active pramipexole (MIRAPEX ER) 3 mg Tb24 Take 3 mg by mouth 2 (two) times a day. not currenlty on VA list, but in home 4 Active aspirin 81 mg chewable tablet Take 81 mg by mouth daily. 4 Active carvedilol (COREG) 3.125 MG tablet Take 3.125 mg by mouth 2 (two) times a day with meals. 4 Active nitrofurantoin (MACRODANTIN) 50 MG capsule Take 50 mg by mouth nightly at bedtime. 4 Active polyethylene glycol (MIRALAX) 17 gram/dose powder Take 17 g by mouth daily. not taking 4 Active Active Problems No known active problems Immunizations Immunization Administration Dates Next Due COVID-19 (Pre-07/07) Bala Vaccine, rS-Ad26, P F 11/28/2020 Td (adult) 5 Lf Tetanus Toxoid, PF, Adsorbed 05/2010 Social History Tobacco Use Types Packs/Day Years Used Date Smoking Tobacco: Former Cigarettes Q uit: 1965 Smokeless Tobacco: Never Tobacco Cessation:Counseling Given: Not Answered Alcohol Use Standard Drinks/Week Comments Yes 0 (1 standard drink = 0.6 oz pur e alcohol) 6 pack/month Home Health Assessment: Transportation Answer Date Recorded Lack of Transportation (Medical) No 10/15/2024 Lack of Transportation (Non-Medical) No 10/15/2024 Patient Unable or Declines to Respond No 10/15/2024 Education Answer Date Recorded Are you interested in more education? Not on bettye e 01/10/2023 Are you concerned about learning? Not on file 01/10/2023 No 01/10/2023 No 01/10/2023 Digital Access Answer Date Recorded No 02/08/2023 No 02/08/2023 No 02/08/2023 Reliable internet access at home? Not on file 02/08/2023 Device with a working camera? Not on file Intimate Partner Violence Answer Date R ecorded Are you denied basic needs s uch as food, clothing, or medical care? No 02/02/2024 In the past 12 months have y ou been in a relationship with a person who hurts, threatens, or tries to control you? No 02/02/2024 Are you denied basic needs s uch as food, clothing, or medical care? No 02/02/2024 In the past 12 months have y ou been in a relationship with a person who hurts, threatens, or tries to control you? No 02/02/2024 Sex and Gender Information Value Date Recorded Sex Assigned at Male 02/02/2024 2:51 PM EDT Legal Sex Male 10:10 PM EDT Gender Identity Male 02/02/2024 2:51 PM EDT Sexual Orientation Not on file Last Filed Vital Signs Vital Sign Reading Time Taken Comments Blood Pressure 100/50 10/12/2024 10:10 AM EST Pulse 88 10/12/2024 10:10 AM EST Temperature 36.4 C (97.6 F) 10/12/2024 10:10 AM EST Respiratory Rate 18 10/12/2024 10:10 AM EST Oxygen Saturation 98% 10/12/2024 10:10 AM EST Inhaled Oxygen Concentration - - Weight 97.5 kg (215 lb) 02/02/2024 2:50 PM EDT Height 175.3 cm (5' 9 ) 02/02/2024 2:50 PM EDT Body Mass Index 31.75 02/02/2024 2:50 PM EDT Plan of Treatment Health Maintenance Due Date Last Done Comments DEPRESSION SCREENING 1955 PNEUMOCOCCAL VACCINES (50+ years) (1 of 1 - PCV) 1993 ZOSTER VACCINES (1 of 2) 1993 RSV VACCINE (1 - 1-dose 75+ series) 2018 Adult Td,Tdap Booster 10/24/2019 10/24/2009 COVID-19 VACCINE (3 - 2023-2 5 season) 2024 08/17/2021, 11/28/2020, 11/28/2020 CREATININE LEVEL 02/01/2025 02/02/2024, 06/18/2022 HEPATITIS A VACCINES Aged Out No long er eligible based on patient's age to complete this topic HIB VACCINES Aged Out No longer eligi ble based on patient's age to complete this topic MENINGOCOCCAL VACCINES (ACWY) Aged Out No longer eligible based on patient's age to complete this topic MENINGOCOCCAL VACCINES (B) Aged Out N o longer eligible based on patient's age to complete this topic Medical Devices Not on file Procedures Procedure Name Priority Date/Time Associated Diagnosis Comments BASIC METABOLIC PANEL STAT 02/02/2024 5:39 PM EDT from Last 3 Months or Most Recently Relevant to Health Maintenance Results * (ABNORMAL) Basic metabolic panel (02/02/2024 5:39 PM EDT) SODIUM 142 133 - 146 mmol/L [facility] CHLORIDE 108 96 - 108 mmol/L [facility] POTASSIUM 4.3 3.3 - 5.1 mmol/L [facility] CO2 24 21 - 35 mmol/L [facility] BUN 27(H) 6 - 19 mg/dL [facility] CREATININE 1.10 0.5 - 1.5 mg/dL [facility] GLUCOSE 96 70 - 99 mg/dL [facility] CALCIUM 9.0 8.4 - 10.3 mg/dL [facility] EGFR 68 >59 mL/min/1.7 3m2 [facility] Comment:Estimated glomerular filtration rate calculated using the CKD-EPI refit equation. ANION GAP 14 10 - 20 mmol/L [facility] Blood 02/02/2024 5:39 PM EDT 02/02/2024 5:46 PM EDT us Jessie Koehler PA-C LAB BLOOD ORDERABLES Fi nal Result [facility] [address] [place] [address] from Last 3 Months or Most Recently Relevant to Health Maintenance Insurance [facility]WORK MEDICARE PART A & B [facility] MEDICARE REPLACEMENT [facility] MEDICARE PART A & B [facility] MEDICARE REPLACEMENT [facility] MEDICARE PART A & B [facility] MEDICARE [facility]PLACEMENT [facility] MEDICARE PART A & B [facility] MEDICARE REPLACEMENT [facility] MEDICARE PART A & B [facility] MEDICARE REPLACEMENT [facility] MEDICARE PART A & B [facility] MEDICARE REPLACEMENT [facility] MEDICARE PART A & B [facility] MEDICARE REPLACEMENT [facility] NET[facility] MEDICARE PART A & B [facility] MEDICARE REPLACEMENT [facility] MEDICARE PART A & B [facility] MEDICARE REPLACEMENT Care Teams Office Lead Relationship Specialty Start Date End Date Moncho Garcia NP [address] [place] [address] PCP - General Family Medicine 02/27/21 Additional Source Comments The information contained in this document represents components of the legal health record. It is not the complete legal health record.[facility]
--- OUTSIDE RECORDS SUMMARY | 2025-04-08 08:13 | XMS_ITS ---
Author Name [facility] Organization Unknown History of Medication Use Medication Directions Dispensed Refills Start Date End Date Stat us gabapentin (NEURONTIN) 100 MG capsule Take 1 capsule (100 mg total) by mouth 2 times a day. 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 ProblemAct [facility] Essential thrombocythemia active 2024-11-29 ProblemAct [facility] Cerebral infarction active 2024-11-29 ProblemAct [facility] Neoplasm of unspecified behavior of digestive system active 2024-11-29 ProblemAct [facility] Thyroid nodule active 2024-11-[address] S/P TAVR (transcatheter aortic valve replacement) active 2024-11-29 ProblemAct [facility] Aortic valve disorder active 2023-09-11 ProblemAct [facility] CAD (coronary artery disease) active 2024-06-08 ProblemAct [facility] Dyskinesia active 2024-11-29 ProblemAct [facility] Hyperlipidemia active 2024-11-29 ProblemAct [facility] CT Movement disorder active 2024-11-29 ProblemAct [facility] Diplopia active 2024-11-29 ProblemAct [facility] Aortic stenosis active 2023-09-10 ProblemAct [facility] Vitamin B deficiency active 2024-11-29 ProblemAct [facility] CHF NYHA class I active 2024-11-29 ProblemAct [facility] Family history of sudden cardiac active 2024-11-29 ProblemAct [facility] Abnormal findings on diagnostic imaging of heart and coronary circulation active 2024-11-[address] Combined forms of age-related cataract, bilateral active 2024-11-29 ProblemAct [facility] Aortic aneurysm active 2024-06-08 ProblemAct [facility] Neck pain on left side active 2024-11-29 ProblemAct [facility] Anemia active 2024-11-29 ProblemAct [facility] 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
--- OUTSIDE RECORDS SUMMARY | 2025-04-08 08:13 | XMS_ITS | Encounter Summary ---
Author Organization [facility] Address [address] [place] [address] Care Team Providers Care Wheel Roller Name Role Phone Moncho Garcia MD Primary Care Provider [phone]- [phone] Encounter Details Date Type Department Care Team (Late st Contact Info) Description 12/01/2024 Scanned Document [facility] [address] [phone] Neurology, Scan Social History Tobacco Use Types [...] Care Team (Late st Contact Info) Description 05/04/2025 2:15 PM EDT Office Visit [facility] [address] [place] [phone] Ernesto Mejia MD [address] [place] [address] Dong Villavicencio MD [address] [place] [address] 09/22/2025 10:10 AM EST Office Visit [facility] [address] [phone] David Larkin, ELECTRONIC IMAGER [address] [facility] [address] [place] [address] documented as of this encounter Visit Diagnoses Not on filedocumented in this encounter Care Teams Wheel Roller Relationship Specialty Start Date End Date Moncho Garcia MD [facility] [place] [address] PCP - General 11/29/24 documented as of this encounter
--- OUTSIDE RECORDS SUMMARY | 2025-04-08 08:13 | XMS_ITS | Clinical Summary ---
Author Organization [facility] Address [address] [facility] [place] [address] Phone Care Team Providers Care Fruit Ii Farmworker Name Role Phone Radha Montiel MD Primary [...] mouth 3 (three) times a day. Active Active Problems Problem Noted Date Diagnosed Date Aortic aneurysm (CMS/HCC V24) 06/08/2024 Overview (06/29/2024): Last Assessment & [...] his rectal cancer. CVA (cerebral vascular accident) ([facility], [facility] [place] V28) 06/03/2024 Overview (06/29/2024): Last Assessment & [...] at this time. PVD (peripheral vascular disease) ([facility] V24) 11/17/2023 Overview (06/29/2024): Last Assessment & Plan: Patient with a history of peripheral vascular disease status post endarterectomy following a stroke on the left. With severe residual disease in the right followed by vascular surgery at [facility] Systolic heart failure ([facility] V24, [facility] V28 ) 11/17/2023 Overview (06/29/2024): Last Assessment [...] recommend cardiac cath for full ischemic evaluation. Surgical History Surgery Date Site/Laterality Comments CARDIAC [...] Description 06/21/2025 8:40 AM EDT Office Visit [facility] [address] [place] [phone] Alyssa Rendon NP [address] [place] [address] [address] [place] [address] Health Maintenance Due Date Last Done Comments Pneumococcal Vaccine: 50+ Years (1 of 2 - PCV) 1962 Zoster Vaccines (1 of 2) 1962 RSV Immunization Adult Patients (1 - 1-dose 75+ series) 2018 DTaP,Tdap,and Td Vaccines (2 - Td or Tdap) 10/24/2019 10/24/2009 Cholesterol Screening (Lipid Panel) 10/09/2023 Falls Risk Assessment 10/09/2023 Social Influencers of Health Screening 10/09/2023 COVID-19 Vaccine (3 - 2023-2 5 season) 2024 08/17/2021, 11/28/2020 Depression Screening 09/15/2024 Influenza Vaccine (#1) 2025 08/11/2023 Hypertension/CHF/CAD Annual BMP Blood Test [...] Test (06/14/2024) Annual BMP Blood Test abstracted us Historical Provider HEALTH MAINTENANCE Final Result from Last 3 Months or Most Recently Relevant to Health Maintenance Insurance [facility] Care Teams Fruit Ii Farmworker Relationship Specialty Start Date End Date Radha Montiel MD PCP - General Internal Medicine 12/27/24
[2025-04-08 09:27] LABS: Prostate Specific Antigen 4.94 ng/mL (<0.05-4.0)
== END 2025-04-08 08:09 | disposition home or self-care (01) ==
LOC: HO.LAB 08:08
PROVIDERS: PCP Nurse Practitioner Family; Visit Provider Nurse Practitioner Family
DX: R33.9 Retention of urine, unspecified (principal); R97.20 Elevated prostate specific antigen [PSA]
CPT/HCPCS: 36415; 84153

== ENCOUNTER 2025-04-12 08:48 | Outpatient (AMB) | payer OTHER, SELFPAY ==
--- OUTSIDE RECORDS SUMMARY | 2024-03-02 04:30 | XMS_ITS ---
Author Organization [facility] Address [address] [place] [id number] Care Team Providers Care Continuous Vulcanizing Machine Operator Name Role Phone Jose NOVOA, Moncho Primary Care Provider Swapna Thorpe Jr, Michael Dallas [phone] REASON FOR VISIT diarrhea Encounters Encounter Location Date Provider Diagnosis [facility] Outpatient [address] [place] [id number] 03/02/2024 Michael Thorpe Jr Plan Of Treatment No Information Progress Notes * HOLTCARLOS ALBERTODOB:1944 (80 yo M)Acc No.[id number]:03/02/2024 COLON WITH MAC Patient: CARLOS ALBERTO SINGH Provider: Lex Thorpe MD :1945 A ge:78 Y S ex:Male Date:03/02/2024 Address:[address] [place], [place] [phone] Pcp:Moncho Garcia NP Subjective: * Chief Complaints: [...] Date: 03/02/2024 Generated for Vaishnavii ng/Faleobardog/eTransmitting on: 0 04/12/2025 09:04 AM EDT
--- NOTE | 2025-04-12 08:52 | A.OFFVIS_ITS ---
Intake Visit Reasons: 3m/PSA/PVR Intake Note: Patient is present for 3M/PSA/PVR Urology Medication:NONE Antibiotic Allergy:NONE Blood Thinner:APIXABAN An/Ssn 2 4 Operator Required: No Allergies No Known Allergies Allergy (Verified 04/12/25 08:53) HPI Comments Details: Kenny Ji is a very pleasant 79-year-old male patient of Dr. Garcia who was accompanied by his daughter at today's office visit. He has a past medical history of tardive dyskinesia, stroke, cardiomyopathy, and a neurogenic bladder. He presents to the office today for follow-up of his neurogenic bladder and incomplete bladder emptying. Of note, patient was seen approximately 3 months ago as a new patient at which time a PSA was ordered for further assessment evaluation. These results were reviewed and communicated with the patient and his daughter today. 04/08 4.9. He does have a longstanding history of following up with Urology in the past. He reports previously following up with Dr. Carmela Roldan however his insurance changed and started following up with his urologist through [facility]. He also discusses his longstanding history of a neurogenic/incomplete bladder emptying and has been performing clean intermittent catheterization for many years. He reports typically he CICs 4 times per day. He reports utilizing 14 [address]. He denies any history of recurrent urinary tract infections. However, urine was obtained for urinalysis today and patient was noted to have 3+ leukocytes and positive nitrates. He does report feeling that although he is not having any typical UTI symptoms he has been experiencing more issues with his balance in his unsure if this is related to a potential UTI. He continues to follow-up with [facility] oncology for his immunotherapy related to his rectal cancer however is vague when discussing medical history regarding this issue. He currently denies any bothersome urinary issues. He denies urinary urgency, urinary frequency, incontinence, nocturia, hematuria, dysuria, foul smelling urine, changes to urinary stream, flank pain, fever, and or chills. We discussed at length potential causes of incomplete bladder emptying/urinary retention as well as further treatment options and risks and benefits of these treatment options. We also discussed potential causes of increase in PSA and further treatment options and risks and benefits of these treatment options. We discussed further interventions to include trial of finasteride verses MRI of the prostate verses prostate biopsy verses surveillance monitoring. Risks and benefits were discussed. He does discuss having previously had a cystoscopy many years ago and being on Flomax however continued with increased postvoid residual therefore recommendations were made for clean intermittent catheterization. He discusses that although he suffers from tardive dyskinesia he has no issues with self catheterization. He otherwise offers no other issues or concerns at this time. In review of patient's chart it appears PSAs are as follows: 07/02 4.6, 08/02 3.3, 01/31 3.4, 05/03 3.1, 11/04 2.8, 05/04 2.3, 04/08 4.9. [facility] Medical History Cardiomyopathy Stroke Hypotonic neurogenic bladder Surgical History S/P aortic valve replacement and aortoplasty History of heart surgery History of tonsillectomy History of removal of cyst Family History Father No problems noted. Mother No problems noted. Social History Household Members: Spouse Housing: House Do you presently have visiting nurse or other home services: No Comment: Pt. refusing bed exit alarm. Patient Tobacco Use Status: Former Tobacco user Tobacco use type: Cigarette e-Cigarette/Vaping Use: Former Use Second Hand Smoke Exposure: No service: Yes Review of Systems Const All systems reviewed & are unremarkable except as noted in HPI and below Physical Exam Const General: cooperative, comfortable, no acute distress, well developed, alert and awake Orientation/consciousness: patient oriented x3 Limitations: no limitations HEENT Head: Yes normal to inspection Ears: hearing grossly normal bilaterally General nose exam: Normal external nose present Eyes Other: Patient with involuntary eye movements throughout today's appointment Neck Neck: Yes normal visual inspection Chest Chest palpation & inspection: normal inspection of the chest Resp Effort & Inspection: normal respiratory effort Cardio Rate: regular rate GI Inspection: Yes normal to inspection General: Yes no CVA tenderness Back/Spine/Pelvis Back: no CVA tenderness Skin General skin exam: no rashes or lesions noted Neuro General: patient oriented x3 Psych Appearance: well kempt Speech and movement: Slowed speech present (Psych) and Pressured speech present Affect: normal affect Attitude: cooperative Thought process: Normal thought process present Thought content: Normal thought content present Insight: Fair insight present (Psych) Judgement: Fair judgement present (Psych) Results AMB Urinalysis, Automated UA Leukoctes 500 Arie/uL Last Edit by IAN Segal on 04/12/25 09:09 UA Nitrite Positive Last Edit by IAN Segal on 04/12/25 09:09 UA Urobilinogen 0.2 mg/dL Last Edit by Arabella Day CCM on 04/12/25 09:0 9 UA Protein 30 mg/dL Last Edit by Arabella Day CCM on 04/12/25 09:09 UA pH 6.0 Last Edit by Arabella Day [facility] on 04/12/25 09:09 UA Blood 80 Jax/uL Last Edit by Arabella Day CCM on 04/12/25 09:09 UA Specific Toano 1.025 Last Edit by Arabella Day CCM on 04/12/25 09: 09 UA Ketone Negative Last Edit by Arabella Day CCM on 04/12/25 09:09 UA Bilirubin 1 mg/dL Last Edit by Arabella Day CCM on 04/12/25 09:09 UA Glucose 0 mg/dL Last Edit by Arabella Day CCM on 04/12/25 09:09 Results Reviewed Results Reviewed: Laboratory Last Values Urine pH (Auto) 6.0 04/12/25 09:08 Specific Toano (Auto) 1.025 04/12/25 09:08 Urine Protein (Auto) 30 mg/dL 04/12/25 09:08 Glucose (UA)(Auto) 0 mg/dL 04/12/25 09:08 Urine Ketones (Auto) Negative 04/12/25 09:08 Urine Blood (Auto) 80 Jax/uL 04/12/25 09:08 Urine Nitrite (Auto) Positive 04/12/25 09:08 Urine Bilirubin (Auto) 1 mg/dL 04/12/25 09:08 Urine Urobilinogen (Auto) 0.2 mg/dL 04/12/25 09:08 Leukocyte Esterase (Auto) 500 Arie/uL 04/12/25 09:08 Assessment & Plan Assessment & Plan (1) Elevated PSA: Code(s): R97.20 - Elevated prostate specific antigen [PSA] Category: Medical (2) Urinary retention with incomplete bladder emptying: Code(s): R33.9 - Retention of urine, unspecified Category: Medical Plan In office urinalysis results reviewed the patient today; as noted above; will send for urine culture; will await results for potential treatment Recent PSA results reviewed with the patient today; as noted above. Continue to CIC as planned. We did discussed further interventions of incomplete bladder emptying as well as elevated PSA; risks and benefits of these interventions were discussed. He currently denies any bothersome urinary issues. All questions were answered. Will obtain retroperitoneal ultrasound for further assessment evaluation. Will obtain redraw of PSA Will obtain BUN and creatinine Follow-up in 4 months with imaging and labs to be completed prior; or sooner with any issues, concerns, and or questions. Orders: Orders Urine Culture Today N39.0 - Urinary tract infection, site not specified US retroperitoneal comp Today R33.9 - Retention of urine, unspecified, R97.20 - Elevated prostate specific antigen [PSA] Creatinine Today R39.15 - Urgency of urination AMB Urinalysis Automated Today Z13.9 - Encounter for screening, unspecified PSA,Total (Free>4and<10) Today R33.9 - Retention of urine, unspecified, R97.20 - Elevated prostate specific antigen [PSA] Blood Urea Nitrogen Today R39.15 - Urgency of urination Coding Level of Care Code Est Pt Level 4 (95506) Complex EM visit Add On G2211 Diagnoses Elevated PSA R97.20 Urinary retention with incomplete bladder emptying R33.9
--- OUTSIDE RECORDS SUMMARY | 2025-04-12 09:05 | XMS_ITS | Encounter Summary ---
Author Organization [facility] Address [address] [place] [address] Care Team Providers Care Geriatric Personal Care Aide Name Role Phone Moncho Garcia MD Primary Care Provider +1- [phone] Encounter Details Date Type Department Care Team (Late st Contact Info) Description 12/01/2024 Scanned Document [facility] [address] [phone] Neurology, Scan Social History Tobacco Use Types [...] Description 05/04/2025 2:15 PM EDT Office Visit [facility] [address] [place] [phone] Ernesto Mejia MD [address] [place] [address] Dong Villavicencio MD [address] [place] [address] 09/22/2025 10:10 AM EST Office Visit [facility] [address] [phone] David Larkin, MUSEUM EXHIBIT DESIGNER [address] [facility] [address] [place] [address] documented as of this encounter Visit Diagnoses Not on filedocumented in this encounter Care Teams Geriatric Personal Care Aide Relationship Specialty Start Date End Date Moncho Garcia MD [facility] [place] [address] PCP - General 11/29/24 documented as of this encounter
--- OUTSIDE RECORDS SUMMARY | 2025-04-12 09:05 | XMS_ITS | Clinical Summary ---
Author Organization [facility] Address [address] [facility] [place] [address] Phone Care Team Providers Care Toxicologist Name Role Phone Radha Montiel MD Primary [...] his rectal cancer. CVA (cerebral vascular accident) ([facility]24, [facility] V28) 06/03/2024 Overview (06/29/2024): Last Assessment & [...] at this time. PVD (peripheral vascular disease) ([facility] V24) 11/17/2023 Overview (06/29/2024): Last Assessment & Plan: Patient with a history of peripheral vascular disease status post endarterectomy following a stroke on the left. With severe residual disease in the right followed by vascular surgery at [facility] Systolic heart failure ([facility] V24, [facility] V28 ) 11/17/2023 Overview (06/29/2024): Last Assessment [...] Comments CARDIAC CATHETERIZATION DONE ON 06/21/2024 AT [facility] INDICATIONS:Other (Chest discomfort abnormal [...] Description 06/21/2025 8:40 AM EDT Office Visit [facility] [address] [place] [address] Alyssa Rendon NP [address] [place] [address] [address] [place] [address] Health Maintenance Due Date Last Done Comments [...] Most Recently Relevant to Health Maintenance Insurance [facility] Care Teams Toxicologist Relationship Specialty Start Date End Date Radha Montiel MD PCP - General Internal Medicine 12/27/24
--- OUTSIDE RECORDS SUMMARY | 2025-04-12 09:05 | XMS_ITS | Clinical Summary ---
Author Organization [facility] Address [address] [facility] [address] [place] [address] Phone Care Team Providers Care Pathology Specialist Name Role Phone Moncho Garcia NP Primary [...] EDT) SODIUM 142 133 - 146 mmol/L [facility] CHLORIDE 108 96 - 108 mmol/L [facility] POTASSIUM 4.3 3.3 - 5.1 mmol/L [facility] CO2 24 21 - 35 mmol/L [facility] BUN 27(H) 6 - 19 mg/dL [facility] CREATININE 1.10 0.5 - 1.5 mg/dL [facility] GLUCOSE 96 70 - 99 mg/dL [facility] CALCIUM 9.0 8.4 - 10.3 mg/dL [facility] EGFR 68 >59 mL/min/1.7 3m2 [facility] Comment:Estimated glomerular filtration rate calculated using the CKD-EPI refit equation. ANION GAP 14 10 - 20 mmol/L [facility] Blood 02/02/2024 5:39 PM EDT 02/02/2024 5:46 PM EDT us Jessie Koehler PA-C LAB BLOOD ORDERABLES Fi nal Result [facility] [address] [place] [address] from Last 3 Months or Most Recently Relevant to Health Maintenance Insurance [facility] MEDICARE PART A & B [facility] MEDICARE PART A & B [facility] MED[facility] REPL[facility] MEDICARE PART A & B [facility] RE[facility] MEDICARE PART A & B [facility] MEDICARE PART A & B Member Subscriber Plan / Payer (Ef fective 2008-Present) Name:Kenny Pepe Member ID:[id number] Relation to Subscriber:Self Name:Kenny Pepe Subscriber ID:[id number] Payer ID:[id number] Group ID:Not on file Type:Medicare Address: [facility] Package [employer] [facility] [address] [facility] [place] [address] [facility] REPLAC[facility] MEDICARE PART A & B [facility]PL[facility] MEDICARE PART A & B [facility] MED[facility] REPL[facility] MEDICARE PART A & B [facility] MED[facility] REPL[facility] MEDICARE PART A & B [facility] RE[facility] Care Teams Pathology Specialist Relationship Specialty Start Date End Date Moncho Garcia NP [address] [place] [address] PCP - General Family Medicine 02/27/21 Additional Source Comments The information contained in this document represents components of the legal health record. It is not the complete legal health record.[facility]
== END 2025-04-12 09:31 | disposition home or self-care (01) ==
LOC: HO.HUSH 08:49
PROVIDERS: PCP Nurse Practitioner Family; Visit Provider Nurse Practitioner Family
DX: R97.20 Elevated prostate specific antigen [PSA] (principal); R33.9 Retention of urine, unspecified; Z13.9 Encounter for screening, unspecified
CPT/HCPCS: 99214; G2211

== ENCOUNTER 2025-04-12 08:48 | Outpatient (REF) | payer OTHER, SELFPAY | END 2025-04-12 08:49 | disposition home or self-care (01) | LOC: HO.LAB 08:48 | PROVIDERS: PCP Nurse Practitioner Family; Visit Provider Nurse Practitioner Family | DX: R97.20 Elevated prostate specific antigen [PSA] (principal); N39.0 Urinary tract infection, site not specified; R33.9 Retention of urine, unspecified; R39.15 Urgency of urination; Z13.89 Encounter for screening for other disorder | CPT/HCPCS: 81003; 87086; 87088; 87186; 99212 ==

== ENCOUNTER 2025-08-02 09:54 | Outpatient (REF) | payer OTHER, SELFPAY ==
--- NOTE | ~2025-08-02 | US_ITS ---
CLINICAL HISTORY: R33.9 - Retention of urine, unspecified US kidneys and bladder Comparison: None provided Findings: Right kidney 9.6 cm length. No significant focal abnormality. 1.5 x 2.1 cm midpole cyst. Left kidney 11.4 cm length. No significant focal abnormality. 2.1 x 2.5 cm midpole cyst. No bilateral hydronephrosis. Normal bilateral renal echogenicity. The urinary bladder is unremarkable. Prevoid volume 165 mL. Post void volume 13 mL. Bilateral ureteral jets visualized. Impression: No significant abnormalities. Ultrasound prostate Comparison: None provided Findings: Prostate heterogeneous and enlarged. Prostate measures 4.2 x 4.2 x 5.1 cm. Prostate volume 47 mL. No specific focal lesion. Impression: Heterogeneous enlarged prostate This document has been electronically signed by: Corey De La Rosa MD on 08/02/2025 21:49:46
== END 2025-08-02 09:55 | disposition home or self-care (01) ==
LOC: HO.US 09:54
PROVIDERS: PCP Internal Medicine; Visit Provider Nurse Practitioner Family
DX: R33.9 Retention of urine, unspecified (principal); R97.20 Elevated prostate specific antigen [PSA]
CPT/HCPCS: 76770

== ENCOUNTER → 2025-08-02 09:56 | Outpatient (BNV) | payer OTHER, SELFPAY | PROVIDERS: PCP Internal Medicine; Visit Provider Radiology Diagnostic Radiology | DX: N40.1 Benign prostatic hyperplasia with lower urinary tract symptoms (principal) | CPT/HCPCS: 76770 ==

== ENCOUNTER 2025-08-30 11:05 | Outpatient (REF) | payer OTHER, SELFPAY ==
[2025-08-30 12:27] LABS: Blood Urea Nitrogen 26 mg/dL (9-16); Estimated Glomerular Filt Rate 47
[2025-08-30 12:54] LABS: PSA,Total (Free>4and<10) 3.79 ng/mL (0.00-4.00)
--- OUTSIDE RECORDS SUMMARY | 2025-08-30 14:41 | XMS_ITS | Clinical Summary ---
Author Organization [facility] Address [address] [place] [address] Phone Care Team Providers Care Discharge Door Operator Name Role Phone Moncho Garcia NP Primary [...] series) 2018 Adult Td,Tdap Booster 10/24/2019 10/24/2009 CREATININE LEVEL 02/01/2025 02/02/2024, 06/18/2022 INFLUENZA VACCINE (#1) 2025 08/11/2023 COVID-19 VACCINE (3 - 2024-2 6 season) 2025 08/17/2021, 11/28/2020, 11/28/2020 HEPATITIS A VACCINES Aged Out No long [...] Date/Time Associated Diagnosis Comments BASIC METABOLIC PANEL (BMP) STAT 02/02/2024 5:39 PM EDT from Last 3 Months or Most Recently Relevant to Health Maintenance Results * (ABNORMAL) Basic metabolic panel (02/02/2024 5:39 PM EDT) SODIUM 142 133 - 146 mmol/L [facility] CHLORIDE 108 96 - 108 mmol/L [facility] POTASSIUM 4.3 3.3 - 5.1 mmol/L [facility] CO2 24 21 - 35 mmol/L [facility] BUN 27(H) 6 - 19 mg/dL [facility] CREATININE 1.10 0.5 - 1.5 mg/dL [facility] GLUCOSE 96 70 - 99 mg/dL [facility] CALCIUM 9.0 8.4 - 10.3 mg/dL [facility] EGFR 68 >59 mL/min/1.7 3m2 [facility] Comment:Estimated glomerular filtration rate calculated using the CKD-EPI refit equation. ANION GAP 14 10 - 20 mmol/L [facility] Blood 02/02/2024 5:39 PM EDT 02/02/2024 5:46 PM EDT us Jessie Koehler PA-C LAB BLOOD BKR ORDERABLE S Final Result [facility] [address] [place] [address] from Last 3 Months or Most Recently Relevant to Health Maintenance Insurance [facility] MEDICARE PART A & B [facility] MEDIC[facility] REPLACEMENT [facility] MEDICARE PART A & B [facility] REPLACEMENT [facility] MEDICARE PART A & B [facility]PLACEMENT [facility] MEDICARE PART A & B [facility]PLACEMENT [facility] MEDICARE PART A & B [facility] MED[facility] REPLACEMENT [facility] MEDICARE PART A & B [facility] MEDIC[facility] REPLACEMENT [facility] MEDICARE PART A & B [facility] MEDIC[facility] REPLACEMENT [facility] MEDICARE PART A & B [facility] MEDIC[facility] REPLACEMENT [facility] MEDICARE PART A & B [facility] MEDIC[facility] REPLACEMENT Care Teams Discharge Door Operator Relationship Specialty Start Date End Date Moncho Garcia NP [address] [place] [address] PCP - General Family Medicine 02/27/21 Additional Source Comments The information contained in this document represents components of the legal health record. It is not the complete legal health record.[facility]
--- OUTSIDE RECORDS SUMMARY | 2025-08-30 14:41 | XMS_ITS | Clinical Summary ---
Author Organization [facility] [employer] [facility] Address [address] [facility] [place] [address] Phone Care Team Providers Care Food Service Coordinator Name Role Phone Radha Montiel MD Primary [...] Problem Noted Date Diagnosed Date Aortic aneurysm 06/08/2024 Assessment & Plan (06/21/2025 9:16 AM EDT): Patient had echocardiogram in 10/2023 revealed measurements of the ascending aorta had increased from 4.2 to 4.5 cm. Will update an echocardiogram before his next office visit. CAD (coronary artery disease) 06/08/2024 Assessment & Plan (06/21/2025 9:16 AM EDT): Patient history of coronary artery disease based on abnormal nuclear stress test in the past. Coronary angiogram was completed 06/21/2024 and there was severe stenosis of the ostium of the circumflex. The circumflex gives off a long first marginal branch that was basically existing as a second OMB going to the base of the inferior/lateral wall. No intervention was deemed necessary at that time. Patient continues on risk factor modifying strategies with medical therapy. Patient reports occasional chest discomfort. We discussed the possibility of adding Ranexa and the patient has declined at this time to add any additional medical therapies. He has been warned that if he develops any chest discomfort that does not resolve with rest and continues to persist over 10 or 15 minutes he should go to the emergency room. Patient verbalized understanding. Assessment & Plan (12/23/2024 12:20 PM EDT): Patient with a stress test that shows evidence of a mild perfusion defect at the apex consistent with infarct mixed with ischemia with reduced EF. He is asymptomatic when holding off on catheterization due to continue treatment for his rectal cancer. CVA (cerebral vascular accident) 06/03/2024 Overview (06/29/2024): Last Assessment & Plan: [...] at this time. PVD (peripheral vascular disease) 11/17/2023 Overview (06/29/2024): Last Assessment & Plan: Patient with a history of peripheral vascular disease status post endarterectomy following a stroke on the left. With severe residual disease in the right followed by vascular surgery at [facility] Assessment & Plan (06/21/2025 9:06 AM EDT): Patient has history of peripheral vascular disease status post endarterectomy following a stroke on the left. He has severe residual disease and continues to follow with [facility] vascular surgery. Systolic heart failure 11/17/2023 Overview (06/29/2024): Last Assessment & Plan: Patient's previous echocardiogram on 12/25/2023 revealed an LVEF at 35%. Patient has recently had carvedilol and Entresto removed from his medication regiment due to episodes of hypotension. Patient is unsure of which provider removed him from these medications. Would like patient to have cardiac cath and then can revisit restarting these medications. Assessment & Plan (06/21/2025 9:16 AM EDT): Patient has history of HFrEF with an EF of 20 to 25% on last echocardiogram and an EF of 35% on last nuclear stress test. Titration of GDMT has been difficult due to hypotension. At his last office visit Dr. Armstrong did discuss undergoing evaluation for an ICD and the patient declined. Patient continues to decline ICD. He is euvolemic on physical examination. Unfortunately his blood pressure will not allow for any further titration of his medical therapies. Assessment & Plan (12/23/2024 12:20 PM EDT): [...] Eliquis for CVA Aortic valve disorder 09/11/2023 Assessment & Plan (06/21/2025 9:06 AM EDT): Patient is status post bioprosthetic aortic valve placement in 2010. Assessment & Plan (12/23/2024 12:20 PM EDT): [...] Tibella tolerate the procedure Aortic stenosis 09/10/2023 Assessment & Plan (06/21/2025 9:06 AM EDT): Patient has history of bicuspid aortic valve status post bioprosthetic aortic valve. Last echocardiogram showed that the valve is well-seated and functioning normally. Patient will need to continue with endocarditis prophylaxis. Resolved Problems Problem Noted Date Diagnosed Date [...] Encounters Date Type Department Care Team Description 06/21/2025 8:40 AM EDT Office Visit [facility] - [facility] [address] [facility] [place] [address] Alyssa Rendon NP Aortic aneurysm without rupture, unspecified portion of aorta (CMS/HCC V24) (Primary Dx); Nonrheumatic aortic valve stenosis; Aortic valve disorder; Coronary artery disease involving [place] coronary artery of [place] heart without angina pectoris; PVD (peripheral vascular disease) (CMS/HCC V24); Chronic systolic heart failure (CMS/HCC V24, CMS/HCC V28) from Last 3 Months Surgical History Surgery Date Site/Laterality Comments CARDIAC CATHETERIZATION DONE ON 06/21/2024 AT [facility] INDICATIONS:Other (Chest discomfort [...] Years Used Date Smoking Tobacco: Former Cigarettes 1 Q uit: 09/15/1961 Smokeless Tobacco: Never Alcohol [...] Sign Reading Time Taken Comments Blood Pressure 98/60 06/21/2025 8:52 AM EDT Pulse 61 06/21/2025 8:52 AM EDT Temperature - - Respiratory Rate - - Oxygen Saturation 98% 06/21/2025 8:52 AM EDT Inhaled Oxygen Concentration - - Weight 72.2 kg (159 lb 3.2 oz) 06/21/2025 8:52 A M EDT Height 175.3 cm (5' 9 ) 06/21/2025 8:52 AM EDT Body Mass Index 23.51 06/21/2025 8:52 AM EDT Plan of Treatment Upcoming Encounters Date Type Department Care Team (Late st Contact Info) Description 11/29/2025 10:00 AM EDT Ancillary Procedure [facility] - [address] [place] [address] Health Maintenance Due Date Last Done Comments Pneumococcal Vaccine: 50+ Years (1 of 2 - PCV) 1962 Zoster Vaccines (1 of 2) 1962 RSV Immunization Adult Patients (1 - 1-dose 75+ series) 2018 DTaP,Tdap,and Td Vaccines (2 - Td or Tdap) 10/24/2019 10/24/2009 Cholesterol Screening (Lipid Panel) 10/09/2023 Falls Risk Assessment 10/09/2023 Social Influencers of Health Screening 10/09/2023 Depression Screening 09/15/2024 COVID-19 Vaccine (3 - 2024-2 6 season) 2025 08/17/2021, 11/28/2020 Influenza Vaccine (#1) 2025 08/11/2023 Hypertension/CHF/CAD Annual [...] Most Recently Relevant to Health Maintenance Insurance [facility] Care Teams Food Service Coordinator Relationship Specialty Start Date End Date Radha Montiel MD PCP - General Internal Medicine 12/27/24
--- OUTSIDE RECORDS SUMMARY | 2025-08-30 14:41 | XMS_ITS | Clinical Summary ---
Author Organization [facility] Address [address] [place] [address] Care Team Providers Care Director Fixed Income Name Role Phone Moncho Garcia MD Primary Care Provider +1- [phone] Allergies No known active allergies Medications cyanocobalamin [...] mg total) by mouth daily. 5 Active gabapentin (NEURONTIN) 100 MG capsuleIndication s:Vascular parkinsonism (HCC),Dyskinesia Take 1 capsule (100 mg total) by mouth 2 times a day. 60 capsule 3 06/13/202 5 Active carbidopa-levodop a ER (SINEMET CR) 25-100 MG per tabletIndications :Vascular parkinsonism (HCC),Dyskinesia Take 1 tablet by mouth 2 (two) times a day. To take morning, early evening. 60 tablet 3 Active Active Problems Problem Noted Date Diagnosed [...] the right followed by vascular surgery at [facility] Aortic valve disorder 09/11/2023 Overview (11/29/2024): Oct 15, 2018 Entered By: MONCHO GARCIA Comment: Bioprosthetic valve replacement jun 18, 2011 Aortic stenosis 09/10/2023 Overview (11/29/2024): Last Assessment & Plan: Stable valve function. Patient will need to continue endocarditis prophylaxis Echocardiogram abnormal 10/11/2020 Overview (11/29/2024): February 02, 2021 Entered By: MONCHO GARCIA Comment: EF 45-50%--GRADE 1 DIASTOLIC DYSFUNCTION Family History Medical History Relation Name Comments Cancer Daughter 1 jhonathan breast Heart disease Father Heart disease Mother Cancer Sister right breast Heart disease Son Relation Name Status Comments Daughter 1 jhonathan Alive Daughter 2 edith Alive Father Mother Sister Alive Son Social History Tobacco Use Types Packs/Day Years Used Date Smoking Tobacco: Never Smokeless Tobacco: Never Tobacco Cessation:Counseling Given: Not Answered Alcohol Use Standard Drinks/Week Comments Yes 0 (1 standard drink = 0.6 oz pur e alcohol) 1 a month Sex and Gender Information Value Date Recorded Sex Assigned at Male 05/02/2025 12:26 PM EDT Legal Sex Male 10:22 AM EDT Gender Identity Male 05/02/2025 12:26 PM EDT Sexual Orientation Heterosexual (straight) 05/02 12:26 PM EDT Last Filed Vital Signs Vital Sign Reading Time Taken Comments Blood Pressure 114/75 05/04/2025 1:54 PM EDT Pulse 64 05/04/2025 1:54 PM EDT Temperature - - Respiratory Rate 16 05/04/2025 1:54 PM EDT Oxygen Saturation - - Inhaled Oxygen Concentration - - Weight 73.9 kg (163 lb) 05/04/2025 1:54 PM EDT Height 175.3 cm (5' 9 ) 05/04/2025 1:54 PM EDT Body Mass Index 24.07 05/04/2025 1:54 PM EDT Plan of Treatment Upcoming Encounters Date Type Department Care Team (Late st Contact Info) Description 09/22/2025 10:10 AM EST Office Visit [facility] [place] [address] [place] [address] David Larkin, LOG HAUL OPERATOR [address] [place] [address] 09/28/2025 8:30 AM EST Office Visit [facility] [address] [phone] Dong Villavicencio MD [address] [address] Health Maintenance Due Date Last Done Comments Advance Care Planning 1945 DTaP/Tdap/Td Vaccines (1 - Tdap) 1962 Pneumococcal Vaccines 50+ (1 of 2 - PCV) 1962 Zoster (Shingles) Vaccine (1 of 2) 1962 RSV Vaccine 50 years and older and Patients (1 - 1-dose 75+ series) 2018 Influenza Vaccine 04/15/2025 08/11/2023 COVID-19 Vaccine (3 - 2024-2 6 season) 2025 08/17/2021, 11/28/2020 Hepatitis B Vaccines Aged Out No long er eligible based on patient's age to complete this topic Insurance [place] [facility] MEDICARE MEDICARE PART A & B Care Teams Director Fixed Income Relationship Specialty Start Date End Date Moncho Garcia MD [address] [place] [address] PCP - General 11/29/24
--- OUTSIDE RECORDS SUMMARY | 2025-08-30 14:41 | XMS_ITS | Patient Health Record ---
Author Organization [facility] Address [address] [place] [address] Care Team Providers Care X Ray Developing Machine Operator Name Role Phone Jose NOVOA, Moncho Primary Care Provider Michael Houston Jr Unavailable [phone] Allergies No Known Allergies Reason For Referral No Information Medications Medication SIG (Take, Route, Frequency, Duration) Notes Start Date End Date Status Cholecalciferol 25 MCG (1000 UT) Capsule 1 capsule Orally Once a day; Duration: 30 day(s) Active Hydroxyurea 500 MG Capsule Oral; Duration: 90 Active Omeprazole 20 MG Capsule Delayed Release Oral; Duration: 90 Active Rosuvastatin Calcium 20 MG Tablet 1 tablet Orally Once a day; Duration: 30 day(s) Active Valsartan 40 MG Tablet 1 tablet Orally T wice a day; Duration: 30 day(s) Active Eliquis 5 MG Tablet TAKE 1 TABLET BY MINDI TH TWICE DAILY Oral; Duration: 30 Active Carvedilol 3.125 MG Tablet Oral; Duration: 30 Active Immunizations Vaccine Route Administration Date Status Comme nts Influenza Unknown 01/26/2024 Refused Social History Tobacco Use: Social History Observation Description Date Details (start date - stop date) Former Smoker NA - NA Social History Drugs/Alcohol: Social Info Question Answer Notes Alcohol Screen Did you have a drink containing alcohol in the past year? Yes How often did you have a drink containing alcohol in the past year? 4 or more times a week (4 points) How often did you have 6 or more drinks on one occasion in the past year? Never (0 point) Points 4 Interpretation Positive Tobacco Use: Social Info Question Answer Notes Tobacco Use/Smoking Patient is a former smoker Additional Details Category Social Info Options Details Miscellaneous: Marital status: Occupation: retired Problems Problem Type SNOMED Code ICD Code Onset Dates Problem Status W/U Status Risk Notes Problem Rectal bleeding (77969965) Rectal bleeding (K62.5) Active confirmed Problem Diarrhea (39276990) Diarrhea, unspecified type (R19.7) Active confirmed Plan Of Treatment Pending Test Test Name Order Date CBC w/o DIFF 02/19/2024 STOOL WBC 01/26/2024 OVA & PARASITES (O&P) 01/26/2024 Future Test Test Name Order Date COLONOSCOPY 01/26/2024 Insurance Providers Payer Name Payer Address Payer Phone Subscriber Number Group Number Insured Name Patient Relationship to Insured Coverage Start Date Coverage End Date [facility] [employer] [address] [place] [address] [id number] CARLOS ALBERTO CAMARA Self - patient is the insured Medical (General) History Medical History History ICD Code Porcine AVR/aortoplasty CVA 11/21/23, TNKase, residual word findin g difficulties Neurogenic bladder BPH. Essential thrombocytosis Carotid artery disease/left CEA Hyperlipidemia Left bundle branch block, le ft ventricular systolic dysfunction by echocardiogram, Dr. Armstrong Surgical History Surgery Date(Month/Year) Porcine AVR/aortoplasty 2005 Hospitalization History Reason Date(Month/Year) CVA 12/06
--- OUTSIDE RECORDS SUMMARY | 2025-08-30 14:41 | XMS_ITS | Encounter Summary ---
Author Organization [facility] Address [address] [place] [address] Phone Care Team Providers Care Utility Assembler Name Role Phone Moncho Garcia NP Primary Care Provide r Encounter Details Date Type Department Care Team (Latest Contact Info) Description 04/13/2021 Transcribe Orders Virtual Department [address] [place] [address] Moncho Carpio MD [address] [place] [address], [address] [address] [email or web address] Other retention of urine (Primary Dx); Benign prostatic hyperplasia with lower urinary tract symptoms, symptom details unspecified Social History Tobacco Use Types Packs/Day Years Used Date Smoking Tobacco: Never Smokeless Tobacco: Never Sex and Gender Information Value Date Recorded Sex Assigned at Male 02/02/2024 2:51 PM EDT Legal Sex Male 10:10 PM EDT Gender Identity Male 02/02/2024 2:51 PM EDT Sexual Orientation Not on file documented as of this encounter Plan of Treatment Not on file documented as of this encounter Visit Diagnoses Diagnosis Other retention of urine- Primary Benign prostatic hyperplasia with lower urinary tract symptoms, symptom details unspecified documented in this encounter Care Teams Utility Assembler Relationship Specialty Start Date End Date Moncho Garcia NP [address] [place] [address] PCP - General Family Medicine 02/27/21 documented as of this encounter Additional Source Comments The information contained in this document represents components of the legal health record. It is not the complete legal health record.[facility]
--- OUTSIDE RECORDS SUMMARY | 2025-08-30 14:41 | XMS_ITS | Encounter Summary ---
Author Organization [facility] Address [address] [place] [address] Phone Care Team Providers Care Entry Level Project Coordinator Name Role Phone Moncho Garcia NP Primary Care Provide r Encounter Details Date Type Department Care Team (Late st Contact Info) Description 08/19/2022 Procedure [facility] Endoscopy Admitting Dept Virtual Department [address] [place] [address] Social History Tobacco Use Types Packs/Day Years Used Date Smoking Tobacco: Former Cigarettes Q uit: 1965 Smokeless Tobacco: Never Alcohol Use Standard Drinks/Week Comments Yes 0 (1 standard drink = 0.6 oz pur e alcohol) 6 pack/month Sex and Gender Information Value Date Recorded Sex Assigned at Male 02/02/2024 2:51 PM EDT Legal Sex Male 10:10 PM EDT Gender Identity Male 02/02/2024 2:51 PM EDT Sexual Orientation Not on file documented as of this encounter Plan of Treatment Not on file documented as of this encounter Visit Diagnoses Not on filedocumented in this encounter Care Teams Entry Level Project Coordinator Relationship Specialty Start Date End Date Mnocho Garcia NP [address] [place] [address] PCP - General Family Medicine 02/27/21 documented as of this encounter Additional Source Comments The information contained in this document represents components of the legal health record. It is not the complete legal health record.[facility]
--- OUTSIDE RECORDS SUMMARY | 2025-08-30 14:41 | XMS_ITS | Encounter Summary ---
Author Organization [facility] Address [address] [place] [address] Phone Care Team Providers Care Payroll Secretary Name Role Phone Moncho Garcia NP Primary Care Provide r Encounter Details Date Type Department Care Team (Latest Contact Info) Description 04/14/2024 Transcribe Orders Virtual Department [address] [place] [address] Aayush Horvath PA [address] [place] [address] [email or web address] Aspiration into airway, initial encounter (Primary Dx) Social History Tobacco Use Types Packs/Day Years Used Date Smoking Tobacco: Former Cigarettes Q uit: 1965 Smokeless Tobacco: Never Alcohol Use Standard Drinks/Week Comments Yes 0 (1 standard drink = 0.6 oz pur e alcohol) 6 pack/month Home Health Assessment: Transportation Answer Date Recorded Lack of Transportation (Medical) No 04/10/2024 Lack of Transportation (Non-Medical) No 04/10/2024 Patient Unable or Declines to Respond No 04/10/2024 Education Answer Date Recorded Are you interested [...] as of this encounter Visit Diagnoses Diagnosis Aspiration into airway, initial encounter- Primary documented in this encounter Care Teams Payroll Secretary Relationship Specialty Start Date End Date Moncho Garcia NP [address] [place] [address] PCP - General Family Medicine 02/27/21 documented as of this encounter Additional Source Comments The information contained in this document represents components of the legal health record. It is not the complete legal health record.[facility]
--- OUTSIDE RECORDS SUMMARY | 2025-08-30 14:41 | XMS_ITS | Encounter Summary ---
Author Organization [facility] Address [address] [place] [address] Care Team Providers Care Malariologist Name Role Phone Moncho Garcia MD Primary Care Provider +1- [phone] Encounter Details Date Type Department Care Team (Late st Contact Info) Description 12/01/2024 Scanned Document [facility] Neurology [address] [phone] Neurology, Scan Social History Tobacco Use Types [...] Orientation Heterosexual (straight) 05/02 12:26 PM EDT documented as of this encounter Plan of Treatment Upcoming Encounters Date Type Department Care Team (Late st Contact Info) Description 09/22/2025 10:10 AM EST Office Visit [facility] Neurology [address] [place] [phone] David Larkin, LEONIDAS [address] [facility] [address] [place] [address] 09/28/2025 8:30 AM EST Office Visit [facility] [address] [phone] Dong Villavicencio MD [address] [phone] documented as of this encounter Visit Diagnoses Not on filedocumented in this encounter Care Teams Malariologist Relationship Specialty Start Date End Date Moncho Garcia MD [address] [place] [address] PCP - General 11/29/24 documented as of this encounter
== END 2025-08-30 11:06 | disposition home or self-care (01) ==
LOC: HO.LAB 11:05
PROVIDERS: PCP Nurse Practitioner Family; Visit Provider Nurse Practitioner Family
DX: R39.15 Urgency of urination (principal); R33.9 Retention of urine, unspecified; R97.20 Elevated prostate specific antigen [PSA]; Z12.5 Encounter for screening for malignant neoplasm of prostate
CPT/HCPCS: 36415; 82565; 84153; 84520

== ENCOUNTER 2025-09-07 08:16 | Outpatient (AMB) | payer OTHER, SELFPAY ==
--- OUTSIDE RECORDS SUMMARY | 2025-09-03 23:59 | XMS_ITS | Continuity of Care Document ---
Author Organization [facility] Address [address] [place] [address]- Care Team Providers Care Sand Screener Name Role Phone Tiana CHRISTOPHER, [facility] Primary Care Physici an Encounter [facility] [place] Date(s): 08/04/25 - 09/03/25 [facility] [address], [place] [address] Attending Physician: Marcela Johnson Admitting Physician: Marcela Johnson Referring Physician: Admtr [id number] Encounter Type: Triage Allergies, Adverse Reactions, Alerts No Known Allergies Immunizations Given and Recorded Vaccine Date Status Refusal Reason SARS-CoV-2 (COVID-19) mRNA-1273 vaccine 08/17/21 R ecorded SARS-CoV-2 (COVID-19) Ad26 vaccine 11/28/20 Record ed tetanus-diphtheria toxoids (Td) 10/24/09 Recorded Medications baclofen 10 mg oral tablet 10 mg, 1, tablet, By Mouth, 3 times a day, # 12 tablet, Refills 0, Tot. Refills 0, Maintenance, 03/22/24 10:27:00 AM EDT, Route to Pharmacy Electronically, [facility]/pharmacy #[id number], Partial fill upon patientrequest if the prescription is for a schedule II opioid drug., 175, cm, 03/22/24 10:05:00 EDT, Height, 82, kg, 03/22/24 10:05:00 EDT, Dry Weight Start Date: 03/22/24 Stop Date: 03/26/24 Status: Ordered Medication Dispense Status: Completed Quantity: 12.0 Unit: tablet Total Allowed Fills: 1 Fills Dispensed: 0 Cholecalciferol = 25 mcg, By Mouth, 0 Refills, Maintenance, 02/03/24 5:30:00 PM EDT, Partial fill upon patient request if the prescription is for a schedule II opioid drug. Start Date: 02/03/24 Status: Ordered Medication Dispense Status: Completed Total Allowed Fills: 1 Fills Dispensed: 0 clonazePAM 0.5 mg oral tablet 1 tablet = 0.5 mg, By Mouth, 3 times a day, # 90 tablet, 0 Refills, Maintenance, 12/20/24 9:39:00 AM EDT, Tablet, Partial fill upon patient request if the prescription is for a schedule II opioid drug. Start Date: 12/20/24 Status: Ordered Medication Dispense Status: Completed Quantity: 90.0 Unit: tablet Total Allowed Fills: 1 Fills Dispensed: 0 clonazePAM 0.5 mg oral tablet 1 tablet = 0.5 mg, By Mouth, 3 times a day, 0 Refills, Maintenance, 12/20/24 11:30:00 AM EDT, Tablet,Partial fill upon patient request if the prescription is for a schedule II opioid drug. Start Date: 12/20/24 Status: Ordered Medication Dispense Status: Completed Total Allowed Fills: 1 Fills Dispensed: 0 Eliquis 5 mg oral tablet 1 tablet = 5 mg, By Mouth, 2 times a day, 0 Refills, Maintenance, 02/03/24 5:29:00 PM EDT, Partial fill upon patient request if the prescription is for a schedule II opioid drug. Start Date: 02/03/24 Status: Ordered Medication Dispense Status: Completed Total Allowed Fills: 1 Fills Dispensed: 0 Hydrea 500 mg oral capsule 1 capsule = 500 mg, By Mouth, Every 48 hours, for 90 days, # 45 capsule, 4 Refills, Acute 01/06/26 11:32:00 AM EDT, 10/13/24 11:32:00 AM EST, Capsule, [id number], Partial fill upon patient request if the prescription is for a schedule II opioid drug., 173, cm, 10/11/24 9:02:00 EST, Height, 77.1, kg, 10/11/24 9:02:00 EST, Dry Weight Start Date: 10/13/24 Stop Date: 01/06/26 Status: Ordered Medication Dispense Status: Completed Quantity: 45.0 Unit: capsule Total Allowed Fills: 5 Fills Dispensed: 0 Omeprazole = 20 mg, By Mouth, 2 times a day, 0 Refills, Maintenance, 02/03/24 5:30:00 PM EDT, Partial fill uponpatient request if the prescription is for a schedule II opioid drug. Start Date: 02/03/24 Status: Ordered Medication Dispense Status: Completed Total Allowed Fills: 1 Fills Dispensed: 0 rosuvastatin 20 mg oral tablet 0.5 tab, By Mouth, Daily, 0 Refills, Maintenance, 02/03/24 5:26:00 PM EDT, Partial fill upon patientrequest if the prescription is for a schedule II opioid drug. Start Date: 02/03/24 Status: Ordered Medication Dispense Status: Completed Total Allowed Fills: 1 Fills Dispensed: 0 Problem List Condition Confirmation Course Effective Dates Status H ealth Status Informant Anemia Confirmed Active Carotid artery stenosis Confirmed Active CVA (cerebral vascular accident) Confirmed Active Chronic diarrhea Confirmed Active Chronic kidney disease, stage 3 Confirmed Active CHF NYHA class I Confirmed Active Dehydration Confirmed Active Dyskinesia Confirmed Active Thrombocythemia, essential Confirmed Active Essential thrombocytosis Confirmed Active S/P TAVR (transcatheter aortic valve replacement) Confirmed Active Rectal cancer Confirmed Active Movement disorder Confirmed Active Neck pain on left side Confirmed Active Falls Confirmed Active Thyroid nodule Confirmed Active Vitamin B deficiency Confirmed Active Weight loss Confirmed Active Social History Social History Type Response Sexual Sexually involved in last 6 months: No. Tobacco Use: pt denies. Sex Sex Representation Male (finding) Patient Care team information Care Team Personnel Name: Zayda Hou MA Position: [facility] Onco RN Member Role: Primary Care Nurse Name: Radha Montiel MD Position: [facility] Physician - Hospital Medicine Member Role: PCP Address: [address] [place] [id number] Telecom: Name: Elizabeth Ceballos RN Position: [facility] Onco RN Member Role: Primary Care Nurse Name: Vinny Gatica MD Position: [facility] Cardiology MD Member Role: Lifetime Consulting Physician Address: [address] [place] [address] [facility] [place] [address]- [place] Telecom: Name: Aniya Gould RN Position: [facility] Onco RN Member Role: Primary Care Nurse Care Team Related Persons Name: ESME HOLT Name: SILVIA HOLT Name: RIVERA PALENCIA Insurance Providers Guarantor name: [facility] Information #: 1 Payer: [facility] Payer Identifier: DOMI Member Number: [id number] Group Number: [id number] Subscriber Identifier: DOMI Relationship to Subscriber: self Coverage Type: NA Coverage Verification Date: NA Telecom: NA Address:
--- NOTE | 2025-09-07 08:19 | MHC.OFFVIS ---
Intake Visit Reasons: 4m/US/UA Intake Note: Patient is present for 4M/US/UA/LABS IMAGIN08/02/25 PSA:3.79 BUN:26 CREAT:1.44 Urology Medication:VITAMIN B12 Antibiotic Allergy:NONE Blood Thinner:APIXABAN Conservation Coordinator Required: No Allergies No Known Allergies Allergy (Verified 09/07/25 09:43) Medication List - Last Reconciled 09/07/25 by MERCEDES Valentino-THOMAS apixaban (Eliquis) 5 mg PO BID baclofen 10 mg PO TID cholecalciferol (vitamin D3) 25 mcg PO DAILY clonazepam 0.5 mg PO TID cyanocobalamin (vitamin B-12) 1,000 mcg PO DAILY finasteride 5 mg PO DAILY 90 days hydroxyurea 500 mg PO Q72H omeprazole 20 mg PO DAILY rosuvastatin 10 mg PO DAILY HPI Comments Details: Kenny Ji is a very pleasant 80-year-old male patient of Dr. Garcia who was accompanied by his daughter at today's office visit. He has a past medical history of tardive dyskinesia, stroke, cardiomyopathy, and a neurogenic bladder. He presents to the office today for follow-up of his neurogenic bladder and incomplete bladder emptying. Most recent retroperitoneal ultrasound and PSA results were reviewed with the patient and his daughter today. 08/09 bilateral kidneys with no significant focal abnormality per radiology report. The urinary bladder is unremarkable. No hydronephrosis noted bilaterally. The prostate is heterogeneous in enlarged measuring 47 mL. PSAs are as follows: PSA: 07/02 4.6, 08/02 3.3, 01/31 3.4, 05/03 3.1, 11/04 2.8, 05/04 2.3, 04/08 4.9, 09/08 3.8 BUN: 07/02 22, 07/03 25, 12/06 20, 12/06 21, 12/06 30, 12/06 29, 09/08 26 Creatinine: 07/02 1.13, 07/03 1.03, 12/06 1.11, 12/06 1.05, 12/06 1.26, 12/06 1.05, 09/08 1.44 We did discuss increase in creatinine over the last 18 months. He does report he is typically performing CIC 3 times per day. We did discuss attempting to increase CIC to 5 times per day. We also discussed enlarged prostate noted on imaging today. We did discussed further treatment options of his urological conditions and risks and benefits of these treatment options. He continues to follow-up with [facility] oncology for his immunotherapy related to his rectal cancer however is vague when discussing medical history regarding this issue. He currently denies any bothersome urinary issues. He denies urinary urgency, urinary frequency, incontinence, nocturia, hematuria, dysuria, foul smelling urine, changes to urinary stream, flank pain, fever, and or chills. We discussed potential causes of incomplete bladder emptying/urinary retention as well as further treatment options and risks and benefits of these treatment options. We discussed further interventions to include trial of finasteride verses MRI of the prostate verses prostate biopsy verses surveillance monitoring. Risks and benefits were discussed. He does discuss having previously had a cystoscopy many years ago and being on Flomax however continued with increased postvoid residual therefore recommendations were made for clean intermittent catheterization. He discusses that although he suffers from tardive dyskinesia he has no issues with self catheterization. He otherwise offers no other issues or concerns at this time. [facility] Medical History Cardiomyopathy Stroke Hypotonic neurogenic bladder Surgical History S/P aortic valve replacement and aortoplasty History of heart surgery History of tonsillectomy History of removal of cyst Family History Father No problems noted. Mother No problems noted. Social History Household Members: Spouse Housing: House Do you presently have visiting nurse or other home services: No Comment: Pt. refusing bed exit alarm. Patient Tobacco Use Status: Former Tobacco user Tobacco use type: Cigarette e-Cigarette/Vaping Use: Former Use Second Hand Smoke Exposure: No service: Yes Review of Systems Const All systems reviewed & are unremarkable except as noted in HPI and below Physical Exam Const General: cooperative, comfortable, no acute distress, well developed, alert and awake Orientation/consciousness: patient oriented x3 Limitations: no limitations HEENT Head: Yes normal to inspection Ears: hearing grossly normal bilaterally General nose exam: Normal external nose present Eyes Other: Patient with involuntary eye movements throughout today's appointment Neck Neck: Yes normal visual inspection Chest Chest palpation & inspection: normal inspection of the chest Resp Effort & Inspection: normal respiratory effort Cardio Rate: regular rate GI Inspection: Yes normal to inspection General: Yes no CVA tenderness Back/Spine/Pelvis Back: no CVA tenderness Skin General skin exam: no rashes or lesions noted Neuro General: patient oriented x3 Psych Appearance: well kempt Speech and movement: Slowed speech present (Psych) and Pressured speech present Affect: normal affect Attitude: cooperative Thought process: Normal thought process present Thought content: Normal thought content present Insight: Fair insight present (Psych) Judgement: Fair judgement present (Psych) Results Reviewed Results Reviewed: Date of Service: 08/02/25 Procedure(s): US retroperitoneal comp Findings: Right kidney 9.6 cm length. No significant focal abnormality. 1.5 x 2.1 cm midpole cyst. Left kidney 11.4 cm length. No significant focal abnormality. 2.1 x 2.5 cm midpole cyst. No bilateral hydronephrosis. Normal bilateral renal echogenicity. The urinary bladder is unremarkable. Prevoid volume 165 mL. Post void volume 13 mL. Bilateral ureteral jets visualized. Impression: No significant abnormalities. Ultrasound prostate Comparison: None provided Findings: Prostate heterogeneous and enlarged. Prostate measures 4.2 x 4.2 x 5.1 cm. Prostate volume 47 mL. No specific focal lesion. Impression: Heterogeneous enlarged prostate Assessment & Plan Assessment & Plan (1) Elevated PSA: Code(s): R97.20 - Elevated prostate specific antigen [PSA] Category: Medical (2) Urinary retention with incomplete bladder emptying: Code(s): R33.9 - Retention of urine, unspecified Category: Medical Plan Most recent retroperitoneal ultrasound results reviewed with the patient today; as noted above. We discussed enlarged prostate noted on imaging in the setting of incomplete bladder emptying. We did discussed labile PSA. We also discussed at length potential causes of incomplete bladder emptying/urinary retention; we discussed further treatment options of these urological conditions and risks and benefits of these treatment options. Patient continues to CIC. We did discuss increasing CIC to 5 times per day as patient reports he typically will CIC 3 possibly 4 times a day. All questions were answered. Start finasteride as discussed and prescribed. Most recent BUN, creatinine, and PSA results reviewed with the patient and his daughter today; as noted above. Will obtain PSA, BUN, and creatinine in 4 months Follow-up in 4 months with PSA, BUN, creatinine, and PVR; or sooner with any issues, concerns, and or questions. Orders: Orders Creatinine 4 Months R39.15 - Urgency of urination Prostate Specific Antigen 4 Months R33.9 - Retention of urine, unspecified, R97.20 - Elevated prostate specific antigen [PSA] Blood Urea Nitrogen 4 Months R39.15 - Urgency of urination Medications: New finasteride 5 mg PO DAILY 90 tabs 1RF 90 days N13.8 - Other obstructive and reflux uropathy, N40.1 - Benign prostatic hyperplasia with lower urinary tract symptoms, R33.9 - Retention of urine, unspecified Discontinued sulfamethoxazole-trimethoprim 800-160 mg (Bactrim DS) Discontinued Reason: Patient Completed Course 1 tab PO BID 7 days 14 tabs 0RF N39.0 - Urinary tract infection, site not specified Patient Instructions: The patient had an opportunity to ask questions regarding the treatment plan. All questions were answered. Physical exam, labs, and imaging were discussed and reviewed in detail. As well as risks, benefits, and discussion of treatment choices. No major barriers to understanding were identified. The patient expressed understanding and agreement with the above treatment plan. The patient was made aware they should contact our office by phone for worsening of their current condition, the appearance of new symptoms, or with any questions or concerns. Compliance is encouraged with any medications and follow up testing that is ordered. It is a privilege to be allowed the opportunity to participate in? your urological care.? Again, if you have any questions or concerns If you have any questions or concerns please do not hesitate to contact me. The office is [phone]. This note is constructed using voice recognition software. While every effort has been made to ensure accuracy digital advertising specialist errors may have been included. Yours sincerely, GAB Valentino Coding Level of Care Code Est Pt Level 4 (82140) Add On Problem Visit Only Diagnoses Elevated PSA R97.20 Urinary retention with incomplete bladder emptying R33.9
--- OUTSIDE RECORDS SUMMARY | 2025-09-07 08:20 | XMS_ITS | Encounter Summary ---
Author Organization [facility] Address [address] [place] [address] Phone Care Team Providers Care Residential Framing Carpenter Name Role Phone Moncho Garcia NP Primary Care Provide r Encounter Details Date Type Department Care Team (Latest Contact Info) Description 04/14/2024 Transcribe Orders Virtual Department [address] [place] [address] Aayush Horvath PA [address] [place] [address] [email or web address] Aspiration into airway, initial encounter (Primary [...] Primary documented in this encounter Care Teams Residential Framing Carpenter Relationship Specialty Start Date End Date Moncho Garcia NP [address] [place] [address] PCP - General Family Medicine 02/27/21 documented as of this encounter Additional Source Comments The information contained in this document represents components of the legal health record. It is not the complete legal health record.[facility]
--- OUTSIDE RECORDS SUMMARY | 2025-09-07 08:20 | XMS_ITS | Encounter Summary ---
Author Organization [facility] Address [address] [place] [address] Care Team Providers Care Assisted Sales Representative Name Role Phone Moncho Garcia MD Primary Care Provider [phone]- [phone] Encounter Details Date Type Department Care Team (Late st Contact Info) Description 12/01/2024 Scanned Document [facility]rology [address] [phone] Neurology, Scan Social History Tobacco Use Types [...] Description 09/22/2025 10:10 AM EST Office Visit [facility] Neurology [address] [place] [address] [phone] David Larkin, LEONIDAS [address] [facility] [address] [place] [phone] 09/28/2025 8:30 AM EST Office Visit [facility] [address] [phone] Dong Villavicencio MD [address] [phone] documented as of this encounter Visit Diagnoses Not on filedocumented in this encounter Care Teams Assisted Sales Representative Relationship Specialty Start Date End Date Moncho Garcia MD [address] [place] [address] PCP - General 11/29/24 documented as of this encounter
--- OUTSIDE RECORDS SUMMARY | 2025-09-07 08:20 | XMS_ITS | Encounter Summary ---
Author Organization [facility] Address [address] [facility] [address] [place] [address] Phone Care Team Providers Care Plastics Technician Name Role Phone Moncho Garcia NP Primary Care Provide r Encounter Details Date Type Department Care Team (Latest Contact Info) Description 04/13/2021 Transcribe Orders Virtual Department [address] [place] [phone] Moncho Carpio MD [address] [place] [address], [address] [address] [email or web address] Other retention of urine (Primary Dx); Benign [...] unspecified documented in this encounter Care Teams Plastics Technician Relationship Specialty Start Date End Date Moncho Garcia NP [address] [place] [address] PCP - General Family Medicine 02/27/21 documented as of this encounter Additional Source Comments The information contained in this document represents components of the legal health record. It is not the complete legal health record.[facility]
--- OUTSIDE RECORDS SUMMARY | 2025-09-07 08:20 | XMS_ITS | Clinical Summary ---
Author Organization [facility] Address [address] [place] [phone] Care Team Providers Care Equestrian Trainer Name Role Phone Moncho Garcia MD Primary Care Provider +1- [phone] Allergies No known active allergies Medications cyanocobalamin [...] the right followed by vascular surgery at [facility] Aortic valve disorder 09/11/2023 Overview (11/29/2024): [...] Description 09/22/2025 10:10 AM EST Office Visit [facility] Neurology [place] [address] [facility] [address] [place] [address] David Larkin, TRADE MARK EXAMINER [address] [facility] [address] [place] [address] 09/28/2025 8:30 AM EST Office Visit [facility] [address] [phone] Dong Villavicencio MD [address] [address] Health Maintenance Due Date Last Done Comments [...] patient's age to complete this topic Insurance [place] [facility] MEDICARE MEDICARE PART A & B Care Teams Equestrian Trainer Relationship Specialty Start Date End Date Moncho Garcia MD [address] [place] [address] PCP - General 11/29/24
--- OUTSIDE RECORDS SUMMARY | 2025-09-07 08:20 | XMS_ITS | Clinical Summary ---
Author Organization [facility] Address [address] [facility] [address] [place] [address] Phone Care Team Providers Care Building Rental Manager Name Role Phone Moncho Garcia NP Primary [...] SODIUM 142 133 - 146 mmol/L [facility] CHLORIDE 108 96 - 108 mmol/L [facility] POTASSIUM 4.3 3.3 - 5.1 mmol/L [facility] CO2 24 21 - 35 mmol/L [facility] BUN 27(H) 6 - 19 mg/dL [facility] CREATININE 1.10 0.5 - 1.5 mg/dL [facility] GLUCOSE 96 70 - 99 mg/dL [facility] CALCIUM 9.0 8.4 - 10.3 mg/dL [facility] EGFR 68 >59 mL/min/1.7 3m2 [facility] Comment:Estimated glomerular filtration rate calculated using the CKD-EPI refit equation. ANION GAP 14 10 - 20 mmol/L [facility] Blood 02/02/2024 5:39 PM EDT 02/02/2024 5:46 PM EDT us Jessie Koehler PA-C LAB BLOOD BKR ORDERABLE S Final Result [facility] [address] [place] [address] from Last 3 Months or Most Recently Relevant to Health Maintenance Insurance [facility] MEDICARE PART A & B [facility] MEDICARE [facility]PLACEMENT [facility] MEDICARE PART A & B [facility] MEDICARE [facility]PLACEMENT [facility] MEDICARE PART A & B [facility] MEDICARE [facility]PLACEMENT [facility] MEDICARE PART A & B [facility] MEDICARE [facility]PLACEMENT [facility] MEDICARE PART A & B [facility] MEDICARE [facility]PLACEMENT [facility] MEDICARE PART A & B [facility] MEDICARE REPLACEMENT [facility] MEDICARE PART A & B [facility] MEDICARE [facility]PLACEMENT [facility] MEDICARE PART A & B [facility] MEDICARE REPLACEMENT [facility] MEDICARE PART A & B [facility] MEDICARE REPLACEMENT Care Teams Building Rental Manager Relationship Specialty Start Date End Date Moncho Garcia NP [address] [place] [address] PCP - General Family Medicine 02/27/21 Additional Source Comments The information contained in this document represents components of the legal health record. It is not the complete legal health record.[facility]
--- OUTSIDE RECORDS SUMMARY | 2025-09-07 08:20 | XMS_ITS | Encounter Summary ---
Author Organization [facility] Address [address] [place] [address] Phone Care Team Providers Care Machine Operator Hay Stacker Name Role Phone Moncho Garcia NP Primary Care Provide r Encounter Details Date Type Department Care Team (Late st Contact Info) Description 08/19/2022 Procedure Pass [facility] Endoscopy Admitting Dept Virtual Department [address] [place] [address] Social History Tobacco Use Types Packs/Day Years [...] on filedocumented in this encounter Care Teams Machine Operator Hay Stacker Relationship Specialty Start Date End Date Moncho Garcia NP [address] [place] [address] PCP - General Family Medicine 02/27/21 documented as of this encounter Additional Source Comments The information contained in this document represents components of the legal health record. It is not the complete legal health record.[facility]
--- OUTSIDE RECORDS SUMMARY | 2025-09-07 08:20 | XMS_ITS | Patient Health Record ---
Author Organization [facility] Address [address] [place] [id number] Care Team Providers Care D[employer]attle [employer] Manager Name Role Phone Jose NOVOA, Moncho Primary Care Provider Michael Houston Jr Unavailable [phone] Allergies No Known Allergies Reason For [...] W/U Status Risk Notes Problem Rectal bleeding (18242201) Rectal bleeding (K62.5) Active confirmed Problem Diarrhea (62310824) Diarrhea, unspecified type (R19.7) Active confirmed Plan Of Treatment Pending Test Test Name Order Date CBC w/o DIFF 02/19/2024 STOOL WBC 01/26/2024 OVA & PARASITES (O&P) 01/26/2024 Future Test Test Name Order Date COLONOSCOPY 01/26/2024 Insurance Providers Payer Name Payer Address Payer Phone Subscriber Number Group Number Insured Name Patient Relationship to Insured Coverage Start Date Coverage End Date [facility] [employer] [address] [place] [address] [id number] CARLOS ALBERTO CAMARA Self - patient is [...]
== END 2025-09-07 08:53 | disposition home or self-care (01) ==
LOC: HO.HUSH 08:17
PROVIDERS: PCP Nurse Practitioner Family; Referring Provider Nurse Practitioner Family; Visit Provider Nurse Practitioner Family
DX: R97.20 Elevated prostate specific antigen [PSA] (principal); R33.9 Retention of urine, unspecified
CPT/HCPCS: 99214; G2211

== ENCOUNTER → 2025-09-07 08:16 | Outpatient (BNVA) | payer OTHER, SELFPAY | PROVIDERS: PCP Nurse Practitioner Family; Visit Provider Nurse Practitioner Family | DX: N40.1 Benign prostatic hyperplasia with lower urinary tract symptoms (principal); N13.8 Other obstructive and reflux uropathy; R33.8 Other retention of urine; R97.20 Elevated prostate specific antigen [PSA]; R39.15 Urgency of urination | CPT/HCPCS: 99212 ==